=== PATIENT | female | born 1940 | race Caucasian/White ===

== ENCOUNTER → 2017-10-23 | Outpatient (CLI) | payer MEDICARE ==
[2017-10-23 13:10] LABS: Anion Gap 9 mmol/L; Blood Urea Nitrogen 19 mg/dL (7-17); Carbon Dioxide 29 mmol/L (22-30); Chloride 98 mmol/L (98-107); HCT 48.6 % (34.0-46.0); HGB 15.7 gm/dL (11.4-16.0); MCH 29.2 pg (25.0-35.0); MCHC 32.4 g/dL (31.0-37.0); MCV 90.1 fL (80.0-100.0); Mean Platelet Volume 7.2; Platelet Count 282 k/uL (150-450); RBC 5.39 m/uL (3.80-5.40); RDW 14.3 % (11.5-15.5); Sodium 136 mmol/L (137-145); WBC 12.1 k/uL (3.8-10.6)
== END | disposition home or self-care (01) ==
LOC: LABPAT 12:11
PROVIDERS: ATTEND Internal Medicine Interventional Cardiology
DX: Z01.812 Encounter for preprocedural laboratory examination (principal); I65.22 Occlusion and stenosis of left carotid artery; I42.1 Obstructive hypertrophic cardiomyopathy
CPT/HCPCS: 36415; 80051; 82565; 84520; 85027

== ENCOUNTER 2017-11-01 10:30 | Day surgery (SDC) | payer MEDICARE ==
[2017-10-25 15:38] VITALS: BMI 21.2
[2017-11-01 09:48] VITALS: RESP 18
[~2017-11-01 10:30] MED LIST: ALPRAZolam 0.25 MG TAB PO PRN; ALPRAZolam 0.5 MG TAB PO PRN; ASPIRIN 325 MG TAB PO ONE; ATORVASTATIN 80 MG TAB PO ONE; LIDOCAINE 1% INJ 10MG/ML (20 ML MDV) ONE; MIDAZOLAM 2 MG/2 ML VIAL ONE; NITROGLYCERIN SL TABS 0.4 MG TAB SUBLINGUAL PRN; SODIUM CHLORIDE 0.9% 1,000 ML in EMPTY BAG 1 BAG IV ONE; VERAPAMIL 2.5 MG/ML 2 ML AMP ONE; diphenhydrAMINE 50 MG/ML 1 ML VIAL ONE; fentaNYL (PF) 50 MCG/ML 2 ML AMP ONE
[2017-11-01] MEDS ORDERED: fentaNYL (PF) 50 MCG/ML 2 ML AMP IV ONE (10:50)
[2017-11-01] MEDS ORDERED: diphenhydrAMINE 50 MG/ML 1 ML VIAL IVP ONE (10:51)
[2017-11-01] MEDS ORDERED: HEPARIN SODIUM 1,000 UN/ML (10ML VL) ONE (10:52)
[2017-11-01] MEDS ORDERED: LIDOCAINE 1% INJ 10MG/ML (20 ML MDV) SQ ONE (10:54)
[2017-11-01] MEDS ORDERED: MIDAZOLAM 2 MG/2 ML VIAL IV ONE (10:56)
[2017-11-01] MEDS: VERAPAMIL SYRINGE (5 MG/10 ML) INTRAARTER ONE ×2 (11:00→11:05)
[2017-11-01] MEDS ORDERED: HEPARIN SODIUM 1,000 UN/ML (10ML VL) IV ONE (11:07)
[2017-11-01] MEDS ORDERED: IOPAMIDOL-370 125ML BTL INJ ONE (11:12)
[2017-11-01] MEDS ORDERED: RX INFO: IV CONTRAST WAS GIVEN 1 EACH MISC MISCELLANE PRN (11:29)
[2017-11-01] MEDS ORDERED: SODIUM CHLORIDE 0.9% 1,000 ML IV SCH (11:30)
[2017-11-01] MEDS ORDERED: GABAPENTIN 300 MG CAP PO PRN (11:30)
--- NOTE | 2017-11-01 11:55 | CC ---
CARDIAC CATHETERIZATION REPORT Mrs. Rivera a 77-year-old female with known history of hypertension, hyperlipidemia, diabetes mellitus, who has been complaining of dyspnea on exertion. Underwent a myocardial perfusion imaging that showed a partial reversible anteroapical wall defect. In view of that, recommendation was made regarding cardiac catheterization. The procedures, risks and complication were discussed with the patient who is in full understanding and agreement. PROCEDURE: Patient was brought to laborer laboratory in a fasting semi-sedated state after receiving fentanyl and Benadryl and achieving moderate conscious sedated state. Using Xylocaine anesthesia in the Seldinger technique, a 6-Maldivian sheath was introduced in the right radial artery. Selective right and left coronary angiography was performed using 5- Maldivian 3.5 bend right and left Murali catheter. Multiple views of the coronary artery including hemiaxial views were obtained. Following that 5-Maldivian tight pigtail catheter was introduced in the left ventricle and a 30-degree JOE view of the left ventricle was obtained. Following that, catheter and sheaths were removed. Hemostasis was obtained with deployment of a TR band. There was no immediate complication. Patient was returned to her room in stable condition. Of note, the patient received 4000 units of intravenous heparin as well as intra-arterial verapamil. FINDINGS: FLUOROSCOPY: There was calcification involving the ascending aorta. LEFT MAIN: This is a large-sized vessel bifurcating left circumflex, left anterior descending artery. Left main coronary artery is without any significant obstructive coronary artery disease. LEFT ANTERIOR DESCENDING ARTERY: This is a large-sized vessel reaching toward the apex, tapers down in the distal third, gives rise to a very proximal large diagonal branch. The left anterior descending artery and diagonal branch are tortuous but they have no evidence of high-grade stenosis. LEFT CIRCUMFLEX: This is a nondominant vessel giving rise to 2 obtuse marginal branch; the first one is large in caliber. The left circumflex in the mid segment has a 20% plaque. The rest of the vessel has no high-grade stenosis. RIGHT CORONARY ARTERY: This is a dominant vessel large in caliber bifurcating distally PDA and posterolateral segment and branches. The right coronary artery as well as branches have no evidence of obstructive coronary artery disease. LEFT VENTRICULOGRAM: Left ventriculogram was performed in 30-degree JOE view and revealed normal left ventricular size and systolic function. There was arrhythmia induced mitral regurgitation. HEMODYNAMICS: There was no gradient across the aortic valve. The left ventricular end- diastolic pressure was 10 to 14 mmHg. CONCLUSION: 1. Mild intimal disease involving the left circumflex. 2. Normal left ventricular size and systolic function. 3. Calcification of the ascending aorta. RECOMMENDATION: In view of finding anatomy, I recommend to continue medical therapy with aggressive coronary risk modifications that have been initiated. Those findings and recommendation were discussed with the patient and her family who are in full understanding and agreement. DURATION OF PROCEDURE: 25 minutes. MMLYRICL / CLN: [id number] /
[2017-11-01 13:02] VITALS: TEMP 98
[2017-11-01 13:21] LABS: Glucose,Whole Blood 121 mg/dL (75-99)
[2017-11-01] MEDS ORDERED: SODIUM CHLORIDE 0.9% 250 ML IV ONE (14:30)
[2017-11-01 16:20] VITALS: BP 120/64; PULSE 64
[2017-11-01] MEDS ORDERED: NON-FORMULARY DRUG (Simvastatin 10 MG) PO SCH (21:00)
[2017-11-02] MEDS ORDERED: METOPROLOL SUCCINATE (ER) 25 MG TAB.ER.24H PO SCH (09:00)
[2017-11-02] MEDS ORDERED: amLODIPine 5 MG TAB PO SCH (09:00)
[2017-11-02] MEDS ORDERED: NON-FORMULARY DRUG (Celecoxib 200 MG) PO SCH (09:00)
[2017-11-02] MEDS ORDERED: HYDROCHLOROTHIAZIDE 25 MG TAB PO SCH (09:00)
[2017-11-02] MEDS ORDERED: LOSARTAN 50 MG TAB PO SCH (09:00)
[2017-11-02] MEDS ORDERED: ASPIRIN 81 MG PO SCH (09:00)
[2017-11-02] MEDS ORDERED: NON-FORMULARY DRUG (Cetirizine Hcl [Zyrtec] 10 MG) PO SCH (09:00)
[2017-11-02] MEDS ORDERED: [UNRECOGNIZED DRUG - OTHER] PO SCH (09:00)
== END 2017-11-01 13:15 | disposition home or self-care (01) ==
LOC: CATHCVL 10:30
PROVIDERS: ATTEND Internal Medicine Interventional Cardiology
DX: I34.0 Nonrheumatic mitral (valve) insufficiency (principal); I25.10 Atherosclerotic heart disease of native coronary artery without angina pectoris; I10 Essential (primary) hypertension; Z72.0 Tobacco use; E78.2 Mixed hyperlipidemia; I65.22 Occlusion and stenosis of left carotid artery; I42.1 Obstructive hypertrophic cardiomyopathy; E13.51 Other specified diabetes mellitus with diabetic peripheral angiopathy without gangrene; Z79.84 Long term (current) use of oral hypoglycemic drugs; Z79.82 Long term (current) use of aspirin; Z79.899 Other long term (current) drug therapy
CPT/HCPCS: 93458; C1894; C1769; J2250; J1200; J2001; J3010; J1644; Q9967

== ENCOUNTER 2020-05-07 13:14 | Inpatient (IN) | payer MEDICARE ==
[2020-05-07] MEDS ORDERED: methylPREDNISolone SOD SUCCI 125 MG/2 ML VIAL IV STA (13:18)
--- NOTE | 2020-05-07 13:23 | ED ---
General Adult HPI - General Stated complaint: SOB Time Seen by Provider: 05/07/20 13:14 Source: patient, RN notes reviewed, old records reviewed - History of Present Illness Initial comments: This is a 80-year-old female who presents emergency Department past medical history significant for COPD and hypertension. Patient states she smoked heavily until 21 years ago at which point time she quit. Patient comes in today because of difficulty breathing. Patient states it started yesterday and has gotten progressively worse. Patient states exertion is made considerably worse per patient denies any chest pain patient denies any palpitations. Patient denies any fever chills. Patient denies any significant cough. Patient denies abdominal pain patient denies nausea vomiting diarrhea. Patient denies headache patient denies numbness weakness. Patient states she's noted over the last day some swelling to her feet which she normally does not have. Patient denies any calf tenderness. - Related Data Home Medications Medication Instructions Recorded Confirmed Aspirin 81 mg PO DAILY 10/25/17 11/01/17 Celecoxib [CeleBREX] 200 mg PO DAILY 10/25/17 11/01/17 Cetirizine HCl [Zyrtec] 10 mg PO DAILY 10/25/17 11/01/17 Gabapentin [Neurontin] 600 mg PO TID PRN 10/25/17 11/01/17 Losartan [Cozaar] 50 mg PO DAILY 10/25/17 11/01/17 Metoprolol Succinate (ER) [Toprol 25 mg PO DAILY 10/25/17 11/01/17 Xl] Simvastatin [Zocor] 10 mg PO HS 10/25/17 11/01/17 amLODIPine [Norvasc] 5 mg PO DAILY 10/25/17 11/01/17 hydroCHLOROthiazide [Hydrodiuril] 25 mg PO DAILY 10/25/17 11/01/17 metFORMIN HCL [Glucophage] 500 mg PO DAILY 10/25/17 11/01/17 Fluticasone/Vilanterol [Breo 1 inhalation PO Q24HR 10/26/17 10/26/17 Ellipta 100-25 Mcg Inhaler] Allergies Allergy/AdvReac Type Severity Reaction Status Date / Time No Known Allergies Allergy Verified 11/01/17 09:40 Review of Systems ROS Statement: Those systems with pertinent positive or pertinent negative responses have been documented in the HPI. ROS Other: All systems not noted in ROS Statement are negative. General Exam - General Exam Comments Initial Comments: GENERAL: Patient is well-developed and well-nourished. Patient is nontoxic and well-h ydrated and is in mild distress. ENT: Neck is soft and supple. No significant lymphadenopathy is noted. Oropharynx is clear. Moist mucous membranes. Neck has full range of motion without eliciting any pain. EYES: The sclera were anicteric and conjunctiva were pink and moist. Extraocular move ments were intact and pupils were equal round and reactive to light. Eyelids were unremarkable. PULMONARY: Diminished breath sounds throughout CARDIOVASCULAR: There is a regular rate and rhythm without any murmurs gallops or rubs. ABDOMEN: Soft and nontender with normal bowel sounds. SKIN: Skin is clear with no lesions or rashes and otherwise unremarkable. NEUROLOGIC: Patient is alert and oriented x3. Cranial nerves II through XII are grossly intact. Motor and sensory are also intact. Normal speech, volume and content. Symmetrical smile. MUSCULOSKELETAL: Normal extremities with adequate strength and full range of motion. 1+ edema bilateral feet LYMPHATICS: No significant lymphadenopathy is noted PSYCHIATRIC: Normal psychiatric evaluation. Course Vital Signs 05/07/20 05/07/20 05/07/20 13:20 14:05 15:20 Temperature 97.1 F L Pulse Rate 86 74 Respiratory 22 26 H 18 Rate Blood Pressure 101/52 93/64 O2 Sat by Pulse 85 L 98 97 Oximetry Medical Decision Making - Medical Decision Making EKG shows sinus rhythm with occasional PAC at a rate of 88 bpm GA interval 120 QRS 76 QT interval 352 QTC is 425. Patient's EKG shows no ST segment elevation or depression. CT of the chest shows no pulmonary was no overt failure. Patient's troponin was elevated over the patient's having no chest pain. I will consult cardiology repeat troponin. I spoke with Dr. rodriguez he agreed to admit the patient admitted the patient wrote admitting orders - Lab Data Result diagrams: 05/07/20 14:00 05/07/20 13:55 Lab Results 05/07/20 05/07/20 05/07/20 Range/Units 13:49 13:55 14:00 WBC 8.9 (3.8-10.6) k/uL RBC 5.78 H (3.80-5.40) m/uL Hgb 15.4 (11.4-16.0) gm/dL Hct 51.0 H (34.0-46.0) % MCV 88.2 (80.0-100.0) fL MCH 26.7 (25.0-35.0) pg MCHC 30.2 L (31.0-37.0) g/dL RDW 16.1 H (11.5-15.5) % Plt Count 203 (150-450) k/uL MPV 9.3 Neutrophils % (Manual) 86 % Lymphocytes % (Manual) 6 % Monocytes % (Manual) 8 % Neutrophils # (Manual) 7.65 (1.3-7.7) k/uL Lymphocytes # (Manual) 0.53 L (1.0-4.8) k/uL Monocytes # (Manual) 0.71 (0-1.0) k/uL Nucleated RBCs 0 (0-0) /100 WBC Hypochromasia Marked Poikilocytosis Moderate Anisocytosis Slight Target Cells Present PT (9.0-12.0) sec INR (<1.2) APTT (22.0-30.0) sec D-Dimer (<0.60) mg/L FEU Sodium 138 (137-145) mmol/L Potassium 4.8 (3.5-5.1) mmol/L Chloride 101 (98-107) mmol/L Carbon Dioxide 30 (22-30) mmol/L Anion Gap 7 mmol/L BUN 67 H (7-17) mg/dL Creatinine 1.58 H (0.52-1.04) mg/dL Est GFR (CKD-EPI)AfAm 36 (>60 ml/min/1.73 sqM) Est GFR (CKD-EPI)NonAf 31 (>60 ml/min/1.73 sqM) Glucose 127 H (74-99) mg/dL Plasma Lactic Acid Frankie (0.7-2.0) mmol/L Calcium 8.9 (8.4-10.2) mg/dL Total Bilirubin 0.9 (0.2-1.3) mg/dL AST 32 (14-36) U/L ALT 29 (4-34) U/L Alkaline Phosphatase 96 (38-126) U/L Troponin I (0.000-0.034) ng/mL Total Protein 6.3 (6.3-8.2) g/dL Albumin 3.6 (3.5-5.0) g/dL Coronavirus (PCR) Not Detected (Not Detectd) 05/07/20 05/07/20 05/07/20 Range/Units 14:00 14:00 14:00 WBC (3.8-10.6) k/uL RBC (3.80-5.40) m/uL Hgb (11.4-16.0) gm/dL Hct (34.0-46.0) % MCV (80.0-100.0) fL MCH (25.0-35.0) pg MCHC (31.0-37.0) g/dL RDW (11.5-15.5) % Plt Count (150-450) k/uL MPV Neutrophils % (Manual) % Lymphocytes % (Manual) % Monocytes % (Manual) % Neutrophils # (Manual) (1.3-7.7) k/uL Lymphocytes # (Manual) (1.0-4.8) k/uL Monocytes # (Manual) (0-1.0) k/uL Nucleated RBCs (0-0) /100 WBC Hypochromasia Poikilocytosis Anisocytosis Target Cells PT 12.3 H (9.0-12.0) sec INR 1.2 H (<1.2) APTT 23.7 (22.0-30.0) sec D-Dimer 6.15 H (<0.60) mg/L FEU Sodium (137-145) mmol/L Potassium (3.5-5.1) mmol/L Chloride (98-107) mmol/L Carbon Dioxide (22-30) mmol/L Anion Gap mmol/L BUN (7-17) mg/dL Creatinine (0.52-1.04) mg/dL Est GFR (CKD-EPI)AfAm (>60 ml/min/1.73 sqM) Est GFR (CKD-EPI)NonAf (>60 ml/min/1.73 sqM) Glucose (74-99) mg/dL Plasma Lactic Acid Frankie 2.7 H* (0.7-2.0) mmol/L Calcium (8.4-10.2) mg/dL Total Bilirubin (0.2-1.3) mg/dL AST (14-36) U/L ALT (4-34) U/L Alkaline Phosphatase (38-126) U/L Troponin I 0.159 H* (0.000-0.034) ng/mL Total Protein (6.3-8.2) g/dL Albumin (3.5-5.0) g/dL Coronavirus (PCR) (Not Detectd) Disposition Clinical Impression: COPD exacerbation, Non-STEMI (non-ST elevated myocardial infarction) Disposition: ADMITTED IP TO THIS HOSP Referrals: Michael Carrillo MD [Primary Care Provider] - 1-2 days Time of Disposition: 16:19
--- NOTE | 2020-05-07 14:07 | XR ---
EXAMINATION TYPE: XR chest 2V DATE OF EXAM: 05/07/2020 COMPARISON: None INDICATION: Difficulty breathing, short of breath, COPD TECHNIQUE: Frontal and lateral views of the chest are obtained. FINDINGS: The heart size is minimally prominent.. The pulmonary vasculature is normal. Small bilateral pleural effusions are present. There is hyperinflation flattening the diaphragms com patible COPD. IMPRESSION: 1. COPD. 2. Small bilateral pleural effusions
[2020-05-07 14:37] LABS: Anisocytosis Slight; HGB 15.4 gm/dL (11.4-16.0); Hypochromasia Marked; MCH 26.7 pg (25.0-35.0); MCHC 30.2 g/dL (31.0-37.0); MCV 88.2 fL (80.0-100.0); Mean Platelet Volume 9.3; Platelet Count 203 k/uL (150-450); Poikilocytosis Moderate; RBC 5.78 m/uL (3.80-5.40); RDW 16.1 % (11.5-15.5); WBC 8.9 k/uL (3.8-10.6)
[2020-05-07 14:44] LABS: Albumin 3.6 g/dL (3.5-5.0); Calcium 8.9 mg/dL (8.4-10.2); Potassium 4.8 mmol/L (3.5-5.1); Total Bilirubin 0.9 mg/dL (0.2-1.3); Total Protein 6.3 g/dL (6.3-8.2)
[2020-05-07 14:53] LABS: INR 1.2 (<1.2); Partial Thromboplastin Time 23.7 sec (22.0-30.0); Prothrombin Time 12.3 sec (9.0-12.0)
[2020-05-07 14:56] LABS: Lymphocytes # (M) 0.53 k/uL (1.0-4.8); Monocytes # (M) 0.71 k/uL (0-1.0); Neutrophils # (M) 7.65 k/uL (1.3-7.7); Neutrophils % (M) 86 %; Nucleated Red Blood Cells 0 /100 WBC (0-0); Target Cells Present; Total Cells Counted 100
--- NOTE | 2020-05-07 16:03 | CT ---
EXAMINATION TYPE: CT chest angio for PE DATE OF EXAM: 05/07/2020 COMPARISON: None HISTORY: difficulty breathing, elevated dimer CT DLP: 160 mGycm CONTRAST: CT chest with contrast and 3D reconstruction with MIP imaging is performed with IV Contrast, patient injected with 100 mL of Isovue 370. Contrast-enhanced CT of the chest was performed through the course of the pulmonary arteries with blas g and mediastinal window settings submitted. 3D reconstruction with MIP imaging was also performed. PULMONARY ARTERIES: The pulmonary arteries and their major tributaries are patent. I do not see yasir dence for sizable filling defect to suggest pulmonary embolic process. LUNGS: Small bilateral pleural effusions are present. There is hyperinflation compatible with COPD. S cattered areas of linear atelectasis identified. No focal consolidation or mass. MEDIASTINUM: Thoracic aorta is of normal caliber,however, evaluation is limited given timing of the contrast bolus. If there is concern for thoracic aortic pathology consider JENNIFER. Correlate clinicall y . The heart is mildly enlarged. No evidence for mediastinal mass. No mediastinal lymph nodes grea ter than 1cm. HILAR STRUCTURES: No evidence for mass. No hilar lymph nodes greater than 1 cm. UPPER ABDOMEN: No significant abnormality is seen. IMPRESSION: 1. No evidence for Pulmonary embolism at this time. 2. Bilateral pleural effusions with areas of scattered atelectasis. No evidence for overt failure at this time.
[2020-05-07] MEDS ORDERED: ASPIRIN 81 MG PO STA (16:24)
[2020-05-07] MEDS ORDERED: HEPARIN SODIUM,PORCINE 5,000 UNIT/ML 1 ML VIAL IV ONE (16:24)
[2020-05-07] MEDS: HEPARIN SOD,PORK IN 0.45% NACL 25,000 UNIT in 0.45% NACL 1 250ML.BAG IV SCH (17:14)
[2020-05-07] MEDS: methylPREDNISolone SOD SUCCI 125 MG/2 ML VIAL IV SCH ×2 (18:36→23:46)
[2020-05-07] MEDS: IPRATROPIUM-ALBUTEROL 3 ML NEB INHALATION SCH (19:15)
--- NOTE | 2020-05-07 19:27 | P.HPIM ---
History of Present Illness This is a pleasant 80 years old female with past medical history of diabetes mellitus, hypertension, hyperlipidemia, COPD, ex-smoker. Presents with shortness of breath has been going on for about 6 months with recent worsening over the last few days associated with cough and green phlegm but no chest pain. Yesterday she felt more weak and lost her coordination and recently noticed that her feet starts getting swollen over the last 10 days especially around the ankles. Patient also noticed to have hoarseness of voice, patient states it improving over the last few days She does not use oxygen at home, she does not follow up with hand molder She quit smoking about 21 years with no alcohol or illicit drug Her PCP is Dr. Carrillo Also she is weak and emaciated. No abdominal pain or nausea vomiting. No diarrhea. No dysuria. She denies fever. On admission she was hypoxic with 85% on room air, oxygen saturation improved to 97-98 on 6 L oxygen via nasal cannula, she is tachypneic around 20-28% per minute, however she can talk without interruption Labs show an unremarkable CBC, INR 1.2, d-dimer is elevated at 6.1. Creatinine is elevated at 1.58 , electrolytes normal, carbon dioxide 30. Elevated d-dimer 2.7 came back to normal at 1.5. Liver enzymes not elevated. Troponin also were elevated at 0.159, proBNP [place] 21001. Coronavirus not detected Chest CTA is negative for PE, emphysema without overt findings of failure Chest x-ray COPD, small bilateral pleural effusions. EKG showing normal sinus rhythm at [address]-T changes and QTC 425. Patient in the emergency room started on aspirin 325 mg compared to home dose of 81 mg and salmeterol 60 mg every 6 hours. Review of Systems CONSTITUTIONAL: No fever, no malaise, no fatigue. HEENT: No recent visual problems or hearing problems. Denied any sore throat. CARDIOVASCULAR: No orthopnea, PND, no palpitations, no syncope. PULMONARY: No chest wall tenderness, no hemoptysis. GASTROINTESTINAL: No diarrhea, no nausea, no vomiting, no abdominal pain. Normoactive bowel sounds. NEUROLOGICAL: No headaches, no weakness, no numbness. HEMATOLOGICAL: Denies any bleeding or petechiae. GENITOURINARY: Denies any burning micturition, frequency, or urgency. MUSCULOSKELETAL/RHEUMATOLOGICAL: Denies any joint pain, swelling, or any muscle pain. ENDOCRINE: Denies any polyuria or polydipsia. Past Medical History Past Medical History: COPD, Diabetes Mellitus, Hyperlipidemia, Hypertension History of Any Multi-Drug Resistant Organisms: None Reported Past Surgical History: Hysterectomy, Orthopedic Surgery Past Anesthesia/Blood Transfusion Reactions: No Reported Reaction Past Psychological History: No Psychological Hx Reported Smoking Status: Former smoker Past Alcohol Use History: None Reported Past Drug Use History: None Reported Medications and Allergies Home Medications Medication Instructions Recorded Confirmed Type Aspirin 81 mg PO DAILY 10/25/17 05/07/20 History Losartan [Cozaar] 50 mg PO DAILY 10/25/17 05/07/20 History Metoprolol Succinate (ER) [Toprol 25 mg PO DAILY 10/25/17 05/07/20 History Xl] amLODIPine [Norvasc] 5 mg PO DAILY 10/25/17 05/07/20 History hydroCHLOROthiazide [Hydrodiuril] 25 mg PO DAILY 10/25/17 05/07/20 History Albuterol Inhaler [Ventolin Hfa 2 puff INHALATION RT-Q6H PRN 05/07/20 05/07/20 History Inhaler] Atorvastatin [Lipitor] 20 mg PO DAILY 05/07/20 05/07/20 History Celecoxib [CeleBREX] 200 mg PO DAILY 05/07/20 05/07/20 History Fluticasone/Umeclidin/Vilanter 1 puff INHALATION RT-DAILY 05/07/20 05/07/20 History [Trelegy Ellipta 100-62.5-25] Gabapentin [Neurontin] 600 mg PO HS 05/07/20 05/07/20 History metFORMIN HCL [Glucophage Xr] 500 mg PO DAILY 05/07/20 05/07/20 History Allergies Allergy/AdvReac Type Severity Reaction Status Date / Time No Known Allergies Allergy Verified 11/01/17 09:40 Physical Exam Vitals: Vital Signs Temp Pulse Pulse Resp BP BP Pulse Ox 05/07/20 17:59 97.6 F 91 28 H 117/69 97 05/07/20 15:20 74 18 93/64 97 05/07/20 14:05 26 H 98 05/07/20 13:20 97.1 F L 86 22 101/52 85 L Intake and Output 05/07/20 05/07/20 05/07/20 06:59 14:59 22:59 Output Total 200 Balance -200 Output: Urine 200 Other: Weight 44.452 kg 44.452 kg GENERAL: The patient is alert and oriented x3, not in any acute distress. Well developed, well nourished. HEENT: Pupils are round and equally reacting to light. EOMI. No scleral icterus. No conjunctival pallor. Normocephalic, atraumatic. No pharyngeal erythema. No thyromegaly. CARDIOVASCULAR: S1 and S2 present. No murmurs, rubs, or gallops. -PULMONARY: Chest is clear to auscultation, there is decreased air entry, with mild inspiratory and expiratory wheezing. Patient also has hoarseness of voice ABDOMEN: Soft, nontender, nondistended, normoactive bowel sounds. No palpable organomegaly. MUSCULOSKELETAL: No joint swelling or deformity. EXTREMITIES: No cyanosis, clubbing, or pedal edema. NEUROLOGICAL: Gross neurological examination did not reveal any focal deficits. SKIN: No rashes. No petechiae Results CBC & Chem 7: 05/07/20 14:00 05/07/20 13:55 Labs: Abnormal Lab Results - Last 24 Hours (Table) 05/07/20 05/07/20 05/07/20 Range/Units 13:55 14:00 14:00 RBC 5.78 H (3.80-5.40) m/uL Hct 51.0 H (34.0-46.0) % MCHC 30.2 L (31.0-37.0) g/dL RDW 16.1 H (11.5-15.5) % Lymphocytes # (Manual) 0.53 L (1.0-4.8) k/uL PT 12.3 H (9.0-12.0) sec INR 1.2 H (<1.2) D-Dimer 6.15 H (<0.60) mg/L FEU BUN 67 H (7-17) mg/dL Creatinine 1.58 H (0.52-1.04) mg/dL Glucose 127 H (74-99) mg/dL Plasma Lactic Acid Frankie (0.7-2.0) mmol/L Troponin I (0.000-0.034) ng/mL 05/07/20 05/07/20 Range/Units 14:00 14:00 RBC (3.80-5.40) m/uL Hct (34.0-46.0) % MCHC (31.0-37.0) g/dL RDW (11.5-15.5) % Lymphocytes # (Manual) (1.0-4.8) k/uL PT (9.0-12.0) sec INR (<1.2) D-Dimer (<0.60) mg/L FEU BUN (7-17) mg/dL Creatinine (0.52-1.04) mg/dL Glucose (74-99) mg/dL Plasma Lactic Acid Frankie 2.7 H* (0.7-2.0) mmol/L Troponin I 0.159 H* (0.000-0.034) ng/mL Thrombosis Risk Factor Assmnt - Choose All That Apply Each Risk Factor Represents 3 Points: Age 75 years or older Thrombosis Risk Factor Assessment Total Risk Factor Score: 3 Thrombosis Risk Factor Assessment Level: Moderate Risk Assessment and Plan Assessment: Acute COPD exacerbation Acute hypoxic respiratory failure secondary to above Hoarseness of voice Acute kidney injury Elevated troponin, rule out STEMI however it could be from kidney disease and demand/supply mismatch Hypertension Hyperlipidemia Diabetes mellitus Plan: This is a pleasant 80 years old female presents with COPD. With elevated troponin and high creatinine. Continue with Solu-Medrol, continue with bronchodilators and oxygen as needed. Add doxycycline and check sputum culture. Trend troponin, continue with heparin and aspirin. Cardiology consult Labs and medication were reviewed.. Continue same treatment. Continue with symptomatic treatment. Resume home medication. Monitor lytes and vitals. DVT and GI prophylaxis. Further recommendations depends on the clinical course of the patient DVT prophylaxis: heparin GI Prophylaxis: Pepcid PT/OT: Pending Prognosis is guarded
[2020-05-07 20:20] LABS: Glucose,Whole Blood 165 mg/dL (75-99)
[2020-05-07] MEDS: INSULIN ASPART (NovoLOG) 100 UNIT/ML VIAL SQ SCH (21:26)
[2020-05-07] MEDS: GABAPENTIN 300 MG CAP PO SCH (21:26)
[2020-05-07] MEDS: DOXYCYCLINE 100 MG in SODIUM CHLORIDE 0.9% 100 ML IVPB SCH (21:51)
[2020-05-08] MEDS: methylPREDNISolone SOD SUCCI 125 MG/2 ML VIAL IV SCH ×4 (06:07→23:43)
[2020-05-08 06:15] LABS: Glucose,Whole Blood 144 mg/dL (75-99)
[2020-05-08] MEDS: INSULIN ASPART (NovoLOG) 100 UNIT/ML VIAL SQ SCH ×4 (06:20→21:27)
[2020-05-08] MEDS: IPRATROPIUM-ALBUTEROL 3 ML NEB INHALATION SCH ×4 (07:37→19:48)
[2020-05-08] MEDS: DOXYCYCLINE 100 MG in SODIUM CHLORIDE 0.9% 100 ML IVPB SCH ×2 (08:15→21:28)
[2020-05-08] MEDS: ATORVASTATIN 20 MG TAB PO SCH (08:15)
[2020-05-08 08:23] LABS: Calcium 8.4 mg/dL (8.4-10.2); Potassium 4.8 mmol/L (3.5-5.1)
[2020-05-08 08:55] LABS: Anisocytosis Slight; Basophils % (A) 0 %; Eosinophils % (A) 0 %; HCT 44.5 % (34.0-46.0); HGB 13.6 gm/dL (11.4-16.0); Hypochromasia Marked; Lymphocytes # (A) 0.3 k/uL (1.0-4.8); Lymphocytes % (A) 4 %; MCHC 30.5 g/dL (31.0-37.0); MCV 88.3 fL (80.0-100.0); Mean Platelet Volume 9.5; Monocytes # (A) 0.2 k/uL (0-1.0); Monocytes % (A) 3 %; Neutrophils # (A) 6.7 k/uL (1.3-7.7); Neutrophils % (A) 92 %; Platelet Count 185 k/uL (150-450); Poikilocytosis Moderate; RBC 5.04 m/uL (3.80-5.40); RDW 16.3 % (11.5-15.5); WBC 7.3 k/uL (3.8-10.6)
[2020-05-08] MEDS ORDERED: ASPIRIN 325 MG TAB PO SCH (09:00)
[2020-05-08 09:32] LABS: Polychromasia Present; Target Cells Present
[2020-05-08] MEDS: ASPIRIN 81 MG PO SCH (10:01)
--- NOTE | 2020-05-08 10:21 | US ---
EXAMINATION TYPE: US venous doppler duplex LE DATE OF EXAM: 05/08/2020 10:04 AM COMPARISON: NONE CLINICAL HISTORY: elev d dimer. SIDE PERFORMED: Bilateral TECHNIQUE: The lower extremity deep venous system is examined utilizing real time linear array sonog dilshad with graded compression, doppler sonography and color-flow sonography. VESSELS IMAGED: Common Femoral Vein Deep Femoral Vein Greater Saphenous Vein * Femoral Vein Popliteal Vein Small Saphenous Vein * Proximal Calf Veins (* superficial vessels) Right Leg: Negative for DVT Left Leg: Negative for DVT Fluid collection left pop fossa measures 4.5 x 1.6 x 1.9 cm. Grayscale, color doppler, spectral doppler imaging performed of the deep veins of the bilateral lower extremities. There is normal flow, compressibility, vascular waveforms. IMPRESSION: No ultrasound evidence for acute DVT in either lower extremity. Moderate-sized popliteal cyst left side noted towards end of study
--- NOTE | 2020-05-08 11:05 | P.PN ---
Subjective This is a pleasant 80 years old female with past medical history of diabetes mellitus, hypertension, hyperlipidemia, COPD, ex-smoker. Presents with shortness of breath has been going on for about 6 months with recent worsening over the last few days associated with cough and green phlegm but no chest pain. Yesterday she felt more weak and lost her coordination and recently noticed that her feet starts getting swollen over the last 10 days especially around the ankles. 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 Carrillo Also she is weak and emaciated. No abdominal pain or nausea vomiting. No diarrhea. No dysuria. She denies fever. On admission she was hypoxic with 85% on room air, oxygen saturation improved to 97-98 on 6 L oxygen via nasal cannula, she is tachypneic around 20-28% per minute, however she can talk without interruption Labs show an unremarkable CBC, INR 1.2, d-dimer is elevated at 6.1. Creatinine is elevated at 1.58 , electrolytes normal, carbon dioxide 30. Elevated d-dimer 2.7 came back to normal at 1.5. Liver enzymes not elevated. Troponin also were elevated at 0.159, [place] [id number]. Coronavirus not detected Chest CTA is negative for PE, emphysema without overt findings of failure Chest x-ray COPD, small bilateral pleural effusions. EKG showing normal sinus rhythm at [address]-T changes and QTC 425. Patient in the emergency room started on aspirin 325 mg compared to home dose of 81 mg and salmeterol 60 mg every 6 hours. 05/08/2020 Patient this morning she become more short of breath and she was saturating 81% on 6 L oxygen via nasal cancer, patient has to be placed on BiPAP with a setting of 10/5 at 50% FiO2. Patient still has decreased air entry on both sides on examination CBC is stable. Electrolytes are normal. Creatinine trending down to 1.5 down to 1.4. Troponin is stable at 0.14, most likely due to troponin leak. D-dimer is elevated but negative CTA. Ultrasound of the lower extremity is negative for DVT Patient is currently also on Medrol 60 mg, doxycycline. Patient was started on heparin drip in the emergency room and aspirin 325 mg daily. Review of Systems CONSTITUTIONAL: No fever, no malaise, no fatigue. HEENT: No recent visual problems or hearing problems. Denied any sore throat. CARDIOVASCULAR: No orthopnea, PND, no palpitations, no syncope. PULMONARY: No chest wall tenderness, no hemoptysis. GASTROINTESTINAL: No diarrhea, no nausea, no vomiting, no abdominal pain. Normoactive bowel sounds. NEUROLOGICAL: No headaches, no weakness, no numbness. Active Medications Generic Name Dose Route Start Last Admin Trade Name Freq PRN Reason Stop Dose Admin Albuterol/Ipratropium 3 ml 05/07/20 20:00 05/08/20 07:37 Ipratropium-Albuterol 3 Ml Neb INHALATION 3 ml RT-QID TONG Administration Aspirin 81 mg 05/08/20 09:00 05/08/20 10:01 Aspirin 81 Mg PO Not Given DAILY TONG Atorvastatin Calcium 20 mg 05/08/20 09:00 05/08/20 08:15 Atorvastatin 20 Mg Tab PO 20 mg DAILY TONG Administration Gabapentin 300 mg 05/07/20 21:00 05/07/20 21:26 Gabapentin 300 Mg Cap PO 300 mg HS TONG Administration Heparin Sodium/Sodium Chloride 250 mls @ 5.334 mls/hr 05/07/20 16:30 05/08/20 00:52 25,000 unit/ Sodium Chloride IV 12 units/kg/hr .Q24H TONG 5.334 mls/hr Titration Protocol 12 UNITS/KG/HR Doxycycline Hyclate 100 mg/ 100 mls @ 100 mls/hr 05/07/20 20:00 05/08/20 08:15 Sodium Chloride IVPB 100 mls/hr Q12HR TONG Administration Insulin Aspart 0 unit 05/07/20 21:00 05/08/20 06:20 Insulin Aspart (Novolog) 100 Unit/Ml Vial SQ 2 unit ACHS TONG Administration Protocol Methylprednisolone Sodium Succinate 60 mg 05/07/20 18:00 05/08/20 06:07 Methylprednisolone Sod Succi 125 Mg/2 Ml Vial IV 60 mg Q6HR TONG Administration Objective - Vital Signs Vital signs: Vital Signs Temp 97.9 F 05/08/20 08:00 Pulse 115 H 05/08/20 08:00 Resp 21 05/08/20 08:22 BP 105/61 05/08/20 08:00 Pulse Ox 91 L 05/08/20 08:22 Intake & Output 05/07/20 05/08/20 05/08/20 18:59 06:59 18:59 Intake Total 160.716 0 Output Total 200 Balance -200 160.716 0 Weight 44.452 kg 42.5 kg Intake: IV 20 Invasive Line 1 10 Invasive Line 2 10 Intake, IV Titration 140.716 Amount Doxycycline 100 mg In 100 Sodium Chloride 0.9% 100 ml @ 100 mls/hr IVPB Q12HR TONG Rx#:[id number] Heparin Sod,Pork in 0.45% 40.716 NaCl 25,000 unit In 0.45 % NaCl 1 250ml.bag @ 12 UNITS/KG/HR 5.334 mls/hr IV .Q24H TONG Rx#: [id number] Oral 0 Output: Urine 200 Other: Voiding Method Bedpan Bedpan # Voids 1 # Bowel Movements 1 - Labs CBC & Chem 7: 05/08/20 07:13 05/08/20 07:13 Labs: Abnormal Lab Results - Last 24 Hours (Table) 05/07/20 05/07/20 05/07/20 Range/Units 13:55 14:00 14:00 RBC 5.78 H (3.80-5.40) m/uL Hct 51.0 H (34.0-46.0) % MCHC 30.2 L (31.0-37.0) g/dL RDW 16.1 H (11.5-15.5) % Lymphocytes # (1.0-4.8) k/uL Lymphocytes # (Manual) 0.53 L (1.0-4.8) k/uL PT 12.3 H (9.0-12.0) sec INR 1.2 H (<1.2) APTT (22.0-30.0) sec D-Dimer 6.15 H (<0.60) mg/L FEU Carbon Dioxide (22-30) mmol/L BUN 67 H (7-17) mg/dL Creatinine 1.58 H (0.52-1.04) mg/dL Glucose 127 H (74-99) mg/dL POC Glucose (mg/dL) (75-99) mg/dL Plasma Lactic Acid Frankie (0.7-2.0) mmol/L Troponin I (0.000-0.034) ng/mL 05/07/20 05/07/20 05/07/20 Range/Units 14:00 14:00 19:34 RBC (3.80-5.40) m/uL Hct (34.0-46.0) % MCHC (31.0-37.0) g/dL RDW (11.5-15.5) % Lymphocytes # (1.0-4.8) k/uL Lymphocytes # (Manual) (1.0-4.8) k/uL PT (9.0-12.0) sec INR (<1.2) APTT (22.0-30.0) sec D-Dimer (<0.60) mg/L FEU Carbon Dioxide (22-30) mmol/L BUN (7-17) mg/dL Creatinine (0.52-1.04) mg/dL Glucose (74-99) mg/dL POC Glucose (mg/dL) (75-99) mg/dL Plasma Lactic Acid Frankie 2.7 H* (0.7-2.0) mmol/L Troponin I 0.159 H* 0.157 H* (0.000-0.034) ng/mL 05/07/20 05/07/20 05/08/20 Range/Units 20:16 22:28 01:13 RBC (3.80-5.40) m/uL Hct (34.0-46.0) % MCHC (31.0-37.0) g/dL RDW (11.5-15.5) % Lymphocytes # (1.0-4.8) k/uL Lymphocytes # (Manual) (1.0-4.8) k/uL PT (9.0-12.0) sec INR (<1.2) APTT 51.2 H (22.0-30.0) sec D-Dimer (<0.60) mg/L FEU Carbon Dioxide (22-30) mmol/L BUN (7-17) mg/dL Creatinine (0.52-1.04) mg/dL Glucose (74-99) mg/dL POC Glucose (mg/dL) 165 H (75-99) mg/dL Plasma Lactic Acid Frankie (0.7-2.0) mmol/L Troponin I 0.146 H* (0.000-0.034) ng/mL 05/08/20 05/08/20 05/08/20 Range/Units 06:07 07:13 07:13 RBC (3.80-5.40) m/uL Hct (34.0-46.0) % MCHC 30.5 L (31.0-37.0) g/dL RDW 16.3 H (11.5-15.5) % Lymphocytes # 0.3 L (1.0-4.8) k/uL Lymphocytes # (Manual) (1.0-4.8) k/uL PT (9.0-12.0) sec INR (<1.2) APTT (22.0-30.0) sec D-Dimer (<0.60) mg/L FEU Carbon Dioxide 34 H (22-30) mmol/L BUN 84 H (7-17) mg/dL Creatinine 1.40 H (0.52-1.04) mg/dL Glucose 131 H (74-99) mg/dL POC Glucose (mg/dL) 144 H (75-99) mg/dL Plasma Lactic Acid Frankie (0.7-2.0) mmol/L Troponin I (0.000-0.034) ng/mL 05/08/20 Range/Units 07:13 RBC (3.80-5.40) m/uL Hct (34.0-46.0) % MCHC (31.0-37.0) g/dL RDW (11.5-15.5) % Lymphocytes # (1.0-4.8) k/uL Lymphocytes # (Manual) (1.0-4.8) k/uL PT (9.0-12.0) sec INR (<1.2) APTT 48.2 H (22.0-30.0) sec D-Dimer (<0.60) mg/L FEU Carbon Dioxide (22-30) mmol/L BUN (7-17) mg/dL Creatinine (0.52-1.04) mg/dL Glucose (74-99) mg/dL POC Glucose (mg/dL) (75-99) mg/dL Plasma Lactic Acid Frankie (0.7-2.0) mmol/L Troponin I (0.000-0.034) ng/mL Assessment and Plan Assessment: Acute COPD exacerbation Acute hypoxic respiratory failure secondary to above Hoarseness of voice Acute kidney injury Elevated troponin, rule out STEMI however it could be from kidney disease and demand/supply mismatch Hypertension Hyperlipidemia Diabetes mellitus Plan: This is a pleasant 80 years old female presents with COPD. With elevated troponin and high creatinine. Continue with Solu-Medrol, continue with bronchodilators and oxygen as needed. Add doxycycline and check sputum culture. Trend troponin, continue with heparin and aspirin. Cardiology consult Labs and medication were reviewed.. Continue same treatment. Continue with symptomatic treatment. Resume home medication. Monitor lytes and vitals. DVT and GI prophylaxis. Further recommendations depends on the clinical course of the patient DVT prophylaxis: heparin GI Prophylaxis: Pepcid PT/OT: Pending Prognosis is guarded
[2020-05-08 11:28] LABS: Glucose,Whole Blood 140 mg/dL (75-99)
[2020-05-08] MEDS ORDERED: METOPROLOL TARTRATE 50 MG TAB PO SCH (11:30)
[2020-05-08] MEDS: SODIUM CHLORIDE 0.9% 500 ML 500 ML IV ONE ×2 (12:00→17:44)
[2020-05-08] MEDS ORDERED: IPRATROPIUM-ALBUTEROL 3 ML NEB INHALATION PRN (12:19)
--- NOTE | 2020-05-08 12:19 | P.CNPUL ---
History of Present Illness Consult date: 05/08/20 Requesting physician: Clarence E Sheet Reason for consult: dyspnea, cough, COPD, hypoxemia, abnormal CXR/CT Chief complaint: Shortness of breath. History of present illness: This is a 80-year-old female, looks older than her stated age, who presents to the emergency department, with increasing shortness of breath. The patient was a heavy smoker up until 21 years ago. At that time she quit. She apparently does have an established history of COPD, although we've never seen her in the office. The patient has a history of hypertension, hyperlipidemia, and diabetes among other things. The patient presents to the emergency department on 05/07/2020, at 1:00 in the afternoon, with worsening shortness of breath. It apparently started a day or 2 prior to admission and had become progressively worse. In addition, she has tightness, wheezing, and cough. She denies any chest pain or pressure. She denies any fever or chills. She is really not coughing up any phlegm. Currently, she is on BiPAP with settings of IPAP 10, EPAP 5, and 60%. We checked her saturations, they were in the mid to high 90s, and we asked respiratory to turn her FiO2 down to 50%. When they did that, her saturations dropped to the mid 80s, which is probably her baseline in reality. She denies ever seeing a lung doctor. In addition, the patient was on heparin via weightbase protocol, for elevated troponins. She was admitted to the hospital with a diagnosis of COPD exacerbation, and non-ST segment elevation myocardial infarction. Her primary care provider is Dr. Michael Carrillo. Review of Systems REVIEW OF SYSTEMS: CONSTITUTIONAL: [Negative.] NEUROLOGIC: [ Negative.] HEENT: [ Negative.] CARDIAC: She denies any chest pain or pressure. PULMONARY: 2-3 days of progressive shortness of breath, chest tightness, wheezing, chest congestion, and cough, which is mostly nonproductive. GI: [Negative.] : [Negative.] RHEUMATOLOGIC: [ Negative.] IMMUNOLOGIC: [ Negative.] ENDOCRINE: [Negative. ] DERMATOLOGIC: [Negative.] Past Medical History Past Medical History: COPD, Diabetes Mellitus, Hyperlipidemia, Hypertension History of Any Multi-Drug Resistant Organisms: None Reported Past Surgical History: Hysterectomy, Orthopedic Surgery Past Anesthesia/Blood Transfusion Reactions: No Reported Reaction Past Psychological History: No Psychological Hx Reported Smoking Status: Former smoker Past Alcohol Use History: None Reported Past Drug Use History: None Reported Medications and Allergies Home Medications Medication Instructions Recorded Confirmed Type Aspirin 81 mg PO DAILY 10/25/17 05/07/20 History Losartan [Cozaar] 50 mg PO DAILY 10/25/17 05/07/20 History Metoprolol Succinate (ER) [Toprol 25 mg PO DAILY 10/25/17 05/07/20 History Xl] amLODIPine [Norvasc] 5 mg PO DAILY 10/25/17 05/07/20 History hydroCHLOROthiazide [Hydrodiuril] 25 mg PO DAILY 10/25/17 05/07/20 History Albuterol Inhaler [Ventolin Hfa 2 puff INHALATION RT-Q6H PRN 05/07/20 05/07/20 History Inhaler] Atorvastatin [Lipitor] 20 mg PO DAILY 05/07/20 05/07/20 History Celecoxib [CeleBREX] 200 mg PO DAILY 05/07/20 05/07/20 History Fluticasone/Umeclidin/Vilanter 1 puff INHALATION RT-DAILY 05/07/20 05/07/20 History [Trelegy Ellipta 100-62.5-25] Gabapentin [Neurontin] 600 mg PO HS 05/07/20 05/07/20 History metFORMIN HCL [Glucophage Xr] 500 mg PO DAILY 05/07/20 05/07/20 History Allergies Allergy/AdvReac Type Severity Reaction Status Date / Time No Known Allergies Allergy Verified 11/01/17 09:40 Physical Exam Osteopathic Statement: *. No significant issues noted on an osteopathic structural exam other than those noted in the History and Physical/Consult. Vitals: Vital Signs Temp Pulse Pulse Resp BP BP Pulse Ox 05/08/20 11:56 86/46 05/08/20 11:35 157 H 26 H 77/50 92 L 05/08/20 11:19 92 05/08/20 11:06 88 05/08/20 08:22 21 91 L 05/08/20 08:00 97.9 F 115 H 21 105/61 84 L 05/08/20 07:45 88 05/08/20 07:38 84 05/08/20 04:00 98.2 F 83 18 103/53 91 L 05/08/20 02:00 20 05/08/20 00:00 97.6 F 77 20 97/55 94 L 05/07/20 20:00 22 05/07/20 19:44 97.6 F 70 22 95/54 93 L 05/07/20 19:24 88 18 05/07/20 19:16 80 18 90 L 05/07/20 17:59 97.6 F 91 28 H 117/69 97 05/07/20 15:20 74 18 93/64 97 05/07/20 14:05 26 H 98 05/07/20 13:20 97.1 F L 86 22 101/52 85 L Intake and Output 05/07/20 05/08/20 05/08/20 22:59 06:59 14:59 Intake Total 10 150.716 0 Output Total 200 Balance -190 150.716 0 Intake: IV 10 10 Invasive Line 1 10 Invasive Line 2 10 Intake, IV Titration 140.716 Amount Doxycycline 100 mg In 100 Sodium Chloride 0.9% 100 ml @ 100 mls/hr IVPB Q12HR TONG Rx#:[id number] Heparin Sod,Pork in 0.45% 40.716 NaCl 25,000 unit In 0.45 % NaCl 1 250ml.bag @ 12 UNITS/KG/HR 5.334 mls/hr IV .Q24H TONG Rx#: [id number] Oral 0 Output: Urine 200 Other: Voiding Method Bedpan Bedpan Bedpan # Voids 1 # Bowel Movements 1 Weight 44.452 kg 42.5 kg 42.5 kg Oriented 3, very short of breath, obvious conversational dyspnea, and some use of accessory muscles. No audible wheezing. Currently, the patient's on BiPAP. HEENT examination is grossly unremarkable. Mucous membranes are moist. No oral lesions. BiPAP mask in place. Neck supple. Full range of motion. No adenopathy thyromegaly or neck vein distention. Cardiovascular examination reveals regular rhythm and rate. Heart rate 150 bpm. S1-S2 normal. No S3 or S4. No discernible murmur noted. Heart sounds are distant. Lungs reveal severely diminished breath sounds. A few scattered rhonchi and wheezes are noted. No crackles. Abdomen soft bowel sounds are heard. No masses or tenderness. Extremities are intact. No cyanosis clubbing or edema. Skin is without rash or lesion. Neurologic examination is brief but nonfocal. Results - Laboratory Findings CBC and BMP: 05/08/20 07:13 05/08/20 07:13 PT/INR, D-dimer PT 12.3 sec (9.0-12.0) H 05/07/20 14:00 INR 1.2 (<1.2) H 05/07/20 14:00 D-Dimer 6.15 mg/L FEU (<0.60) H 05/07/20 14:00 Abnormal lab findings: Abnormal Labs 05/07/20 05/07/20 05/07/20 13:55 14:00 14:00 RBC 5.78 H Hct 51.0 H MCHC 30.2 L RDW 16.1 H Lymphocytes # Lymphocytes # (Manual) 0.53 L PT 12.3 H INR 1.2 H APTT D-Dimer 6.15 H Carbon Dioxide BUN 67 H Creatinine 1.58 H Glucose 127 H POC Glucose (mg/dL) Plasma Lactic Acid Frankie Troponin I Procalcitonin 05/07/20 05/07/20 05/07/20 14:00 14:00 19:34 RBC Hct MCHC RDW Lymphocytes # Lymphocytes # (Manual) PT INR APTT D-Dimer Carbon Dioxide BUN Creatinine Glucose POC Glucose (mg/dL) Plasma Lactic Acid Frankie 2.7 H* Troponin I 0.159 H* 0.157 H* Procalcitonin 05/07/20 05/07/20 05/08/20 20:16 22:28 01:13 RBC Hct MCHC RDW Lymphocytes # Lymphocytes # (Manual) PT INR APTT 51.2 H D-Dimer Carbon Dioxide BUN Creatinine Glucose POC Glucose (mg/dL) 165 H Plasma Lactic Acid Frankie Troponin I 0.146 H* Procalcitonin 05/08/20 05/08/20 05/08/20 06:07 07:13 07:13 RBC Hct MCHC 30.5 L RDW 16.3 H Lymphocytes # 0.3 L Lymphocytes # (Manual) PT INR APTT D-Dimer Carbon Dioxide BUN Creatinine Glucose POC Glucose (mg/dL) 144 H Plasma Lactic Acid Frankie Troponin I Procalcitonin 0.13 H 05/08/20 05/08/20 05/08/20 07:13 07:13 11:27 RBC Hct MCHC RDW Lymphocytes # Lymphocytes # (Manual) PT INR APTT 48.2 H D-Dimer Carbon Dioxide 34 H BUN 84 H Creatinine 1.40 H Glucose 131 H POC Glucose (mg/dL) 140 H Plasma Lactic Acid Frankie Troponin I Procalcitonin - Diagnostic Findings Chest x-ray: image reviewed CT scan - chest: image reviewed U/S of Legs: image reviewed Assessment and Plan Assessment: Acute hypoxemic respiratory failure, secondary to COPD exacerbation. Rule out non-ST segment elevation myocardial infarction. History of previous heavy tobacco use. History of hypertension. History of hyperlipidemia. History of diabetes mellitus. No evidence of pulmonary embolism on CT angiogram or DVT, on lower extremity Dopplers. Plan: Plan dated 05/08/2020. The patient is currently being seen by cardiology as well. From the pulmonary standpoint, the patient should be on albuterol sulfate, ipratropium bromide, formoterol, and Pulmicort. In addition, the patient should also be on systemic corticosteroids. Because of her severe tachycardia, I will not give her formoterol. In addition, we'll give her a short course of oral antibiotics. Prognosis is guarded given the fact that she has what appears to be a non-ST segment elevation myocardial infarction, and severe tachycardia. She likely has severe COPD, but we've never seen in the office, and as far as I know, she has never had pulmonary function testing. Additional recommendations and suggestion s forthcoming. Prognosis is very poor. We will continue to follow along and make recommendations were appropriate. Time with Patient: Greater than 30
--- NOTE | 2020-05-08 13:00 | ECHOF ---
Referral Reason:Rule out heart disease MEASUREMENTS -------- HEIGHT: 149.9 cm WEIGHT: 42.2 kg BP: 103/53 RVIDd: 5.0 cm (< 3.3) IVSd: 0.8 cm (0.6 - 1.1) LVIDd: 2.5 cm (3.9 - 5.3) LVPWd: 1.0 cm (0.6 - 1.1) IVSs: 1.1 cm LVIDs: 1.2 cm LVPWs: 1.2 cm LAESV Index (A-L): 17.14 ml/m Ao Diam: 2.6 cm (2.0 - 3.7) AV Cusp: 1.5 cm (1.5 - 2.6) MV EXCURSION: 15.792 mm (> 18.000) MV EF SLOPE: 37 mm/s (70 - 150) EPSS: 0.2 cm MV E Daljit: 0.70 m/s MV DecT: 191 ms MV A Daljit: 0.79 m/s MV E/A Ratio: 0.88 RAP: 5.00 mmHg RVSP: 60.17 mmHg FINDINGS -------- Sinus rhythm. This was a technically adequate study. Pt has severe COPD. Sitting up. The left ventricular size is normal. Left ventricular wall thickness is normal. Overall left vent ricular systolic function is normal with, an EF between 55 - 60 %. The right ventricle is severely enlarged. Normal LA size by volume 22+/-6 ml/m2. The right atrium is moderately enlarged. Interatrial and interventricular septum intact. There is mild aortic valve sclerosis. There is no evidence of aortic regurgitation. There is no e vidence of aortic stenosis. The mitral valve leaflets are mildly thickened. Mild mitral regurgitation is present. Moderate to severe tricuspid regurgitation present. There is severe pulmonary hypertension. The r ight ventricular systolic pressure, as measured by Doppler, is 60.17mmHg. There is no pulmonic regurgitation present. The aortic root size is normal. IVC Not well visulized. There is no pericardial effusion. CONCLUSIONS -------- 1. Left ventricular wall thickness is normal. 2. Overall left ventricular systolic function is normal with, an EF between 55 - 60 %. 3. The right ventricle is severely enlarged. 4. Normal LA size by volume 22+/-6 ml/m2. 5. The right atrium is moderately enlarged. 6. There is mild aortic valve sclerosis. 7. Mild mitral regurgitation is present. 8. Moderate to severe tricuspid regurgitation present. 9. There is severe pulmonary hypertension. 10. There is no pericardial effusion. TOOL RENTAL TECHNICIAN: Susie Morris RDCS
--- NOTE | 2020-05-08 13:02 | P.CRDCN ---
History of Present Illness History of present illness: HISTORY OF PRESENTING ILLNESS This is a pleasant 80-year-old female past medical history significant for nonobstructive coronary artery disease, COPD, hypertension, diabetes mellit us and dyslipidemia. She is to follow in the office with Dr. López however has not been to the office since 2018. We have been asked to see in consultation for elevated troponin. She presented to the hospital with symptoms of shortness of breath. She denies having symptoms of chest pain, dizziness or palpitations. Initial workup included an elevated d-dimer of 6.15. CT of the chest is negati ve for pulmonary embolism with bilateral pleural effusions noted and no overt heart failure. Chest x-ray reveals COPD. She is currently on BiPAP. She feels as though her breathing has improved since being on BiPAP. Laboratory data reviewed, WBC 7.3, hemoglobin 13.6, platelets 185, d-dimer 6.15, sodium 140, potassium 4.8, creatinine 1.4, lactic acid on admission 2. 7 repeat 1.5, troponin 0.159, 0.157, 0.146, and T proBNP 12,900. EKG reveals sinus mechanism with frequent APCs that also appears could be multi-focal atrial tachycardia. Telemetry tracings indicate her heart rate jumped up to 147. EKG obtained reviewed. Current daily cardiac medications include aspirin 81 mg daily, amlodipine 5 mg daily, losartan 50 mg daily, Toprol 25 mg daily, hydrochlorothiazide 25 mg daily and atorvastatin 20 mg daily. Most recent echocardiogram obtained in 2018 revealed preserved LV systolic function with ejection fraction 50-55%, LVOT gradient with vasalva maneuver 36 mmHg. she underwent cardiac catheterization in 2018 revealed mild intimal disease of the circumflex artery. REVIEW OF SYSTEMS At the time of my exam: CONSTITUTIONAL: Denies fever or chills. CARDIOVASCULAR: Complains of shortness of breath. Denies chest pain, orthopnea, PND or palpitations. RESPIRATORY: Denies cough. GASTROINTESTINAL: Denies abdominal pain, diarrhea, constipation, nausea or vomiting. MUSCULOSKELETAL: Denies myalgias. NEUROLOGIC: Denies numbness, tingling, headacbe or weakness. ENDOCRINE: Denies fatigue, weight change, polydipsia or polyurina. GENITOURINARY: Denies burning, hematuria or urgency with micturation. HEMATOLOGIC: Denies history of anemia or bleeding. PHYSICAL EXAMINATION Blood pressure 105/61 heart rate 115 afebrile and maintaining oxygen saturation on BiPAP. CONSTITUTIONAL: Tachyneic with conversation on bipap. HEENT: Head is normocephalic. Pupils are equal, round. Sclerae anicteric. Mucous membranes of the mouth are moist. No JVD. No carotid bruit. CHEST EXAMINATION: Significantly diminished. Expiratory wheezes. No chest wall tenderness is noted on palpation or with deep breathing. HEART EXAMINATION: Irregular rate and rhythm. S1, S2 heard. Systolic ejection murmur at the base, no gallops or rub. ABDOMEN: Soft, nontender. Positive bowel sounds. EXTREMITIES: 2+ peripheral pulses, no lower extremity edema and no calf tenderness. NEUROLOGIC EXAMINATION: Patient is awake, alert and oriented x3. ASSESSMENT Hypoxia Lactic acidosis Troponin elevation secondary to type II myocardial infarction with oxygen supply and demand mismatch Multi-focal atrial tachycardia vs possible paroxysmal atrial fibrillation Acute exacerbation of COPD Hypertension Dyslipidemia Diabetes mellitus PLAN Decrease aspirin to 81 mg daily. Obtain 2-D echocardiogram and Doppler study to assess cardiac structure and function. Give small amount of IV fluid bolus secondary to hypotension. If she can tolerate would recommend beta blockers for rate control or possible cardizem infusion. Continue heparin infusion currently for thromboembolic protection until we can slow her down and discern if PAT or MAT. Thank you kindly for this consultation. Nurse Practitioner note has been reviewed, I agree with a documented findings and plan of care. Patient was seen and examined. Past Medical History Past Medical History: COPD, Diabetes Mellitus, Hyperlipidemia, Hypertension History of Any Multi-Drug Resistant Organisms: None Reported Past Surgical History: Hysterectomy, Orthopedic Surgery Past Anesthesia/Blood Transfusion Reactions: No Reported Reaction Past Psychological History: No Psychological Hx Reported Smoking Status: Former smoker Past Alcohol Use History: None Reported Past Drug Use History: None Reported Medications and Allergies Home Medications Medication Instructions Recorded Confirmed Type Aspirin 81 mg PO DAILY 10/25/17 05/07/20 History Losartan [Cozaar] 50 mg PO DAILY 10/25/17 05/07/20 History Metoprolol Succinate (ER) [Toprol 25 mg PO DAILY 10/25/17 05/07/20 History Xl] amLODIPine [Norvasc] 5 mg PO DAILY 10/25/17 05/07/20 History hydroCHLOROthiazide [Hydrodiuril] 25 mg PO DAILY 10/25/17 05/07/20 History Albuterol Inhaler [Ventolin Hfa 2 puff INHALATION RT-Q6H PRN 05/07/20 05/07/20 History Inhaler] Atorvastatin [Lipitor] 20 mg PO DAILY 05/07/20 05/07/20 History Celecoxib [CeleBREX] 200 mg PO DAILY 05/07/20 05/07/20 History Fluticasone/Umeclidin/Vilanter 1 puff INHALATION RT-DAILY 05/07/20 05/07/20 History [Trelegy Ellipta 100-62.5-25] Gabapentin [Neurontin] 600 mg PO HS 05/07/20 05/07/20 History metFORMIN HCL [Glucophage Xr] 500 mg PO DAILY 05/07/20 05/07/20 History Allergies Allergy/AdvReac Type Severity Reaction Status Date / Time No Known Allergies Allergy Verified 11/01/17 09:40 Physical Exam Vitals: Vital Signs Temp Pulse Pulse Resp BP BP Pulse Ox 05/08/20 08:22 21 91 L 05/08/20 08:00 97.9 F 115 H 21 105/61 84 L 05/08/20 07:45 88 05/08/20 07:38 84 05/08/20 04:00 98.2 F 83 18 103/53 91 L 05/08/20 02:00 20 05/08/20 00:00 97.6 F 77 20 97/55 94 L 05/07/20 20:00 22 05/07/20 19:44 97.6 F 70 22 95/54 93 L 05/07/20 19:24 88 18 05/07/20 19:16 80 18 90 L 05/07/20 17:59 97.6 F 91 28 H 117/69 97 05/07/20 15:20 74 18 93/64 97 05/07/20 14:05 26 H 98 05/07/20 13:20 97.1 F L 86 22 101/52 85 L Intake and Output 05/07/20 05/08/20 05/08/20 22:59 06:59 14:59 Intake Total 10 150.716 0 Output Total 200 Balance -190 150.716 0 Intake: IV 10 10 Invasive Line 1 10 Invasive Line 2 10 Intake, IV Titration 140.716 Amount Doxycycline 100 mg In 100 Sodium Chloride 0.9% 100 ml @ 100 mls/hr IVPB Q12HR [facility] Rx#:[id number] Heparin Sod,Pork in 0.45% 40.716 NaCl 25,000 unit In 0.45 % NaCl 1 250ml.bag @ 12 UNITS/KG/HR 5.334 mls/hr IV .Q24H [facility] Rx#: [id number] Oral 0 Output: Urine 200 Other: Voiding Method Bedpan Bedpan Weight 44.452 kg 42.5 kg Results 05/08/20 07:13 05/08/20 07:13 Cardiac Enzymes 05/07/20 05/07/20 05/07/20 Range/Units 13:55 14:00 19:34 AST 32 (14-36) U/L Troponin I 0.159 H* 0.157 H* (0.000-0.034) ng/mL 05/08/20 Range/Units 01:13 AST (14-36) U/L Troponin I 0.146 H* (0.000-0.034) ng/mL Coagulation 05/07/20 05/07/20 05/08/20 Range/Units 14:00 22:28 07:13 PT 12.3 H (9.0-12.0) sec APTT 23.7 51.2 H 48.2 H (22.0-30.0) sec CBC 05/07/20 05/08/20 Range/Units 14:00 07:13 WBC 8.9 7.3 (3.8-10.6) k/uL RBC 5.78 H 5.04 (3.80-5.40) m/uL Hgb 15.4 13.6 (11.4-16.0) gm/dL Hct 51.0 H 44.5 (34.0-46.0) % Plt Count 203 185 (150-450) k/uL Comprehensive Metabolic Panel 05/07/20 05/08/20 Range/Units 13:55 07:13 Sodium 138 140 (137-145) mmol/L Potassium 4.8 4.8 (3.5-5.1) mmol/L Chloride 101 99 (98-107) mmol/L Carbon Dioxide 30 34 H (22-30) mmol/L BUN 67 H 84 H (7-17) mg/dL Creatinine 1.58 H 1.40 H (0.52-1.04) mg/dL Glucose 127 H 131 H (74-99) mg/dL Calcium 8.9 8.4 (8.4-10.2) mg/dL AST 32 (14-36) U/L ALT 29 (4-34) U/L Alkaline Phosphatase 96 (38-126) U/L Total Protein 6.3 (6.3-8.2) g/dL Albumin 3.6 (3.5-5.0) g/dL Current Medications Generic Name Dose Route Start Last Admin Trade Name Freq PRN Reason Stop Dose Admin Albuterol/Ipratropium 3 ml 05/07/20 20:00 05/08/20 07:37 Ipratropium-Albuterol 3 Ml Neb INHALATION 3 ml RT-QID [facility] Administration Aspirin 81 mg 05/08/20 09:00 Aspirin 81 Mg PO DAILY [facility] Atorvastatin Calcium 20 mg 05/08/20 09:00 05/08/20 08:15 Atorvastatin 20 Mg Tab PO 20 mg DAILY [facility] Administration Gabapentin 300 mg 05/07/20 21:00 05/07/20 21:26 Gabapentin 300 Mg Cap PO 300 mg HS TONG Administration Heparin Sodium/Sodium Chloride 250 mls @ 5.334 mls/hr 05/07/20 16:30 05/08/20 00:52 25,000 unit/ Sodium Chloride IV 12 units/kg/hr .Q24H [facility] 5.334 mls/hr Titration Protocol 12 UNITS/KG/HR Doxycycline Hyclate 100 mg/ 100 mls @ 100 mls/hr 05/07/20 20:00 05/08/20 08:15 Sodium Chloride IVPB 100 mls/hr Q12HR [facility] Administration Insulin Aspart 0 unit 05/07/20 21:00 05/08/20 06:20 Insulin Aspart (Novolog) 100 Unit/Ml Vial SQ 2 unit ACHS [facility] Administration Protocol Methylprednisolone Sodium Succinate 60 mg 05/07/20 18:00 05/08/20 06:07 Methylprednisolone Sod Succi 125 Mg/2 Ml Vial IV 60 mg Q6HR [facility] Administration Intake and Output 05/07/20 05/08/20 05/08/20 22:59 06:59 14:59 Intake Total 10 150.716 0 Output Total 200 Balance -190 150.716 0 Intake: IV 10 10 Invasive Line 1 10 Invasive Line 2 10 Intake, IV Titration 140.716 Amount Doxycycline 100 mg In 100 Sodium Chloride 0.9% 100 ml @ 100 mls/hr IVPB Q12HR [facility] Rx#:[id number] Heparin Sod,Pork in 0.45% 40.716 NaCl 25,000 unit In 0.45 % NaCl 1 250ml.bag @ 12 UNITS/KG/HR 5.334 mls/hr IV .Q24H [facility] Rx#: [id number] Oral 0 Output: Urine 200 Other: Voiding Method Bedpan Bedpan Weight 44.452 kg 42.5 kg 05/08/20 07:13 05/08/20 07:13
[2020-05-08] MEDS: METOPROLOL TARTRATE 50 MG TAB PO SCH (14:42)
[2020-05-08 16:50] LABS: Glucose,Whole Blood 151 mg/dL (75-99)
[2020-05-08] MEDS ORDERED: SODIUM CHLORIDE 0.9% 500 ML 500 ML IV ONE (17:28)
[2020-05-08] MEDS ORDERED: METOPROLOL TARTRATE 50 MG TAB PO STA (17:29)
[2020-05-08] MEDS: SODIUM CHLORIDE 0.9% 1,000 ML IV SCH (17:40)
[2020-05-08] MEDS: BUDESONIDE 1 MG/2 ML NEBU INHALATION SCH (19:48)
[2020-05-08 20:37] LABS: Glucose,Whole Blood 138 mg/dL (75-99)
[2020-05-08] MEDS: GABAPENTIN 300 MG CAP PO SCH (21:29)
[2020-05-09] MEDS: METOPROLOL TARTRATE 50 MG TAB PO SCH ×3 (00:33→20:42)
[2020-05-09 06:22] LABS: Glucose,Whole Blood 138 mg/dL (75-99)
[2020-05-09] MEDS: INSULIN ASPART (NovoLOG) 100 UNIT/ML VIAL SQ SCH ×4 (06:23→20:42)
[2020-05-09] MEDS: methylPREDNISolone SOD SUCCI 125 MG/2 ML VIAL IV SCH ×3 (06:24→17:04)
[2020-05-09] MEDS: SODIUM CHLORIDE 0.9% 1,000 ML IV SCH (06:24)
[2020-05-09] MEDS: BUDESONIDE 1 MG/2 ML NEBU INHALATION SCH ×2 (07:38→19:39)
[2020-05-09] MEDS: IPRATROPIUM-ALBUTEROL 3 ML NEB INHALATION SCH ×4 (07:38→19:39)
[2020-05-09] MEDS: DOXYCYCLINE 100 MG in SODIUM CHLORIDE 0.9% 100 ML IVPB SCH ×2 (07:57→20:43)
[2020-05-09] MEDS: ASPIRIN 81 MG PO SCH (07:57)
[2020-05-09] MEDS: ATORVASTATIN 20 MG TAB PO SCH (07:57)
[2020-05-09] MEDS: HEPARIN SOD,PORK IN 0.45% NACL 25,000 UNIT in 0.45% NACL 1 250ML.BAG IV SCH (08:45)
[2020-05-09 08:49] LABS: Anisocytosis Slight; Basophils % (A) 0 %; Eosinophils % (A) 0 %; HCT 39.3 % (34.0-46.0); HGB 11.5 gm/dL (11.4-16.0); Hypochromasia Marked; Lymphocytes # (A) 0.4 k/uL (1.0-4.8); Lymphocytes % (A) 3 %; MCH 26.5 pg (25.0-35.0); MCHC 29.2 g/dL (31.0-37.0); Mean Platelet Volume 9.6; Monocytes # (A) 0.3 k/uL (0-1.0); Monocytes % (A) 3 %; Neutrophils # (A) 11.8 k/uL (1.3-7.7); Neutrophils % (A) 94 %; Platelet Count 181 k/uL (150-450); Poikilocytosis Slight; RBC 4.31 m/uL (3.80-5.40); RDW 16.4 % (11.5-15.5); WBC 12.6 k/uL (3.8-10.6)
[2020-05-09 09:12] LABS: Calcium 8.4 mg/dL (8.4-10.2); Potassium 4.8 mmol/L (3.5-5.1)
[2020-05-09] MEDS ORDERED: SODIUM CHLORIDE 0.9% 500 ML 500 ML IV ONE (10:58)
--- NOTE | 2020-05-09 11:02 | P.PN ---
Subjective HISTORY OF PRESENTING ILLNESS This is a pleasant 80-year-old female past medical history significant for nonobstructive coronary artery disease, COPD, hypertension, diabetes mellitus and dyslipidemia. She is to follow in the office with Dr. López however has not been to the office since 2018. We have been asked to see in consultation for elevated troponin. She presented to the hospital with symptoms of shortness of breath. She denies having symptoms of chest pain, dizziness or palpitations. Initial workup included an elevated d-dimer of 6.15. CT of the chest is negative for pulmonary embolism with bilateral pleural effusions noted and no overt heart failure. Chest x-ray reveals COPD. She is currently on BiPAP. She feels as though her breathing has improved since being on BiPAP. Laboratory data reviewed, WBC 7.3, hemoglobin 13.6, platelets 185, d-dimer 6.15, sodium 140, potassium 4.8, creatinine 1.4, lactic acid on admission 2. 7 repeat 1.5, troponin 0.159, 0.157, 0.146, and T proBNP 12,900. EKG reveals sinus mec hanism with frequent APCs that also appears could be multi-focal atrial tachycardia. Telemetry tracings indicate her heart rate jumped up to 147. EKG obtained reviewed. Current daily cardiac medications include aspirin 81 mg daily, amlodipine 5 mg daily, losartan 50 mg daily, Toprol 25 mg daily, hy drochlorothiazide 25 mg daily and atorvastatin 20 mg daily. Most recent echocardiogram obtained in 2018 revealed preserved LV systolic function with ejection fraction 50-55%, LVOT gradient with vasalva maneuver 36 mmHg. she underwent cardiac catheterization in 2018 revealed mild intimal disease of the circumflex artery. 05/09/2020 Patient seen and examined sitting up in bed with BiPAP support. Overall she feels as though her breathing has not changed since admission. She continues to feel short of breath. She denies chest pain. Blood pressure 99/54 heart rate 99 afebrile maintaining oxygen saturation on BiPAP. Laboratory data reviewed, WBC 12.6, hemoglobin 11.5, platelets 181, sodium 137, potassium 4.8, BUN 127, creatinine 1.17. Continued to be maintained on aspirin 81 mg daily atorvastatin 20 mg daily, metoprolol 50 mg twice a day and IV antibiotics. Echocardiogram obtained reveals preserved LV systolic function with ejection fraction 55-60%, moderate to severe tricuspid regurgitation, severe pulmonary hypertension with an RVSP of 60 mmHg and severely enlarged right ventricle. PHYSICAL EXAMINATION CONSTITUTIONAL: Tachyneic with conversation on bipap. HEENT: Head is normocephalic. Pupils are equal, round. Sclerae anicteric. Mucous membranes of the mouth are moist. No JVD. No carotid bruit. CHEST EXAMINATION: Significantly diminished. Expiratory wheezes. No chest wall tenderness is noted on palpation or with deep breathing. HEART EXAMINATION: Irregular rate and rhythm. S1, S2 heard. Systolic ejection murmur at the base, no gallops or rub. EXTREMITIES: 2+ peripheral pulses, no lower extremity edema and no calf tenderness. ASSESSMENT Hypoxia Lactic acidosis Troponin elevation secondary to type II myocardial infarction with oxygen supply and demand mismatch Multi-focal atrial tachycardia vs possible paroxysmal atrial fibrillation Acute exacerbation of COPD Hypertension Dyslipidemia Diabetes mellitus PLAN Give 500 mL bolus secondary to worsening renal function. Asked nephrology to evaluate the patient. Continue metoprolol 50 mg twice a day as the patient can tolerate. Hold for systolic blood pressure less than 90 or heart rate less than 55. Follow renal function and electrolytes in the morning. Further recommendations to follow based upon clinical course. Nurse Practitioner note has been reviewed, I agree with a documented findings and plan of care. Patient was seen and examined. Objective - Vital Signs Vital signs: Vital Signs Temp 97.8 F 05/09/20 08:43 Pulse 99 05/09/20 07:58 Resp 20 05/09/20 08:43 BP 99/54 05/09/20 07:56 Pulse Ox 94 L 05/09/20 08:43 Intake & Output 05/08/20 05/09/20 05/09/20 18:59 06:59 18:59 Intake Total 0 457.066 Output Total 200 200 Balance 0 -200 257.066 Weight 42.5 kg 61 kg Intake: Intake, IV Titration 170.066 Amount Heparin Sod,Pork in 0.45% 170.066 NaCl 25,000 unit In 0.45 % NaCl 1 250ml.bag @ 12 UNITS/KG/HR 5.334 mls/hr IV .Q24H [facility] Rx#: [id number] Oral 0 287 Output: Urine 200 200 Other: Voiding Method Bedpan Bedside Commode Bedside Commode # Voids 2 1 # Bowel Movements 1 - Labs CBC & Chem 7: 05/09/20 07:49 05/09/20 07:49 Labs: Abnormal Lab Results - Last 24 Hours (Table) 05/08/20 05/08/20 05/08/20 Range/Units 07:13 11:27 16:49 WBC (3.8-10.6) k/uL MCHC (31.0-37.0) g/dL RDW (11.5-15.5) % Neutrophils # (1.3-7.7) k/uL Lymphocytes # (1.0-4.8) k/uL BUN (7-17) mg/dL Creatinine (0.52-1.04) mg/dL Glucose (74-99) mg/dL POC Glucose (mg/dL) 140 H 151 H (75-99) mg/dL Procalcitonin 0.13 H (0.02-0.09) ng/mL 05/08/20 05/09/20 05/09/20 Range/Units 20:34 06:20 07:49 WBC 12.6 H (3.8-10.6) k/uL MCHC 29.2 L (31.0-37.0) g/dL RDW 16.4 H (11.5-15.5) % Neutrophils # 11.8 H (1.3-7.7) k/uL Lymphocytes # 0.4 L (1.0-4.8) k/uL BUN (7-17) mg/dL Creatinine (0.52-1.04) mg/dL Glucose (74-99) mg/dL POC Glucose (mg/dL) 138 H 138 H (75-99) mg/dL Procalcitonin (0.02-0.09) ng/mL 05/09/20 Range/Units 07:49 WBC (3.8-10.6) k/uL MCHC (31.0-37.0) g/dL RDW (11.5-15.5) % Neutrophils # (1.3-7.7) k/uL Lymphocytes # (1.0-4.8) k/uL BUN 127 H* (7-17) mg/dL Creatinine 1.17 H (0.52-1.04) mg/dL Glucose 118 H (74-99) mg/dL POC Glucose (mg/dL) (75-99) mg/dL Procalcitonin (0.02-0.09) ng/mL Microbiology - Last 24 Hours (Table) 05/07/20 13:53 Blood Culture - Preliminary Blood No Growth after 24 hours 05/07/20 14:00 Blood Culture - Preliminary Blood No Growth after 24 hours
[2020-05-09] MEDS ORDERED: FUROSEMIDE 10 MG/ML 2 ML VIAL IV ONE (11:28)
--- NOTE | 2020-05-09 11:30 | P.NPCON ---
History of Present Illness - Reason for Consult acute renal failure - History of Present Illness Reason for consultation: Acute kidney injury History of present illness: Patient is a 80-year-old female seen in consultation for acute kidney injury. Creatinine on admission was 1.58 and is down to 1.17 today. Patient presented to the hospital on 05/07/2020 due to shortness of breath. She underwent a CTA on admission which revealed small bilateral pleural effusions but no pulmonary embolism. She is currently being treated for COPD exacerbation and is on IV steroids. Patient has history of heavy tobacco abuse. She also received 1 L normal saline fluid bolus yesterday and is maintained on normal saline at 75 mL an hour. No evidence of GI bleed. No melena or hematochezia. No hematuria or dysuria. BUN is 127. She was on losartan, hydrochlorothiazide outpatient which are currently held. She was also on metformin which is currently held. I also see Celebrex and her home medications but unsure, which she was taking. She is currently on a BiPAP and not a reliable historian. Oral intake has been quite poor. Vital signs are stable. Blood pressure on the lower side. General: The patient appeared well nourished and normally developed. HEENT: Head exam is unremarkable. Neck is without jugular venous distension. LUNGS: Breath sounds decreased. HEART: Rate and Rhythm are regular. ABDOMEN: Soft, nontender. EXTREMITITES: 2+ edema. Past Medical History Past Medical History: COPD, Diabetes Mellitus, Hyperlipidemia, Hypertension History of Any Multi-Drug Resistant Organisms: None Reported Past Surgical History: Hysterectomy, Orthopedic Surgery Past Anesthesia/Blood Transfusion Reactions: No Reported Reaction Past Psychological History: No Psychological Hx Reported Smoking Status: Former smoker Past Alcohol Use History: None Reported Past Drug Use History: None Reported Medications and Allergies Home Medications Medication Instructions Recorded Confirmed Type Aspirin 81 mg PO DAILY 10/25/17 05/07/20 History Losartan [Cozaar] 50 mg PO DAILY 10/25/17 05/07/20 History Metoprolol Succinate (ER) [Toprol 25 mg PO DAILY 10/25/17 05/07/20 History Xl] amLODIPine [Norvasc] 5 mg PO DAILY 10/25/17 05/07/20 History hydroCHLOROthiazide [Hydrodiuril] 25 mg PO DAILY 10/25/17 05/07/20 History Albuterol Inhaler [Ventolin Hfa 2 puff INHALATION RT-Q6H PRN 05/07/20 05/07/20 History Inhaler] Atorvastatin [Lipitor] 20 mg PO DAILY 05/07/20 05/07/20 History Celecoxib [CeleBREX] 200 mg PO DAILY 05/07/20 05/07/20 History Fluticasone/Umeclidin/Vilanter 1 puff INHALATION RT-DAILY 05/07/20 05/07/20 Hist ory [Trelegy Ellipta 100-62.5-25] Gabapentin [Neurontin] 600 mg PO HS 05/07/20 05/07/20 History metFORMIN HCL [Glucophage Xr] 500 mg PO DAILY 05/07/20 05/07/20 History Allergies Allergy/AdvReac Type Severity Reaction Status Date / Time No Known Allergies Allergy Verified 11/01/17 09:40 Physical Exam Vitals: Vital Signs Temp Pulse Pulse Resp BP Pulse Ox 05/09/20 08:43 97.8 F 20 94 L 05/09/20 07:58 99 05/09/20 07:56 88 22 99/54 05/09/20 07:42 95 05/09/20 04:00 97.8 F 74 19 87/52 96 05/08/20 23:49 97.0 F L 68 19 76/51 96 05/08/20 22:05 132 H 84/50 05/08/20 21:40 130 H 84/51 05/08/20 21:15 75/50 05/08/20 21:05 76 68/44 05/08/20 21:00 72 80/36 05/08/20 20:01 108 H 05/08/20 19:48 104 H 05/08/20 19:33 98.2 F 132 H 22 80/55 97 05/08/20 18:27 78 95/50 05/08/20 16:53 98.6 F 120 H 21 76/46 93 L 05/08/20 15:45 92 05/08/20 15:35 93 05/08/20 14:56 86/49 05/08/20 14:00 120 H 21 05/08/20 12:00 83/47 05/08/20 11:56 86/46 05/08/20 11:35 157 H 26 H 77/50 92 L Intake and Output 05/08/20 05/09/2005/09/21 22:59 06:59 14:59 Intake Total 457.066 Output Total 200 200 Balance -200 257.066 Intake: Intake, IV Titration 170.066 Amount Heparin Sod,Pork in 0.45% 170.066 NaCl 25,000 unit In 0.45 % NaCl 1 250ml.bag @ 12 UNITS/KG/HR 5.334 mls/hr IV .Q24H [facility] Rx#: [id number] Oral 287 Output: Urine 200 200 Other: Voiding Method Bedside Commode Bedside Commode Bedside Commode Bedpan # Voids 2 1 Weight 61 kg Results - Lab Results Most recent lab results Calcium 8.4 mg/dL (8.4-10.2) 05/09/20 07:49 05/09/20 07:49 05/09/20 07:49 Assessment and Plan Plan: Assessment: 1. Acute kidney injury mostly prerenal secondary to hypotension. Component of cardiorenal syndrome. Creatinine 1.58 on admission and is 1.17 today. She also received IV contrast dye on May 07. 2. Acute on chronic diastolic CHF with moderate to severe tricuspid regurgitat ion and severe pulmonary hypertension. 3. Fluid overload. 4. COPD exacerbation. 5. Diabetes mellitus. 6. Disproportionally elevated BUN due to steroids. No evidence of GI bleed. Plan: Hep-Lock IV fluids. Add midodrine 10 mg 3 times daily. To be held for systolic blood pressure greater than 110. Lasix 20 mg IV once this afternoon. Check a.m. cortisol level. Check urinalysis. Check renal ultrasound. Continue to monitor renal function and urine output. Check chest x-ray in the morning. Thank you for the consultation. I will continue to follow patient with you during her hospital stay.
[2020-05-09 11:41] LABS: Glucose,Whole Blood 169 mg/dL (75-99)
[2020-05-09] MEDS: MIDODRINE 5 MG TAB PO SCH ×2 (11:45→17:04)
--- NOTE | 2020-05-09 12:09 | P.PN ---
Subjective This is a pleasant 80 years old female with past medical history of diabetes mellitus, hypertension, hyperlipidemia, COPD, ex-smoker. Presents with shortness of breath has been going on for about 6 months with recent worsening over the last few days associated with cough and green phlegm but no chest pain. Yesterday she felt more weak and lost her coordination and recently noticed that her feet starts getting swollen over the last 10 days especially around the ankles. Patient also noticed to have hoarseness of voice, patient states it improving over the last few days She does not use oxygen at home, she does not follow up with shutdown coordinator She quit smoking about 21 years with no alcohol or illicit drug Her PCP is Dr. Carrillo Also she is weak and emaciated. No abdominal pain or nausea vomiting. No diarrhea. No dysuria. She denies fever. On admission she was hypoxic with 85% on room air, oxygen saturation improved to 97-98 on 6 L oxygen via nasal cannula, she is tachypneic around 20-28% per minute, however she can talk without interruption Labs show an unremarkable CBC, INR 1.2, d-dimer is elevated at 6.1. Creatinine is elevated at 1.58 , electrolytes normal, carbon dioxide 30. Elevated d-dimer 2.7 came back to normal at 1.5. Liver enzymes not elevated. Troponin also were elevated [place] 0.159[place] [address]. Coronavirus not detected Chest CTA is negative for PE, emphysema without overt findings of failure Chest x-ray COPD, small bilateral pleural effusions. EKG showing normal sinus rhythm at [address]-T changes and QTC 425. Patient in the emergency room started on aspirin 325 mg compared to home dose of 81 mg and salmeterol 60 mg every 6 hours. 05/08/2020 Patient this morning she become more short of breath and she was saturating 81% on 6 L oxygen via nasal cancer, patient has to be placed on BiPAP with a setting of 10/5 at 50% FiO2. Patient still has decreased air entry on both sides on examination CBC is stable. Electrolytes are normal. Creatinine trending down to 1.5 down to 1.4. Troponin is stable at 0.14, most likely due to troponin leak. D-dimer is elevated but negative CTA. Ultrasound of the lower extremity is negative for DVT Patient is currently also on Medrol 60 mg, doxycycline. Patient was started on heparin drip in the emergency room and aspirin 325 mg daily. 05/09/2020 Patient remains BiPAP dependent most of the time with FiO2 of 60%, she is still short of breath. Little coughing. Her oxygen saturating on BiPAP with FiO2 50% was improved to 99% O during the day. Patient is afebrile. Last blood pressure was 90/46 and heart rate 81, she's getting normal saline at 75 mL/h and cartilage team are helping with managing her heart rate and blood pressure. As per their recommendation patient may have MAT versus A. fib and metoprolol was added, we will closely monitor her blood pressure and heart rate. CBC with mild leukocytosis while she is on steroids. Hemoglobin is trending down gradually but remains within the reference range, 15.4, 13.6, 11.5. He'll keep monitoring hemoglobin. BMP is unremarkable, creatinine improved down to 1.1 while BUN increased to 127. Nephrology input is recommended by electrical technician instructor and a they recommend medodrain, Lasix x1 and check renal ultrasound and urine analysis heparin drip was stopped by electrical technician instructor echocardiogram showing ejection fraction of 55-60 moderate to severe tricuspid regurgitation. Venous Doppler is negative for leg DVT. she is on Solu-Medrol 60 mg, doxycycline, normal saline at 75 mL/h Review of Systems CONSTITUTIONAL: No fever, no malaise, no fatigue. HEENT: No recent visual problems or hearing problems. Denied any sore throat. CARDIOVASCULAR: No orthopnea, PND, no palpitations, no syncope. PULMONARY: No chest wall tenderness, no hemoptysis. GASTROINTESTINAL: No diarrhea, no nausea, no vomiting, no abdominal pain. Normoactive bowel sounds. NEUROLOGICAL: No headaches, no weakness, no numbness. Active Medications Generic Name Dose Route Start Last Admin Trade Name Freq PRN Reason Stop Dose Admin Albuterol/Ipratropium 3 ml 05/07/20 20:00 05/08/20 07:37 Ipratropium-Albuterol 3 Ml Neb INHALATION 3 ml RT-QID TONG Administration Aspirin 81 mg 05/08/20 09:00 05/08/20 10:01 Aspirin 81 Mg PO Not Given DAILY TONG Atorvastatin Calcium 20 mg 05/08/20 09:00 05/08/20 08:15 Atorvastatin 20 Mg Tab PO 20 mg DAILY TONG Administration Gabapentin 300 mg 05/07/20 21:00 05/07/20 21:26 Gabapentin 300 Mg Cap PO 300 mg HS TONG Administration Heparin Sodium/Sodium Chloride 250 mls @ 5.334 mls/hr 05/07/20 16:30 05/08/20 00:52 25,000 unit/ Sodium Chloride IV 12 units/kg/hr .Q24H TONG 5.334 mls/hr Titration Protocol 12 UNITS/KG/HR Doxycycline Hyclate 100 mg/ 100 mls @ 100 mls/hr 05/07/20 20:00 05/08/20 08:15 Sodium Chloride IVPB 100 mls/hr Q12HR TONG Administration Insulin Aspart 0 unit 05/07/20 21:00 05/08/20 06:20 Insulin Aspart (Novolog) 100 Unit/Ml Vial SQ 2 unit ACHS TONG Administration Protocol Methylprednisolone Sodium Succinate 60 mg 05/07/20 18:00 05/08/20 06:07 Methylprednisolone Sod Succi 125 Mg/2 Ml Vial IV 60 mg Q6HR TONG Administration Objective - Vital Signs Vital signs: Vital Signs Temp 97.6 F 05/09/20 11:27 Pulse 72 05/09/20 11:34 Resp 24 05/09/20 11:27 BP 90/46 05/09/20 11:27 Pulse Ox 94 L 05/09/20 08:43 Intake & Output 05/08/20 05/09/20 05/09/20 18:59 06:59 18:59 Intake Total 0 457.066 Output Total 200 200 Balance 0 -200 257.066 Weight 42.5 kg 61 kg Intake: Intake, IV Titration 170.066 Amount Heparin Sod,Pork in 0.45% 170.066 NaCl 25,000 unit In 0.45 % NaCl 1 250ml.bag @ 12 UNITS/KG/HR 5.334 mls/hr IV .Q24H TONG Rx#: [id number] Oral 0 287 Output: Urine 200 200 Other: Voiding Method Bedpan Bedside Commode Bedside Commode # Voids 2 1 # Bowel Movements 1 - Exam GENERAL: The patient is alert and oriented x3, not in any acute distress. HEENT: Pupils are round and equally reacting to light. EOMI. No scleral icterus. No conjunctival pallor. Normocephalic, atraumatic. No pharyngeal erythema. No thyromegaly. CARDIOVASCULAR: S1 and S2 present. No murmurs, rubs, or gallops. -PULMONARY: Chest is clear to auscultation, there is decreased air entry, with mild inspiratory and expiratory wheezing. ABDOMEN: Soft, nontender, nondistended, normoactive bowel sounds. No palpable organomegaly. MUSCULOSKELETAL: No joint swelling or deformity. EXTREMITIES: No cyanosis, clubbing, or pedal edema. NEUROLOGICAL: Gross neurological examination did not reveal any focal deficits. SKIN: No rashes. No petechiae - Labs CBC & Chem 7: 05/09/20 07:49 05/09/20 07:49 Labs: Abnormal Lab Results - Last 24 Hours (Table) 05/08/20 05/08/20 05/09/20 Range/Units 16:49 20:34 06:20 WBC (3.8-10.6) k/uL MCHC (31.0-37.0) g/dL RDW (11.5-15.5) % Neutrophils # (1.3-7.7) k/uL Lymphocytes # (1.0-4.8) k/uL BUN (7-17) mg/dL Creatinine (0.52-1.04) mg/dL Glucose (74-99) mg/dL POC Glucose (mg/dL) 151 H 138 H 138 H (75-99) mg/dL 05/09/20 05/09/20 05/09/20 Range/Units 07:49 07:49 11:39 WBC 12.6 H (3.8-10.6) k/uL MCHC 29.2 L (31.0-37.0) g/dL RDW 16.4 H (11.5-15.5) % Neutrophils # 11.8 H (1.3-7.7) k/uL Lymphocytes # 0.4 L (1.0-4.8) k/uL BUN 127 H* (7-17) mg/dL Creatinine 1.17 H (0.52-1.04) mg/dL Glucose 118 H (74-99) mg/dL POC Glucose (mg/dL) 169 H (75-99) mg/dL Microbiology - Last 24 Hours (Table) 05/07/20 13:53 Blood Culture - Preliminary Blood No Growth after 24 hours 05/07/20 14:00 Blood Culture - Preliminary Blood No Growth after 24 hours Assessment and Plan Assessment: Acute COPD exacerbation Acute hypoxic respiratory failure secondary to above Hoarseness of voice Acute kidney injury Elevated troponin, rule out STEMI however it could be from kidney disease and demand/supply mismatch Multifocal atrial tachycardia versus atrial fibrillation per electrical technician instructor Hypertension Hyperlipidemia Diabetes mellitus Plan: This is a pleasant 80 years old female presents with COPD. With elevated troponin and high creatinine. Continue with Solu-Medrol, continue with bronchodilators and oxygen as needed. Add doxycycline and check sputum culture.. aspirin. Cardiology consult, pulmonary consult and insurance and benefits clerk also Was called Labs and medication were reviewed.. Continue same treatment. Continue with symptomatic treatment. Resume home medication. Monitor lytes and vitals. DVT and GI prophylaxis. Further recommendations depends on the clinical course of the patient DVT prophylaxis: heparin GI Prophylaxis: Pepcid PT/OT: Pending Prognosis is guarded
--- NOTE | 2020-05-09 12:43 | US ---
EXAMINATION TYPE: US kidneys/renal and bladder DATE OF EXAM: 05/09/2020 COMPARISON: NONE CLINICAL HISTORY: michael. EXAM MEASUREMENTS: Right Kidney: 10.1 x 4.8 x 5.8 cm Left Kidney: 9.2 x 4.2 x 4.6 cm Right Kidney: small cystic area in sinus is felt to reflect mild hydronephrosis Left Kidney: No hydronephrosis or masses seen Bladder: wnl Bilateral Jets seen: Yes Incidental note is made of small right pleural effusion when scanning the right kidney. There is no evidence for hydronephrosis at this point in time. No nephrolithiasis is seen. No margaret s are identified. The urinary bladder is well distended. Bilateral ureteral jets are seen. IMPRESSION: Mild right-sided hydronephrosis felt present. Consider follow-up study.
[2020-05-09] MEDS: HEPARIN SODIUM,PORCINE 5,000 UNIT/ML 1 ML VIAL SQ SCH ×2 (13:39→20:43)
--- NOTE | 2020-05-09 14:17 | P.PN ---
Subjective Progress Note Date: 05/09/20 Principal diagnosis: Shortness of breath. This is a 80-year-old female, looks older than her stated age, who presents to the emergency department, with increasing shortness of breath. The patient was a heavy smoker up until 21 years ago. At that time she quit. She apparently does have an established history of COPD, although we've never seen her in the office. The patient has a history of hypertension, hyperlipidemia, and diabetes among other things. The patient presents to the emergency department on 05/07/2020, at 1:00 in the afternoon, with worsening shortness of breath. It apparently started a day or 2 prior to admission and had become progressively worse. In addition, she has tightness, wheezing, and cough. She denies any chest pain or pressure. She denies any fever or chills. She is really not coughing up any phlegm. Currently, she is on BiPAP with settings of IPAP 10, EPAP 5, and 60%. We checked her saturations, they were in the mid to high 90s, and we asked respiratory to turn her FiO2 down to 50%. When they did that, her saturations dropped to the mid 80s, which is probably her baseline in reality. She denies ever seeing a lung doctor. In addition, the patient was on heparin via weightbase protocol, for elevated troponins. She was admitted to the hospital with a diagnosis of COPD exacerbation, and non-ST segment elevation myocardial infarction. Her primary care provider is Dr. Michael Carrillo. Progress note dated 05/09/2020. 80-year-old female that we saw in consultation for acute hypoxemic respiratory failure, secondary to COPD exacerbation. She may have also sustained a non-ST segment elevation myocardial infarction. She currently remains on BiPAP. She has a history of heavy tobacco use, hypertension, hyperlipidemia, diabetes, without evidence of pulmonary embolism on CT angiogram, or DVT, on lower extremity Dopplers. The patient nods her head when I ask her how she's doing. She feels like she is doing better. Her BiPAP settings were 10/5 and 50%. We are going to ask her nurse about switching her over to high flow nasal cannula. The patient's on appropriate medications including albuterol sulfate, ipratr opium bromide, formoterol, Pulmicort, and systemic corticosteroids. Her chest x-ray had the classic findings of someone with emphysema. Objective - Vital Signs Vital signs: Vital Signs Temp 97.6 F 05/09/20 11:27 Pulse 72 05/09/20 11:34 Resp 24 05/09/20 11:27 BP 90/46 05/09/20 11:27 Pulse Ox 99 05/09/20 11:27 Intake & Output 05/08/20 05/09/20 05/09/20 18:59 06:59 18:59 Intake Total 0 707.066 Output Total 200 200 Balance 0 -200 507.066 Weight 42.5 kg 61 kg Intake: Intake, IV Titration 170.066 Amount Heparin Sod,Pork in 0.45% 170.066 NaCl 25,000 unit In 0.45 % NaCl 1 250ml.bag @ 12 UNITS/KG/HR 5.334 mls/hr IV .Q24H TONG Rx#: [id number] Oral 0 537 Output: Urine 200 200 Other: Voiding Method Bedpan Bedside Commode Bedside Commode # Voids 2 1 # Bowel Movements 1 - Exam Oriented 3, very short of breath, obvious conversational dyspnea, and some use of accessory muscles. No audible wheezing. Currently, the patient's on BiPAP. HEENT examination is grossly unremarkable. Mucous membranes are moist. No oral lesions. BiPAP mask in place. Neck supple. Full range of motion. No adenopathy thyromegaly or neck vein distention. Cardiovascular examination reveals regular rhythm and rate. Heart rate 72 bpm. S1-S2 normal. No S3 or S4. No discernible murmur noted. Heart sounds are distant. Lungs reveal severely diminished breath sounds. Diffuse coarse rhonchi and wheezes are noted. Breath sounds are equal bilaterally but severely diminished. No crackles. There is prolongation on forced maneuver. Abdomen soft bowel sounds are heard. No masses or tenderness. Extremities are intact. No cyanosis clubbing or edema. Skin is without rash or lesion. Neurologic examination is brief but nonfocal. - Labs CBC & Chem 7: 05/09/20 07:49 05/09/20 07:49 Labs: Abnormal Lab Results - Last 24 Hours (Table) 05/08/20 05/08/20 05/09/20 Range/Units 16:49 20:34 06:20 WBC (3.8-10.6) k/uL MCHC (31.0-37.0) g/dL RDW (11.5-15.5) % Neutrophils # (1.3-7.7) k/uL Lymphocytes # (1.0-4.8) k/uL BUN (7-17) mg/dL Creatinine (0.52-1.04) mg/dL Glucose (74-99) mg/dL POC Glucose (mg/dL) 151 H 138 H 138 H (75-99) mg/dL 05/09/20 05/09/20 05/09/20 Range/Units 07:49 07:49 11:39 WBC 12.6 H (3.8-10.6) k/uL MCHC 29.2 L (31.0-37.0) g/dL RDW 16.4 H (11.5-15.5) % Neutrophils # 11.8 H (1.3-7.7) k/uL Lymphocytes # 0.4 L (1.0-4.8) k/uL BUN 127 H* (7-17) mg/dL Creatinine 1.17 H (0.52-1.04) mg/dL Glucose 118 H (74-99) mg/dL POC Glucose (mg/dL) 169 H (75-99) mg/dL Microbiology - Last 24 Hours (Table) 05/07/20 13:53 Blood Culture - Preliminary Blood No Growth after 24 hours 05/07/20 14:00 Blood Culture - Preliminary Blood No Growth after 24 hours Assessment and Plan Assessment: Acute hypoxemic respiratory failure, secondary to COPD exacerbation. Rule out non-ST segment elevation myocardial infarction. History of previous heavy tobacco use. History of hypertension. History of hyperlipidemia. History of diabetes mellitus. No evidence of pulmonary embolism on CT angiogram or DVT, on lower extremity Dopplers. Mild right-sided hydronephrosis. Plan: Plan dated 05/09/2020. The patient appears to be doing a bit better. The patient can come off the BiPAP and go on high flow nasal O2. She'll continue on her current medications. Additional recommendations and suggestions are forthcoming. Labs, x-rays, and medications are all reviewed. She remains on doxycycline, Pulmicort, and Solu- Medrol, as well as albuterol sulfate and ipratropium bromide. We did DC her fo rmoterol yesterday because of her tachycardia. Her heart rate today is 72 bpm. Additional recommendations and suggestions are forthcoming. Prognosis is guarded. Time with Patient: Less than 30
[2020-05-09 16:57] LABS: Glucose,Whole Blood 149 mg/dL (75-99)
[2020-05-09 20:30] LABS: Glucose,Whole Blood 172 mg/dL (75-99)
[2020-05-09] MEDS: GABAPENTIN 300 MG CAP PO SCH (20:42)
[2020-05-10] MEDS: SODIUM CHLORIDE 0.9% 250 ML IV SCH ×8 (00:34→08:40)
[2020-05-10] MEDS: methylPREDNISolone SOD SUCCI 125 MG/2 ML VIAL IV SCH ×2 (00:35→06:52)
--- NOTE | 2020-05-10 00:51 | XR ---
EXAM: XR Chest, 1 View CLINICAL HISTORY: ITS.REASON XR Reason: SOB TECHNIQUE: Frontal view of the chest. COMPARISON: 01/04/2021. FINDINGS: Lungs: Mild COPD. Presumed subsegmental atelectasis at the lung bases appeared Pleural space: Small to moderate bilateral pleural effusions, similar to the previous study. No pneumothorax. Heart: Cardiomediastinal silhouette is unremarkable and unchanged. Mediastinum: See above. Bones/joints: Osteopenia. Vasculature: Atherosclerotic disease of the aortic knob. IMPRESSION: 1. COPD, unchanged. 2. Bilateral pleural effusions and subsegmental atelectasis at the lung bases, stable.
[2020-05-10 06:08] LABS: Glucose,Whole Blood 121 mg/dL (75-99)
[2020-05-10] MEDS: INSULIN ASPART (NovoLOG) 100 UNIT/ML VIAL SQ SCH ×4 (06:32→21:21)
[2020-05-10] MEDS: MIDODRINE 5 MG TAB PO SCH ×3 (06:53→17:26)
[2020-05-10 07:50] LABS: Anisocytosis Slight; Basophils % (A) 0 %; Eosinophils % (A) 0 %; HCT 34.3 % (34.0-46.0); Hypochromasia Marked; Lymphocytes # (A) 0.3 k/uL (1.0-4.8); Lymphocytes % (A) 2 %; MCH 26.1 pg (25.0-35.0); MCHC 29.1 g/dL (31.0-37.0); MCV 89.5 fL (80.0-100.0); Mean Platelet Volume 9.9; Monocytes # (A) 0.4 k/uL (0-1.0); Monocytes % (A) 2 %; Neutrophils # (A) 14.7 k/uL (1.3-7.7); Neutrophils % (A) 95 %; Platelet Count 169 k/uL (150-450); Poikilocytosis Moderate; RBC 3.83 m/uL (3.80-5.40); RDW 16.3 % (11.5-15.5); WBC 15.4 k/uL (3.8-10.6)
[2020-05-10] MEDS: IPRATROPIUM-ALBUTEROL 3 ML NEB INHALATION SCH ×4 (08:03→20:28)
[2020-05-10] MEDS: BUDESONIDE 1 MG/2 ML NEBU INHALATION SCH ×2 (08:03→20:27)
[2020-05-10 08:38] LABS: Calcium 9.1 mg/dL (8.4-10.2); Magnesium 2.2 mg/dL (1.6-2.3); Potassium 5.6 mmol/L (3.5-5.1)
[2020-05-10] MEDS: ASPIRIN 81 MG PO SCH (09:15)
[2020-05-10] MEDS: ATORVASTATIN 20 MG TAB PO SCH (09:15)
[2020-05-10] MEDS: HEPARIN SODIUM,PORCINE 5,000 UNIT/ML 1 ML VIAL SQ SCH ×2 (09:15→21:21)
[2020-05-10] MEDS: DOXYCYCLINE 100 MG in SODIUM CHLORIDE 0.9% 100 ML IVPB SCH ×2 (09:15→21:21)
[2020-05-10] MEDS ORDERED: guaiFENesin-DM 100-10MG/5ML 10 ML CUP PO PRN (09:24)
--- NOTE | 2020-05-10 09:37 | P.PN ---
Subjective This is a pleasant 80 years old female with past medical history of diabetes mellitus, hypertension, hyperlipidemia, COPD, ex-smoker. Presents with shortness of breath has been going on for about 6 months with recent worsening over the last few days associated with cough and green phlegm but no chest pain. Yesterday she felt more weak and lost her coordination and recently noticed that her feet starts getting swollen over the last 10 days especially around the ankles. 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 Carrillo Also she is weak and emaciated. No abdominal pain or nausea vomiting. No diarrhea. No dysuria. She denies fever. On admission she was hypoxic with 85% on room air, oxygen saturation improved to 97-98 on 6 L oxygen via nasal cannula, she is tachypneic around 20-28% per minute, however she can talk without interruption Labs show an unremarkable CBC, INR 1.2, d-dimer is elevated at 6.1. Creatinine is elevated at 1.58 , electrolytes normal, carbon dioxide 30. Elevated d-dimer 2.7 came back to normal at 1.5. Liver enzymes not elevated. Troponin also were elevated at 0.159, [place] [id number]. Coronavirus not detected Chest CTA is negative for PE, emphysema without overt findings of failure Chest x-ray COPD, small bilateral pleural effusions. EKG showing normal sinus rhythm at [address]-T changes and QTC 425. Patient in the emergency room started on aspirin 325 mg compared to home dose of 81 mg and salmeterol 60 mg every 6 hours. 05/08/2020 Patient this morning she become more short of breath and she was saturating 81% on 6 L oxygen via nasal cancer, patient has to be placed on BiPAP with a setting of 10/5 at 50% FiO2. Patient still has decreased air entry on both sides on examination CBC is stable. Electrolytes are normal. Creatinine trending down to 1.5 down to 1.4. Troponin is stable at 0.14, most likely due to troponin leak. D-dimer is elevated but negative CTA. Ultrasound of the lower extremity is negative for DVT Patient is currently also on Medrol 60 mg, doxycycline. Patient was started on heparin drip in the emergency room and aspirin 325 mg daily. 05/09/2020 Patient remains BiPAP dependent most of the time with FiO2 of 60%, she is still short of breath. Little coughing. Her oxygen saturating on BiPAP with FiO2 50% was improved to 99% O during the day. Patient is afebrile. Last blood pressure was 90/46 and heart rate 81, she's getting normal saline at 75 mL/h and cartilage team are helping with managing her heart rate and blood pressure. As per their recommendation patient may have MAT versus A. fib and metoprolol was added, we will closely monitor her blood pressure and heart rate. CBC with mild leukocytosis while she is on steroids. Hemoglobin is trending down gradually but remains within the reference range, 15.4, 13.6, 11.5. He'll keep monitoring hemoglobin. BMP is unremarkable, creatinine improved down to 1.1 while BUN increased to 127. Nephrology input is recommended by lead systems analyst and a they recommend medodrain, Lasix x1 and check renal ultrasound and urine analysis heparin drip was stopped by lead systems analyst echocardiogram showing ejection fraction of 55-60 moderate to severe tricuspid regurgitation. Venous Doppler is negative for leg DVT. she is on Solu-Medrol 60 mg, doxycycline, normal saline at 75 mL/h 05/10/2020 Patient still dyspneic and she is BiPAP dependent portion is less FiO2 at 45% currently. She still coughing frequently and we will order cough syrup. Heart rate is 57-58 blood pressure 85/51 this morning. She is afebrile. Last night took a bolus of 250 mL of normal saline. Medical Coding Manager on the case and help with blood pressure on her trip management. She has mild leukocytosis from steroid effect. BUN is elevated at 127 similar as yesterday. Creatinine back to reference range. The glucose control. Potassium was slightly elevated at 5.6 Repeat chest x-ray this morning: COPD and bilateral pleural effusion Patient on Solu-Medrol and DOXYCYCLINE. Patient was started on metoprolol 50 mg twice daily by lead systems analyst and because of low blood pressure shower doors and panels fabricator is been consulted to added midodrine 10 mg 3 times a day Serum Cardizem because of this morning is still pending Review of Systems CONSTITUTIONAL: No fever, no malaise, no fatigue. HEENT: No recent visual problems or hearing problems. Denied any sore throat. CARDIOVASCULAR: No orthopnea, PND, no palpitations, no syncope. PULMONARY: No chest wall tenderness, no hemoptysis. GASTROINTESTINAL: No diarrhea, no nausea, no vomiting, no abdominal pain. Normoactive bowel sounds. NEUROLOGICAL: No headaches, no weakness, no numbness. Active Medications Generic Name Dose Route Start Last Admin Trade Name Freq PRN Reason Stop Dose Admin Albuterol/Ipratropium 3 ml 05/07/20 20:00 05/10/20 08:03 Ipratropium-Albuterol 3 Ml Neb INHALATION 3 ml RT-QID TONG Administration Albuterol/Ipratropium 3 ml 05/08/20 12:19 05/10/20 00:34 Ipratropium-Albuterol 3 Ml Neb INHALATION 3 ml RT-Q2H PRN Administration Shortness Of Breath Or Wheezing Aspirin 81 mg 05/08/20 09:00 05/10/20 09:15 Aspirin 81 Mg PO 81 mg DAILY TONG Administration Atorvastatin Calcium 20 mg 05/08/20 09:00 05/10/20 09:15 Atorvastatin 20 Mg Tab PO 20 mg DAILY TONG Administration Budesonide 1 mg 05/08/20 20:00 05/10/20 08:03 Budesonide 1 Mg/2 Ml Nebu INHALATION 1 mg RT-BID TONG Administration Gabapentin 300 mg 05/07/20 21:00 05/09/20 20:42 Gabapentin 300 Mg Cap PO 300 mg HS TONG Administration Heparin Sodium (Porcine) 5,000 unit 05/09/20 12:15 05/10/20 09:15 Heparin Sodium,Porcine 5,000 Unit/Ml 1 Ml Vial SQ 5,000 unit Q12HR TONG Administration Doxycycline Hyclate 100 mg/ 100 mls @ 100 mls/hr 05/07/20 20:00 05/10/20 09:15 Sodium Chloride IVPB 100 mls/hr Q12HR TONG Administration Insulin Aspart 0 unit 05/07/20 21:00 05/10/20 06:32 Insulin Aspart (Novolog) 100 Unit/Ml Vial SQ Not Given ACHS TONG Protocol Methylprednisolone Sodium Succinate 60 mg 05/07/20 18:00 05/10/20 06:52 Methylprednisolone Sod Succi 125 Mg/2 Ml Vial IV 60 mg Q6HR TONG Administration Metoprolol Tartrate 50 mg 05/08/20 13:00 05/09/20 20:42 Metoprolol Tartrate 50 Mg Tab PO 50 mg BID TONG Administration Midodrine 10 mg 05/09/20 12:30 05/10/20 06:53 Midodrine 5 Mg Tab PO 10 mg AC-TID TONG Administration Objective - Vital Signs Vital signs: Vital Signs Temp 97.8 F 05/10/20 03:28 Pulse 57 L 05/10/20 08:23 Resp 21 05/10/20 03:28 BP 85/51 05/10/20 03:28 Pulse Ox 93 L 05/09/20 20:00 Intake & Output 05/09/20 05/10/20 05/10/20 18:59 06:59 18:59 Intake Total 1157.066 Output Total 650 300 Balance 507.066 -300 Weight 49.5 kg Intake: Intake, IV Titration 270.066 Amount Doxycycline 100 mg In 100 Sodium Chloride 0.9% 100 ml @ 100 mls/hr IVPB Q12HR TONG Rx#:[id number] Heparin Sod,Pork in 0.45% 170.066 NaCl 25,000 unit In 0.45 % NaCl 1 250ml.bag @ 12 UNITS/KG/HR 5.334 mls/hr IV .Q24H TONG Rx#: [id number] Oral 887 Output: Urine 650 300 Other: Voiding Method Bedside Commode Bedside Commode # Voids 2 # Bowel Movements 1 - Exam GENERAL: The patient is alert and oriented x3, not in any acute distress. HEENT: Pupils are round and equally reacting to light. EOMI. No scleral icterus. No conjunctival pallor. Normocephalic, atraumatic. No pharyngeal erythema. No thyromegaly. CARDIOVASCULAR: S1 and S2 present. No murmurs, rubs, or gallops. -PULMONARY: Chest is clear to auscultation, there is decreased air entry, with mild inspiratory and expiratory wheezing. ABDOMEN: Soft, nontender, nondistended, normoactive bowel sounds. No palpable organomegaly. MUSCULOSKELETAL: No joint swelling or deformity. EXTREMITIES: No cyanosis, clubbing, or pedal edema. NEUROLOGICAL: Gross neurological examination did not reveal any focal deficits. SKIN: No rashes. No petechiae - Labs CBC & Chem 7: 05/10/20 07:18 05/10/20 07:18 Labs: Abnormal Lab Results - Last 24 Hours (Table) 05/09/20 05/09/20 05/09/20 Range/Units 07:49 11:39 16:56 WBC (3.8-10.6) k/uL Hgb (11.4-16.0) gm/dL MCHC (31.0-37.0) g/dL RDW (11.5-15.5) % Neutrophils # (1.3-7.7) k/uL Lymphocytes # (1.0-4.8) k/uL Potassium (3.5-5.1) mmol/L BUN 127 H* (7-17) mg/dL Creatinine 1.17 H (0.52-1.04) mg/dL Glucose 118 H (74-99) mg/dL POC Glucose (mg/dL) 169 H 149 H (75-99) mg/dL 05/09/20 05/10/20 05/10/20 Range/Units 20:26 05:58 07:18 WBC 15.4 H (3.8-10.6) k/uL Hgb 10.0 L D (11.4-16.0) gm/dL MCHC 29.1 L (31.0-37.0) g/dL RDW 16.3 H (11.5-15.5) % Neutrophils # 14.7 H (1.3-7.7) k/uL Lymphocytes # 0.3 L (1.0-4.8) k/uL Potassium (3.5-5.1) mmol/L BUN (7-17) mg/dL Creatinine (0.52-1.04) mg/dL Glucose (74-99) mg/dL POC Glucose (mg/dL) 172 H 121 H (75-99) mg/dL 05/10/20 Range/Units 07:18 WBC (3.8-10.6) k/uL Hgb (11.4-16.0) gm/dL MCHC (31.0-37.0) g/dL RDW (11.5-15.5) % Neutrophils # (1.3-7.7) k/uL Lymphocytes # (1.0-4.8) k/uL Potassium 5.6 H (3.5-5.1) mmol/L BUN 127 H* (7-17) mg/dL Creatinine (0.52-1.04) mg/dL Glucose 123 H (74-99) mg/dL POC Glucose (mg/dL) (75-99) mg/dL Microbiology - Last 24 Hours (Table) 05/07/20 13:53 Blood Culture - Preliminary Blood No Growth after 48 hours 05/07/20 14:00 Blood Culture - Preliminary Blood No Growth after 48 hours Assessment and Plan Assessment: Acute COPD exacerbation Acute hypoxic respiratory failure secondary to above Hoarseness of voice Acute kidney injury, creatinine is back to normal Elevated troponin, rule out STEMI however it could be from kidney disease and de jerome/supply mismatch Multifocal atrial tachycardia versus atrial fibrillation per lead systems analyst Hypertension Hyperlipidemia Diabetes mellitus Plan: This is a pleasant 80 years old female presents with COPD. With elevated troponin and high creatinine. Continue with Solu-Medrol, continue with bronchodilators and oxygen as needed. Add doxycycline and check sputum cult ure.. aspirin. Cardiology consult, pulmonary consult and shower doors and panels fabricator also Was called. Discontinue IV fluids. Labs and medication were reviewed.. Continue same treatment. Continue with symptomatic treatment. Resume home medication. Monitor lytes and vitals. DVT and GI prophylaxis. Further recommendations depends on the clinical course of the patient DVT prophylaxis: heparin GI Prophylaxis: Pepcid PT/OT: Pending Prognosis is guarded
[2020-05-10] MEDS: METOPROLOL TARTRATE 50 MG TAB PO SCH (11:02)
[2020-05-10] MEDS ORDERED: FUROSEMIDE 10 MG/ML 2 ML VIAL IV ONE (11:11)
--- NOTE | 2020-05-10 11:12 | P.PN ---
Subjective Patient is seen in follow-up for acute kidney injury. Renal function improving. Nonoliguric. Chest x-ray showing pleural effusions. Fluids were stopped and I did give her a dose of Lasix yesterday. Currently on 6 L nasal cannula. No vomiting or diarrhea. Oral intake fair. Vital signs are stable. Blood pressure in the lower side. General: The patient appeared well nourished and normally developed. HEENT: Head exam is unremarkable. Neck is without jugular venous distension. LUNGS: Breath sounds decreased. HEART: Rate and Rhythm are regular. ABDOMEN: Soft, nontender. EXTREMITITES: 1+ edema. Objective - Vital Signs Vital signs: Vital Signs Temp 97.8 F 05/10/20 03:28 Pulse 57 L 05/10/20 08:23 Resp 21 05/10/20 03:28 BP 85/51 05/10/20 03:28 Pulse Ox 93 L 05/09/20 20:00 Intake & Output 05/09/20 05/10/20 05/10/20 18:59 06:59 18:59 Intake Total 1157.066 Output Total 650 300 Balance 507.066 -300 Weight 49.5 kg Intake: Intake, IV Titration 270.066 Amount Doxycycline 100 mg In 100 Sodium Chloride 0.9% 100 ml @ 100 mls/hr IVPB Q12HR OTNG Rx#:[id number] Heparin Sod,Pork in 0.45% 170.066 NaCl 25,000 unit In 0.45 % NaCl 1 250ml.bag @ 12 UNITS/KG/HR 5.334 mls/hr IV .Q24H TONG Rx#: [id number] Oral 887 Output: Urine 650 300 Other: Voiding Method Bedside Commode Bedside Commode # Voids 2 1 # Bowel Movements 1 1 - Labs CBC & Chem 7: 05/10/20 07:18 05/10/20 07:18 Labs: Abnormal Lab Results - Last 24 Hours (Table) 05/09/20 05/09/20 05/09/20 Range/Units 11:39 16:56 20:26 WBC (3.8-10.6) k/uL Hgb (11.4-16.0) gm/dL MCHC (31.0-37.0) g/dL RDW (11.5-15.5) % Neutrophils # (1.3-7.7) k/uL Lymphocytes # (1.0-4.8) k/uL Potassium (3.5-5.1) mmol/L BUN (7-17) mg/dL Glucose (74-99) mg/dL POC Glucose (mg/dL) 169 H 149 H 172 H (75-99) mg/dL 05/10/20 05/10/20 05/10/20 Range/Units 05:58 07:18 07:18 WBC 15.4 H (3.8-10.6) k/uL Hgb 10.0 L D (11.4-16.0) gm/dL MCHC 29.1 L (31.0-37.0) g/dL RDW 16.3 H (11.5-15.5) % Neutrophils # 14.7 H (1.3-7.7) k/uL Lymphocytes # 0.3 L (1.0-4.8) k/uL Potassium 5.6 H (3.5-5.1) mmol/L BUN 127 H* (7-17) mg/dL Glucose 123 H (74-99) mg/dL POC Glucose (mg/dL) 121 H (75-99) mg/dL Microbiology - Last 24 Hours (Table) 05/07/20 13:53 Blood Culture - Preliminary Blood No Growth after 48 hours 05/07/20 14:00 Blood Culture - Preliminary Blood No Growth after 48 hours Assessment and Plan Plan: Assessment: 1. Acute kidney injury mostly prerenal secondary to hypotension. Component of cardiorenal syndrome. Creatinine 1.58 on admission and is 1.17 today. She also received IV contrast dye on May 07. No hydronephrosis noted on kidney ultrasound. 2. Acute on chronic diastolic CHF with moderate to severe tricuspid regurgitation and severe pulmonary hypertension. 3. Fluid overload. 4. COPD exacerbation. 5. Diabetes mellitus. 6. Disproportionally elevated BUN due to steroids. No evidence of GI bleed. Plan: Maintain midodrine. Repeat Lasix 20 mg IV once today. Cortisol level not low. Follow-up urinalysis. Continue to monitor renal function and urine output. Check stool for occult blood.
--- NOTE | 2020-05-10 11:45 | P.PN ---
Subjective Progress Note Date: 05/10/20 This is a 80-year-old female, looks older than her stated age, who presents to the emergency department, with increasing shortness of breath. The patient was a heavy smoker up until 21 years ago. At that time she quit. She apparently does have an established history of COPD, although we've never seen her in the office. The patient has a history of hypertension, hyperlipidemia, and diabetes among other things. The patient presents to the emergency department on 05/07/2020, at 1:00 in the afternoon, with worsening shortness of breath. It apparently started a day or 2 prior to admission and had become progressively worse. In addition, she has tightness, wheezing, and cough. She denies any c hest pain or pressure. She denies any fever or chills. She is really not coughing up any phlegm. Currently, she is on BiPAP with settings of IPAP 10, EPAP 5, and 60%. We checked her saturations, they were in the mid to high 90s, and we asked respiratory to turn her FiO2 down to 50%. When they did that, her saturations dropped to the mid 80s, which is probably her baseline in reality. She denies ever seeing a lung doctor. In addition, the patient was on heparin via weightbase protocol, for elevated troponins. She was admitted to the hospital with a diagnosis of COPD exacerbation, and non-ST segment elevation myocardial infarction. Her primary care provider is Dr. Michael Carrillo. Progress note dated 05/09/2020. 80-year-old female that we saw in consultation for acute hypoxemic respiratory failure, secondary to COPD exacerbation. She may have also sustained a non-ST segment elevation myocardial infarction. She currently remains on BiPAP. She has a history of heavy tobacco use, hypertension, hyperlipidemia, diabetes, without evidence of pulmonary embolism on CT angiogram, or DVT, on lower extremity Dopplers. The patient nods her head when I ask her how she's doing. She feels like she is doing better. Her BiPAP settings were 10/5 and 50%. We are going to ask her nurse about switching her over to high flow nasal cannula. The patient's on appropriate medications including albuterol sulfate, ipratropium bromide, formoterol, Pulmicort, and systemic corticosteroids. Her chest x-ray had the classic findings of someone with emphysema. On today's evaluation of 05/10/2020, the patient is feeling better. She is less short of breath. She was on a BiPAP or throughout the night and the patient is currently off the BiPAP on oxygen at 4 L per minute nasal cannula. She is resting comfortably she is not using excessive muscle breathing. She did have some minor troponin leak which was a demand mismatch in the patient's chest x- ray showed small bilateral pleural effusions. White cell count of 15.4. Pro Calcitonin level was 0.13.. The patient is covered with doxycycline with empiric antibiotic coverage. She received a dose of Lasix 20 mg IV on 05/10/2000 which is today based on the x-ray findings. She remains on IV Solu Medrol 60 mg every 6 hours pH is also on DuoNeb nebulized treatments around the clock. Objective - Vital Signs Vital signs: Vital Signs Temp 96.3 F L 05/10/20 07:40 Pulse 57 L 05/10/20 08:23 Resp 17 05/10/20 07:40 BP 79/51 05/10/20 07:40 Pulse Ox 100 05/10/20 07:40 Intake & Output 05/09/20 05/10/20 05/10/20 18:59 06:59 18:59 Intake Total 1157.066 Output Total 650 300 Balance 507.066 -300 Weight 49.5 kg Intake: Intake, IV Titration 270.066 Amount Doxycycline 100 mg In 100 Sodium Chloride 0.9% 100 ml @ 100 mls/hr IVPB Q12HR TONG Rx#:[id number] Heparin Sod,Pork in 0.45% 170.066 NaCl 25,000 unit In 0.45 % NaCl 1 250ml.bag @ 12 UNITS/KG/HR 5.334 mls/hr IV .Q24H TONG Rx#: [id number] Oral 887 Output: Urine 650 300 Other: Voiding Method Bedside Commode Bedside Commode Bedside Commode # Voids 2 1 # Bowel Movements 1 1 - Exam Oriented 3, very short of breath, obvious conversational dyspnea, and some use of accessory muscles. No audible wheezing. Currently, the patient's on 4 l HEENT examination is grossly unremarkable. Mucous membranes are moist. No oral lesions. BiPAP mask in place. Neck supple. Full range of motion. No adenopathy thyromegaly or neck vein distention. Cardiovascular examination reveals regular rhythm and rate. Heart rate 72 bpm. S1-S2 normal. No S3 or S4. No discernible murmur noted. Heart sounds are distant. Lungs reveal severely diminished breath sounds. Diffuse coarse rhonchi and wheezes are noted. Breath sounds are equal bilaterally but severely diminished. No crackles. There is prolongation on forced maneuver. Abdomen soft bowel sounds are heard. No masses or tenderness. Extremities are intact. No cyanosis clubbing or edema. Skin is without rash or lesion. Neurologic examination is brief but nonfocal. - Labs CBC & Chem 7: 05/10/20 07:18 05/10/20 07:18 Labs: Abnormal Lab Results - Last 24 Hours (Table) 05/09/20 05/09/20 05/09/20 Range/Units 11:39 16:56 20:26 WBC (3.8-10.6) k/uL Hgb (11.4-16.0) gm/dL MCHC (31.0-37.0) g/dL RDW (11.5-15.5) % Neutrophils # (1.3-7.7) k/uL Lymphocytes # (1.0-4.8) k/uL Potassium (3.5-5.1) mmol/L BUN (7-17) mg/dL Glucose (74-99) mg/dL POC Glucose (mg/dL) 169 H 149 H 172 H (75-99) mg/dL 05/10/20 05/10/20 05/10/20 Range/Units 05:58 07:18 07:18 WBC 15.4 H (3.8-10.6) k/uL Hgb 10.0 L D (11.4-16.0) gm/dL MCHC 29.1 L (31.0-37.0) g/dL RDW 16.3 H (11.5-15.5) % Neutrophils # 14.7 H (1.3-7.7) k/uL Lymphocytes # 0.3 L (1.0-4.8) k/uL Potassium 5.6 H (3.5-5.1) mmol/L BUN 127 H* (7-17) mg/dL Glucose 123 H (74-99) mg/dL POC Glucose (mg/dL) 121 H (75-99) mg/dL Microbiology - Last 24 Hours (Table) 05/07/20 13:53 Blood Culture - Preliminary Blood No Growth after 48 hours 05/07/20 14:00 Blood Culture - Preliminary Blood No Growth after 48 hours Assessment and Plan Plan: 1 Acute hypoxemic respiratory failure, secondary to COPD exacerbation. The pa tient is improving and the patient is currently on 4 L about 2 by nasal cannula and she was taken off the BiPAP machine. She has advanced COPD. She is quite cachectic and her body mass index is 22.1. She has been maintained on [facility] outpatient basis. She'll 2 Rule out non-ST segment elevation myocardial infarction. 3 History of previous heavy tobacco use. 4 History of hypertension. 5 History of hyperlipidemia. 6 History of diabetes mellitus. 7 No evidence of pulmonary embolism on CT angiogram or DVT, on lower extremity Dopplers. 8 Mild right-sided hydronephrosis. 9 secondary pulmonary hypertension related to chronic hypoxic respiratory failure/COPD, PA pressures around 60 and the patient has dilatation of the right ventricle 10 lower extremity edema Plan: DuoNeb nebulized treatments around the clock IV Solumedrol 60 mg every 6 hours IV fluids to KVO The patient has some increased edema in lower extremity and small bilateral pleural effusions. The patient has significant pulmonary hypertension related to chronic lung disease and hypoxemia. Her pulmonary artery pressures around 60 and the patient was given a dose of Lasix today. It is related to her chronic hypoxic respiratory failure, chronic COPD. She is currently off the BiPAP She will need home oxygen and a nebulizer for sure The patient appears to be doing a bit better. Will follow
[2020-05-10 11:50] LABS: Glucose,Whole Blood 182 mg/dL (75-99)
[2020-05-10] MEDS: ACETAMINOPHEN TAB 325 MG TAB PO PRN (12:38)
[2020-05-10 14:00] LABS: Appearance,Urine Clear (Clear); Bilirubin,Urine Negative (Negative); Blood,Urine Negative (Negative); Color,Urine Yellow; Glucose,Urine (UA) Negative (Negative); Ketones,Urine Negative (Negative); Leukocyte Esterase,Urine Negative (Negative); Nitrite,Urine Negative (Negative); Protein,Urine Negative (Negative); Specific Gravity,Urine 1.016 (1.001-1.035); Urobilinogen,Urine <2.0 mg/dL (<2.0)
[2020-05-10 14:30] LABS: Glucose,Whole Blood 132 mg/dL (75-99)
--- NOTE | 2020-05-10 15:24 | P.PN ---
<Susan Spears Jack - Last Filed: 05/10/20 15:22> Subjective HISTORY OF PRESENTING ILLNESS This is a pleasant 80-year-old female past medical history significant for nonobstructive coronary artery disease, COPD, hypertension, diabetes mellitus and dyslipidemia. She is to follow in the office with Dr. López however has not been to the office since 2018. She is seen and examined sitting up in bed in no acute distress. Her breathing is stable on nasal cannula. She is not requiring bipap support currently. Blood pressure has been running low overnight. Lopressor is currently on hold. Heart rates in the 60's. Laboratory d laurel reviewed, WBC 15.4, hgb 10, plt 169, sodium 138, potassium 5.6, BUN 127 and creatinine 1.01 and magnesium 2.2. PHYSICAL EXAMINATION HEENT: Head is normocephalic. Pupils are equal, round. Sclerae anicteric. Mucous membranes of the mouth are moist. Mild JVD. No carotid bruit. CHEST EXAMINATION: Significantly diminished. Expiratory wheezes. No chest wall tenderness is noted on palpation or with deep breathing. HEART EXAMINATION: Irregular rate and rhythm. S1, S2 heard. Systolic ejection murmur at the base, no gallops or rub. EXTREMITIES: 2+ peripheral pulses, no lower extremity edema and no calf tenderness. ASSESSMENT Hypoxia Lactic acidosis Troponin elevation secondary to type II myocardial infarction with oxygen supply and demand mismatch Right sided heart failure Multi-focal atrial tachycardia vs possible paroxysmal atrial fibrillation Acute exacerbation of COPD Hypertension Dyslipidemia Diabetes mellitus PLAN Nephrology has seen the patient and he thinks the elevated BUN is do to the steroids. They are recommending hep-lock IV fluids and initiation of midodrine. He also believes she is in fluid overload and gave one dose of IV lasix yesterday and another one today. Her blood pressure did not tolerate this well. Pt would benefit from a right heart cath and possible transfer to tertiary care center for pulmonary hypertension/right sided heart failure treatment. NPO after midnight tonight, will discuss with Dr. López. Nurse Practitioner note has been reviewed, I agree with a documented findings and plan of care. Patient was seen and examined. Objective - Vital Signs Vital signs: Vital Signs Temp 97.4 F L 05/10/20 11:25 Pulse 60 05/10/20 12:04 Resp 18 05/10/20 11:25 BP 97/57 05/10/20 11:25 Pulse Ox 92 L 05/10/20 11:25 Intake & Output 05/09/20 05/10/20 05/10/20 18:59 06:59 18:59 Intake Total 1157.066 Output Total 650 300 Balance 507.066 -300 Weight 49.5 kg Intake: Intake, IV Titration 270.066 Amount Doxycycline 100 mg In 100 Sodium Chloride 0.9% 100 ml @ 100 mls/hr IVPB Q12HR [facility] Rx#:[id number] Heparin Sod,Pork in 0.45% 170.066 NaCl 25,000 unit In 0.45 % NaCl 1 250ml.bag @ 12 UNITS/KG/HR 5.334 mls/hr IV .Q24H [facility] Rx#: [id number] Oral 887 Output: Urine 650 300 Other: Voiding Method Bedside Commode Bedside Commode Bedside Commode # Voids 2 1 # Bowel Movements 1 1 - Labs CBC & Chem 7: 05/10/20 07:18 05/10/20 07:18 Labs: Abnormal Lab Results - Last 24 Hours (Table) 05/09/20 05/09/20 05/10/20 Range/Units 16:56 20:26 05:58 WBC (3.8-10.6) k/uL Hgb (11.4-16.0) gm/dL MCHC (31.0-37.0) g/dL RDW (11.5-15.5) % Neutrophils # (1.3-7.7) k/uL Lymphocytes # (1.0-4.8) k/uL Potassium (3.5-5.1) mmol/L BUN (7-17) mg/dL Glucose (74-99) mg/dL POC Glucose (mg/dL) 149 H 172 H 121 H (75-99) mg/dL 05/10/20 05/10/20 05/10/20 Range/Units 07:18 07:18 11:49 WBC 15.4 H (3.8-10.6) k/uL Hgb 10.0 L D (11.4-16.0) gm/dL MCHC 29.1 L (31.0-37.0) g/dL RDW 16.3 H (11.5-15.5) % Neutrophils # 14.7 H (1.3-7.7) k/uL Lymphocytes # 0.3 L (1.0-4.8) k/uL Potassium 5.6 H (3.5-5.1) mmol/L BUN 127 H* (7-17) mg/dL Glucose 123 H (74-99) mg/dL POC Glucose (mg/dL) 182 H (75-99) mg/dL Microbiology - Last 24 Hours (Table) 05/07/20 13:53 Blood Culture - Preliminary Blood No Growth after 48 hours 05/07/20 14:00 Blood Culture - Preliminary Blood No Growth after 48 hours <Sam Lopez - Last Filed: 05/10/20 16:35> Subjective Discussed with patient and patient's daughter regarding pulmonary hypertension with what appears to be right ventricular failure. 2-D echo reviewed with massively dilated right ventricle which appears hypokinetic area RVSP elevated and suspect possible group 1 pulmonary hypertension. She believes she has some diagnosis of arthritis, possible rheumatoid arthritis which may be associated with group 1. Daughter admits that patient usually does not like following with Drs. Discussed that if her main presentation is related to right ventricular failure and pulmonary hypertension, prognosis normally poor with possible life expectancy 3-6 months pending clinical parameters. Patient appears to understand the gravity of the situation. Would hold further diuresis and likely perform right heart catheterization tomorrow where we can see left-sided filling pressures, cardiac output and PA pressures. Pending right heart catheterization, patient may require transfer to tertiary center for pulmonary hypertension specialist. Sam Lopez DO Objective - Vital Signs Vital signs: Vital Signs Temp 97.4 F L 05/10/20 11:25 Pulse 56 L 05/10/20 16:30 Resp 18 05/10/20 11:25 BP 97/57 05/10/20 11:25 Pulse Ox 92 L 05/10/20 11:25 Intake & Output 05/09/20 05/10/20 05/10/20 18:59 06:59 18:59 Intake Total 1157.066 Output Total 650 300 Balance 507.066 -300 Weight 49.5 kg Intake: Intake, IV Titration 270.066 Amount Doxycycline 100 mg In 100 Sodium Chloride 0.9% 100 ml @ 100 mls/hr IVPB Q12HR [facility] Rx#:[id number] Heparin Sod,Pork in 0.45% 170.066 NaCl 25,000 unit In 0.45 % NaCl 1 250ml.bag @ 12 UNITS/KG/HR 5.334 mls/hr IV .Q24H [facility] Rx#: [id number] Oral 887 Output: Urine 650 300 Other: Voiding Method Bedside Commode Bedside Commode Bedside Commode # Voids 2 1 # Bowel Movements 1 1 - Labs CBC & Chem 7: 05/10/20 07:18 05/10/20 07:18 Labs: Abnormal Lab Results - Last 24 Hours (Table) 05/09/20 05/09/20 05/10/20 Range/Units 16:56 20:26 05:58 WBC (3.8-10.6) k/uL Hgb (11.4-16.0) gm/dL MCHC (31.0-37.0) g/dL RDW (11.5-15.5) % Neutrophils # (1.3-7.7) k/uL Lymphocytes # (1.0-4.8) k/uL Potassium (3.5-5.1) mmol/L BUN (7-17) mg/dL Glucose (74-99) mg/dL POC Glucose (mg/dL) 149 H 172 H 121 H (75-99) mg/dL 05/10/20 05/10/20 05/10/20 Range/Units 07:18 07:18 11:49 WBC 15.4 H (3.8-10.6) k/uL Hgb 10.0 L D (11.4-16.0) gm/dL MCHC 29.1 L (31.0-37.0) g/dL RDW 16.3 H (11.5-15.5) % Neutrophils # 14.7 H (1.3-7.7) k/uL Lymphocytes # 0.3 L (1.0-4.8) k/uL Potassium 5.6 H (3.5-5.1) mmol/L BUN 127 H* (7-17) mg/dL Glucose 123 H (74-99) mg/dL POC Glucose (mg/dL) 182 H (75-99) mg/dL 05/10/20 05/10/20 Range/Units 14:29 16:22 WBC (3.8-10.6) k/uL Hgb (11.4-16.0) gm/dL MCHC (31.0-37.0) g/dL RDW (11.5-15.5) % Neutrophils # (1.3-7.7) k/uL Lymphocytes # (1.0-4.8) k/uL Potassium (3.5-5.1) mmol/L BUN (7-17) mg/dL Glucose (74-99) mg/dL POC Glucose (mg/dL) 132 H 125 H (75-99) mg/dL Microbiology - Last 24 Hours (Table) 05/07/20 13:53 Blood Culture - Preliminary Blood No Growth after 72 hours 05/07/20 14:00 Blood Culture - Preliminary Blood No Growth after 72 hours
[2020-05-10 16:23] LABS: Glucose,Whole Blood 125 mg/dL (75-99)
[2020-05-10 20:18] LABS: Glucose,Whole Blood 210 mg/dL (75-99)
[2020-05-10] MEDS ORDERED: FUROSEMIDE 10 MG/ML 2 ML VIAL IV SCH (21:00)
[2020-05-10] MEDS: GABAPENTIN 300 MG CAP PO SCH (21:21)
[2020-05-11 06:07] LABS: Glucose,Whole Blood 114 mg/dL (75-99)
[2020-05-11] MEDS: MIDODRINE 5 MG TAB PO SCH ×3 (07:12→17:11)
[2020-05-11 07:43] LABS: Anisocytosis Slight; Basophils % (A) 0 %; Eosinophils % (A) 0 %; HCT 36.2 % (34.0-46.0); HGB 10.9 gm/dL (11.4-16.0); Hypochromasia Marked; Lymphocytes # (A) 0.4 k/uL (1.0-4.8); Lymphocytes % (A) 3 %; MCH 26.9 pg (25.0-35.0); MCHC 30.1 g/dL (31.0-37.0); MCV 89.2 fL (80.0-100.0); Mean Platelet Volume 9.8; Monocytes # (A) 0.8 k/uL (0-1.0); Monocytes % (A) 5 %; Neutrophils # (A) 15.5 k/uL (1.3-7.7); Neutrophils % (A) 92 %; Platelet Count 152 k/uL (150-450); Poikilocytosis Moderate; RBC 4.06 m/uL (3.80-5.40); RDW 16.6 % (11.5-15.5); WBC 16.9 k/uL (3.8-10.6)
[2020-05-11 07:55] LABS: African American GFR (CKD) >90 (>60 ml/min/1.73 sqM); Anion Gap 7 mmol/L; Blood Urea Nitrogen 92 mg/dL (7-17); Calcium 9.8 mg/dL (8.4-10.2); Carbon Dioxide 32 mmol/L (22-30); Chloride 104 mmol/L (98-107); Glucose 101 mg/dL (74-99); Magnesium 2.1 mg/dL (1.6-2.3); Non-African American GFR(CKD) 79 (>60 ml/min/1.73 sqM); Potassium 4.9 mmol/L (3.5-5.1); Sodium 143 mmol/L (137-145)
[2020-05-11] MEDS: INSULIN ASPART (NovoLOG) 100 UNIT/ML VIAL SQ SCH ×4 (08:08→21:15)
[2020-05-11] MEDS: IPRATROPIUM-ALBUTEROL 3 ML NEB INHALATION SCH ×5 (08:28→20:35)
[2020-05-11] MEDS: BUDESONIDE 1 MG/2 ML NEBU INHALATION SCH ×3 (08:30→20:35)
[2020-05-11] MEDS ORDERED: predniSONE 20 MG TAB PO SCH (09:00)
[2020-05-11] MEDS: HEPARIN SODIUM,PORCINE 5,000 UNIT/ML 1 ML VIAL SQ SCH ×2 (10:22→20:54)
[2020-05-11] MEDS: ATORVASTATIN 20 MG TAB PO SCH (10:22)
[2020-05-11] MEDS: DOXYCYCLINE 100 MG in SODIUM CHLORIDE 0.9% 100 ML IVPB SCH ×2 (10:22→20:54)
[2020-05-11] MEDS: ASPIRIN 81 MG PO SCH (10:22)
--- NOTE | 2020-05-11 11:15 | P.PN ---
Subjective Patient is seen in follow-up for acute kidney injury. Renal function improving. Nonoliguric. No vomiting or diarrhea. Oral intake fair. Currently on BiPAP. Vital signs are stable. General: The patient appeared well nourished and normally developed. HEENT: Head exam is unremarkable. On BiPAP. LUNGS: Breath sounds decreased. HEART: Rate and Rhythm are regular. ABDOMEN: Soft, nontender. EXTREMITITES: 1+ edema. Objective - Vital Signs Vital signs: Vital Signs Temp 97.5 F L 05/11/20 08:00 Pulse 76 05/11/20 08:49 Resp 16 05/11/20 08:00 BP 117/57 05/11/20 08:00 Pulse Ox 93 L 05/11/20 08:00 Intake & Output 05/10/20 05/11/20 05/11/20 18:59 06:59 18:59 Intake Total 125 240 Output Total 600 850 Balance -600 -725 240 Weight 44.5 kg Intake: Oral 125 240 Output: Urine 600 850 Other: Voiding Method Bedside Commode Bedside Commode # Voids 1 2 # Bowel Movements 1 2 - Labs CBC & Chem 7: 05/11/20 07:04 05/11/20 07:04 Labs: Abnormal Lab Results - Last 24 Hours (Table) 05/10/20 05/10/20 05/10/20 Range/Units 11:49 14:29 16:22 WBC (3.8-10.6) k/uL Hgb (11.4-16.0) gm/dL MCHC (31.0-37.0) g/dL RDW (11.5-15.5) % Neutrophils # (1.3-7.7) k/uL Lymphocytes # (1.0-4.8) k/uL Carbon Dioxide (22-30) mmol/L BUN (7-17) mg/dL Glucose (74-99) mg/dL POC Glucose (mg/dL) 182 H 132 H 125 H (75-99) mg/dL 05/10/20 05/11/20 05/11/20 Range/Units 20:17 06:06 07:04 WBC (3.8-10.6) k/uL Hgb (11.4-16.0) gm/dL MCHC (31.0-37.0) g/dL RDW (11.5-15.5) % Neutrophils # (1.3-7.7) k/uL Lymphocytes # (1.0-4.8) k/uL Carbon Dioxide 32 H (22-30) mmol/L BUN 92 H (7-17) mg/dL Glucose 101 H (74-99) mg/dL POC Glucose (mg/dL) 210 H 114 H (75-99) mg/dL 05/11/20 Range/Units 07:04 WBC 16.9 H (3.8-10.6) k/uL Hgb 10.9 L (11.4-16.0) gm/dL MCHC 30.1 L (31.0-37.0) g/dL RDW 16.6 H (11.5-15.5) % Neutrophils # 15.5 H (1.3-7.7) k/uL Lymphocytes # 0.4 L (1.0-4.8) k/uL Carbon Dioxide (22-30) mmol/L BUN (7-17) mg/dL Glucose (74-99) mg/dL POC Glucose (mg/dL) (75-99) mg/dL Microbiology - Last 24 Hours (Table) 05/07/20 13:53 Blood Culture - Preliminary Blood No Growth after 72 hours 05/07/20 14:00 Blood Culture - Preliminary Blood No Growth after 72 hours Assessment and Plan Plan: Assessment: 1. Acute kidney injury mostly prerenal secondary to hypotension. Component of cardiorenal syndrome. Creatinine 1.58 on admission and is 0.73 today. She also received IV contrast dye on May 07. No hydronephrosis noted on kidney ultrasound. UA benign. 2. Acute on chronic diastolic CHF with moderate to severe tricuspid regurgitation and severe pulmonary hypertension. 3. Fluid overload. Improving with diuresis. 4. COPD exacerbation. 5. Diabetes mellitus. 6. Disproportionally elevated BUN due to steroids. No evidence of GI bleed. BUN trending down. Plan: Maintain midodrine. Add Lasix 20 mg IV daily. Cortisol level not low. Continue to monitor renal function and urine output.
--- NOTE | 2020-05-11 11:17 | P.PN ---
Subjective Progress Note Date: 05/11/20 This is a 80-year-old female, looks older than her stated age, who presents to the emergency department, with increasing shortness of breath. The patient was a heavy smoker up until 21 years ago. At that time she quit. She apparently does have an established history of COPD, although we've never seen her in the office. The patient has a history of hypertension, hyperlipidemia, and diabetes among other things. The patient presents to the emergency department on 05/07/2020, at 1:00 in the afternoon, with worsening shortness of breath. It apparently started a day or 2 prior to admission and had become progressively worse. In addition, she has tightness, wheezing, and cough. She denies any ch est pain or pressure. She denies any fever or chills. She is really not coughing up any phlegm. Currently, she is on BiPAP with settings of IPAP 10, EPAP 5, and 60%. We checked her saturations, they were in the mid to high 90s, and we asked respiratory to turn her FiO2 down to 50%. When they did that, her saturations dropped to the mid 80s, which is probably her baseline in reality. She denies ever seeing a lung doctor. In addition, the patient was on heparin via weightbase protocol, for elevated troponins. She was admitted to the hospital with a diagnosis of COPD exacerbation, and non-ST segment elevation myocardial infarction. Her primary care provider is Dr. Michael Carrillo. Progress note dated 05/09/2020. 80-year-old female that we saw in consultation for acute hypoxemic respiratory failure, secondary to COPD exacerbation. She may have also sustained a non-ST segment elevation myocardial infarction. She currently remains on BiPAP. She has a history of heavy tobacco use, hypertension, hyperlipidemia, diabetes, without evidence of pulmonary embolism on CT angiogram, or DVT, on lower extremity Dopplers. The patient nods her head when I ask her how she's doing. She feels like she is doing better. Her BiPAP settings were 10/5 and 50%. We are going to ask her nurse about switching her over to high flow nasal cannula. The patient's on appropriate medications including albuterol sulfate, ipratropium bromide, formoterol, Pulmicort, and systemic corticosteroids. Her chest x-ray had the classic findings of someone with emphysema. On today's evaluation of 05/10/2020, the patient is feeling better. She is less short of breath. She was on a BiPAP or throughout the night and the patient is currently off the BiPAP on oxygen at 4 L per minute nasal cannula. She is resting comfortably she is not using excessive muscle breathing. She did have some minor troponin leak which was a demand mismatch in the patient's chest x- ray showed small bilateral pleural effusions. White cell count of 15.4. Pro Calcitonin level was 0.13.. The patient is covered with doxycycline with empiric antibiotic coverage. She received a dose of Lasix 20 mg IV on 05/10/2000 which is today based on the x-ray findings. She remains on IV Solu Medrol 60 mg every 6 hours pH is also on DuoNeb nebulized treatments around the clock. On 05/11/2020 the patient is on BiPAP. Yesterday evening, the patient became hypoxemic and she became progressively more short of breath. She was taken off the oxygen which was running at 4 L and she was started on BiPAP which is currently running at 10/5 cm of water with an FiO2 of 40%. She seems to be tolerating it well and she is on a full face mask and synchronous with the BiPAP mask for now. She was given a dose of Lasix is producing adequate amount of urine output. No chest pain. She is quite cachectic and she has advanced lung disease. She is also on DuoNeb nebulized treatments [id number], she is on a combination of Perforomist and Pulmicort neb last 2 minutes twice a day and she is on IV Solu Medrol 60 mg every 6 hours and she is also on doxycycline as an empiric antibiotic coverage. She received a dose of Lasix 20 mg IV push on 05/10/2020. Her blood work today shows a white cell count of 16 with a hemoglobin of 10.9. This is compatible compared to yesterday's labs. She also has a serum bicarb of 32, sodium of 143 and potassium level of 4.9, BUN is at 92 with a creatinine of 0.7. IV fluids are running at KVO. Objective - Vital Signs Vital signs: Vital Signs Temp 97.5 F L 05/11/20 08:00 Pulse 76 05/11/20 08:49 Resp 16 05/11/20 08:00 BP 117/57 05/11/20 08:00 Pulse Ox 93 L 05/11/20 08:00 Intake & Output 05/10/20 05/11/20 05/11/20 18:59 06:59 18:59 Intake Total 125 240 Output Total 600 850 Balance -600 723 240 Weight 44.5 kg Intake: Oral 125 240 Output: Urine 600 850 Other: Voiding Method Bedside Commode Bedside Commode # Voids 1 2 # Bowel Movements 1 2 - Exam Oriented 3, very short of breath, obvious conversational dyspnea, and the patient is looking much more comfortable on a BiPAP. Her current pressure sett ings are 10/5 with an FiO2 of 40%. Her current minute ventilation is around 5 L per minute and respiratory rate is around 22 with a tidal volume of around 250cc HEENT examination is grossly unremarkable. Mucous membranes are moist. No oral lesions. BiPAP mask in place. Neck supple. Full range of motion. No adenopathy thyromegaly or neck vein distention. Cardiovascular examination reveals regular rhythm and rate. Heart rate 72 bpm. S1-S2 normal. No S3 or S4. No discernible murmur noted. Heart sounds are distant. Lungs reveal severely diminished breath sounds. Diffuse coarse rhonchi and wheezes are noted. Breath sounds are equal bilaterally but severely diminished. No crackles. There is prolongation on forced maneuver. Abdomen soft bowel sounds are heard. No masses or tenderness. Extremities are intact. No cyanosis clubbing or edema. Skin is without rash or lesion. Neurologic examination is brief but nonfocal. - Labs CBC & Chem 7: 05/11/20 07:04 05/11/20 07:04 Labs: Abnormal Lab Results - Last 24 Hours (Table) 05/10/20 05/10/20 05/10/20 Range/Units 11:49 14:29 16:22 WBC (3.8-10.6) k/uL Hgb (11.4-16.0) gm/dL MCHC (31.0-37.0) g/dL RDW (11.5-15.5) % Neutrophils # (1.3-7.7) k/uL Lymphocytes # (1.0-4.8) k/uL Carbon Dioxide (22-30) mmol/L BUN (7-17) mg/dL Glucose (74-99) mg/dL POC Glucose (mg/dL) 182 H 132 H 125 H (75-99) mg/dL 05/10/20 05/11/20 05/11/20 Range/Units 20:17 06:06 07:04 WBC (3.8-10.6) k/uL Hgb (11.4-16.0) gm/dL MCHC (31.0-37.0) g/dL RDW (11.5-15.5) % Neutrophils # (1.3-7.7) k/uL Lymphocytes # (1.0-4.8) k/uL Carbon Dioxide 32 H (22-30) mmol/L BUN 92 H (7-17) mg/dL Glucose 101 H (74-99) mg/dL POC Glucose (mg/dL) 210 H 114 H (75-99) mg/dL 05/11/20 Range/Units 07:04 WBC 16.9 H (3.8-10.6) k/uL Hgb 10.9 L (11.4-16.0) gm/dL MCHC 30.1 L (31.0-37.0) g/dL RDW 16.6 H (11.5-15.5) % Neutrophils # 15.5 H (1.3-7.7) k/uL Lymphocytes # 0.4 L (1.0-4.8) k/uL Carbon Dioxide (22-30) mmol/L BUN (7-17) mg/dL Glucose (74-99) mg/dL POC Glucose (mg/dL) (75-99) mg/dL Microbiology - Last 24 Hours (Table) 05/07/20 13:53 Blood Culture - Preliminary Blood No Growth after 72 hours 05/07/20 14:00 Blood Culture - Preliminary Blood No Growth after 72 hours Assessment and Plan Plan: 1 Acute hypoxemic respiratory failure, secondary to COPD exacerbation. The patient is still having difficulties in breathing and she is quite short of breath placed on BiPAP at a pressure of 10/5 with an FiO2 of 40%. She has advanced lung disease and she is quite cachectic and emaciated with a body mass index of 19.8. 2 Rule out non-ST segment elevation myocardial infarction. 3 History of previous heavy tobacco use. 4 History of hypertension. 5 History of hyperlipidemia. 6 History of diabetes mellitus. 7 No evidence of pulmonary embolism on CT angiogram or DVT, on lower extremity Dopplers. 8 Mild right-sided hydronephrosis. 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 Continue DuoNeb nebulized 2 minutes 4 times a day and a combination of Perforomist and Pulmicort nebulized treatments IV Solumedrol 60 mg every 6 hours IV fluids to KVO Repeat the chest x-ray Given additional dose of Lasix 20 mg IV push Continue BiPAP for the same setting and obtain a blood gas. Keep the FiO2 at 40% Transfer the patient to the intensive care unit Will follow
--- NOTE | 2020-05-11 11:56 | XR ---
EXAMINATION TYPE: XR chest 1V portable DATE OF EXAM: 05/11/2020 COMPARISON: 05/10/2020 INDICATION: Short of breath TECHNIQUE: Single frontal view of the chest is obtained. FINDINGS: The heart size is normal. The pulmonary vasculature is normal. Small bilateral pleural effusions are present. IMPRESSION: 1. Small bilateral pleural effusions. 2. Exam is stable from comparison
--- NOTE | 2020-05-11 12:01 | P.PN ---
Subjective This is a pleasant 80 years old female with past medical history of diabetes mellitus, hypertension, hyperlipidemia, COPD, ex-smoker. Presents with shortness of breath has been going on for about 6 months with recent worsening over the last few days associated with cough and green phlegm but no chest pain. Yesterday she felt more weak and lost her coordination and recently noticed that her feet starts getting swollen over the last 10 days especially around the ankles. Patient also noticed to have hoarseness of voice, patient states it improving over the last few days She does not use oxygen at home, she does not follow up with statistics tutor She quit smoking about 21 years with no alcohol or illicit drug Her PCP is Dr. Carrillo Also she is weak and emaciated. No abdominal pain or nausea vomiting. No diarrhea. No dysuria. She denies fever. On admission she was hypoxic with 85% on room air, oxygen saturation improved to 97-98 on 6 L oxygen via nasal cannula, she is tachypneic around 20-28% per minute, however she can talk without interruption Labs show an unremarkable CBC, INR 1.2, d-dimer is elevated at 6.1. Creatinine is elevated at 1.58 , electrolytes normal, carbon dioxide 30. Elevated d-dimer 2.7 came back to normal at 1.5. Liver enzymes not elevated. Troponin also were elevated at 0.159[place] [address]. Coronavirus not detected Chest CTA is negative for PE, emphysema without overt findings of failure Chest x-ray COPD, small bilateral pleural effusions. EKG showing normal sinus rhythm at [address]-T changes and QTC 425. Patient in the emergency room started on aspirin 325 mg compared to home dose of 81 mg and salmeterol 60 mg every 6 hours. 05/08/2020 Patient this morning she become more short of breath and she was saturating 81% on 6 L oxygen via nasal cancer, patient has to be placed on BiPAP with a setting of 10/5 at 50% FiO2. Patient still has decreased air entry on both sides on examination CBC is stable. Electrolytes are normal. Creatinine trending down to 1.5 down to 1.4. Troponin is stable at 0.14, most likely due to troponin leak. D-dimer is elevated but negative CTA. Ultrasound of the lower extremity is negative for DVT Patient is currently also on Medrol 60 mg, doxycycline. Patient was started on heparin drip in the emergency room and aspirin 325 mg daily. 05/09/2020 Patient remains BiPAP dependent most of the time with FiO2 of 60%, she is still short of breath. Little coughing. Her oxygen saturating on BiPAP with FiO2 50% was improved to 99% O during the day. Patient is afebrile. Last blood pressure was 90/46 and heart rate 81, she's getting normal saline at 75 mL/h and cartilage team are helping with managing her heart rate and blood pressure. As per their recommendation patient may have MAT versus A. fib and metoprolol was added, we will closely monitor her blood pressure and heart rate. CBC with mild leukocytosis while she is on steroids. Hemoglobin is trending down gradually but remains within the reference range, 15.4, 13.6, 11.5. He'll keep monitoring hemoglobin. BMP is unremarkable, creatinine improved down to 1.1 while BUN increased to 127. Nephrology input is recommended by table games shift manager and a they recommend medodrain, Lasix x1 and check renal ultrasound and urine analysis heparin drip was stopped by table games shift manager echocardiogram showing ejection fraction of 55-60 moderate to severe tricuspid regurgitation. Venous Doppler is negative for leg DVT. she is on Solu-Medrol 60 mg, doxycycline, normal saline at 75 mL/h 05/10/2020 Patient still dyspneic and she is BiPAP dependent portion is less FiO2 at 45% currently. She still coughing frequently and we will order cough syrup. Heart rate is 57-58 blood pressure 85/51 this morning. She is afebrile. Last night took a bolus of 250 mL of normal saline. Bi Tester on the case and help with blood pressure on her trip management. She has mild leukocytosis from steroid effect. BUN is elevated at 127 similar as yesterday. Creatinine back to reference range. The glucose control. Potassium was slightly elevated at 5.6 Repeat chest x-ray this morning: COPD and bilateral pleural effusion Patient on Solu-Medrol and DOXYCYCLINE. Patient was started on metoprolol 50 mg twice daily by table games shift manager and because of low blood pressure forwarder operator is been consulted to added midodrine 10 mg 3 times a day Serum Cardizem because of this morning is still pending 05/11/2020 Yesterday patient oxygen requirement dropped to 4 L/m however overnight she become more hypoxic and she has to be placed on BiPAP, this morning she was still on BiPAP with a setting of 10/5 with FiO2 of 45% Heart she has less wheezing or crepitation in her lung but she has significant bilateral leg swelling. Yesterday she received 1 dose of Lasix but she could not tolerate it for drop in blood pressure, despite she's been placed on midodrain by nephrology team Rest of Vitas are stable. Her leukocytosis is expected since she is on steroids. Hemoglobin has been troubling but there is been stable at 10.9, it was 15.4 on admission although there were some elements of hemodilution repeat chest x-ray today showing small bilateral pleural effusions and exam is stable from yesterday. Pulmonary team are transferring the patient to the ICU. He recommends to continue with a breathing treatment and steroids besides one small dose of Lasix. Cartilage team recommended tried heart catheterization and possible for hypertension and dyspnea Review of Systems CONSTITUTIONAL: No fever, no malaise, no fatigue. HEENT: No recent visual problems or hearing problems. Denied any sore throat. CARDIOVASCULAR: No orthopnea, PND, no palpitations, no syncope. PULMONARY: No chest wall tenderness, no hemoptysis. GASTROINTESTINAL: No diarrhea, no nausea, no vomiting, no abdominal pain. N ormoactive bowel sounds. NEUROLOGICAL: No headaches, no weakness, no numbness. Active Medications Generic Name Dose Route Start Last Admin Trade Name Freq PRN Reason Stop Dose Admin Acetaminophen 650 mg 05/10/20 11:36 05/10/20 12:38 Acetaminophen Tab 325 Mg Tab PO 650 mg Q6HR PRN Administration Fever and/ or Pain Albuterol/Ipratropium 3 ml 05/07/20 20:00 05/11/20 08:28 Ipratropium-Albuterol 3 Ml Neb INHALATION 3 ml RT-QID TONG Administration Albuterol/Ipratropium 3 ml 05/08/20 12:19 05/10/20 00:34 Ipratropium-Albuterol 3 Ml Neb INHALATION 3 ml RT-Q2H PRN Administration Shortness Of Breath Or Wheezing Aspirin 81 mg 05/08/20 09:00 05/11/20 10:22 Aspirin 81 Mg PO 81 mg DAILY TONG Administration Atorvastatin Calcium 20 mg 05/08/20 09:00 05/11/20 10:22 Atorvastatin 20 Mg Tab PO 20 mg DAILY TONG Administration Budesonide 1 mg 05/08/20 20:00 05/11/20 08:30 Budesonide 1 Mg/2 Ml Nebu INHALATION 1 mg RT-BID TONG Administration Formoterol Fumarate 20 mcg 05/11/20 20:00 Formoterol Fumarate 20 Mcg/2 Ml Nebu INHALATION RT-BID TONG Furosemide 20 mg 05/11/20 11:15 Furosemide 10 Mg/Ml 2 Ml Vial IV DAILY TONG Gabapentin 300 mg 05/07/20 21:00 05/10/20 21:21 Gabapentin 300 Mg Cap PO 300 mg HS TONG Administration Guaifenesin/Dextromethorphan 10 ml 05/10/20 09:24 Guaifenesin-Dm 100-10mg/5ml 10 Ml Cup PO Q6H PRN Cough Heparin Sodium (Porcine) 5,000 unit 05/09/20 12:15 05/11/20 10:22 Heparin Sodium,Porcine 5,000 Unit/Ml 1 Ml Vial SQ 5,000 unit Q12HR TONG Administration Doxycycline Hyclate 100 mg/ 100 mls @ 100 mls/hr 05/07/20 20:00 05/11/20 10:22 Sodium Chloride IVPB 100 mls/hr Q12HR TONG Administration Insulin Aspart 0 unit 05/07/20 21:00 05/11/20 08:08 Insulin Aspart (Novolog) 100 Unit/Ml Vial SQ Not Given ACHS [facility] Protocol Methylprednisolone Sodium Succinate 40 mg 05/11/20 11:30 Methylprednisolone Sod Succi 40 Mg/Ml 1 Ml Vial IV Q8HR [facility] Midodrine 10 mg 05/09/20 12:30 05/11/20 07:12 Midodrine 5 Mg Tab PO 10 mg AC-TID TONG Administration Objective - Vital Signs Vital signs: Vital Signs Temp 97.5 F L 05/11/20 08:00 Pulse 76 05/11/20 08:49 Resp 16 05/11/20 08:00 BP 117/57 05/11/20 08:00 Pulse Ox 93 L 05/11/20 08:00 Intake & Output 05/10/20 05/11/20 05/11/20 18:59 06:59 18:59 Intake Total 125 240 Output Total 600 850 Balance -600 -725 240 Weight 44.5 kg Intake: Oral 125 240 Output: Urine 600 850 Other: Voiding Method Bedside Commode Bedside Commode Bedside Commode # Voids 1 2 # Bowel Movements 1 2 - Exam GENERAL: The patient is alert and oriented x3, not in any acute distress. HEENT: Pupils are round and equally reacting to light. EOMI. No scleral icterus. No conjunctival pallor. Normocephalic, atraumatic. No pharyngeal erythema. No thyromegaly. CARDIOVASCULAR: S1 and S2 present. No murmurs, rubs, or gallops. -PULMONARY: Chest is clear to auscultation, there is decreased air entry, with mild inspiratory and expiratory wheezing. ABDOMEN: Soft, nontender, nondistended, normoactive bowel sounds. No palpable organomegaly. MUSCULOSKELETAL: No joint swelling or deformity. EXTREMITIES: No cyanosis, clubbing, or pedal edema. NEUROLOGICAL: Gross neurological examination did not reveal any focal deficits. SKIN: No rashes. No petechiae - Labs CBC & Chem 7: 05/11/20 07:04 05/11/20 07:04 Labs: Abnormal Lab Results - Last 24 Hours (Table) 05/10/20 05/10/20 05/10/20 Range/Units 14:29 16:22 20:17 WBC (3.8-10.6) k/uL Hgb (11.4-16.0) gm/dL MCHC (31.0-37.0) g/dL RDW (11.5-15.5) % Neutrophils # (1.3-7.7) k/uL Lymphocytes # (1.0-4.8) k/uL Carbon Dioxide (22-30) mmol/L BUN (7-17) mg/dL Glucose (74-99) mg/dL POC Glucose (mg/dL) 132 H 125 H 210 H (75-99) mg/dL 05/11/20 05/11/20 05/11/20 Range/Units 06:06 07:04 07:04 WBC 16.9 H (3.8-10.6) k/uL Hgb 10.9 L (11.4-16.0) gm/dL MCHC 30.1 L (31.0-37.0) g/dL RDW 16.6 H (11.5-15.5) % Neutrophils # 15.5 H (1.3-7.7) k/uL Lymphocytes # 0.4 L (1.0-4.8) k/uL Carbon Dioxide 32 H (22-30) mmol/L BUN 92 H (7-17) mg/dL Glucose 101 H (74-99) mg/dL POC Glucose (mg/dL) 114 H (75-99) mg/dL Microbiology - Last 24 Hours (Table) 05/07/20 13:53 Blood Culture - Preliminary Blood No Growth after 72 hours 05/07/20 14:00 Blood Culture - Preliminary Blood No Growth after 72 hours Assessment and Plan Assessment: Acute COPD exacerbation Acute hypoxic respiratory failure secondary to above Severe pulmonary hypertension Hypotension on admission Anemia, anemia workup is ordered. Acute kidney injury, creatinine is back to normal Elevated troponin, rule out STEMI however it could be from kidney disease and demand/supply mismatch Multifocal atrial tachycardia versus atrial fibrillation per table games shift manager Hyperlipidemia Diabetes mellitus Plan: This is a pleasant 80 years old female presents with COPD. severe hypoxia. Continue with Solu-Medrol, continue with bronchodilators and oxygen as needed. c/w doxycycline and check sputum culture.c/w aspirin. Cardiology consult, pulmonary consult and forwarder operator also are following pt; Discontinue IV fluids. Labs and medication were reviewed.. Continue same treatment. Continue with symptomatic treatment. Resume home medication. Monitor lytes and vitals. DVT and GI prophylaxis. Further recommendations depends on the clinical course of the patient DVT prophylaxis: heparin GI Prophylaxis: Pepcid PT/OT: Pending Prognosis is guarded
[2020-05-11 12:04] LABS: Glucose,Whole Blood 119 mg/dL (75-99)
[2020-05-11 13:05] LABS: ABG Base Excess 9.6 mmol/L; ABG HCO3 35 mmol/L (21-25); ABG Oxygen Saturation 97.7 % (94-97); ABG PCO2 62 mmHg (35-45); ABG PH 7.36 (7.35-7.45); ABG PO2 85 mmHg (83-108); ABG TCO2 37 mmol/L (19-24); Allen Test Performed? Yes
[2020-05-11 13:35] LABS: Ferritin 28.5 ng/mL (10.0-291.0)
[2020-05-11 13:47] LABS: % Iron Saturation 3.04 (12.00-45.00); Folate, Serum 19.8 ng/mL; Iron 12 ug/dL (50-170); Total Iron Binding Capacity 395 ug/dL (228-460)
[2020-05-11] MEDS: methylPREDNISolone SOD SUCCI 40 MG/ML 1 ML VIAL IV SCH ×2 (15:06→15:08)
[2020-05-11] MEDS: FUROSEMIDE 10 MG/ML 2 ML VIAL IV SCH (15:06)
--- NOTE | 2020-05-11 16:02 | CDI ---
Documentation Clarification Form Date: 05/11/2020 03:17:58 PM From: Kay Hendricks RN CCDS Admit Date: 05/07/2020 04:21:00 PM Patient Name: Amanda Rivera Visit Number: [id number] Discharge Date: ATTENTION: The Clinical Documentation Specialists (CDI) and [facility] Coding Staff appreciate your assistance in clarifying documentation. Please respond to the clarification below the line at the bottom and electronically sign. The CDI & [facility] Coding staff will review the response and follow-up if needed. Please note: Queries are made part of the Legal Health Record. If you have any questions, please contact the author of this message via ITS. Dr. Fisher, She has advanced lung disease and she is quite cachectic and emaciated with a body mass index of 19.8 Documented in Pulmonology progress note 3. History/Risk Factors: 80-year old female presents to the ED with worsening shortness of breath, cough, green phlegm and feeling week with loss of coordination. Patient has swelling in feet and ankles. Medical History: COPD, DM, HLD & HTN, Per H&P 05/07. Clinical Indicators: Labs: Glucose 05/08 144. 2/28 118. 3/1 123. 3/2 101. BMI: 19.8kg/m per your progress note 3. Nutritional assessment 05/08. Nutrition Intake: Poor. Percent consumed: 0% NPO due to BiPAP. Physical Appearance: Emaciated. Anthropometrics: LA Classification: Underweight. Current Weight 42.5 kg: Calculated [place] Body Weight 44.3 kg: Pt reports 14-23# weight loss in five months. Nutritional Diagnosis: Energy Balance Inadequate energy intake. Nutrient: Malnutrition, Severe, chronic. Related to Decreased oral intake, increased metabolic demands of chronic lung disease. Visible muscle wasting-temporal, clavicle and shoulders. Treatment: Dietary Consult: See above Nutritional assessment. Estimated Energy needs 1107 1329 and Estimated fluid needs 1500ml. Supplements: 05/08 Enlive TID Other: 05/08 Monitor PO, Monitory oral supplement intake. Sliding scale Insulin coverage. Lab monitoring: Glucose monitoring In your professional opinion, can you please clarify if these findings signify one of the following conditions? Moderate Protein-Calorie Malnutrition Severe Protein-Calorie Malnutrition Other condition, please specify Unable to determine (Last Revision: September 2018) Severe Protein-Calorie Malnutrition MTDD
[2020-05-11 17:10] LABS: Glucose,Whole Blood 146 mg/dL (75-99)
[2020-05-11 20:29] LABS: Glucose,Whole Blood 150 mg/dL (75-99)
[2020-05-11] MEDS: FORMOTEROL FUMARATE 20 MCG/2 ML NEBU INHALATION SCH ×2 (20:32→20:35)
[2020-05-11] MEDS ORDERED: DILTIAZEM DRIP BOLUS FROM BAG 1 MG SOLN IV ONE (20:37)
[2020-05-11] MEDS: GABAPENTIN 300 MG CAP PO SCH (20:54)
[2020-05-11] MEDS: DILTIAZEM 125 MG in SODIUM CHLORIDE 0.9% 100 ML IV SCH (20:54)
--- NOTE | 2020-05-11 21:07 | P.PN ---
Subjective HISTORY OF PRESENTING ILLNESS This is a pleasant 80-year-old female past medical history significant for nonobstructive coronary artery disease, COPD, hypertension, diabetes mellitus and dyslipidemia. She is to follow in the office with Dr. López however has not been to the office since 2018. She is seen and examined sitting up in bed in no acute distress. Her breathing is stable on nasal cannula. She is not requiring bipap support currently. Blood pressure has been running low overnight. Lopressor is currently on hold. Heart rates in the 60's. Laboratory data reviewed, WBC 15.4, hgb 10, plt 169, sodium 138, potassium 5.6, BUN 127 and creatinine 1.01 and magnesium 2.2. 05/11/2020 Patient seen and examined. Patient still admits to SOB, on BIPAP. Patient had an episode of hypoxia yesterday with shortness breath and therefore was switched from her nasal cannula back to BiPAP. She received IV Lasix 20 mg yesterday and creatinine in view on have been improving, BUN 92, creatinine 0.73. She denies any chest pain or pressure. There was consideration of right heart catheterization today however transferred to ICU for closer monitoring. PHYSICAL EXAMINATION HEENT: Head is normocephalic. Pupils are equal, round. Sclerae anicteric. Mucous membranes of the mouth are moist. Mild JVD. No carotid bruit. CHEST EXAMINATION: Significantly diminished. Expiratory wheezes. No chest wall tenderness is noted on palpation or with deep breathing. HEART EXAMINATION: Regular rate and rhythm. S1, S2 heard. Systolic ejection murmur at the base, no gallops or rub. EXTREMITIES: 2+ peripheral pulses, no lower extremity edema and no calf tenderness. ASSESSMENT Acute on chronic respiratory failure, component of AECOPD and pulmonary hypertension with RV failure Lactic acidosis Troponin elevation secondary to type II myocardial infarction with oxygen supply and demand mismatch as well as likely from right sided heart failure Right sided heart failure Irregular SVT on presentation, questionable multi-focal atrial tachycardia vs possible paroxysmal atrial fibrillation Acute exacerbation of COPD Hypertension Dyslipidemia Diabetes mellitus RV dilation and dysfunction related to pulmonary hypertension Moderate to severe tricuspid regurgitation Severe pulmonary hypertension, likely group 1 vs 3. RVSP of 60 however degree of RVSP may be underestimated due to RV dysfunction. MAURI, severely increased BUN:Cr ratio PLAN Discussed case with daughter and patient yesterday with patient progressively becoming more short of breath over the past one to 2 years. Echocardiogram reviewed with severely dilated and hypokinetic right ventricle and elevated RVSP of 60. Degree of pulmonary hypertension may be underestimated secondary to RV dysfunction and inability to generate increased RV pressures. Concern of advanced right heart failure given pulmonary hypertension, severely dilated and hypokinetic right ventricle and right atrium along with increased troponins, increased BNP. Prerenal azotemia may be related to decreased left ventricular filling and decrease left ventricular output secondary to RV failure. Recommend right heart catheterization to evaluate pulmonary hypertension as well as to evaluate for cardiac output, cardiac index. Severe pulmonary hypertension usually not group 3 from COPD and may be group 1 however regardless patient may qualify for pulmonary hypertension medications for pulmonary arterial afterload reduction which would improve RV function. If decreased cardiac output, patient would likely benefit from IV epoprostenol or dual therapy as well as pulmonary hypertension specialist evaluation. Discussed yesterday with patient and daughter that end stage pulmonary hypertension in addition to COPD carries a poor prognosis however medications may help. Will continue with supportive care and montitor response. Objective - Vital Signs Vital signs: Vital Signs Temp 98.3 F 05/11/20 16:00 Pulse 88 05/11/20 19:00 Resp 12 05/11/20 19:00 BP 96/73 05/11/20 19:00 Pulse Ox 90 L 05/11/20 19:00 Intake & Output 05/11/20 05/11/20 05/12/20 06:59 18:59 06:59 Intake Total 125 240 Output Total 850 1600 45 Balance -725 -1360 -45 Weight 44.5 kg Intake: Oral 125 240 Output: Urine 850 1600 45 Other: Voiding Method Bedside Commode Indwelling Catheter # Voids 2 # Bowel Movements 2 - Labs CBC & Chem 7: 05/11/20 07:04 05/11/20 07:04 Labs: Abnormal Lab Results - Last 24 Hours (Table) 05/10/20 05/11/20 05/11/20 Range/Units 20:17 06:06 07:04 WBC (3.8-10.6) k/uL Hgb (11.4-16.0) gm/dL MCHC (31.0-37.0) g/dL RDW (11.5-15.5) % Neutrophils # (1.3-7.7) k/uL Lymphocytes # (1.0-4.8) k/uL ABG pCO2 (35-45) mmHg ABG HCO3 (21-25) mmol/L ABG Total CO2 (19-24) mmol/L ABG O2 Saturation (94-97) % Carbon Dioxide 32 H (22-30) mmol/L BUN 92 H (7-17) mg/dL Glucose 101 H (74-99) mg/dL POC Glucose (mg/dL) 210 H 114 H (75-99) mg/dL Iron 12 L (50-170) ug/dL % Saturation 3.04 L (12.00-45.00) 05/11/20 05/11/20 05/11/20 Range/Units 07:04 12:03 13:03 WBC 16.9 H (3.8-10.6) k/uL Hgb 10.9 L (11.4-16.0) gm/dL MCHC 30.1 L (31.0-37.0) g/dL RDW 16.6 H (11.5-15.5) % Neutrophils # 15.5 H (1.3-7.7) k/uL Lymphocytes # 0.4 L (1.0-4.8) k/uL ABG pCO2 62 H (35-45) mmHg ABG HCO3 35 H (21-25) mmol/L ABG Total CO2 37 H (19-24) mmol/L ABG O2 Saturation 97.7 H (94-97) % Carbon Dioxide (22-30) mmol/L BUN (7-17) mg/dL Glucose (74-99) mg/dL POC Glucose (mg/dL) 119 H (75-99) mg/dL Iron (50-170) ug/dL % Saturation (12.00-45.00) 05/11/20 Range/Units 17:08 WBC (3.8-10.6) k/uL Hgb (11.4-16.0) gm/dL MCHC (31.0-37.0) g/dL RDW (11.5-15.5) % Neutrophils # (1.3-7.7) k/uL Lymphocytes # (1.0-4.8) k/uL ABG pCO2 (35-45) mmHg ABG HCO3 (21-25) mmol/L ABG Total CO2 (19-24) mmol/L ABG O2 Saturation (94-97) % Carbon Dioxide (22-30) mmol/L BUN (7-17) mg/dL Glucose (74-99) mg/dL POC Glucose (mg/dL) 146 H (75-99) mg/dL Iron (50-170) ug/dL % Saturation (12.00-45.00) Microbiology - Last 24 Hours (Table) 05/07/20 13:53 Blood Culture - Preliminary Blood No Growth after 96 hours 05/07/20 14:00 Blood Culture - Preliminary Blood No Growth after 96 hours
[2020-05-11] MEDS ORDERED: DIGOXIN 250 MCG/ML 2 ML AMP IVP ONE (23:56)
[2020-05-12] MEDS: methylPREDNISolone SOD SUCCI 40 MG/ML 1 ML VIAL IV SCH ×3 (00:15→17:26)
[2020-05-12 04:24] LABS: Anisocytosis Slight; Basophils % (A) 0 %; Eosinophils % (A) 0 %; HCT 32.2 % (34.0-46.0); HGB 9.7 gm/dL (11.4-16.0); Hypochromasia Marked; Lymphocytes # (A) 0.2 k/uL (1.0-4.8); Lymphocytes % (A) 2 %; MCH 26.3 pg (25.0-35.0); MCHC 30.3 g/dL (31.0-37.0); Mean Platelet Volume 9.7; Monocytes # (A) 0.2 k/uL (0-1.0); Monocytes % (A) 3 %; Neutrophils # (A) 8.6 k/uL (1.3-7.7); Neutrophils % (A) 95 %; Platelet Count 140 k/uL (150-450); Poikilocytosis Moderate; RBC 3.69 m/uL (3.80-5.40); RDW 16.7 % (11.5-15.5)
[2020-05-12 04:39] LABS: African American GFR (CKD) >90 (>60 ml/min/1.73 sqM); Anion Gap 3 mmol/L; Blood Urea Nitrogen 59 mg/dL (7-17); Calcium 8.8 mg/dL (8.4-10.2); Carbon Dioxide 33 mmol/L (22-30); Chloride 104 mmol/L (98-107); Glucose 118 mg/dL (74-99); Magnesium 1.9 mg/dL (1.6-2.3); Non-African American GFR(CKD) 87 (>60 ml/min/1.73 sqM); Potassium 4.5 mmol/L (3.5-5.1); Sodium 140 mmol/L (137-145)
--- NOTE | 2020-05-12 07:13 | P.PN ---
Subjective Progress Note Date: 05/12/20 This is a 80-year-old female, looks older than her stated age, who presents to the emergency department, with increasing shortness of breath. The patient was a heavy smoker up until 21 years ago. At that time she quit. She apparently does have an established history of COPD, although we've never seen her in the office. The patient has a history of hypertension, hyperlipidemia, and diabetes among other things. The patient presents to the emergency department on 05/07/2020, at 1:00 in the afternoon, with worsening shortness of breath. It apparently started a day or 2 prior to admission and had become progressively worse. In addition, she has tightness, wheezing, and cough. She denies any ch est pain or pressure. She denies any fever or chills. She is really not coughing up any phlegm. Currently, she is on BiPAP with settings of IPAP 10, EPAP 5, and 60%. We checked her saturations, they were in the mid to high 90s, and we asked respiratory to turn her FiO2 down to 50%. When they did that, her saturations dropped to the mid 80s, which is probably her baseline in reality. She denies ever seeing a lung doctor. In addition, the patient was on heparin via weightbase protocol, for elevated troponins. She was admitted to the hospital with a diagnosis of COPD exacerbation, and non-ST segment elevation myocardial infarction. Her primary care provider is Dr. Michael Carrillo. Progress note dated 05/09/2020. 80-year-old female that we saw in consultation for acute hypoxemic respiratory failure, secondary to COPD exacerbation. She may have also sustained a non-ST segment elevation myocardial infarction. She currently remains on BiPAP. She has a history of heavy tobacco use, hypertension, hyperlipidemia, diabetes, without evidence of pulmonary embolism on CT angiogram, or DVT, on lower extremity Dopplers. The patient nods her head when I ask her how she's doing. She feels like she is doing better. Her BiPAP settings were 10/5 and 50%. We are going to ask her nurse about switching her over to high flow nasal cannula. The patient's on appropriate medications including albuterol sulfate, ipratropium bromide, formoterol, Pulmicort, and systemic corticosteroids. Her chest x-ray had the classic findings of someone with emphysema. On today's evaluation of 05/10/2020, the patient is feeling better. She is less short of breath. She was on a BiPAP or throughout the night and the patient is currently off the BiPAP on oxygen at 4 L per minute nasal cannula. She is resting comfortably she is not using excessive muscle breathing. She did have some minor troponin leak which was a demand mismatch in the patient's chest x- ray showed small bilateral pleural effusions. White cell count of 15.4. Pro Calcitonin level was 0.13.. The patient is covered with doxycycline with empiric antibiotic coverage. She received a dose of Lasix 20 mg IV on 05/10/2000 which is today based on the x-ray findings. She remains on IV Solu Medrol 60 mg every 6 hours pH is also on DuoNeb nebulized treatments around the clock. On 05/11/2020 the patient is on BiPAP. Yesterday evening, the patient became hypoxemic and she became progressively more short of breath. She was taken off the oxygen which was running at 4 L and she was started on BiPAP which is currently running at 10/5 cm of water with an FiO2 of 40%. She seems to be tolerating it well and she is on a full face mask and synchronous with the BiPAP mask for now. She was given a dose of Lasix is producing adequate amount of urine output. No chest pain. She is quite cachectic and she has advanced lung disease. She is also on DuoNeb nebulized treatments [id number], she is on a combination of Perforomist and Pulmicort neb last 2 minutes twice a day and she is on IV Solu Medrol 60 mg every 6 hours and she is also on doxycycline as an empiric antibiotic coverage. She received a dose of Lasix 20 mg IV push on 05/10/2020. Her blood work today shows a white cell count of 16 with a hemoglobin of 10.9. This is compatible compared to yesterday's labs. She also has a serum bicarb of 32, sodium of 143 and potassium level of 4.9, BUN is at 92 with a creatinine of 0.7. IV fluids are running at KVO. 83 2020 of seeing the patient in follow-up. The patient is awake and alert this morning. Overnight she utilizes BiPAP at a pressure of 10/5 cm of water and FiO2 of 45%. This morning, we switched her to oxygen at 4 L per minute nasal cannula and gave her a break off the BiPAP. She seems to be more comfortable this morning. Overnight, the patient went into atrial fibrillation with rapid v entricular response and subsequently she converted back into normal sinus rhythm and currently she is in normal sinus rhythm with a BP of 99/53. Her pulse ox is above 90% 40s about 2 by nasal cannula. The patient was given a Cardizem bolus of 10 mg IV and 5 she is currently on a 5 mg an hour. She is 5 which was bumped up to 10 mg an hour . During the course of her treatment she also took 0.25 mg of digoxin and she converted spontaneously to normal sinus rhythm at around 1 AM this morning. Since then she has been normal sinus rhythm. The patient is currently at 20 mg every 20 mg of IV Lasix on a daily basis. The fluid balance over the past 24 hours has been -1.3 L and she put out another 1.5 L negative fluid balance for today. Her BUN is down to 59 with a creatinine being down to 0.6. Rest of the electrolytes are all within normal limits. White cell count is at 9 with a hemoglobin of 9.7. Chest x-ray from yesterday showed COPD with a barrel chest and small bilateral pleural effusions. No chest x-ray from today has been done. The white cell count is down to 9. Overall, she looks to be much more comfortable on today's evaluation. Objective - Vital Signs Vital signs: Vital Signs Temp 97.2 F L 05/12/20 04:00 Pulse 63 05/12/20 06:00 Resp 17 05/12/20 06:00 BP 97/51 05/12/20 06:00 Pulse Ox 91 L 05/12/20 06:00 Intake & Output 05/11/20 05/12/20 05/12/20 18:59 06:59 18:59 Intake Total 240 500 Output Total 1600 735 Balance -1360 -235 Weight 45.2 kg Intake: IV 400 0.9% Na Cl KVO 300 Doxycycline 100 mg In 100 Sodium Chloride 0.9% 100 ml @ 100 mls/hr IVPB Q12HR TONG Rx#:[id number] Oral 240 100 Output: Urine 1600 735 Other: Voiding Method Indwelling Catheter Indwelling Catheter - Exam Oriented 3, the patient is comfortable and she is not using this is a muscle breathing and she is able to speak in full sentences and 40s about 2 by nasal cannula and she is off the BiPAP this morning. HEENT examination is grossly unremarkable. Mucous membranes are moist. No oral lesions. Neck supple. Full range of motion. No adenopathy thyromegaly or neck vein distention. Cardiovascular examination reveals regular rhythm and rate. S1-S2 normal. No S3 or S4. No discernible murmur noted. Heart sounds are distant. Lungs reveal severely diminished breath sounds. Diffuse coarse rhonchi and wheezes are noted. Breath sounds are equal bilaterally but severely diminished. No crackles. There is prolongation on forced maneuver. Abdomen soft bowel sounds are heard. No masses or tenderness. Extremities are intact. No cyanosis clubbing or edema. Skin is without rash or lesion. Neurologic examination is brief but nonfocal. - Labs CBC & Chem 7: 05/12/20 04:01 05/12/20 04:01 Labs: Abnormal Lab Results - Last 24 Hours (Table) 05/11/20 05/11/20 05/11/20 Range/Units 07:04 07:04 12:03 WBC 16.9 H (3.8-10.6) k/uL RBC (3.80-5.40) m/uL Hgb 10.9 L (11.4-16.0) gm/dL Hct (34.0-46.0) % MCHC 30.1 L (31.0-37.0) g/dL RDW 16.6 H (11.5-15.5) % Plt Count (150-450) k/uL Neutrophils # 15.5 H (1.3-7.7) k/uL Lymphocytes # 0.4 L (1.0-4.8) k/uL ABG pCO2 (35-45) mmHg ABG HCO3 (21-25) mmol/L ABG Total CO2 (19-24) mmol/L ABG O2 Saturation (94-97) % Carbon Dioxide 32 H (22-30) mmol/L BUN 92 H (7-17) mg/dL Glucose 101 H (74-99) mg/dL POC Glucose (mg/dL) 119 H (75-99) mg/dL Iron 12 L (50-170) ug/dL % Saturation 3.04 L (12.00-45.00) 05/11/20 05/11/20 05/11/20 Range/Units 13:03 17:08 20:17 WBC (3.8-10.6) k/uL RBC (3.80-5.40) m/uL Hgb (11.4-16.0) gm/dL Hct (34.0-46.0) % MCHC (31.0-37.0) g/dL RDW (11.5-15.5) % Plt Count (150-450) k/uL Neutrophils # (1.3-7.7) k/uL Lymphocytes # (1.0-4.8) k/uL ABG pCO2 62 H (35-45) mmHg ABG HCO3 35 H (21-25) mmol/L ABG Total CO2 37 H (19-24) mmol/L ABG O2 Saturation 97.7 H (94-97) % Carbon Dioxide (22-30) mmol/L BUN (7-17) mg/dL Glucose (74-99) mg/dL POC Glucose (mg/dL) 146 H 150 H (75-99) mg/dL Iron (50-170) ug/dL % Saturation (12.00-45.00) 05/12/20 05/12/20 Range/Units 04:01 04:01 WBC (3.8-10.6) k/uL RBC 3.69 L (3.80-5.40) m/uL Hgb 9.7 L (11.4-16.0) gm/dL Hct 32.2 L (34.0-46.0) % MCHC 30.3 L (31.0-37.0) g/dL RDW 16.7 H (11.5-15.5) % Plt Count 140 L (150-450) k/uL Neutrophils # 8.6 H (1.3-7.7) k/uL Lymphocytes # 0.2 L (1.0-4.8) k/uL ABG pCO2 (35-45) mmHg ABG HCO3 (21-25) mmol/L ABG Total CO2 (19-24) mmol/L ABG O2 Saturation (94-97) % Carbon Dioxide 33 H (22-30) mmol/L BUN 59 H (7-17) mg/dL Glucose 118 H (74-99) mg/dL POC Glucose (mg/dL) (75-99) mg/dL Iron (50-170) ug/dL % Saturation (12.00-45.00) Microbiology - Last 24 Hours (Table) 05/07/20 13:53 Blood Culture - Preliminary Blood No Growth after 96 hours 05/07/20 14:00 Blood Culture - Preliminary Blood No Growth after 96 hours Assessment and Plan Plan: 1 Acute hypoxemic respiratory failure, secondary to COPD exacerbation. The patient is still having difficulties in breathing and she is quite short of breath placed on BiPAP at a pressure of 10/5 with an FiO2 of 40%. She has advanced lung disease and she is quite cachectic and emaciated with a body mass index of 19.8. 2 Rule out non-ST segment elevation myocardial infarction. 3 History of previous heavy tobacco use. 4 History of hypertension. 5 History of hyperlipidemia. 6 History of diabetes mellitus. 7 No evidence of pulmonary embolism on CT angiogram or DVT, on lower extremity Dopplers. 8 Mild right-sided hydronephrosis. 9 secondary pulmonary hypertension related to chronic hypoxic respiratory failu re/COPD, PA pressures around 60 and the patient has dilatation of the right ventricle 10 lower extremity edema Plan: DuoNeb nebulized treatments around the clock. Continue DuoNeb nebulized 2 min utes 4 times a day and a combination of Perforomist and Pulmicort nebulized treatments IV Solumedrol 40 mg every 8 hours IV fluids to KVO Continue gentle diuresis with 20 mg of Lasix on a daily basis. The BUN is declining in the creatinine is stable for now. Continue BiPAP during the day as needed Switch this patient to oral Cardizem 30 mg by mouth 3 times a day and gradually wean off the IV Cardizem The patient went to coagulation will be kept up to cardiology. Possible cardiac catheterization, and right-sided cardiac cath tomorrow Overall condition is stable and keep the patient ICU Will follow
[2020-05-12] MEDS: INSULIN ASPART (NovoLOG) 100 UNIT/ML VIAL SQ SCH ×4 (07:15→21:34)
[2020-05-12] MEDS: MIDODRINE 5 MG TAB PO SCH ×3 (07:50→17:26)
[2020-05-12] MEDS: CALCIUM CARB-VIT D 500 MG-5 MCG TAB PO SCH ×3 (07:51→17:24)
[2020-05-12] MEDS: DILTIAZEM 125 MG in SODIUM CHLORIDE 0.9% 100 ML IV SCH (07:51)
[2020-05-12] MEDS: FERROUS SULFATE 325 MG TAB PO SCH ×2 (07:51→17:24)
[2020-05-12] MEDS ORDERED: ATROPINE SULFATE 0.1 MG/ML 10ML SYRINGE IV PRN (07:52)
[2020-05-12] MEDS ORDERED: MAG HYDROX/AL HYDROX/SIMETH 30 ML CUP PO PRN (07:52)
[2020-05-12] MEDS ORDERED: RX INFO: IV CONTRAST WAS GIVEN 1 EACH MISC MISCELLANE PRN (07:52)
[2020-05-12] MEDS ORDERED: ZOLPIDEM 5 MG TAB PO PRN (07:52)
[2020-05-12] MEDS ORDERED: NITROGLYCERIN SL TABS 0.4 MG TAB SUBLINGUAL PRN ×2 (07:52→07:58)
[2020-05-12] MEDS: FORMOTEROL FUMARATE 20 MCG/2 ML NEBU INHALATION SCH ×2 (07:53→21:08)
[2020-05-12] MEDS: IPRATROPIUM-ALBUTEROL 3 ML NEB INHALATION SCH ×4 (07:53→21:08)
[2020-05-12] MEDS: BUDESONIDE 1 MG/2 ML NEBU INHALATION SCH ×2 (07:53→21:07)
[2020-05-12] MEDS ORDERED: ALPRAZolam 0.25 MG TAB PO PRN (07:58)
[2020-05-12] MEDS ORDERED: ALPRAZolam 0.5 MG TAB PO PRN (07:58)
[2020-05-12] MEDS ORDERED: SODIUM CHLORIDE 0.9% 1,000 ML in EMPTY BAG 1 BAG IV ONE (07:58)
[2020-05-12] MEDS ORDERED: SODIUM CHLORIDE 0.9% 1,000 ML IV SCH (08:00)
[2020-05-12] MEDS: ATORVASTATIN 20 MG TAB PO SCH ×2 (08:07→08:53)
[2020-05-12] MEDS: ASPIRIN 81 MG PO SCH (08:07)
[2020-05-12] MEDS ORDERED: HEPARIN SODIUM,PORCINE 5,000 UNIT/ML 1 ML VIAL IV PRN (08:14)
[2020-05-12] MEDS ORDERED: HEPARIN SODIUM,PORCINE 5,000 UNIT/ML 1 ML VIAL IV ONE (08:14)
--- NOTE | 2020-05-12 08:14 | P.PN ---
Subjective HISTORY OF PRESENTING ILLNESS This is a pleasant 80-year-old female past medical history significant for nonobstructive coronary artery disease, COPD, hypertension, diabetes mellitus and dyslipidemia. She is to follow in the office with Dr. López however has not been to the office since 2018. She is seen and examined sitting up in bed in no acute distress. Her breathing is stable on nasal cannula. She is not requiring bipap support currently. Blood pressure has been running low overnight. Lopressor is currently on hold. Heart rates in the 60's. Laboratory data reviewed, WBC 15.4, hgb 10, plt 169, sodium 138, potassium 5.6, BUN 127 and creatinine 1.01 and magnesium 2.2. 05/11/2020 Patient seen and examined. Patient still admits to SOB, on BIPAP. Patient had an episode of hypoxia yesterday with shortness breath and therefore was switched from her nasal cannula back to BiPAP. She received IV Lasix 20 mg yesterday and creatinine in view on have been improving, BUN 92, creatinine 0.73. She denies any chest pain or pressure. There was consideration of right heart catheterization today however transferred to ICU for closer monitoring. 05/12/2020 Patient seen and examined in ICU. She admits she feels better than yesterday with improvement in her respiratory status. She denies any chest pain or pressure. She is off of BiPAP today and on 5 L nasal cannula. She did have a episode of A. flutter with RVR HRs in the 150's for approximately 4 hrs yesterday however appeared to be fairly asymptomatic during episode and denies any palpitations, lightheadedness. She converted after a few hours. Blood pressures been borderline. She was given digoxin 150 mg IV once as well as started on a Cardizem drip which she has been tolerating. Cardizem drip was discontinued this morning and change to oral Cardizem 30 mg 3 times a day and additionally her beta jackelyn was discontinued for improvement and respiratory standpoint. PHYSICAL EXAMINATION HEENT: Head is normocephalic. Pupils are equal, round. Sclerae anicteric. Mucous membranes of the mouth are moist. Mild JVD. No carotid bruit. CHEST EXAMINATION: Significantly diminished. Expiratory wheezes. No chest wall tenderness is noted on palpation or with deep breathing. HEART EXAMINATION: Regular rate and rhythm. S1, S2 heard. Systolic ejection murmur at the base, no gallops or rub. EXTREMITIES: 2+ peripheral pulses, no lower extremity edema and no calf tende rness. SKIN: no rash, dry NEURO: alert and oriented, no gross neurologic defects ASSESSMENT Acute on chronic respiratory failure, component of AECOPD and pulmonary hypertension with RV failure Lactic acidosis Troponin elevation secondary to type II myocardial infarction with oxygen supply and demand mismatch as well as likely from right sided heart failure Right sided heart failure Atrial flutter with RVR Acute exacerbation of COPD Hypertension Dyslipidemia Diabetes mellitus RV dilation and dysfunction related to pulmonary hypertension Moderate to severe tricuspid regurgitation Severe pulmonary hypertension, likely group 1 vs 3. RVSP of 60 however degree of RVSP may be underestimated due to RV dysfunction. MAURI, severely increased BUN:Cr ratio, improving with diuresis PLAN Patient with episode of a flutter with RVR heart rates in the 150s and states she was fairly asymptomatic. Changed metoprolol to Cardizem 30 mg 3 times a day and monitor response. Patient may additionally need digoxin or other rate control. We will defer rhythm control at this time unless patient has more ep isodes. We will start anticoagulation with heparin drip and monitor for any bleeding, monitor hemoglobin with mild anemia. Stop aspirin. Unclear if patient will be a good long-term anticoagulation candidate however continue heparin for now. Continue supportive care for COPD, appears improving with diuresis with improved BUN and creatinine. Possible right heart catheterization tomorrow to further evaluate pulmonary hypertension as well as cardiac output and possible treatment modalities. If decreased cardiac output, patient would likely benefit from IV epoprostenol or dual therapy as well as pulmonary hypertension specialist evaluation, however if improves this can be done as an outpt. Will continue with supportive care and montitor response. Objective - Vital Signs Vital signs: Vital Signs Temp 97.2 F L 05/12/20 04:00 Pulse 78 05/12/20 07:53 Resp 17 05/12/20 07:00 BP 91/48 05/12/20 07:00 Pulse Ox 93 L 05/12/20 07:00 Intake & Output 05/11/20 05/12/20 05/12/20 18:59 06:59 18:59 Intake Total 240 500 64.75 Output Total 1600 735 60 Balance -1360 -235 4.75 Weight 45.2 kg Intake: IV 400 10 0.9% Na Cl KVO 300 10 Doxycycline 100 mg In 100 Sodium Chloride 0.9% 100 ml @ 100 mls/hr IVPB Q12HR TONG Rx#:[id number] Intake, IV Titration 54.75 Amount Diltiazem 125 mg In 54.75 Sodium Chloride 0.9% 100 ml @ 5 MG/HR 5 mls/hr IV .Q24H TONG Rx#:[id number] Oral 240 100 Output: Urine 1600 735 60 Other: Voiding Method Indwelling Catheter Indwelling Catheter - Labs CBC & Chem 7: 05/12/20 04:01 05/12/20 04:01 Labs: Abnormal Lab Results - Last 24 Hours (Table) 05/11/20 05/11/20 05/11/20 Range/Units 07:04 12:03 13:03 RBC (3.80-5.40) m/uL Hgb (11.4-16.0) gm/dL Hct (34.0-46.0) % MCHC (31.0-37.0) g/dL RDW (11.5-15.5) % Plt Count (150-450) k/uL Neutrophils # (1.3-7.7) k/uL Lymphocytes # (1.0-4.8) k/uL ABG pCO2 62 H (35-45) mmHg ABG HCO3 35 H (21-25) mmol/L ABG Total CO2 37 H (19-24) mmol/L ABG O2 Saturation 97.7 H (94-97) % Carbon Dioxide (22-30) mmol/L BUN (7-17) mg/dL Glucose (74-99) mg/dL POC Glucose (mg/dL) 119 H (75-99) mg/dL Iron 12 L (50-170) ug/dL % Saturation 3.04 L (12.00-45.00) 05/11/20 05/11/20 05/12/20 Range/Units 17:08 20:17 04:01 RBC 3.69 L (3.80-5.40) m/uL Hgb 9.7 L (11.4-16.0) gm/dL Hct 32.2 L (34.0-46.0) % MCHC 30.3 L (31.0-37.0) g/dL RDW 16.7 H (11.5-15.5) % Plt Count 140 L (150-450) k/uL Neutrophils # 8.6 H (1.3-7.7) k/uL Lymphocytes # 0.2 L (1.0-4.8) k/uL ABG pCO2 (35-45) mmHg ABG HCO3 (21-25) mmol/L ABG Total CO2 (19-24) mmol/L ABG O2 Saturation (94-97) % Carbon Dioxide (22-30) mmol/L BUN (7-17) mg/dL Glucose (74-99) mg/dL POC Glucose (mg/dL) 146 H 150 H (75-99) mg/dL Iron (50-170) ug/dL % Saturation (12.00-45.00) 05/12/20 Range/Units 04:01 RBC (3.80-5.40) m/uL Hgb (11.4-16.0) gm/dL Hct (34.0-46.0) % MCHC (31.0-37.0) g/dL RDW (11.5-15.5) % Plt Count (150-450) k/uL Neutrophils # (1.3-7.7) k/uL Lymphocytes # (1.0-4.8) k/uL ABG pCO2 (35-45) mmHg ABG HCO3 (21-25) mmol/L ABG Total CO2 (19-24) mmol/L ABG O2 Saturation (94-97) % Carbon Dioxide 33 H (22-30) mmol/L BUN 59 H (7-17) mg/dL Glucose 118 H (74-99) mg/dL POC Glucose (mg/dL) (75-99) mg/dL Iron (50-170) ug/dL % Saturation (12.00-45.00) Microbiology - Last 24 Hours (Table) 05/07/20 13:53 Blood Culture - Preliminary Blood No Growth after 96 hours 05/07/20 14:00 Blood Culture - Preliminary Blood No Growth after 96 hours
[2020-05-12] MEDS: FUROSEMIDE 10 MG/ML 2 ML VIAL IV SCH (08:53)
[2020-05-12] MEDS: PANTOPRAZOLE 40 MG/10 ML VIAL IVP SCH (08:53)
[2020-05-12] MEDS: DILTIAZEM ORAL 30 MG TAB PO SCH ×3 (08:53→21:14)
[2020-05-12] MEDS ORDERED: METOPROLOL TARTRATE 25 MG TAB PO SCH (09:00)
[2020-05-12] MEDS: HEPARIN SOD,PORK IN 0.45% NACL 25,000 UNIT in 0.45% NACL 1 250ML.BAG IV SCH (09:06)
[2020-05-12] MEDS: DOXYCYCLINE 100 MG in SODIUM CHLORIDE 0.9% 100 ML IVPB SCH ×2 (09:13→21:15)
[2020-05-12 09:26] LABS: Anisocytosis Slight; Basophils % (A) 0 %; Eosinophils % (A) 0 %; HCT 35.5 % (34.0-46.0); HGB 10.6 gm/dL (11.4-16.0); Hypochromasia Marked; Lymphocytes # (A) 0.2 k/uL (1.0-4.8); Lymphocytes % (A) 3 %; MCH 26.6 pg (25.0-35.0); MCHC 29.9 g/dL (31.0-37.0); MCV 88.8 fL (80.0-100.0); Mean Platelet Volume 9.6; Monocytes # (A) 0.2 k/uL (0-1.0); Monocytes % (A) 3 %; Neutrophils # (A) 8.2 k/uL (1.3-7.7); Neutrophils % (A) 94 %; Platelet Count 155 k/uL (150-450); Poikilocytosis Moderate; RBC 3.99 m/uL (3.80-5.40); RDW 16.7 % (11.5-15.5); WBC 8.7 k/uL (3.8-10.6)
[2020-05-12 09:49] LABS: INR 1.1 (<1.2); Partial Thromboplastin Time 25.4 sec (22.0-30.0); Prothrombin Time 11.9 sec (9.0-12.0)
--- NOTE | 2020-05-12 10:42 | P.PN ---
Subjective Patient is seen in follow-up for acute kidney injury. Renal function at baseline. Nonoliguric. No vomiting or diarrhea. Oral intake fair. Transferred to the ICU yesterday for respiratory distress. Currently on BiPAP. Vital signs are stable. General: The patient appeared well nourished and normally developed. HEENT: Head exam is unremarkable. On BiPAP. LUNGS: Breath sounds decreased. HEART: Rate and Rhythm are regular. ABDOMEN: Soft, nontender. EXTREMITITES: 1+ edema. Objective - Vital Signs Vital signs: Vital Signs Temp 97.2 F L 05/12/20 04:00 Pulse 82 05/12/20 08:16 Resp 14 05/12/20 08:00 BP 96/48 05/12/20 08:00 Pulse Ox 93 L 05/12/20 07:00 Intake & Output 05/11/20 05/12/20 05/12/20 18:59 06:59 18:59 Intake Total 240 500 65.50 Output Total 1600 735 60 Balance -1360 -235 5.50 Weight 45.2 kg Intake: IV 400 10 0.9% Na Cl KVO 300 10 Doxycycline 100 mg In 100 Sodium Chloride 0.9% 100 ml @ 100 mls/hr IVPB Q12HR TONG Rx#:[id number] Intake, IV Titration 55.50 Amount Diltiazem 125 mg In 55.50 Sodium Chloride 0.9% 100 ml @ 5 MG/HR 5 mls/hr IV .Q24H TONG Rx#:[id number] Oral 240 100 Output: Urine 1600 735 60 Other: Voiding Method Indwelling Catheter Indwelling Catheter - Labs CBC & Chem 7: 05/12/20 08:37 05/12/20 04:01 Labs: Abnormal Lab Results - Last 24 Hours (Table) 05/11/20 05/11/20 05/11/20 Range/Units 07:04 12:03 13:03 RBC (3.80-5.40) m/uL Hgb (11.4-16.0) gm/dL Hct (34.0-46.0) % MCHC (31.0-37.0) g/dL RDW (11.5-15.5) % Plt Count (150-450) k/uL Neutrophils # (1.3-7.7) k/uL Lymphocytes # (1.0-4.8) k/uL ABG pCO2 62 H (35-45) mmHg ABG HCO3 35 H (21-25) mmol/L ABG Total CO2 37 H (19-24) mmol/L ABG O2 Saturation 97.7 H (94-97) % Carbon Dioxide (22-30) mmol/L BUN (7-17) mg/dL Glucose (74-99) mg/dL POC Glucose (mg/dL) 119 H (75-99) mg/dL Iron 12 L (50-170) ug/dL % Saturation 3.04 L (12.00-45.00) 05/11/20 05/11/20 05/12/20 Range/Units 17:08 20:17 04:01 RBC 3.69 L (3.80-5.40) m/uL Hgb 9.7 L (11.4-16.0) gm/dL Hct 32.2 L (34.0-46.0) % MCHC 30.3 L (31.0-37.0) g/dL RDW 16.7 H (11.5-15.5) % Plt Count 140 L (150-450) k/uL Neutrophils # 8.6 H (1.3-7.7) k/uL Lymphocytes # 0.2 L (1.0-4.8) k/uL ABG pCO2 (35-45) mmHg ABG HCO3 (21-25) mmol/L ABG Total CO2 (19-24) mmol/L ABG O2 Saturation (94-97) % Carbon Dioxide (22-30) mmol/L BUN (7-17) mg/dL Glucose (74-99) mg/dL POC Glucose (mg/dL) 146 H 150 H (75-99) mg/dL Iron (50-170) ug/dL % Saturation (12.00-45.00) 05/12/20 05/12/20 Range/Units 04:01 08:37 RBC (3.80-5.40) m/uL Hgb 10.6 L (11.4-16.0) gm/dL Hct (34.0-46.0) % MCHC 29.9 L (31.0-37.0) g/dL RDW 16.7 H (11.5-15.5) % Plt Count (150-450) k/uL Neutrophils # 8.2 H (1.3-7.7) k/uL Lymphocytes # 0.2 L (1.0-4.8) k/uL ABG pCO2 (35-45) mmHg ABG HCO3 (21-25) mmol/L ABG Total CO2 (19-24) mmol/L ABG O2 Saturation (94-97) % Carbon Dioxide 33 H (22-30) mmol/L BUN 59 H (7-17) mg/dL Glucose 118 H (74-99) mg/dL POC Glucose (mg/dL) (75-99) mg/dL Iron (50-170) ug/dL % Saturation (12.00-45.00) Microbiology - Last 24 Hours (Table) 05/07/20 13:53 Blood Culture - Preliminary Blood No Growth after 96 hours 05/07/20 14:00 Blood Culture - Preliminary Blood No Growth after 96 hours Assessment and Plan Plan: Assessment: 1. Acute kidney injury mostly prerenal secondary to hypotension. Component of cardiorenal syndrome. Creatinine 1.58 on admission and is 0.6 today. She also received IV contrast dye on May 07. No hydronephrosis noted on kidney ultrasound. UA benign. 2. Acute on chronic diastolic CHF with moderate to severe tricuspid regur gitation and severe pulmonary hypertension. 3. Fluid overload. Improving with diuresis. 4. COPD exacerbation. 5. Diabetes mellitus. 6. Disproportionally elevated BUN due to steroids. No evidence of GI bleed. BUN trending down. 7. A. fib with RVR now on oral Cardizem. Also on heparin drip. Plan: Maintain midodrine. Increase Lasix to 20 mg IV twice daily. Cortisol level not low. Continue to monitor renal function and urine output. Wean FiO2.
[2020-05-12 11:30] LABS: Glucose,Whole Blood 325 mg/dL (75-99)
[2020-05-12 14:14] LABS: Glucose,Whole Blood 232 mg/dL (75-99)
[2020-05-12 17:38] LABS: Glucose,Whole Blood 142 mg/dL (75-99)
[2020-05-12] MEDS ORDERED: FUROSEMIDE 10 MG/ML 2 ML VIAL IV SCH (21:00)
[2020-05-12] MEDS: GABAPENTIN 300 MG CAP PO SCH (21:14)
[2020-05-12 21:30] LABS: Glucose,Whole Blood 112 mg/dL (75-99)
--- NOTE | 2020-05-13 00:07 | P.PN ---
Subjective This is a pleasant 80 years old female with past medical history of diabetes mellitus, hypertension, hyperlipidemia, COPD, ex-smoker. Presents with shortness of breath has been going on for about 6 months with recent worsening over the last few days associated with cough and green phlegm but no chest pain. Yesterday she felt more weak and lost her coordination and recently noticed that her feet starts getting swollen over the last 10 days especially around the ankles. Patient also noticed to have hoarseness of voice, patient states it improving over the last few days She does not use oxygen at home, she does not follow up with quantitative associate She quit smoking about 21 years with no alcohol or illicit drug Her PCP is Dr. Carrillo Also she is weak and emaciated. No abdominal pain or nausea vomiting. No diarrhea. No dysuria. She denies fever. On admission she was hypoxic with 85% on room air, oxygen saturation improved to 97-98 on 6 L oxygen via nasal cannula, she is tachypneic around 20-28% per minute, however she can talk without interruption Labs show an unremarkable CBC, INR 1.2, d-dimer is elevated at 6.1. Creatinine is elevated at 1.58 , electrolytes normal, carbon dioxide 30. Elevated d-dimer 2.7 came back to normal at 1.5. Liver enzymes not elevated. Troponin also were elevated at 0.159, [place] [address]. Coronavirus not detected Chest CTA is negative for PE, emphysema without overt findings of failure Chest x-ray COPD, small bilateral pleural effusions. EKG showing normal sinus rhythm at [address]-T changes and QTC 425. Patient in the emergency room started on aspirin 325 mg compared to home dose of 81 mg and salmeterol 60 mg every 6 hours. 05/08/2020 Patient this morning she become more short of breath and she was saturating 81% on 6 L oxygen via nasal cancer, patient has to be placed on BiPAP with a setting of 10/5 at 50% FiO2. Patient still has decreased air entry on both sides on examination CBC is stable. Electrolytes are normal. Creatinine trending down to 1.5 down to 1.4. Troponin is stable at 0.14, most likely due to troponin leak. D-dimer is elevated but negative CTA. Ultrasound of the lower extremity is negative for DVT Patient is currently also on Medrol 60 mg, doxycycline. Patient was started on heparin drip in the emergency room and aspirin 325 mg daily. 05/09/2020 Patient remains BiPAP dependent most of the time with FiO2 of 60%, she is still short of breath. Little coughing. Her oxygen saturating on BiPAP with FiO2 50% was improved to 99% O during the day. Patient is afebrile. Last blood pressure was 90/46 and heart rate 81, she's getting normal saline at 75 mL/h and cartilage team are helping with managing her heart rate and blood pressure. As per their recommendation patient may have MAT versus A. fib and metoprolol was added, we will closely monitor her blood pressure and heart rate. CBC with mild leukocytosis while she is on steroids. Hemoglobin is trending down gradually but remains within the reference range, 15.4, 13.6, 11.5. He'll keep monitoring hemoglobin. BMP is unremarkable, creatinine improved down to 1.1 while BUN increased to 127. Nephrology input is recommended by sticker hand and a they recommend medodrain, Lasix x1 and check renal ultrasound and urine analysis heparin drip was stopped by sticker hand echocardiogram showing ejection fraction of 55-60 moderate to severe tricuspid regurgitation. Venous Doppler is negative for leg DVT. she is on Solu-Medrol 60 mg, doxycycline, normal saline at 75 mL/h 05/10/2020 Patient still dyspneic and she is BiPAP dependent portion is less FiO2 at 45% currently. She still coughing frequently and we will order cough syrup. Heart rate is 57-58 blood pressure 85/51 this morning. She is afebrile. Last night took a bolus of 250 mL of normal saline. Explosive Specialist on the case and help with blood pressure on her trip management. She has mild leukocytosis from steroid effect. BUN is elevated at 127 similar as yesterday. Creatinine back to reference range. The glucose control. Potassium was slightly elevated at 5.6 Repeat chest x-ray this morning: COPD and bilateral pleural effusion Patient on Solu-Medrol and DOXYCYCLINE. Patient was started on metoprolol 50 mg twice daily by sticker hand and because of low blood pressure liquid chlorine operator is been consulted to added midodrine 10 mg 3 times a day Serum Cardizem because of this morning is still pending 05/11/2020 Yesterday patient oxygen requirement dropped to 4 L/m however overnight she become more hypoxic and she has to be placed on BiPAP, this morning she was still on BiPAP with a setting of 10/5 with FiO2 of 45% Heart she has less wheezing or crepitation in her lung but she has significant bilateral leg swelling. Yesterday she received 1 dose of Lasix but she could not tolerate it for drop in blood pressure, despite she's been placed on midodrain by nephrology team Rest of Vitas are stable. Her leukocytosis is expected since she is on steroids. Hemoglobin has been troubling but there is been stable at 10.9, it was 15.4 on admission although there were some elements of hemodilution repeat chest x-ray today showing small bilateral pleural effusions and exam is stable from yesterday. Pulmonary team are transferring the patient to the ICU. He recommends to continue with a breathing treatment and steroids besides one small dose of Lasix. Cartilage team recommended tried heart catheterization and possible for hypertension and dyspnea 05/12/2020 She is a still in the ICU. Mostly BiPAP dependent with a FiO2 40-45%. Patient is going for right heart cath tomorrow Patient Lasix was increased to 20 mg IV twice a day from right heart failure fluid overload after correction of low blood pressure with the help of medodrine 10 mg 3 times a day. Patient is very cachectic and she has an episode of A. fib flutter this morning up to 150. Cardizem drip was started and later on oral Cardizem replaced metoprolol. Also aspirin was discontinued by cardiology while heparin drip cont inued for higher risk anticoagulation. We will await final sticker hand recommendation regarding this Review of Systems CONSTITUTIONAL: No fever, no malaise, no fatigue. HEENT: No recent visual problems or hearing problems. Denied any sore throat. CARDIOVASCULAR: No orthopnea, PND, no palpitations, no syncope. PULMONARY: No chest wall tenderness, no hemoptysis. GASTROINTESTINAL: No diarrhea, no nausea, no vomiting, no abdominal pain. Normoactive bowel sounds. NEUROLOGICAL: No headaches, no weakness, no numbness. Active Medications Generic Name Dose Route Start Last Admin Trade Name Freq PRN Reason Stop Dose Admin Acetaminophen 650 mg 05/10/20 11:36 05/10/20 12:38 Acetaminophen Tab 325 Mg Tab PO 650 mg Q6HR PRN Administration Fever and/ or Pain Albuterol/Ipratropium 3 ml 05/07/20 20:00 05/11/20 08:28 Ipratropium-Albuterol 3 Ml Neb INHALATION 3 ml RT-QID TONG Administration Albuterol/Ipratropium 3 ml 05/08/20 12:19 05/10/20 00:34 Ipratropium-Albuterol 3 Ml Neb INHALATION 3 ml RT-Q2H PRN Administration Shortness Of Breath Or Wheezing Aspirin 81 mg 05/08/20 09:00 05/11/20 10:22 Aspirin 81 Mg PO 81 mg DAILY TONG Administration Atorvastatin Calcium 20 mg 05/08/20 09:00 05/11/20 10:22 Atorvastatin 20 Mg Tab PO 20 mg DAILY TONG Administration Budesonide 1 mg 05/08/20 20:00 05/11/20 08:30 Budesonide 1 Mg/2 Ml Nebu INHALATION 1 mg RT-BID TONG Administration Formoterol Fumarate 20 mcg 05/11/20 20:00 Formoterol Fumarate 20 Mcg/2 Ml Nebu INHALATION RT-BID TONG Furosemide 20 mg 05/11/20 11:15 Furosemide 10 Mg/Ml 2 Ml Vial IV DAILY TONG Gabapentin 300 mg 05/07/20 21:00 05/10/20 21:21 Gabapentin 300 Mg Cap PO 300 mg HS TONG Administration Guaifenesin/Dextromethorphan 10 ml 05/10/20 09:24 Guaifenesin-Dm 100-10mg/5ml 10 Ml Cup PO Q6H PRN Cough Heparin Sodium (Porcine) 5,000 unit 05/09/20 12:15 05/11/20 10:22 Heparin Sodium,Porcine 5,000 Unit/Ml 1 Ml Vial SQ 5,000 unit Q12HR TONG Administration Doxycycline Hyclate 100 mg/ 100 mls @ 100 mls/hr 05/07/20 20:00 05/11/20 10:22 Sodium Chloride IVPB 100 mls/hr Q12HR TONG Administration Insulin Aspart 0 unit 05/07/20 21:00 05/11/20 08:08 Insulin Aspart (Novolog) 100 Unit/Ml Vial SQ Not Given ACHS [facility] Protocol Methylprednisolone Sodium Succinate 40 mg 05/11/20 11:30 Methylprednisolone Sod Succi 40 Mg/Ml 1 Ml Vial IV Q8HR [facility]ONG Midodrine 10 mg 05/09/20 12:30 05/11/20 07:12 Midodrine 5 Mg Tab PO 10 mg AC-TID TONG Administration Objective - Vital Signs Vital signs: Vital Signs Temp 97.8 F 05/12/20 20:00 Pulse 73 05/12/20 22:00 Resp 20 05/12/20 22:00 BP 104/58 05/12/20 22:00 Pulse Ox 99 05/12/20 22:00 Intake & Output 05/12/20 05/12/20 05/13/20 06:59 18:59 06:59 Intake Total 500 221.479 30 Output Total 735 500 105 Balance -235 -278.521 -75 Weight 45.2 kg 45.2 kg Intake: IV 400 130 30 0.9% Na Cl KVO 300 130 30 Doxycycline 100 mg In 100 Sodium Chloride 0.9% 100 ml @ 100 mls/hr IVPB Q12HR [facility] Rx#:[id number] Intake, IV Titration 91.479 Amount Diltiazem 125 mg In 55.50 Sodium Chloride 0.9% 100 ml @ 5 MG/HR 5 mls/hr IV .Q24H [facility] Rx#:[id number] Heparin Sod,Pork in 0.45% 35.979 NaCl 25,000 unit In 0.45 % NaCl 1 250ml.bag @ 12 UNITS/KG/HR 5.424 mls/hr IV .Q24H [facility] Rx#: [id number] Oral 100 Output: Urine 735 500 105 Other: Voiding Method Indwelling Catheter Indwelling Catheter Indwelling Catheter - Exam GENERAL: The patient is alert and oriented x3, not in any acute distress. HEENT: Pupils are round and equally reacting to light. EOMI. No scleral icterus. No conjunctival pallor. Normocephalic, atraumatic. No pharyngeal erythema. No th yromegaly. CARDIOVASCULAR: S1 and S2 present. No murmurs, rubs, or gallops. -PULMONARY: Chest is clear to auscultation, there is decreased air entry, with mild inspiratory and expiratory wheezing. ABDOMEN: Soft, nontender, nondistended, normoactive bowel sounds. No palpable organomegaly. MUSCULOSKELETAL: No joint swelling or deformity. EXTREMITIES: No cyanosis, clubbing, or pedal edema. NEUROLOGICAL: Gross neurological examination did not reveal any focal deficits. SKIN: No rashes. No petechiae - Labs CBC & Chem 7: 05/12/20 08:37 05/12/20 04:01 Labs: Abnormal Lab Results - Last 24 Hours (Table) 05/12/20 05/12/20 05/12/20 Range/Units 04:01 04:01 08:37 RBC 3.69 L (3.80-5.40) m/uL Hgb 9.7 L 10.6 L (11.4-16.0) gm/dL Hct 32.2 L (34.0-46.0) % MCHC 30.3 L 29.9 L (31.0-37.0) g/dL RDW 16.7 H 16.7 H (11.5-15.5) % Plt Count 140 L (150-450) k/uL Neutrophils # 8.6 H 8.2 H (1.3-7.7) k/uL Lymphocytes # 0.2 L 0.2 L (1.0-4.8) k/uL APTT (22.0-30.0) sec Carbon Dioxide 33 H (22-30) mmol/L BUN 59 H (7-17) mg/dL Glucose 118 H (74-99) mg/dL POC Glucose (mg/dL) (75-99) mg/dL 05/12/20 05/12/20 05/12/20 Range/Units 11:28 14:11 14:28 RBC (3.80-5.40) m/uL Hgb (11.4-16.0) gm/dL Hct (34.0-46.0) % MCHC (31.0-37.0) g/dL RDW (11.5-15.5) % Plt Count (150-450) k/uL Neutrophils # (1.3-7.7) k/uL Lymphocytes # (1.0-4.8) k/uL APTT 85.7 H (22.0-30.0) sec Carbon Dioxide (22-30) mmol/L BUN (7-17) mg/dL Glucose (74-99) mg/dL POC Glucose (mg/dL) 325 H 232 H (75-99) mg/dL 05/12/20 05/12/20 05/12/20 Range/Units 17:36 21:26 21:49 RBC (3.80-5.40) m/uL Hgb (11.4-16.0) gm/dL Hct (34.0-46.0) % MCHC (31.0-37.0) g/dL RDW (11.5-15.5) % Plt Count (150-450) k/uL Neutrophils # (1.3-7.7) k/uL Lymphocytes # (1.0-4.8) k/uL APTT 80.4 H (22.0-30.0) sec Carbon Dioxide (22-30) mmol/L BUN (7-17) mg/dL Glucose (74-99) mg/dL POC Glucose (mg/dL) 142 H 112 H (75-99) mg/dL Microbiology - Last 24 Hours (Table) 05/07/20 13:53 Blood Culture - Preliminary Blood No Growth after 120 hours 05/07/20 14:00 Blood Culture - Preliminary Blood No Growth after 120 hours Assessment and Plan Assessment: Acute COPD exacerbation Acute hypoxic respiratory failure secondary to above Severe pulmonary hypertension Hypotension on admission Anemia, anemia workup is ordered. Acute kidney injury, creatinine is back to normal Elevated troponin, rule out STEMI however it could be from kidney disease and demand/supply mismatch Multifocal atrial tachycardia versus atrial fibrillation per sticker hand Hyperlipidemia Diabetes mellitus Plan: This is a pleasant 80 years old female presents with COPD. severe hypoxia. Continue with Solu-Medrol, continue with bronchodilators and oxygen as needed. c/w doxycycline and check sputum culture.c/w aspirin. Cardiology consult, pulmonary consult and liquid chlorine operator also are following pt; Discontinue IV fluids. Labs and medication were reviewed.. Continue same treatment. Continue with symptomatic treatment. Resume home medication. Monitor lytes and vitals. DVT and GI prophylaxis. Further recommendations depends on the clinical course of the patient DVT prophylaxis: heparin GI Prophylaxis: Pepcid PT/OT: Pending Prognosis is guarded
[2020-05-13] MEDS: methylPREDNISolone SOD SUCCI 40 MG/ML 1 ML VIAL IV SCH ×2 (00:16→05:48)
[2020-05-13] MEDS ORDERED: DEXTROSE 5% IN WATER 100 ML with AMIODARONE 150 MG IV ONE (01:30)
[2020-05-13] MEDS ORDERED: AMIODARONE 360 MG in DEXTROSE 5% IN WATER 200 ML IV ONE ×2 (01:45)
[2020-05-13] MEDS ORDERED: ATORVASTATIN 80 MG TAB PO ONE (05:00)
[2020-05-13] MEDS ORDERED: ASPIRIN 325 MG TAB PO ONE (05:00)
[2020-05-13] MEDS: MIDODRINE 5 MG TAB PO SCH ×3 (05:47→17:10)
[2020-05-13] MEDS: DILTIAZEM ORAL 30 MG TAB PO SCH ×3 (05:48→20:21)
[2020-05-13] MEDS: CALCIUM CARB-VIT D 500 MG-5 MCG TAB PO SCH ×3 (05:48→17:05)
[2020-05-13] MEDS: PANTOPRAZOLE 40 MG/10 ML VIAL IVP SCH (05:48)
[2020-05-13] MEDS: ATORVASTATIN 20 MG TAB PO SCH (05:48)
[2020-05-13] MEDS: FERROUS SULFATE 325 MG TAB PO SCH ×2 (05:48→17:11)
[2020-05-13] MEDS ORDERED: SODIUM CHLORIDE 0.9% 1,000 ML in EMPTY BAG 1 BAG IV ONE (06:00)
[2020-05-13 06:30] LABS: Anisocytosis Slight; Basophils % (A) 0 %; Eosinophils % (A) 0 %; HCT 30.5 % (34.0-46.0); HGB 9.3 gm/dL (11.4-16.0); Hypochromasia Marked; Lymphocytes # (A) 0.2 k/uL (1.0-4.8); Lymphocytes % (A) 2 %; MCH 26.5 pg (25.0-35.0); MCHC 30.6 g/dL (31.0-37.0); MCV 86.8 fL (80.0-100.0); Mean Platelet Volume 10.6; Monocytes # (A) 0.3 k/uL (0-1.0); Monocytes % (A) 3 %; Neutrophils # (A) 11.3 k/uL (1.3-7.7); Neutrophils % (A) 95 %; Platelet Count 154 k/uL (150-450); Poikilocytosis Marked; RBC 3.51 m/uL (3.80-5.40); RDW 16.5 % (11.5-15.5); WBC 11.8 k/uL (3.8-10.6)
[2020-05-13] MEDS ORDERED: HEPARIN SODIUM,PORCINE 2,500 UNIT in SODIUM CHLORIDE 0.9% 250 ML IRRIGATION PRN (07:00)
[2020-05-13] MEDS ORDERED: HEPARIN SODIUM,PORCINE 10,000 UNIT in SODIUM CHLORIDE 0.9% 1,000 ML IRRIGATION PRN (07:00)
[2020-05-13] MEDS ORDERED: LIDOCAINE 1% INJ 10MG/ML (20 ML MDV) ONE (07:22)
[2020-05-13] MEDS ORDERED: fentaNYL (PF) 50 MCG/ML 2 ML AMP ONE (07:23)
[2020-05-13] MEDS ORDERED: LIDOCAINE 1% INJ 10MG/ML (20 ML MDV) SQ ONE (07:26)
[2020-05-13] MEDS ORDERED: fentaNYL (PF) 50 MCG/ML 2 ML AMP IV ONE (07:31)
[2020-05-13 07:37] LABS: African American GFR (CKD) >90 (>60 ml/min/1.73 sqM); Anion Gap 3 mmol/L; Blood Urea Nitrogen 46 mg/dL (7-17); Calcium 8.6 mg/dL (8.4-10.2); Carbon Dioxide 38 mmol/L (22-30); Chloride 98 mmol/L (98-107); Glucose 162 mg/dL (74-99); Non-African American GFR(CKD) 83 (>60 ml/min/1.73 sqM); Potassium 4.3 mmol/L (3.5-5.1); Sodium 139 mmol/L (137-145)
[2020-05-13] MEDS ORDERED: RX INFO: IV CONTRAST WAS GIVEN 1 EACH MISC MISCELLANE PRN (07:50)
[2020-05-13 07:52] LABS: O2 Sat Blood Gas 68.3 %
[2020-05-13] MEDS: BUDESONIDE 1 MG/2 ML NEBU INHALATION SCH ×2 (07:53→20:48)
[2020-05-13] MEDS: FORMOTEROL FUMARATE 20 MCG/2 ML NEBU INHALATION SCH ×2 (07:53→20:46)
[2020-05-13] MEDS: IPRATROPIUM-ALBUTEROL 3 ML NEB INHALATION SCH ×4 (07:54→20:46)
[2020-05-13] MEDS ORDERED: SODIUM CHLORIDE 0.9% 1,000 ML IV SCH (08:00)
[2020-05-13] MEDS: INSULIN ASPART (NovoLOG) 100 UNIT/ML VIAL SQ SCH ×4 (08:20→20:21)
--- NOTE | 2020-05-13 08:35 | CC ---
CARDIAC CATHETERIZATION REPORT RIGHT HEART CATHETERIZATION INDICATION: Evaluation of the right-sided pressure and cardiac output. PROCEDURE: After explaining the procedure to the patient as well as risks and the complications, she was brought to the agricultural labor camp manager in a fasting semi-sedated state. She was prepped and draped in conventional fashion. Using Xylocaine anesthesia, using guidewire exchange technique, the intravenous catheter in the right basilic vein was exchanged to a 6- Sinhala sheath. Subsequently right heart catheterization was performed using [place] catheter. Multiple pressures and samples were obtained. Cardiac output by thermodilution was calculated. Following that, catheter and sheath were removed. Hemostasis was obtained with compression of the right brachial area. There was no immediate complication. Patient was returned to her room in stable condition. FINDINGS: Pulmonary artery systolic pressure 52, diastolic 15 with a mean of 26 mmHg. Pulmonary capillary wedge pressure A-wave of 11, V-wave of 10 with a mean of 8 mmHg. Right ventricle systolic pressure 52 with a diastolic of 12 mmHg. Right atrial A-wave of 8, V-wave 4 with a mean of 3 mmHg. Cardiac output by thermodilution 4.3 L/minute. Right atrial saturation 67%. Pulmonary artery saturation 68%. CONCLUSION: 1. Moderate pulmonary hypertension. 2. No evidence of left-sided failure. 3. Normal cardiac output. RECOMMENDATION: At this time, we will continue present medical therapy with optimizing her pulmonary status. Depending on her progress, further recommendation will be made. Those findings and recommendation were discussed with the patient who is in full understanding and agreement. Duration of sedation is 18 minutes. MMODL / IJN: [id number] /
--- NOTE | 2020-05-13 08:51 | P.PN ---
Subjective HISTORY OF PRESENTING ILLNESS This is a pleasant 80-year-old female past medical history significant for nonobstructive coronary artery disease, COPD, hypertension, diabetes mellitus and dyslipidemia. She is to follow in the office with Dr. López however has not been to the office since 2018. She is seen and examined sitting up in bed in no acute distress. Her breathing is stable on nasal cannula. She is not requiring bipap support currently. Blood pressure has been running low overnight. Lopressor is currently on hold. Heart rates in the 60's. Laboratory data reviewed, WBC 15.4, hgb 10, plt 169, sodium 138, potassium 5.6, BUN 127 and creatinine 1.01 and magnesium 2.2. 05/11/2020 Patient seen and examined. Patient still admits to SOB, on BIPAP. Patient had an episode of hypoxia yesterday with shortness breath and therefore was switched from her nasal cannula back to BiPAP. She received IV Lasix 20 mg yesterday and creatinine in view on have been improving, BUN 92, creatinine 0.73. She denies any chest pain or pressure. There was consideration of right heart catheterization today however transferred to ICU for closer monitoring. 05/12/2020 Patient seen and examined in ICU. She admits she feels better than yesterday with improvement in her respiratory status. She denies any chest pain or pressure. She is off of BiPAP today and on 5 L nasal cannula. She did have a episode of A. flutter with RVR HRs in the 150's for approximately 4 hrs yesterday however appeared to be fairly asymptomatic during episode and denies any palpitations, lightheadedness. She converted after a few hours. Blood pressures been borderline. She was given digoxin 150 mg IV once as well as started on a Cardizem drip which she has been tolerating. Cardizem drip was discontinued this morning and change to oral Cardizem 30 mg 3 times a day and additionally her beta jackelyn was discontinued for improvement and respiratory standpoint. 05/13/2020 Patient underwent right heart catheterization this morning by the right brachial approach. PA pressure of 52/15 with a mean of 26, PCWP of 11, RV pressure 52/12, right atrial pressure 8, cardiac output of 4.3 by thermodilution. Patient did have episode of atrial flutter with RVR yesterday and was placed on amiodarone drip and converted back to normal sinus rhythm after approximately 4 hours. Patient has predominantly asymptomatic. PHYSICAL EXAMINATION HEENT: Head is normocephalic. Pupils are equal, round. Sclerae anicteric. Mucous membranes of the mouth are moist. Mild JVD. No carotid bruit. CHEST EXAMINATION: Significantly diminished. Expiratory wheezes. No chest wall tenderness is noted on palpation or with deep breathing. HEART EXAMINATION: Regular rate and rhythm. S1, S2 heard. Systolic ejection murmur at the base, no gallops or rub. EXTREMITIES: 2+ peripheral pulses, no lower extremity edema and no calf tenderness. SKIN: no rash, dry NEURO: alert and oriented, no gross neurologic defects ASSESSMENT Acute on chronic respiratory failure, component of AECOPD and pulmonary hypertension with RV failure Lactic acidosis Troponin elevation secondary to type II myocardial infarction with oxygen supply and demand mismatch as well as likely from right sided heart failure Right sided heart failure Atrial flutter with RVR, fairly sinus rhythm. Acute exacerbation of COPD Hypertension Dyslipidemia Diabetes mellitus RV dilation and dysfunction related to pulmonary hypertension Moderate to severe tricuspid regurgitation Pulmonary hypertension, likely group 1 vs 3. Right heart catheterization with a mean pressure of 26, cardiac output low-normal by thermodilution of 4.3 L/min. MAURI, severely increased BUN:Cr ratio, improving with diuresis PLAN Patient again had episodes of atrial flutter with RVR with heart rates in the 150s however was fairly asymptomatic. Patient was placed on amiodarone as the Cardizem 30 mg 3 times a day do not appear to be helping much. We will transition to amiodarone 200 mg twice a day given her COPD and lung disease. Transition to Eliquis 5 mg twice a day for thromboembolic protection. Right heart catheterization reviewed. PA pressures not overly elevated however the pressures may be falsely "normal" or lower with failing right ventricle. Cardiac output however appears predominantly preserved at 4.3 L/min by thermo dilution. Wedge pressure and right atrial pressure however low normal and would avoid further diuresis. Appears likely main issue currently is her COPD and continue medical therapy for her COPD exacerbation. We will start Revatio for her pulmonary hypertension and patient would benefit from outpt followup with pulmonary hypertension specialist. Objective - Vital Signs Vital signs: Vital Signs Temp 97.9 F 05/13/20 08:00 Pulse 60 05/13/20 08:00 Resp 14 05/13/20 08:00 BP 94/46 05/13/20 08:00 Pulse Ox 100 05/13/20 08:12 Intake & Output 05/12/20 05/13/20 05/13/20 18:59 06:59 18:59 Intake Total 221.479 190.454 27.662 Output Total 500 845 Balance -278.521 -654.546 27.662 Weight 45.2 kg 45.8 kg Intake: IV 130 150 0.9% Na Cl KVO 130 150 Intake, IV Titration 91.479 40.454 27.662 Amount Diltiazem 125 mg In 55.50 Sodium Chloride 0.9% 100 ml @ 5 MG/HR 5 mls/hr IV .Q24H [facility] Rx#:[id number] Heparin Sod,Pork in 0.45% 35.979 40.454 27.662 NaCl 25,000 unit In 0.45 % NaCl 1 250ml.bag @ 12 UNITS/KG/HR 5.424 mls/hr IV .Q24H [facility] Rx#: [id number] Output: Urine 500 845 Other: Voiding Method Indwelling Catheter Indwelling Catheter - Labs CBC & Chem 7: 05/13/20 06:10 05/13/20 06:10 Labs: Abnormal Lab Results - Last 24 Hours (Table) 05/12/20 05/12/20 05/12/20 Range/Units 08:37 11:28 14:11 WBC (3.8-10.6) k/uL RBC (3.80-5.40) m/uL Hgb 10.6 L (11.4-16.0) gm/dL Hct (34.0-46.0) % MCHC 29.9 L (31.0-37.0) g/dL RDW 16.7 H (11.5-15.5) % Neutrophils # 8.2 H (1.3-7.7) k/uL Lymphocytes # 0.2 L (1.0-4.8) k/uL APTT (22.0-30.0) sec Carbon Dioxide (22-30) mmol/L BUN (7-17) mg/dL Glucose (74-99) mg/dL POC Glucose (mg/dL) 325 H 232 H (75-99) mg/dL 05/12/20 05/12/20 05/12/20 Range/Units 14:28 17:36 21:26 WBC (3.8-10.6) k/uL RBC (3.80-5.40) m/uL Hgb (11.4-16.0) gm/dL Hct (34.0-46.0) % MCHC (31.0-37.0) g/dL RDW (11.5-15.5) % Neutrophils # (1.3-7.7) k/uL Lymphocytes # (1.0-4.8) k/uL APTT 85.7 H (22.0-30.0) sec Carbon Dioxide (22-30) mmol/L BUN (7-17) mg/dL Glucose (74-99) mg/dL POC Glucose (mg/dL) 142 H 112 H (75-99) mg/dL 05/12/20 05/13/20 05/13/20 Range/Units 21:49 06:10 06:10 WBC 11.8 H (3.8-10.6) k/uL RBC 3.51 L (3.80-5.40) m/uL Hgb 9.3 L (11.4-16.0) gm/dL Hct 30.5 L (34.0-46.0) % MCHC 30.6 L (31.0-37.0) g/dL RDW 16.5 H (11.5-15.5) % Neutrophils # 11.3 H (1.3-7.7) k/uL Lymphocytes # 0.2 L (1.0-4.8) k/uL APTT 80.4 H (22.0-30.0) sec Carbon Dioxide 38 H (22-30) mmol/L BUN 46 H (7-17) mg/dL Glucose 162 H (74-99) mg/dL POC Glucose (mg/dL) (75-99) mg/dL 05/13/20 Range/Units 06:10 WBC (3.8-10.6) k/uL RBC (3.80-5.40) m/uL Hgb (11.4-16.0) gm/dL Hct (34.0-46.0) % MCHC (31.0-37.0) g/dL RDW (11.5-15.5) % Neutrophils # (1.3-7.7) k/uL Lymphocytes # (1.0-4.8) k/uL APTT 40.3 H (22.0-30.0) sec Carbon Dioxide (22-30) mmol/L BUN (7-17) mg/dL Glucose (74-99) mg/dL POC Glucose (mg/dL) (75-99) mg/dL Microbiology - Last 24 Hours (Table) 05/07/20 13:53 Blood Culture - Preliminary Blood No Growth after 120 hours 05/07/20 14:00 Blood Culture - Preliminary Blood No Growth after 120 hours
--- NOTE | 2020-05-13 09:07 | XR ---
EXAMINATION TYPE: XR chest 1V portable DATE OF EXAM: 05/13/2020 CLINICAL HISTORY: Difficulty breathing progress study. Recent heart catheterization. CHF. TECHNIQUE: Single AP portable upright view of the chest is obtained. COMPARISON: Chest x-ray from 2 days earlier FINDINGS: Heart size more prominent, currently measuring upper limits of normal. Atherosclerotic tho racic aorta redemonstrated. Chronic parenchymal changes with persistent small tiny right greater than left pleural effusions and associated bibasilar compressive atelectasis. Upper lungs remain clear. IMPRESSION: Chronic parenchymal changes with small tiny right greater left pleural effusions and asso ciated bibasilar atelectasis. No significant change from most recent x-ray.
--- NOTE | 2020-05-13 09:23 | P.PN ---
Subjective Progress Note Date: 05/13/20 This is a 80-year-old female, looks older than her stated age, who presents to the emergency department, with increasing shortness of breath. The patient was a heavy smoker up until 21 years ago. At that time she quit. She apparently does have an established history of COPD, although we've never seen her in the office. The patient has a history of hypertension, hyperlipidemia, and diabetes among other things. The patient presents to the emergency department on 05/07/2020, at 1:00 in the afternoon, with worsening shortness of breath. It apparently started a day or 2 prior to admission and had become progressively worse. In addition, she has tightness, wheezing, and cough. She denies any moshe st pain or pressure. She denies any fever or chills. She is really not coughing up any phlegm. Currently, she is on BiPAP with settings of IPAP 10, EPAP 5, and 60%. We checked her saturations, they were in the mid to high 90s, and we asked respiratory to turn her FiO2 down to 50%. When they did that, her saturations dropped to the mid 80s, which is probably her baseline in reality. She denies ever seeing a lung doctor. In addition, the patient was on heparin via weightbase protocol, for elevated troponins. She was admitted to the hospital with a diagnosis of COPD exacerbation, and non-ST segment elevation myocardial infarction. Her primary care provider is Dr. Michael Carrillo. Progress note dated 05/09/2020. 80-year-old female that we saw in consultation for acute hypoxemic respiratory failure, secondary to COPD exacerbation. She may have also sustained a non-ST segment elevation myocardial infarction. She currently remains on BiPAP. She has a history of heavy tobacco use, hypertension, hyperlipidemia, diabetes, without evidence of pulmonary embolism on CT angiogram, or DVT, on lower extremity Dopplers. The patient nods her head when I ask her how she's doing. She feels like she is doing better. Her BiPAP settings were 10/5 and 50%. We are going to ask her nurse about switching her over to high flow nasal cannula. The patient's on appropriate medications including albuterol sulfate, ipratropium bromide, formoterol, Pulmicort, and systemic corticosteroids. Her chest x-ray had the classic findings of someone with emphysema. On today's evaluation of 05/10/2020, the patient is feeling better. She is less short of breath. She was on a BiPAP or throughout the night and the patient is currently off the BiPAP on oxygen at 4 L per minute nasal cannula. She is resting comfortably she is not using excessive muscle breathing. She did have some minor troponin leak which was a demand mismatch in the patient's chest x- ray showed small bilateral pleural effusions. White cell count of 15.4. Pro Calcitonin level was 0.13.. The patient is covered with doxycycline with empiric antibiotic coverage. She received a dose of Lasix 20 mg IV on 05/10/2000 which is today based on the x-ray findings. She remains on IV Solu Medrol 60 mg every 6 hours pH is also on DuoNeb nebulized treatments around the clock. On 05/11/2020 the patient is on BiPAP. Yesterday evening, the patient became hypoxemic and she became progressively more short of breath. She was taken off the oxygen which was running at 4 L and she was started on BiPAP which is currently running at 10/5 cm of water with an FiO2 of 40%. She seems to be tolerating it well and she is on a full face mask and synchronous with the BiPAP mask for now. She was given a dose of Lasix is producing adequate amount of urine output. No chest pain. She is quite cachectic and she has advanced lung disease. She is also on DuoNeb nebulized treatments [id number], she is on a combination of Perforomist and Pulmicort neb last 2 minutes twice a day and she is on IV Solu Medrol 60 mg every 6 hours and she is also on doxycycline as an empiric antibiotic coverage. She received a dose of Lasix 20 mg IV push on 05/10/2020. Her blood work today shows a white cell count of 16 with a hemoglobin of 10.9. This is compatible compared to yesterday's labs. She also has a serum bicarb of 32, sodium of 143 and potassium level of 4.9, BUN is at 92 with a creatinine of 0.7. IV fluids are running at KVO. 05/11/2020 of seeing the patient in follow-up. The patient is awake and alert this morning. Overnight she utilizes BiPAP at a pressure of 10/5 cm of water and FiO2 of 45%. This morning, we switched her to oxygen at 4 L per minute nasal cannula and gave her a break off the BiPAP. She seems to be more comfortable this morning. Overnight, the patient went into atrial fibrillation with rapid ventricular response and subsequently she converted back into normal sinus rhythm and currently she is in normal sinus rhythm with a BP of 99/53. Her pulse ox is above 90% 40s about 2 by nasal cannula. The patient was given a Cardizem bolus of 10 mg IV and 5 she is currently on a 5 mg an hour. She is 5 which was bumped up to 10 mg an hour . During the course of her treatment she also took 0.25 mg of digoxin and she converted spontaneously to normal sinus rhythm at around 1 AM this morning. Since then she has been normal sinus rhythm. The patient is currently at 20 mg every 20 mg of IV Lasix on a daily basis. The fluid balance over the past 24 hours has been -1.3 L and she put out another 1.5 L negative fluid balance for today. Her BUN is down to 59 with a creatinine being down to 0.6. Rest of the electrolytes are all within normal limits. White cell count is at 9 with a hemoglobin of 9.7. Chest x-ray from yesterday showed COPD with a barrel chest and small bilateral pleural effusions. No chest x-ray from today has been done. The white cell count is down to 9. Overall, she looks to be much more comfortable on today's evaluation. On 05/13/2020 patient seen in follow-up in the intensive care unit, she is a slightly drowsy, but easily arousable to voice, she is currently on 3 L of oxygen, and her pulse ox is 98%. No worsening dyspnea, lung sounds reveal no wheezing, some scattered rhonchi in the right lower base and some scattered rales. Patient remains on diuretics, she is in negative 900 mL Fluid balance over the last 24 hours, still has plus pretibial lower extremity edema. He is in sinus mechanism, she remains on amiodarone drip at 0.5 mg per hour, and heparin infusion per weight-based protocol. She will be transitioned to oral amiodarone and oral anticoagulation, cardiology is following, patient is status post right-sided heart catheterization yesterday on 05/13/2020, and right-sided systolic pressure was 52, diastolic was 15 with a mean of 26 mmHg. Heart attack output by thermodilution was 4.3 L/m which was within normal limits. There was no evidence of a left sided heart failure. Pressure was 11. Patient remains on IV steroids and breathing treatments for acute COPD exacerbation, no wheezing, no significant phlegm production. No complaints of chest pain, hemoptysis no fever or chills. She has been acquiring BiPAP intermittently, currently off the BiPAP, breathing comfortably. Labs have been reviewed showing white blood cell count of 11.8, hemoglobin of 9.3, sodium is 139, potassium is 4.3, CO2 is 38, BUN is 46 creatinine 0.7 Objective - Vital Signs Vital signs: Vital Signs Temp 97.9 F 05/13/20 08:00 Pulse 60 05/13/20 08:00 Resp 14 05/13/20 08:00 BP 94/46 05/13/20 08:00 Pulse Ox 100 05/13/20 08:12 Intake & Output 05/12/20 05/13/20 05/13/20 18:59 06:59 18:59 Intake Total 221.479 190.454 27.662 Output Total 500 845 Balance -278.521 -654.546 27.662 Weight 45.2 kg 45.8 kg Intake: IV 130 150 0.9% Na Cl KVO 130 150 Intake, IV Titration 91.479 40.454 27.662 Amount Diltiazem 125 mg In 55.50 Sodium Chloride 0.9% 100 ml @ 5 MG/HR 5 mls/hr IV .Q24H [facility] Rx#:[id number] Heparin Sod,Pork in 0.45% 35.979 40.454 27.662 NaCl 25,000 unit In 0.45 % NaCl 1 250ml.bag @ 12 UNITS/KG/HR 5.424 mls/hr IV .Q24H [facility] Rx#: [id number] Output: Urine 500 845 Other: Voiding Method Indwelling Catheter Indwelling Catheter - Exam GENERAL EXAM: Cachectic looking drowsy, but arousable to voice, 80-year-old white female on 3 L of oxygen, with pulse ox of 98% comfortable in no apparent distress. HEAD: Normocephalic/atraumatic. EYES: Normal reaction of pupils, equal size. Conjunctiva pink, sclera white. NOSE: Clear with pink turbinates. THROAT: No erythema or exudates. NECK: No masses, no JVD, no thyroid enlargement, no adenopathy. CHEST: No chest wall deformity. Symmetrical expansion. LUNGS: Equal air entry with crackles and scattered rhonchi CVS: Regular rate and rhythm, normal S1 and S2, no gallops, no murmurs, no rubs ABDOMEN: Soft, nontender. No hepatosplenomegaly, normal bowel sounds, no guarding or rigidity. EXTREMITIES: No clubbing, 1+ edema, no cyanosis, 2+ pulses and upper and lower extremities. MUSCULOSKELETAL: Muscle strength and tone normal. SPINE: No scoliosis or deformity SKIN: No rashes CENTRAL NERVOUS SYSTEM: Arousable No focal deficits, tone is normal in all 4 extremities. - Labs CBC & Chem 7: 05/13/20 06:10 05/13/20 06:10 Labs: Abnormal Lab Results - Last 24 Hours (Table) 05/12/20 05/12/20 05/12/20 Range/Units 08:37 11:28 14:11 WBC (3.8-10.6) k/uL RBC (3.80-5.40) m/uL Hgb 10.6 L (11.4-16.0) gm/dL Hct (34.0-46.0) % MCHC 29.9 L (31.0-37.0) g/dL RDW 16.7 H (11.5-15.5) % Neutrophils # 8.2 H (1.3-7.7) k/uL Lymphocytes # 0.2 L (1.0-4.8) k/uL APTT (22.0-30.0) sec Carbon Dioxide (22-30) mmol/L BUN (7-17) mg/dL Glucose (74-99) mg/dL POC Glucose (mg/dL) 325 H 232 H (75-99) mg/dL 05/12/20 05/12/20 05/12/20 Range/Units 14:28 17:36 21:26 WBC (3.8-10.6) k/uL RBC (3.80-5.40) m/uL Hgb (11.4-16.0) gm/dL Hct (34.0-46.0) % MCHC (31.0-37.0) g/dL RDW (11.5-15.5) % Neutrophils # (1.3-7.7) k/uL Lymphocytes # (1.0-4.8) k/uL APTT 85.7 H (22.0-30.0) sec Carbon Dioxide (22-30) mmol/L BUN (7-17) mg/dL Glucose (74-99) mg/dL POC Glucose (mg/dL) 142 H 112 H (75-99) mg/dL 05/12/20 05/13/20 05/13/20 Range/Units 21:49 06:10 06:10 WBC 11.8 H (3.8-10.6) k/uL RBC 3.51 L (3.80-5.40) m/uL Hgb 9.3 L (11.4-16.0) gm/dL Hct 30.5 L (34.0-46.0) % MCHC 30.6 L (31.0-37.0) g/dL RDW 16.5 H (11.5-15.5) % Neutrophils # 11.3 H (1.3-7.7) k/uL Lymphocytes # 0.2 L (1.0-4.8) k/uL APTT 80.4 H (22.0-30.0) sec Carbon Dioxide 38 H (22-30) mmol/L BUN 46 H (7-17) mg/dL Glucose 162 H (74-99) mg/dL POC Glucose (mg/dL) (75-99) mg/dL 05/13/20 Range/Units 06:10 WBC (3.8-10.6) k/uL RBC (3.80-5.40) m/uL Hgb (11.4-16.0) gm/dL Hct (34.0-46.0) % MCHC (31.0-37.0) g/dL RDW (11.5-15.5) % Neutrophils # (1.3-7.7) k/uL Lymphocytes # (1.0-4.8) k/uL APTT 40.3 H (22.0-30.0) sec Carbon Dioxide (22-30) mmol/L BUN (7-17) mg/dL Glucose (74-99) mg/dL POC Glucose (mg/dL) (75-99) mg/dL Microbiology - Last 24 Hours (Table) 05/07/20 13:53 Blood Culture - Preliminary Blood No Growth after 120 hours 05/07/20 14:00 Blood Culture - Preliminary Blood No Growth after 120 hours Assessment and Plan Plan: Assessment: 1 Acute hypoxemic respiratory failure, secondary to COPD exacerbation. The patient is still having difficulties in breathing and she is quite short of breath placed on BiPAP at a pressure of 10/5 with an FiO2 of 40%. She has advanced lung disease and she is quite cachectic and emaciated with a body mass index of 19.8. 2 Rule out non-ST segment elevation myocardial infarction. 3 History of previous heavy tobacco use. 4 History of hypertension. 5 History of hyperlipidemia. 6 History of diabetes mellitus. 7 No evidence of pulmonary embolism on CT angiogram or DVT, on lower extremity Dopplers. 8 Mild right-sided hydronephrosis. 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 Right heart catheterization revealed moderately severe pulmonary hypertension with PA systolic of 52, PA diastolic 15, with a mean of 26, wedge pressure was 11, no evidence of left ventricular failure 10 lower extremity edema 11 A. fib with RVR, converted to sinus rhythm, on oral Cardizem, IV amiodarone. Patient will be transitioned to oral amiodarone and oral anticoagulation today Plan: We will obtain a chest x-ray today, continue breathing treatments, we'll contact IV Solu-Medrol to 40 every 12 hours, continue with the diuretics, patient remains in sinus mechanism, she will be transitioned to oral amiodarone and oral anticoagulation today, no evidence of left ventricular heart failure on the right heart catheterization. Case was discussed with cardiology. Continue antibiotics, continue monitoring in the intensive care unit, patient is quite frail. Registered dietitian to make recommendations on nutritional suppl ementation. I performed a history & physical examination of the patient and discussed their management with my nurse practitioner, Molly Muhammad. I reviewed the nurse practitioner's note and agree with the documented findings and plan of care. Lung sounds are positive for scattered crackles at the bases The findings and the impression was discussed with the patient. I attest to the documentation by the nurse practitioner. Time with Patient: Less than 30
[2020-05-13] MEDS: APIXABAN 5 MG TAB PO SCH ×2 (09:25→20:21)
[2020-05-13] MEDS: SILDENAFIL 20 MG TAB PO SCH ×3 (09:25→20:21)
[2020-05-13] MEDS: DOXYCYCLINE 100 MG in SODIUM CHLORIDE 0.9% 100 ML IVPB SCH ×2 (09:27→20:21)
[2020-05-13] MEDS: AMIODARONE 450 MG in DEXTROSE 5% IN WATER 250 ML IV SCH ×4 (09:27→23:20)
--- NOTE | 2020-05-13 10:55 | P.PN ---
Subjective Patient is seen in follow-up for acute kidney injury. Renal function at baseline. Nonoliguric. No vomiting or diarrhea. Oral intake fair. Currently on 3 L is cannula. Underwent right heart catheterization this morning. Vital signs are stable. General: The patient appeared well nourished and normally developed. HEENT: Head exam is unremarkable. On BiPAP. LUNGS: Breath sounds decreased. HEART: Rate and Rhythm are regular. ABDOMEN: Soft, nontender. EXTREMITITES: 1+ edema. Objective - Vital Signs Vital signs: Vital Signs Temp 97.9 F 05/13/20 08:00 Pulse 76 05/13/20 10:00 Resp 23 05/13/20 10:00 BP 92/48 05/13/20 10:00 Pulse Ox 96 05/13/20 10:00 Intake & Output 05/12/20 05/13/20 05/13/20 18:59 06:59 18:59 Intake Total 221.479 190.454 187.662 Output Total 500 845 315 Balance -278.521 -654.546 -127.338 Weight 45.2 kg 45.8 kg Intake: IV 130 150 160 0.9% Na Cl KVO 130 150 60 Doxycycline 100 mg In 100 Sodium Chloride 0.9% 100 ml @ 100 mls/hr IVPB Q12HR [facility] Rx#:[id number] Intake, IV Titration 91.479 40.454 27.662 Amount Diltiazem 125 mg In 55.50 Sodium Chloride 0.9% 100 ml @ 5 MG/HR 5 mls/hr IV .Q24H [facility] Rx#:[id number] Heparin Sod,Pork in 0.45% 35.979 40.454 27.662 NaCl 25,000 unit In 0.45 % NaCl 1 250ml.bag @ 12 UNITS/KG/HR 5.424 mls/hr IV .Q24H [facility] Rx#: [id number] Output: Urine 500 845 315 Other: Voiding Method Indwelling Catheter Indwelling Catheter Indwelling Catheter - Labs CBC & Chem 7: 05/13/20 06:10 05/13/20 06:10 Labs: Abnormal Lab Results - Last 24 Hours (Table) 05/12/20 05/12/20 05/12/20 Range/Units 11:28 14:11 14:28 WBC (3.8-10.6) k/uL RBC (3.80-5.40) m/uL Hgb (11.4-16.0) gm/dL Hct (34.0-46.0) % MCHC (31.0-37.0) g/dL RDW (11.5-15.5) % Neutrophils # (1.3-7.7) k/uL Lymphocytes # (1.0-4.8) k/uL APTT 85.7 H (22.0-30.0) sec Carbon Dioxide (22-30) mmol/L BUN (7-17) mg/dL Glucose (74-99) mg/dL POC Glucose (mg/dL) 325 H 232 H (75-99) mg/dL 05/12/20 05/12/20 05/12/20 Range/Units 17:36 21:26 21:49 WBC (3.8-10.6) k/uL RBC (3.80-5.40) m/uL Hgb (11.4-16.0) gm/dL Hct (34.0-46.0) % MCHC (31.0-37.0) g/dL RDW (11.5-15.5) % Neutrophils # (1.3-7.7) k/uL Lymphocytes # (1.0-4.8) k/uL APTT 80.4 H (22.0-30.0) sec Carbon Dioxide (22-30) mmol/L BUN (7-17) mg/dL Glucose (74-99) mg/dL POC Glucose (mg/dL) 142 H 112 H (75-99) mg/dL 05/13/20 05/13/20 05/13/20 Range/Units 06:10 06:10 06:10 WBC 11.8 H (3.8-10.6) k/uL RBC 3.51 L (3.80-5.40) m/uL Hgb 9.3 L (11.4-16.0) gm/dL Hct 30.5 L (34.0-46.0) % MCHC 30.6 L (31.0-37.0) g/dL RDW 16.5 H (11.5-15.5) % Neutrophils # 11.3 H (1.3-7.7) k/uL Lymphocytes # 0.2 L (1.0-4.8) k/uL APTT 40.3 H (22.0-30.0) sec Carbon Dioxide 38 H (22-30) mmol/L BUN 46 H (7-17) mg/dL Glucose 162 H (74-99) mg/dL POC Glucose (mg/dL) (75-99) mg/dL Microbiology - Last 24 Hours (Table) 05/07/20 13:53 Blood Culture - Preliminary Blood No Growth after 120 hours 05/07/20 14:00 Blood Culture - Preliminary Blood No Growth after 120 hours Assessment and Plan Plan: Assessment: 1. Acute kidney injury mostly prerenal secondary to hypotension. Component of cardiorenal syndrome. Creatinine 1.58 on admission and is 0.7 today. She also received IV contrast dye on May 07. No hydronephrosis noted on kidney ultrasound. UA benign. 2. Acute on chronic diastolic CHF with moderate to severe tricuspid regurgitation and pulmonary hypertension. Status post right heart cath this morning. 3. Fluid overload. Improving with diuresis. 4. COPD exacerbation. 5. Diabetes mellitus. 6. Disproportionally elevated BUN due to steroids. No evidence of GI bleed. BUN trending down. 7. A. fib with RVR currently on IV amiodarone. Plan: Maintain midodrine. Maintain IV Lasix. Cortisol level not low. Continue to monitor renal function and urine output. Wean FiO2.
[2020-05-13 11:45] LABS: Glucose,Whole Blood 193 mg/dL (75-99)
[2020-05-13 13:56] LABS: Glucose,Whole Blood 191 mg/dL (75-99)
--- NOTE | 2020-05-13 15:20 | FL ---
EXAMINATION TYPE: FL barium swallow w video DATE OF EXAM: 05/13/2020 MODIFIED SWALLOW / DEGLUTITION STUDY CLINICAL HISTORY: Dysphagia. Concern for aspiration. Heart catheterization earlier today. TECHNIQUE: Deglutition study is performed utilizing thin liquid barium, honey and nectar thick liqui d barium, barium thick applesauce, and barium coated cracker. A total of 2.10 minutes fluoroscopic ti me. 0 spot images saved to PACS. COMPARISON: None. FINDINGS: The oral and pharyngeal phases show satisfactory initiation and propagation with all modali ties tested. Satisfactory mastication is seen with solid modalities tested. There is no evidence of penetration or aspiration with any modality tested. No significant pharyngeal residue was appreciate d. IMPRESSION: No penetration or aspiration observed. Please refer to speech therapist notes for further details if necessary.
[2020-05-13 16:55] LABS: Glucose,Whole Blood 217 mg/dL (75-99)
[2020-05-13] MEDS: AMIODARONE 200 MG TAB PO SCH (17:05)
[2020-05-13 20:19] LABS: Glucose,Whole Blood 161 mg/dL (75-99)
[2020-05-13] MEDS: GABAPENTIN 300 MG CAP PO SCH (20:21)
[2020-05-13] MEDS ORDERED: methylPREDNISolone SOD SUCCI 40 MG/ML 1 ML VIAL IV SCH (21:00)
[2020-05-14] MEDS: AMIODARONE 200 MG TAB PO SCH ×2 (05:10→17:25)
[2020-05-14 05:34] LABS: ALT 24 U/L (4-34); AST 38 U/L (14-36); African American GFR (CKD) >90 (>60 ml/min/1.73 sqM); Alkaline Phosphatase 61 U/L (38-126); Anion Gap 1 mmol/L; Blood Urea Nitrogen 46 mg/dL (7-17); Calcium 8.9 mg/dL (8.4-10.2); Carbon Dioxide 36 mmol/L (22-30); Chloride 99 mmol/L (98-107); Glucose 124 mg/dL (74-99); Non-African American GFR(CKD) 89 (>60 ml/min/1.73 sqM); Potassium 4.3 mmol/L (3.5-5.1); Sodium 136 mmol/L (137-145); Total Bilirubin 0.8 mg/dL (0.2-1.3); Total Protein 5.1 g/dL (6.3-8.2)
[2020-05-14 05:38] LABS: Anisocytosis Slight; Basophils % (A) 0 %; Eosinophils % (A) 0 %; HCT 30.4 % (34.0-46.0); HGB 9.3 gm/dL (11.4-16.0); Hypochromasia Marked; Lymphocytes # (A) 0.2 k/uL (1.0-4.8); Lymphocytes % (A) 1 %; MCH 26.7 pg (25.0-35.0); MCHC 30.7 g/dL (31.0-37.0); MCV 86.8 fL (80.0-100.0); Mean Platelet Volume 10.1; Monocytes # (A) 0.5 k/uL (0-1.0); Monocytes % (A) 4 %; Neutrophils # (A) 11.9 k/uL (1.3-7.7); Neutrophils % (A) 95 %; Platelet Count 127 k/uL (150-450); Poikilocytosis Moderate; RBC 3.51 m/uL (3.80-5.40); RDW 16.9 % (11.5-15.5); WBC 12.6 k/uL (3.8-10.6)
[2020-05-14] MEDS: INSULIN ASPART (NovoLOG) 100 UNIT/ML VIAL SQ SCH ×4 (05:42→20:55)
[2020-05-14] MEDS: CALCIUM CARB-VIT D 500 MG-5 MCG TAB PO SCH ×3 (06:45→17:31)
[2020-05-14] MEDS: MIDODRINE 5 MG TAB PO SCH ×3 (06:45→17:33)
[2020-05-14] MEDS: FERROUS SULFATE 325 MG TAB PO SCH ×2 (06:45→17:30)
--- NOTE | 2020-05-14 07:49 | P.PN ---
Subjective Progress Note Date: 05/14/20 05/14/2020, the patient is awake and alert and she is sitting up on a chair. She has advanced COPD with chronic hypoxic and hypercapnic respiratory failure and furthermore the right-sided cardiac catheterization was done yesterday and the patient was found to have pulmonary hypertension which was moderately elevated with a peak pressure of 52 and a average pressure of 29. The patient also has significantly enlarged right ventricle. The output from the right ventricular in terms of cardiac output was around 4.3. We kept on the diuretics yesterday due to concerns of volume dependence and the patient is currently taking no diuretics. She is on Midrin for blood pressure control. She was started on a 2 to improve her pulmonary artery pressure and RV dilatation and failure. Her cardiac rhythm is sinus. She is on amiodarone at a dose o 200 mg every 12 hours and she is also on Cardizem 30 mg by mouth 3 times a day. She is well controlled for now. She remains on bronchodilators. She remains on IV Solu Medrol 40 mg every 12 hours. She is on statins with Lipitor 20 mg by mouth daily. Anticoagulation with Eliquis. She is quite cachectic. She is taken dietary supplements with a sharp. She is unable to have her meal completed is eating approximately 20%. White cell count 12.6 with a hemoglobin 0.3, platelets 127, she has chronic metabolic alkalosis compensatory for her chronic hypercapnic respiratory failure and his serum bicarbonate was around 36, LFTs are normal. She is weak. She is edentulous. She is awake and alert. Objective - Vital Signs Vital signs: Vital Signs Temp 97.9 F 05/14/20 04:00 Pulse 77 05/14/20 04:00 Resp 18 05/14/20 06:50 BP 108/55 05/14/20 04:00 Pulse Ox 93 L 05/14/20 06:55 Intake & Output 05/13/20 05/14/20 05/14/20 18:59 06:59 18:59 Intake Total 607.662 280 Output Total 540 400 Balance 67.662 -120 Intake: IV 280 280 0.9% Na Cl KVO 180 280 Doxycycline 100 mg In 100 Sodium Chloride 0.9% 100 ml @ 100 mls/hr IVPB Q12HR [facility] Rx#:[id number] Intake, IV Titration 27.662 Amount Heparin Sod,Pork in 0.45% 27.662 NaCl 25,000 unit In 0.45 % NaCl 1 250ml.bag @ 12 UNITS/KG/HR 5.424 mls/hr IV .Q24H [facility] [place] Rx#: [id number] Oral 300 Output: Urine 540 400 Other: Voiding Method Indwelling Catheter Indwelling Catheter - Exam Oriented 3, the patient is comfortable and she is not using this is a muscle breathing and she is able to speak in full sentences and she is currently on 2 L of oxygen by nasal cannula. HEENT examination is grossly unremarkable. Mucous membranes are moist. No oral lesions. Neck supple. Full range of motion. No adenopathy thyromegaly or neck vein d istention. Cardiovascular examination reveals regular rhythm and rate. S1-S2 normal. No S3 or S4. No discernible murmur noted. Heart sounds are distant. Lungs reveal severely diminished breath sounds. Diffuse coarse rhonchi and wheezes are noted. Breath sounds are equal bilaterally but severely diminished. No crackles. There is prolongation on forced maneuver. Abdomen soft bowel sounds are heard. No masses or tenderness. Extremities are intact. No cyanosis clubbing or edema. Skin is without rash or lesion. Neurologic examination is brief but nonfocal. - Labs CBC & Chem 7: 05/14/20 03:56 05/14/20 03:56 Labs: Abnormal Lab Results - Last 24 Hours (Table) 05/13/20 05/13/20 05/13/20 Range/Units 11:44 13:54 16:54 WBC (3.8-10.6) k/uL RBC (3.80-5.40) m/uL Hgb (11.4-16.0) gm/dL Hct (34.0-46.0) % MCHC (31.0-37.0) g/dL RDW (11.5-15.5) % Plt Count (150-450) k/uL Neutrophils # (1.3-7.7) k/uL Lymphocytes # (1.0-4.8) k/uL Sodium (137-145) mmol/L Carbon Dioxide (22-30) mmol/L BUN (7-17) mg/dL Glucose (74-99) mg/dL POC Glucose (mg/dL) 193 H 191 H 217 H (75-99) mg/dL AST (14-36) U/L Total Protein (6.3-8.2) g/dL Albumin (3.5-5.0) g/dL 05/13/20 05/14/20 05/14/20 Range/Units 20:17 03:56 03:56 WBC 12.6 H (3.8-10.6) k/uL RBC 3.51 L (3.80-5.40) m/uL Hgb 9.3 L (11.4-16.0) gm/dL Hct 30.4 L (34.0-46.0) % MCHC 30.7 L (31.0-37.0) g/dL RDW 16.9 H (11.5-15.5) % Plt Count 127 L (150-450) k/uL Neutrophils # 11.9 H (1.3-7.7) k/uL Lymphocytes # 0.2 L (1.0-4.8) k/uL Sodium 136 L (137-145) mmol/L Carbon Dioxide 36 H (22-30) mmol/L BUN 46 H (7-17) mg/dL Glucose 124 H (74-99) mg/dL POC Glucose (mg/dL) 161 H (75-99) mg/dL AST 38 H (14-36) U/L Total Protein 5.1 L (6.3-8.2) g/dL Albumin 3.0 L (3.5-5.0) g/dL Microbiology - Last 24 Hours (Table) 05/07/20 13:53 Blood Culture - Final Blood No Growth after 144 hours 05/07/20 14:00 Blood Culture - Final Blood No Growth after 144 hours Assessment and Plan Plan: 1 Acute hypoxemic respiratory failure, secondary to COPD exacerbation. The patient is still having difficulties in breathing and she is quite short of breath placed on BiPAP at a pressure of 10/5 with an FiO2 of 40%. She has advanced lung disease and she is quite cachectic and emaciated with a body mass index of 19.8. 2 Rule out non-ST segment elevation myocardial infarction. 3 History of previous heavy tobacco use. 4 History of hypertension. 5 History of hyperlipidemia. 6 History of diabetes mellitus. 7 No evidence of pulmonary embolism on CT angiogram or DVT, on lower extremity Dopplers. 8 Mild right-sided hydronephrosis. 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 Continue DuoNeb nebulized 4 times a day IV Solu-Medrol and put the patient on prednisone burst taper IV fluids to KVO Diuretics will be discontinued Continue BiPAP during the day as needed Switch this patient to oral Cardizem 30 mg by mouth 3 times a day and combination with amiodarone Anticoagulation with Eliquis 5 mg by mouth twice a day Results of the right-sided cardiac cath was noted and the patient has a moderate degree of pulmonary hypertension Advance diet Physical therapy Transfer this patient out of the intensive care unit today. Will follow
[2020-05-14] MEDS: IPRATROPIUM-ALBUTEROL 3 ML NEB INHALATION SCH ×4 (07:56→19:35)
[2020-05-14] MEDS: predniSONE 10 MG TAB PO SCH (09:07)
[2020-05-14] MEDS: APIXABAN 5 MG TAB PO SCH ×2 (09:08→20:55)
[2020-05-14] MEDS: SILDENAFIL 20 MG TAB PO SCH ×3 (09:08→20:55)
[2020-05-14] MEDS: DILTIAZEM ORAL 30 MG TAB PO SCH ×3 (09:08→20:55)
[2020-05-14] MEDS: PANTOPRAZOLE 40 MG/10 ML VIAL IVP SCH (09:23)
--- NOTE | 2020-05-14 09:26 | P.PN ---
Subjective HISTORY OF PRESENTING ILLNESS This is a pleasant 80-year-old female past medical history significant for nonobstructive coronary artery disease, COPD, hypertension, diabetes mellitus and dyslipidemia. She is to follow in the office with Dr. López however has not been to the office since 2018. She is seen and examined sitting up in bed in no acute distress. Her breathing is stable on nasal cannula. She is not requiring bipap support currently. Blood pressure has been running low overnight. Lopressor is currently on hold. Heart rates in the 60's. Laboratory data reviewed, WBC 15.4, hgb 10, plt 169, sodium 138, potassium 5.6, BUN 127 and creatinine 1.01 and magnesium 2.2. 05/11/2020 Patient seen and examined. Patient still admits to SOB, on BIPAP. Patient had an episode of hypoxia yesterday with shortness breath and therefore was switched from her nasal cannula back to BiPAP. She received IV Lasix 20 mg yesterday and creatinine in view on have been improving, BUN 92, creatinine 0.73. She denies any chest pain or pressure. There was consideration of right heart catheterization today however transferred to ICU for closer monitoring. 05/12/2020 Patient seen and examined in ICU. She admits she feels better than yesterday with improvement in her respiratory status. She denies any chest pain or pressure. She is off of BiPAP today and on 5 L nasal cannula. She did have a episode of A. flutter with RVR HRs in the 150's for approximately 4 hrs yesterday however appeared to be fairly asymptomatic during episode and denies any palpitations, lightheadedness. She converted after a few hours. Blood pressures been borderline. She was given digoxin 150 mg IV once as well as started on a Cardizem drip which she has been tolerating. Cardizem drip was discontinued this morning and change to oral Cardizem 30 mg 3 times a day and additionally her beta jackelyn was discontinued for improvement and respiratory standpoint. 05/13/2020 Patient underwent right heart catheterization this morning by the right brachial approach. PA pressure of 52/15 with a mean of 26, PCWP of 11, RV pressure 52/12, right atrial pressure 8, cardiac output of 4.3 by thermodilution. Patient did have episode of atrial flutter with RVR yesterday and was placed on amiodarone drip and converted back to normal sinus rhythm after approximately 4 hours. Patient has predominantly asymptomatic. 05/14/20 Patient seen and examined. Patient admits she is feeling improved day by day. Patient is on 2 L nasal cannula. She was started on Revatio 10 mg 3 times a day as well as transition to Eliquis yesterday. Vital signs appear stable. She r emains in normal sinus rhythm on amiodarone 200 mg twice a day. She does have mild lower extremity edema however right atrial pressure from yesterday was noted to be high normal at 8. PHYSICAL EXAMINATION HEENT: Head is normocephalic. Pupils are equal, round. Sclerae anicteric. Mucous membranes of the mouth are moist. Mild JVD. No carotid bruit. CHEST EXAMINATION: Significantly diminished. Expiratory wheezes. No chest wall tenderness is noted on palpation or with deep breathing. HEART EXAMINATION: Regular rate and rhythm. S1, S2 heard. Systolic ejection murmur at the base, no gallops or rub. EXTREMITIES: 2+ peripheral pulses, no lower extremity edema and no calf tenderness. SKIN: no rash, dry NEURO: alert and oriented, no gross neurologic defects ASSESSMENT Acute on chronic respiratory failure, majority related to AECOPD Lactic acidosis Troponin elevation secondary to type II myocardial infarction with oxygen supply and demand mismatch as well as likely from right sided heart failure Chronic right sided heart failure, compensated by right heart catheterization numbers Atrial flutter with RVR, fairly sinus rhythm. Acute exacerbation of COPD Hypertension Dyslipidemia Diabetes mellitus RV dilation and dysfunction related to pulmonary hypertension Moderate to severe tricuspid regurgitation Pulmonary hypertension, likely group 1 vs 3. Right heart catheterization with a mean pressure of 26, cardiac output low-normal by thermodilution of 4.3 L/min. MAURI, severely increased BUN:Cr ratio, improving with diuresis PLAN Appears to be improving from her COPD day by day. Continue amiodarone 200 mg twice a day for rhythm control given fairly fast atrial flutter with RVR and mild decrease in blood pressure when she went and atrial flutter. Continue Cardizem 30 mg twice a day. Transitioned to Eliquis 5 mg bid. Patient was started on Revatio and is tolerating well. Followup with pulmonary hypertension specialist as an outpt. Objective - Vital Signs Vital signs: Vital Signs Temp 97.8 F 05/14/20 08:00 Pulse 88 05/14/20 08:06 Resp 20 05/14/20 08:00 BP 108/55 05/14/20 04:00 Pulse Ox 93 L 05/14/20 06:55 Intake & Output 05/13/20 05/14/20 05/14/20 18:59 06:59 18:59 Intake Total 607.662 280 20 Output Total 540 400 225 Balance 67.662 -120 -205 Intake: IV 280 280 20 0.9% Na Cl KVO 180 280 20 Doxycycline 100 mg In 100 Sodium Chloride 0.9% 100 ml @ 100 mls/hr IVPB Q12HR TONG Rx#:[id number] Intake, IV Titration 27.662 Amount Heparin Sod,Pork in 0.45% 27.662 NaCl 25,000 unit In 0.45 % NaCl 1 250ml.bag @ 12 UNITS/KG/HR 5.424 mls/hr IV .Q24H TONG Rx#: [id number] Oral 300 Output: Urine 540 400 225 Other: Voiding Method Indwelling Catheter Indwelling Catheter - Labs CBC & Chem 7: 05/14/20 03:56 05/14/20 03:56 Labs: Abnormal Lab Results - Last 24 Hours (Table) 05/13/20 05/13/20 05/13/20 Range/Units 11:44 13:54 16:54 WBC (3.8-10.6) k/uL RBC (3.80-5.40) m/uL Hgb (11.4-16.0) gm/dL Hct (34.0-46.0) % MCHC (31.0-37.0) g/dL RDW (11.5-15.5) % Plt Count (150-450) k/uL Neutrophils # (1.3-7.7) k/uL Lymphocytes # (1.0-4.8) k/uL Sodium (137-145) mmol/L Carbon Dioxide (22-30) mmol/L BUN (7-17) mg/dL Glucose (74-99) mg/dL POC Glucose (mg/dL) 193 H 191 H 217 H (75-99) mg/dL AST (14-36) U/L Total Protein (6.3-8.2) g/dL Albumin (3.5-5.0) g/dL 05/13/20 05/14/20 05/14/20 Range/Units 20:17 03:56 03:56 WBC 12.6 H (3.8-10.6) k/uL RBC 3.51 L (3.80-5.40) m/uL Hgb 9.3 L (11.4-16.0) gm/dL Hct 30.4 L (34.0-46.0) % MCHC 30.7 L (31.0-37.0) g/dL RDW 16.9 H (11.5-15.5) % Plt Count 127 L (150-450) k/uL Neutrophils # 11.9 H (1.3-7.7) k/uL Lymphocytes # 0.2 L (1.0-4.8) k/uL Sodium 136 L (137-145) mmol/L Carbon Dioxide 36 H (22-30) mmol/L BUN 46 H (7-17) mg/dL Glucose 124 H (74-99) mg/dL POC Glucose (mg/dL) 161 H (75-99) mg/dL AST 38 H (14-36) U/L Total Protein 5.1 L (6.3-8.2) g/dL Albumin 3.0 L (3.5-5.0) g/dL Microbiology - Last 24 Hours (Table) 05/07/20 13:53 Blood Culture - Final Blood No Growth after 144 hours 05/07/20 14:00 Blood Culture - Final Blood No Growth after 144 hours
[2020-05-14] MEDS ORDERED: FUROSEMIDE 10 MG/ML 4 ML VIAL IV STA (10:17)
--- NOTE | 2020-05-14 10:18 | P.PN ---
Subjective Patient is seen in follow-up for acute kidney injury. Renal function at baseline. Nonoliguric. No vomiting or diarrhea. Oral intake fair. Currently on 2 L is cannula. Blood pressure stable. Vital signs are stable. General: The patient appeared well nourished and normally developed. HEENT: Head exam is unremarkable. On BiPAP. LUNGS: Breath sounds decreased. HEART: Rate and Rhythm are regular. ABDOMEN: Soft, nontender. EXTREMITITES: 1+ edema. Objective - Vital Signs Vital signs: Vital Signs Temp 97.8 F 05/14/20 08:00 Pulse 88 05/14/20 08:06 Resp 20 05/14/20 08:00 BP 110/47 05/14/20 08:00 Pulse Ox 93 L 05/14/20 06:55 Intake & Output 05/13/20 05/14/20 05/14/20 18:59 06:59 18:59 Intake Total 607.662 280 20 Output Total 540 400 225 Balance 67.662 -120 -205 Intake: IV 280 280 20 0.9% Na Cl KVO 180 280 20 Doxycycline 100 mg In 100 Sodium Chloride 0.9% 100 ml @ 100 mls/hr IVPB Q12HR TONG Rx#:[id number] Intake, IV Titration 27.662 Amount Heparin Sod,Pork in 0.45% 27.662 NaCl 25,000 unit In 0.45 % NaCl 1 250ml.bag @ 12 UNITS/KG/HR 5.424 mls/hr IV .Q24H TONG Rx#: [id number] Oral 300 Output: Urine 540 400 225 Other: Voiding Method Indwelling Catheter Indwelling Catheter - Labs CBC & Chem 7: 05/14/20 03:56 05/14/20 03:56 Labs: Abnormal Lab Results - Last 24 Hours (Table) 05/13/20 05/13/20 05/13/20 Range/Units 11:44 13:54 16:54 WBC (3.8-10.6) k/uL RBC (3.80-5.40) m/uL Hgb (11.4-16.0) gm/dL Hct (34.0-46.0) % MCHC (31.0-37.0) g/dL RDW (11.5-15.5) % Plt Count (150-450) k/uL Neutrophils # (1.3-7.7) k/uL Lymphocytes # (1.0-4.8) k/uL Sodium (137-145) mmol/L Carbon Dioxide (22-30) mmol/L BUN (7-17) mg/dL Glucose (74-99) mg/dL POC Glucose (mg/dL) 193 H 191 H 217 H (75-99) mg/dL AST (14-36) U/L Total Protein (6.3-8.2) g/dL Albumin (3.5-5.0) g/dL 05/13/20 05/14/20 05/14/20 Range/Units 20:17 03:56 03:56 WBC 12.6 H (3.8-10.6) k/uL RBC 3.51 L (3.80-5.40) m/uL Hgb 9.3 L (11.4-16.0) gm/dL Hct 30.4 L (34.0-46.0) % MCHC 30.7 L (31.0-37.0) g/dL RDW 16.9 H (11.5-15.5) % Plt Count 127 L (150-450) k/uL Neutrophils # 11.9 H (1.3-7.7) k/uL Lymphocytes # 0.2 L (1.0-4.8) k/uL Sodium 136 L (137-145) mmol/L Carbon Dioxide 36 H (22-30) mmol/L BUN 46 H (7-17) mg/dL Glucose 124 H (74-99) mg/dL POC Glucose (mg/dL) 161 H (75-99) mg/dL AST 38 H (14-36) U/L Total Protein 5.1 L (6.3-8.2) g/dL Albumin 3.0 L (3.5-5.0) g/dL Microbiology - Last 24 Hours (Table) 05/07/20 13:53 Blood Culture - Final Blood No Growth after 144 hours 05/07/20 14:00 Blood Culture - Final Blood No Growth after 144 hours Assessment and Plan Plan: Assessment: 1. Acute kidney injury mostly prerenal secondary to hypotension. Component of cardiorenal syndrome. Creatinine 1.58 on admission and is 0.56 today. She also received IV contrast dye on May 07. No hydronephrosis noted on kidney ultrasound. UA benign. 2. Acute on chronic diastolic CHF with moderate to severe tricuspid regurgitation and pulmonary hypertension. Status post right heart cath May 13. 3. Fluid overload. Improving with diuresis. 4. COPD exacerbation. 5. Diabetes mellitus. 6. Disproportionally elevated BUN due to steroids. No evidence of GI bleed. BUN trending down. 7. A. fib with RVR currently on oral amiodarone, Cardizem and anticoagulation. Plan: Maintain midodrine. Cortisol level not low. Lasix 40 mg IV once today. Continue to monitor renal function and urine output. Wean FiO2.
[2020-05-14 11:58] LABS: Glucose,Whole Blood 158 mg/dL (75-99)
--- NOTE | 2020-05-14 15:59 | P.PN ---
Subjective Progress Note Date: 05/14/20 Principal diagnosis: Acute on chronic respiratory failure Acute exacerbation COPD Elevated troponin-type to myocardial ischemia Atrial flutter with RVR Acute renal injury 80 years old female with past medical history of diabetes mellitus, hypertension, hyperlipidemia, COPD, ex-smoker. Presents with shortness of breath has been going on for about 6 months with recent worsening over the last few days associated with cough and green phlegm but no chest pain. Yesterday she felt more weak and lost her coordination and recently noticed that her feet starts getting swollen over the last 10 days especially around the ankles. Patient also noticed to have hoarseness of voice, patient states it improving over the last few days She does not use oxygen at home, she does not follow up with manager audio 05/14/2020 Patient is seen and evaluated in ICU sitting up on a chair. Patient had right-sided cardiac catheterization was done yesterday which revea led pulmonary hypertension; significantly enlarged right ventricle; output from the right ventricular in terms of cardiac output was around 4.3; patient is kept on the diuretics yesterday due to concerns of volume dependence which has been now discontinued. She is on Midrin for blood pressure control. She was started on Revatio 10 mg 3 times a day to improve her pulmonary artery pressure and RV dilatation and failure. Her cardiac rhythm is sinus. She is on amiodarone at a dose of 200 mg every 12 hours, Cardizem 30 mg by mouth 3 times a day and transitioned to Eliquis yesterday. She is well controlled for now. She remains on bronchodilators. She remains on IV Solu Medrol 40 mg every 12 hours. She is on statins with Lipitor 20 mg by mouth daily. Anticoagulation with Eliquis. She is quite cachectic. She is taken dietary supplements with a sharp. She is unable to have her meal completed is eating approximately 20%. White cell count 12.6 with a hemoglobin 0.3, platelets 127, she has chronic metabolic alkalosis compensatory for her chronic hypercapnic respiratory failure and his serum bicarbonate was around 36, LFTs are normal. Objective - Vital Signs Vital signs: Vital Signs Temp 97.8 F 05/14/20 08:00 Pulse 85 05/14/20 11:45 Resp 20 05/14/20 08:00 BP 110/47 05/14/20 08:00 Pulse Ox 93 L 05/14/20 06:55 Intake & Output 05/13/20 05/14/20 05/14/20 18:59 06:59 18:59 Intake Total 607.662 280 20 Output Total 540 400 225 Balance 67.662 -120 -205 Intake: IV 280 280 20 0.9% Na Cl KVO 180 280 20 Doxycycline 100 mg In 100 Sodium Chloride 0.9% 100 ml @ 100 mls/hr IVPB Q12HR TONG Rx#:[id number] Intake, IV Titration 27.662 Amount Heparin Sod,Pork in 0.45% 27.662 NaCl 25,000 unit In 0.45 % NaCl 1 250ml.bag @ 12 UNITS/KG/HR 5.424 mls/hr IV .Q24H TONG Rx#: [id number] Oral 300 Output: Urine 540 400 225 Other: Voiding Method Indwelling Catheter Indwelling Catheter Indwelling Catheter - Exam HEENT: Head is normocephalic. Pupils are equal, round. Sclerae anicteric. Mucous membranes of the mouth are moist. Mild JVD. No carotid bruit. CHEST EXAMINATION: Significantly diminished. Expiratory wheezes. No chest wall t enderness is noted on palpation or with deep breathing. HEART EXAMINATION: Regular rate and rhythm. S1, S2 heard. Systolic ejection murmur at the base, no gallops or rub. EXTREMITIES: 2+ peripheral pulses, no lower extremity edema and no calf tenderness. SKIN: no rash, dry NEURO: alert and oriented, no gross neurologic defects - Labs CBC & Chem 7: 05/14/20 03:56 05/14/20 03:56 Labs: Abnormal Lab Results - Last 24 Hours (Table) 05/13/20 05/13/20 05/13/20 Range/Units 13:54 16:54 20:17 WBC (3.8-10.6) k/uL RBC (3.80-5.40) m/uL Hgb (11.4-16.0) gm/dL Hct (34.0-46.0) % MCHC (31.0-37.0) g/dL RDW (11.5-15.5) % Plt Count (150-450) k/uL Neutrophils # (1.3-7.7) k/uL Lymphocytes # (1.0-4.8) k/uL Sodium (137-145) mmol/L Carbon Dioxide (22-30) mmol/L BUN (7-17) mg/dL Glucose (74-99) mg/dL POC Glucose (mg/dL) 191 H 217 H 161 H (75-99) mg/dL AST (14-36) U/L Total Protein (6.3-8.2) g/dL Albumin (3.5-5.0) g/dL 05/14/20 05/14/20 Range/Units 03:56 03:56 WBC 12.6 H (3.8-10.6) k/uL RBC 3.51 L (3.80-5.40) m/uL Hgb 9.3 L (11.4-16.0) gm/dL Hct 30.4 L (34.0-46.0) % MCHC 30.7 L (31.0-37.0) g/dL RDW 16.9 H (11.5-15.5) % Plt Count 127 L (150-450) k/uL Neutrophils # 11.9 H (1.3-7.7) k/uL Lymphocytes # 0.2 L (1.0-4.8) k/uL Sodium 136 L (137-145) mmol/L Carbon Dioxide 36 H (22-30) mmol/L BUN 46 H (7-17) mg/dL Glucose 124 H (74-99) mg/dL POC Glucose (mg/dL) (75-99) mg/dL AST 38 H (14-36) U/L Total Protein 5.1 L (6.3-8.2) g/dL Albumin 3.0 L (3.5-5.0) g/dL Microbiology - Last 24 Hours (Table) 05/07/20 13:53 Blood Culture - Final Blood No Growth after 144 hours 05/07/20 14:00 Blood Culture - Final Blood No Growth after 144 hours Assessment and Plan Assessment: Acute COPD exacerbation Acute hypoxic respiratory failure secondary to above Severe pulmonary hypertension Hypotension on admission Anemia, anemia workup is ordered. Acute kidney injury, creatinine is back to normal Elevated troponin, rule out STEMI however it could be from kidney disease and demand/supply mismatch Multifocal atrial tachycardia versus atrial fibrillation per ironworker apprentice shop Hyperlipidemia Diabetes mellitus Plan: This is a pleasant 80 years old female presents with COPD. severe hypoxia. Continue with Solu-Medrol, continue with bronchodilators and oxygen as needed. c/w doxycycline and check sputum culture.c/w aspirin. Cardiology consult, pulmonary consult and paper making machine operator also are following pt; Discontinue IV fluids. Labs and medication were reviewed.. Continue same treatment. Continue with sy mptomatic treatment. Resume home medication. Monitor lytes and vitals. DVT and GI prophylaxis. Further recommendations depends on the clinical course of the patient DVT prophylaxis: heparin GI Prophylaxis: Pepcid PT/OT: Pending Prognosis is guarded
[2020-05-14 16:39] LABS: Glucose,Whole Blood 202 mg/dL (75-99)
[2020-05-14 20:49] LABS: Glucose,Whole Blood 168 mg/dL (75-99)
[2020-05-14] MEDS: GABAPENTIN 300 MG CAP PO SCH (20:55)
[2020-05-14] MEDS: HEPARIN SOD,PORK IN 0.45% NACL 25,000 UNIT in 0.45% NACL 1 250ML.BAG IV SCH (21:26)
[2020-05-15 06:12] LABS: Glucose,Whole Blood 137 mg/dL (75-99)
[2020-05-15] MEDS: MIDODRINE 5 MG TAB PO SCH ×3 (06:25→17:10)
[2020-05-15] MEDS: CALCIUM CARB-VIT D 500 MG-5 MCG TAB PO SCH ×3 (06:25→17:10)
[2020-05-15] MEDS: INSULIN ASPART (NovoLOG) 100 UNIT/ML VIAL SQ SCH ×4 (06:25→20:23)
[2020-05-15] MEDS: PANTOPRAZOLE 40 MG TABLET PO SCH (06:25)
[2020-05-15] MEDS: FERROUS SULFATE 325 MG TAB PO SCH ×2 (06:25→17:10)
[2020-05-15] MEDS: AMIODARONE 200 MG TAB PO SCH ×2 (06:25→17:10)
[2020-05-15 07:45] LABS: Anisocytosis Slight; Basophils % (A) 0 %; Eosinophils % (A) 0 %; HCT 28.9 % (34.0-46.0); HGB 8.8 gm/dL (11.4-16.0); Hypochromasia Marked; Lymphocytes # (A) 0.3 k/uL (1.0-4.8); Lymphocytes % (A) 2 %; MCH 26.4 pg (25.0-35.0); MCHC 30.5 g/dL (31.0-37.0); MCV 86.4 fL (80.0-100.0); Monocytes # (A) 0.8 k/uL (0-1.0); Monocytes % (A) 6 %; Neutrophils # (A) 13.2 k/uL (1.3-7.7); Neutrophils % (A) 92 %; Platelet Count 119 k/uL (150-450); Poikilocytosis Moderate; RBC 3.34 m/uL (3.80-5.40); RDW 17.1 % (11.5-15.5); WBC 14.4 k/uL (3.8-10.6)
[2020-05-15] MEDS: IPRATROPIUM-ALBUTEROL 3 ML NEB INHALATION SCH ×4 (07:49→19:34)
[2020-05-15] MEDS: DILTIAZEM ORAL 30 MG TAB PO SCH ×3 (09:12→23:15)
[2020-05-15] MEDS: ATORVASTATIN 20 MG TAB PO SCH (09:12)
[2020-05-15] MEDS: APIXABAN 5 MG TAB PO SCH ×2 (09:12→20:23)
[2020-05-15] MEDS: predniSONE 10 MG TAB PO SCH (09:12)
[2020-05-15] MEDS: SILDENAFIL 20 MG TAB PO SCH ×3 (09:16→23:15)
--- NOTE | 2020-05-15 12:15 | P.PN ---
Subjective Progress Note Date: 05/15/202020 I'm seeing the patient for a follow-up. As mentioned earlier, the patient was in the intensive care unit for shortness of breath, COPD exacerbation, A. fib/flutter with some relative hypotension. The patient also underwent a right-sided cardiac catheter revealing a [id number] pulmonary hypertension. Currently she is being seen in follow-up. She got chest is out of the intensive care unit yesterday. She is on oxygen at 5 L per minute nasal cannula. Her most recent blood pressure is 108/55. The patient is on midodrine. She was also started Rovatio by cardiology. In terms of her cardiac rhythm, the patient is having a sinus rhythm today. She is on oral Cardizem and she is also on amiodarone and she was started also on long-term anticoagulation. I took her off the IV Solu-Medrol and start the patient on a prednisone burst taper. I'm encouraging increasing her diet. She is using BiPAP on and off during the day and she used it yesterday. No diuretics for now. Objective - Vital Signs Vital signs: Vital Signs Temp 98.0 F 05/15/20 08:55 Pulse 82 05/15/20 11:42 Resp 18 05/15/20 08:55 BP 108/53 05/15/20 08:55 Pulse Ox 93 L 05/15/20 08:55 Intake & Output 05/14/20 05/15/20 05/15/20 18:59 06:59 18:59 Intake Total 80 100 120 Output Total 925 Balance -845 100 120 Weight 45.8 kg 49 kg Intake: IV 80 0.9% Na Cl KVO 80 Oral 100 120 Output: Urine 925 Other: Voiding Method Indwelling Catheter Diaper Diaper # Voids 1 - Exam Oriented 3, the patient is comfortable and she is not using this is a muscle breathing and she is able to speak in full sentences and she is currently on 5 L of oxygen by nasal cannula. HEENT examination is grossly unremarkable. Mucous membranes are moist. No oral lesions. Neck supple. Full range of motion. No adenopathy thyromegaly or neck vein distention. Cardiovascular examination reveals regular rhythm and rate. S1-S2 normal. No S3 or S4. No discernible murmur noted. Heart sounds are distant. Lungs reveal severely diminished breath sounds. Diffuse coarse rhonchi and wheezes are noted. Breath sounds are equal bilaterally but severely diminished. No crackles. There is prolongation on forced maneuver. Abdomen soft bowel sounds are heard. No masses or tenderness. Extremities are intact. No cyanosis clubbing or edema. Skin is without rash or lesion. Neurologic examination is brief but nonfocal. - Labs CBC & Chem 7: 05/15/20 06:38 05/14/20 03:56 Labs: Abnormal Lab Results - Last 24 Hours (Table) 05/14/20 05/14/20 05/15/20 Range/Units 16:38 20:29 06:10 WBC (3.8-10.6) k/uL RBC (3.80-5.40) m/uL Hgb (11.4-16.0) gm/dL Hct (34.0-46.0) % MCHC (31.0-37.0) g/dL RDW (11.5-15.5) % Plt Count (150-450) k/uL Neutrophils # (1.3-7.7) k/uL Lymphocytes # (1.0-4.8) k/uL POC Glucose (mg/dL) 202 H 168 H 137 H (75-99) mg/dL 05/15/20 Range/Units 06:38 WBC 14.4 H (3.8-10.6) k/uL RBC 3.34 L (3.80-5.40) m/uL Hgb 8.8 L (11.4-16.0) gm/dL Hct 28.9 L (34.0-46.0) % MCHC 30.5 L (31.0-37.0) g/dL RDW 17.1 H (11.5-15.5) % Plt Count 119 L (150-450) k/uL Neutrophils # 13.2 H (1.3-7.7) k/uL Lymphocytes # 0.3 L (1.0-4.8) k/uL POC Glucose (mg/dL) (75-99) mg/dL Assessment and Plan Plan: 1 Acute hypoxemic respiratory failure, secondary to COPD exacerbation. likely improving and the patient is currently on 5 L of oxygen by nasal cannula and she is taking a prednisone burst taper. She has advanced COPD with chronic hypoxic respiratory failure. She is quite debilitated and cachectic. She is utilizing the BiPAP on and off during the day. She has chronic hypoxic and hypercapnic respiratory failure. 2 Rule out non-ST segment elevation myocardial infarction. 3 History of previous heavy tobacco use. 4 History of hypertension. 5 History of hyperlipidemia. 6 History of diabetes mellitus. 7 No evidence of pulmonary embolism on CT angiogram or DVT, on lower extremity Dopplers. 8 Mild right-sided hydronephrosis. 9 secondary pulmonary hypertension related to chronic hypoxic respiratory failure/COPD, PA pressures mean is around 29 and the patient has dilatation of the right ventricle 10 lower extremity edemamy improved and the patient is currently on no diuretics Plan: suggest weaning down the FiO2 to tolerate a saturation above 90% Continue DuoNeb nebulized 4 times a day prednisone burst taper , starting with 40 mg IV fluids to KVO Diuretics will be discontinued Continue BiPAP during the day as needed Switch this patient to oral Cardizem 30 mg by mouth 3 times a day and combination with amiodaroneand the patient is currently in a normal sinus rhythm Anticoagulation with Eliquis 5 mg by mouth twice a day Results of the right-sided cardiac cath was noted and the patient has a moderate degree of pulmonary hypertension Advance diet Physical therapy the patient was transferred out of the intensive care unit and she is currently on a medical floor Will follow
[2020-05-15 12:34] LABS: Glucose,Whole Blood 139 mg/dL (75-99)
--- NOTE | 2020-05-15 16:54 | P.PN ---
Subjective Progress Note Date: 05/15/20 Principal diagnosis: Acute on chronic respiratory failure Acute exacerbation COPD Elevated troponin-type to myocardial ischemia Atrial flutter with RVR Acute renal injury 80 years old female with past medical history of diabetes mellitus, hypertension, hyperlipidemia, COPD, ex-smoker. Presents with shortness of breath has been going on for about 6 months with recent worsening over the last few days associated with cough and green phlegm but no chest pain. Yesterday she felt more weak and lost her coordination and recently noticed that her feet starts getting swollen over the last 10 days especially around the ankles. Patient also noticed to have hoarseness of voice, patient states it improving over the last few days She does not use oxygen at home, she does not follow up with pediatric occupational therapist 05/14/2020 Patient is seen and evaluated in ICU sitting up on a chair. Patient had right-sided cardiac catheterization was done yesterday which revea led pulmonary hypertension; significantly enlarged right ventricle; output from the right ventricular in terms of cardiac output was around 4.3; patient is kept on the diuretics yesterday due to concerns of volume dependence which has been now discontinued. She is on Midrin for blood pressure control. She was started on Revatio 10 mg 3 times a day to improve her pulmonary artery pressure and RV dilatation and failure. Her cardiac rhythm is sinus. She is on amiodarone at a dose of 200 mg every 12 hours, Cardizem 30 mg by mouth 3 times a day and transitioned to Eliquis yesterday. She is well controlled for now. She remains on bronchodilators. She remains on IV Solu Medrol 40 mg every 12 hours. She is on statins with Lipitor 20 mg by mouth daily. Anticoagulation with Eliquis. She is quite cachectic. She is taken dietary supplements with a sharp. She is unable to have her meal completed is eating approximately 20%. White cell count 12.6 with a hemoglobin 0.3, platelets 127, she has chronic metabolic alkalosis compensatory for her chronic hypercapnic respiratory failure and his serum bicarbonate was around 36, LFTs are normal. 05/15/2020 Patient is seen and evaluated at bedside; with COPD exacerbation, A. fib/flutter with some relative hypotension. The patient also underwent a right-sided cardiac catheter revealing a [id number] pulmonary hypertension. Currently she is being seen in follow-up. She is on oxygen at 5 L per minute nasal cannula. Her most recent blood pressure is 108/55. The patient is on midodrine. She was also started Revatio by cardiology. In terms of her cardiac rhythm, the patient is having a sinus rhythm today. She is on oral Cardizem and she is also on amiodarone and she was started also on long-term anticoagulation. Patient has been taken off the IV Solu-Medrol and start the patient on a prednisone burst taper. She is using BiPAP on and off during the day and she used it yesterday. No diuretics for now. Objective - Vital Signs Vital signs: Vital Signs Temp 98.0 F 05/15/20 08:55 Pulse 89 05/15/20 08:55 Resp 18 05/15/20 08:55 BP 108/53 05/15/20 08:55 Pulse Ox 93 L 05/15/20 08:55 Intake & Output 05/14/20 05/15/20 05/15/20 18:59 06:59 18:59 Intake Total 80 100 120 Output Total 925 Balance -845 100 120 Weight 45.8 kg 49 kg Intake: IV 80 0.9% Na Cl KVO 80 Oral 100 120 Output: Urine 925 Other: Voiding Method Indwelling Catheter Diaper Diaper # Voids 1 - Exam HEENT: Head is normocephalic. Pupils are equal, round. Sclerae anicteric. Mucous membranes of the mouth are moist. Mild JVD. No carotid bruit. CHEST EXAMINATION: Significantly diminished. Expiratory wheezes. No chest wall tenderness is noted on palpation or with deep breathing. HEART EXAMINATION: Regular rate and rhythm. S1, S2 heard. Systolic ejection murmur at the base, no gallops or rub. EXTREMITIES: 2+ peripheral pulses, no lower extremity edema and no calf tenderness. SKIN: no rash, dry NEURO: alert and oriented, no gross neurologic defects - Labs CBC & Chem 7: 05/15/20 06:38 05/14/20 03:56 Labs: Abnormal Lab Results - Last 24 Hours (Table) 05/14/20 05/14/20 05/14/20 Range/Units 11:56 16:38 20:29 WBC (3.8-10.6) k/uL RBC (3.80-5.40) m/uL Hgb (11.4-16.0) gm/dL Hct (34.0-46.0) % MCHC (31.0-37.0) g/dL RDW (11.5-15.5) % Plt Count (150-450) k/uL Neutrophils # (1.3-7.7) k/uL Lymphocytes # (1.0-4.8) k/uL POC Glucose (mg/dL) 158 H 202 H 168 H (75-99) mg/dL 05/15/20 05/15/20 Range/Units 06:10 06:38 WBC 14.4 H (3.8-10.6) k/uL RBC 3.34 L (3.80-5.40) m/uL Hgb 8.8 L (11.4-16.0) gm/dL Hct 28.9 L (34.0-46.0) % MCHC 30.5 L (31.0-37.0) g/dL RDW 17.1 H (11.5-15.5) % Plt Count 119 L (150-450) k/uL Neutrophils # 13.2 H (1.3-7.7) k/uL Lymphocytes # 0.3 L (1.0-4.8) k/uL POC Glucose (mg/dL) 137 H (75-99) mg/dL Assessment and Plan Assessment: Acute COPD exacerbation Acute hypoxic respiratory failure secondary to above Severe pulmonary hypertension Hypotension on admission Anemia, anemia workup is ordered. Acute kidney injury, creatinine is back to normal Elevated troponin, rule out STEMI however it could be from kidney disease and demand/supply mismatch Multifocal atrial tachycardia versus atrial fibrillation per weaver hand loom Hyperlipidemia Diabetes mellitus Plan: This is a pleasant 80 years old female presents with COPD. severe hypoxia. Continue with Solu-Medrol, continue with bronchodilators and oxygen as needed. c/w doxycycline and check sputum culture.c/w aspirin. Cardiology consult, pulmonary consult and marshmallow maker also are following pt; Discontinue IV fluids. Labs and medication were reviewed.. Continue same treatment. Continue with symptomatic treatment. Resume home medication. Monitor lytes and vitals. DVT and GI prophylaxis. Further recommendations depends on the clinical course of the patient DVT prophylaxis: heparin GI Prophylaxis: Pepcid PT/OT: Pending Prognosis is guarded
[2020-05-15 17:24] LABS: Glucose,Whole Blood 188 mg/dL (75-99)
--- NOTE | 2020-05-15 19:25 | P.PN ---
Subjective HISTORY OF PRESENTING ILLNESS This is a pleasant 80-year-old female past medical history significant for nonobstructive coronary artery disease, COPD, hypertension, diabetes mellitus and dyslipidemia. She is to follow in the office with Dr. López however has not been to the office since 2018. She is seen and examined sitting up in bed in no acute distress. Her breathing is stable on nasal cannula. She is not requiring bipap support currently. Blood pressure has been running low overnight. Lopressor is currently on hold. Heart rates in the 60's. Laboratory data reviewed, WBC 15.4, hgb 10, plt 169, sodium 138, potassium 5.6, BUN 127 and creatinine 1.01 and magnesium 2.2. 05/11/2020 Patient seen and examined. Patient still admits to SOB, on BIPAP. Patient had an episode of hypoxia yesterday with shortness breath and therefore was switched from her nasal cannula back to BiPAP. She received IV Lasix 20 mg yesterday and creatinine in view on have been improving, BUN 92, creatinine 0.73. She denies any chest pain or pressure. There was consideration of right heart catheterization today however transferred to ICU for closer monitoring. 05/12/2020 Patient seen and examined in ICU. She admits she feels better than yesterday with improvement in her respiratory status. She denies any chest pain or pressure. She is off of BiPAP today and on 5 L nasal cannula. She did have a episode of A. flutter with RVR HRs in the 150's for approximately 4 hrs yesterday however appeared to be fairly asymptomatic during episode and denies any palpitations, lightheadedness. She converted after a few hours. Blood pressures been borderline. She was given digoxin 150 mg IV once as well as started on a Cardizem drip which she has been tolerating. Cardizem drip was discontinued this morning and change to oral Cardizem 30 mg 3 times a day and additionally her beta jackelyn was discontinued for improvement and respiratory standpoint. 05/13/2020 Patient underwent right heart catheterization this morning by the right brachial approach. PA pressure of 52/15 with a mean of 26, PCWP of 11, RV pressure 52/12, right atrial pressure 8, cardiac output of 4.3 by thermodilution. Patient did have episode of atrial flutter with RVR yesterday and was placed on amiodarone drip and converted back to normal sinus rhythm after approximately 4 hours. Patient has predominantly asymptomatic. 05/14/20 Patient seen and examined. Patient admits she is feeling improved day by day. Patient is on 2 L nasal cannula. She was started on Revatio 10 mg 3 times a day as well as transition to Eliquis yesterday. Vital signs appear stable. She r emains in normal sinus rhythm on amiodarone 200 mg twice a day. She does have mild lower extremity edema however right atrial pressure from yesterday was noted to be high normal at 8. 05/15/20 Patient seen and examined. No chest pain or pressure. Believes SOB is still improving. Off and on BIPAP. On amio and Cardizem. PHYSICAL EXAMINATION HEENT: Head is normocephalic. Pupils are equal, round. Sclerae anicteric. Mucous membranes of the mouth are moist. Mild JVD. No carotid bruit. CHEST EXAMINATION: Significantly diminished. Expiratory wheezes. No chest wall tenderness is noted on palpation or with deep breathing. HEART EXAMINATION: Regular rate and rhythm. S1, S2 heard. Systolic ejection murmur at the base, no gallops or rub. EXTREMITIES: 2+ peripheral pulses, no lower extremity edema and no calf tenderness. SKIN: no rash, dry NEURO: alert and oriented, no gross neurologic defects ASSESSMENT Acute on chronic respiratory failure, majority related to AECOPD Lactic acidosis Troponin elevation secondary to type II myocardial infarction with oxygen supply and demand mismatch as well as likely from right sided heart failure Chronic right sided heart failure, compensated by right heart catheterization numbers Atrial flutter with RVR, currently sinus rhythm. Acute exacerbation of COPD Hypertension Dyslipidemia Diabetes mellitus RV dilation and dysfunction related to pulmonary hypertension Moderate to severe tricuspid regurgitation Pulmonary hypertension, likely group 1 vs 3. Right heart catheterization with a mean pressure of 26, cardiac output low-normal by thermodilution of 4.3 L/min. MAURI, severely increased BUN:Cr ratio, improving with diuresis PLAN Appears to be improving from her COPD day by day. Continue amiodarone 200 mg twice a day for rhythm control given fairly fast atrial flutter with RVR and mild decrease in blood pressure when she went and atrial flutter. Continue Cardizem 30 mg twice a day. Transitioned to Eliquis 5 mg bid. Increase Revatio to 20mg TID. Followup with pulmonary hypertension specialist as an outpt. Objective - Vital Signs Vital signs: Vital Signs Temp 98.2 F 05/15/20 15:15 Pulse 83 05/15/20 15:46 Resp 18 05/15/20 15:15 BP 110/70 05/15/20 15:15 Pulse Ox 92 L 05/15/20 15:15 Intake & Output 05/15/20 05/15/20 05/16/20 06:59 18:59 06:59 Intake Total 100 960 Balance 100 960 Weight 49 kg 49 kg Intake: Oral 100 960 Other: Voiding Method Diaper Diaper # Voids 1 2 - Labs CBC & Chem 7: 05/15/20 06:38 05/14/20 03:56 Labs: Abnormal Lab Results - Last 24 Hours (Table) 05/14/20 05/15/20 05/15/20 Range/Units 20:29 06:10 06:38 WBC 14.4 H (3.8-10.6) k/uL RBC 3.34 L (3.80-5.40) m/uL Hgb 8.8 L (11.4-16.0) gm/dL Hct 28.9 L (34.0-46.0) % MCHC 30.5 L (31.0-37.0) g/dL RDW 17.1 H (11.5-15.5) % Plt Count 119 L (150-450) k/uL Neutrophils # 13.2 H (1.3-7.7) k/uL Lymphocytes # 0.3 L (1.0-4.8) k/uL POC Glucose (mg/dL) 168 H 137 H (75-99) mg/dL 05/15/20 05/15/20 Range/Units 11:51 16:55 WBC (3.8-10.6) k/uL RBC (3.80-5.40) m/uL Hgb (11.4-16.0) gm/dL Hct (34.0-46.0) % MCHC (31.0-37.0) g/dL RDW (11.5-15.5) % Plt Count (150-450) k/uL Neutrophils # (1.3-7.7) k/uL Lymphocytes # (1.0-4.8) k/uL POC Glucose (mg/dL) 139 H 188 H (75-99) mg/dL
[2020-05-15 20:12] LABS: Glucose,Whole Blood 249 mg/dL (75-99)
[2020-05-15] MEDS: GABAPENTIN 300 MG CAP PO SCH (20:23)
[2020-05-16] MEDS: AMIODARONE 200 MG TAB PO SCH ×2 (03:37→17:15)
[2020-05-16 06:15] LABS: Glucose,Whole Blood 110 mg/dL (75-99)
[2020-05-16] MEDS: INSULIN ASPART (NovoLOG) 100 UNIT/ML VIAL SQ SCH ×4 (06:16→21:04)
[2020-05-16] MEDS: PANTOPRAZOLE 40 MG TABLET PO SCH (06:18)
[2020-05-16] MEDS: FERROUS SULFATE 325 MG TAB PO SCH ×2 (06:18→17:15)
[2020-05-16] MEDS: CALCIUM CARB-VIT D 500 MG-5 MCG TAB PO SCH ×3 (06:18→17:15)
[2020-05-16] MEDS: MIDODRINE 5 MG TAB PO SCH ×3 (06:18→17:15)
[2020-05-16] MEDS: IPRATROPIUM-ALBUTEROL 3 ML NEB INHALATION SCH ×4 (08:24→19:32)
[2020-05-16] MEDS: predniSONE 10 MG TAB PO SCH (09:54)
[2020-05-16] MEDS: APIXABAN 5 MG TAB PO SCH ×2 (09:54→21:00)
[2020-05-16] MEDS: DILTIAZEM ORAL 30 MG TAB PO SCH ×3 (09:54→21:00)
[2020-05-16] MEDS: ATORVASTATIN 20 MG TAB PO SCH (09:54)
[2020-05-16] MEDS: SILDENAFIL 20 MG TAB PO SCH ×3 (09:54→20:59)
--- NOTE | 2020-05-16 10:02 | P.PN ---
Subjective Progress Note Date: 05/16/20 05/16/2020, patient is being seen for a follow-up. She is doing well and calm and comfortable. She had a bout of atrial fibrillation earlier and she is back into normal sinus rhythm. Noted the patient is currently on oral Cardizem and oral amiodarone and she was also started on long-term anticoagulation with Eliquis. Her BP is stable and there is no hypotension. She is currently on oxygen at 5 L and her pulse ox is around 91%. She is afebrile. Tolerating her diet. No other significant events otherwise for now. In terms of her systemic steroids, the patient is on prednisone burst taper that was started a dose of 30 mg by mouth daily as part of a burst taper. She does have a BiPAP of the bedside and she is using it episodically and she did use the BiPAP yesterday. Objective - Vital Signs Vital signs: Vital Signs Temp 98.0 F 05/16/20 03:27 Pulse 80 05/16/20 03:27 Resp 22 05/16/20 03:27 BP 92/51 05/16/20 03:27 Pulse Ox 91 L 05/16/20 03:27 Intake & Output 05/15/20 05/16/20 05/16/20 18:59 06:59 18:59 Intake Total 960 Output Total 150 Balance 960 -150 Weight 49 kg 48.5 kg Intake: Oral 960 Output: Urine 150 Other: Voiding Method Diaper Diaper # Voids 2 1 - Exam Oriented 3, the patient is comfortable and she is not using this is a muscle breathing and she is able to speak in full sentences and she is currently on 5 L of oxygen by nasal cannula. HEENT examination is grossly unremarkable. Mucous membranes are moist. No oral lesions. Neck supple. Full range of motion. No adenopathy thyromegaly or neck vein distention. Cardiovascular examination reveals regular rhythm and rate. S1-S2 normal. No S3 or S4. No discernible murmur noted. Heart sounds are distant. Lungs reveal severely diminished breath sounds. Diffuse coarse rhonchi and wheezes are noted. Breath sounds are equal bilaterally but severely diminished. No crackles. There is prolongation on forced maneuver. Abdomen soft bowel sounds are heard. No masses or tenderness. Extremities are intact. No cyanosis clubbing or edema. Skin is without rash or lesion. Neurologic examination is brief but nonfocal. - Labs CBC & Chem 7: 05/15/20 06:38 05/14/20 03:56 Labs: Abnormal Lab Results - Last 24 Hours (Table) 05/15/20 05/15/20 05/15/20 Range/Units 11:51 16:55 20:11 POC Glucose (mg/dL) 139 H 188 H 249 H (75-99) mg/dL 05/16/20 Range/Units 06:14 POC Glucose (mg/dL) 110 H (75-99) mg/dL Assessment and Plan Plan: 1 Acute hypoxemic respiratory failure, secondary to COPD exacerbation. likely improving and the patient is currently on 5 L of oxygen by nasal cannula and she is taking a prednisone burst taper. She has advanced COPD with chronic hypoxic respiratory failure. She is quite debilitated and cachectic. She is utilizing the BiPAP on and off during the day. She has chronic hypoxic and hypercapnic respiratory failure. Her condition is stable for now. No worsening in her shortness of breath over the past 24 hours and currently she doesn't medical floor. She is extremely debilitated and cachectic looking. 2 Rule out non-ST segment elevation myocardial infarction. 3 History of previous heavy tobacco use. 4 History of hypertension. 5 History of hyperlipidemia. 6 History of diabetes mellitus. 7 No evidence of pulmonary embolism on CT angiogram or DVT, on lower extremity Dopplers. 8 Mild right-sided hydronephrosis. 9 secondary pulmonary hypertension related to chronic hypoxic respiratory failure/COPD, PA pressures mean is around 29 and the patient has dilatation of the right ventricle 10 lower extremity edema , improved and the patient is currently on no diuretics 11 paroxysmal atrial fibrillation currently in sinus although the patient is having on and off episodes of A. fib and she is on a combination of amiodarone, Cardizem and Eliquis. Plan: suggest weaning down the FiO2 to tolerate a saturation above 90% and provide the patient incentive spirometer. Continue DuoNeb nebulized 4 times a day prednisone burst taper , currently on 30 mg of prednisone IV fluids to KVO Diuretics will be discontinued Continue BiPAP during the day as needed Switch this patient to oral Cardizem 30 mg by mouth 3 times a day and combination with amiodaroneand the patient is currently in a normal sinus rhythm Anticoagulation with Eliquis 5 mg by mouth twice a day Results of the right-sided cardiac cath was noted and the patient has a moderate degree of pulmonary hypertension Advance diet Physical therapy the patient was transferred out of the intensive care unit and she is currently on a medical floor We'll be asking to sit up on a chair. Long-term prognosis poor because of her advanced lung disease. Will follow
[2020-05-16 12:09] LABS: Glucose,Whole Blood 127 mg/dL (75-99)
[2020-05-16 17:01] LABS: Glucose,Whole Blood 180 mg/dL (75-99)
--- NOTE | 2020-05-16 17:51 | P.PN ---
Subjective Progress Note Date: 05/16/20 Principal diagnosis: Acute on chronic respiratory failure Acute exacerbation COPD Elevated troponin-type to myocardial ischemia Atrial flutter with RVR Acute renal injury 80 years old female with past medical history of diabetes mellitus, hypertension, hyperlipidemia, COPD, ex-smoker. Presents with shortness of breath has been going on for about 6 months with recent worsening over the last few days associated with cough and green phlegm but no chest pain. Yesterday she felt more weak and lost her coordination and recently noticed that her feet starts getting swollen over the last 10 days especially around the ankles. Patient also noticed to have hoarseness of voice, patient states it improving over the last few days She does not use oxygen at home, she does not follow up with account financial manager 05/14/2020 Patient is seen and evaluated in ICU sitting up on a chair. Patient had right-sided cardiac catheterization was done yesterday which revea led pulmonary hypertension; significantly enlarged right ventricle; output from the right ventricular in terms of cardiac output was around 4.3; patient is kept on the diuretics yesterday due to concerns of volume dependence which has been now discontinued. She is on Midrin for blood pressure control. She was started on Revatio 10 mg 3 times a day to improve her pulmonary artery pressure and RV dilatation and failure. Her cardiac rhythm is sinus. She is on amiodarone at a dose of 200 mg every 12 hours, Cardizem 30 mg by mouth 3 times a day and transitioned to Eliquis yesterday. She is well controlled for now. She remains on bronchodilators. She remains on IV Solu Medrol 40 mg every 12 hours. She is on statins with Lipitor 20 mg by mouth daily. Anticoagulation with Eliquis. She is quite cachectic. She is taken dietary supplements with a sharp. She is unable to have her meal completed is eating approximately 20%. White cell count 12.6 with a hemoglobin 0.3, platelets 127, she has chronic metabolic alkalosis compensatory for her chronic hypercapnic respiratory failure and his serum bicarbonate was around 36, LFTs are normal. 05/15/2020 Patient is seen and evaluated at bedside; with COPD exacerbation, A. fib/flutter with some relative hypotension. The patient also underwent a right-sided cardiac catheter revealing a [id number] pulmonary hypertension. Currently she is being seen in follow-up. She is on oxygen at 5 L per minute nasal cannula. Her most recent blood pressure is 108/55. The patient is on midodrine. She was also started Revatio by cardiology. In terms of her cardiac rhythm, the patient is having a sinus rhythm today. She is on oral Cardizem and she is also on amiodarone and she was started also on long-term anticoagulation. Patient has been taken off the IV Solu-Medrol and start the patient on a prednisone burst taper. She is using BiPAP on and off during the day and she used it yesterday. No diuretics for now. 05/16/2020 Patient is seen and evaluated sitting comfortably in bed. She is doing well and calm and comfortable. She had a bout of atrial fibrillation earlier and she is back into normal sinus rhythm. Noted the patient is currently on oral Cardizem and oral amiodarone and she was also started on long-term anticoagulation with Eliquis. Her BP is stable and there is no hypotension. She is currently on oxygen at 5 L and her pulse ox is around 91%. She is afebrile. Tolerating her diet. No other significant events otherwise for now. In terms of her systemic steroids, the patient is on prednisone burst taper that was started a dose of 30 mg by mouth daily as part of a burst taper. She does have a BiPAP of the bedside and she is using it episodically and she did use the BiPAP yesterday. Continue to wean down FiO2 as tolerated. Respiratory than 90%; continue with incentive spirometry; DuoNeb nebulizer treatments 4 times a day; pulmonary on board and recommending prednisone burst taper; plan to discontinue diuretic therapy; patient will be switched to Cardizem 30 mg by mouth 3 times a day; continue amiodarone as ordered; anticoagulation therapy with DOAC Objective - Vital Signs Vital signs: Vital Signs Temp 98.0 F 05/16/20 03:27 Pulse 80 05/16/20 03:27 Resp 22 05/16/20 03:27 BP 92/51 05/16/20 03:27 Pulse Ox 91 L 05/16/20 03:27 Intake & Output 05/15/20 05/16/20 05/16/20 18:59 06:59 18:59 Intake Total 960 Output Total 150 Balance 960 -150 Weight 49 kg 48.5 kg Intake: Oral 960 Output: Urine 150 Other: Voiding Method Diaper Diaper # Voids 2 1 - Exam HEENT: Head is normocephalic. Pupils are equal, round. Sclerae anicteric. Mucous membranes of the mouth are moist. Mild JVD. No carotid bruit. CHEST EXAMINATION: Significantly diminished. Expiratory wheezes. No chest wall tenderness is noted on palpation or with deep breathing. HEART EXAMINATION: Regular rate and rhythm. S1, S2 heard. Systolic ejection murmur at the base, no gallops or rub. EXTREMITIES: 2+ peripheral pulses, no lower extremity edema and no calf tenderness. SKIN: no rash, dry NEURO: alert and oriented, no gross neurologic defects - Labs CBC & Chem 7: 05/15/20 06:38 05/14/20 03:56 Labs: Abnormal Lab Results - Last 24 Hours (Table) 05/15/20 05/15/20 05/15/20 Range/Units 11:51 16:55 20:11 POC Glucose (mg/dL) 139 H 188 H 249 H (75-99) mg/dL 05/16/20 Range/Units 06:14 POC Glucose (mg/dL) 110 H (75-99) mg/dL Assessment and Plan Assessment: Acute COPD exacerbation Acute hypoxic respiratory failure secondary to above Severe pulmonary hypertension Hypotension on admission Anemia, anemia workup is ordered. Acute kidney injury, creatinine is back to normal Elevated troponin, rule out STEMI however it could be from kidney disease and demand/supply mismatch Multifocal atrial tachycardia versus atrial fibrillation per transaction manager Hyperlipidemia Diabetes mellitus Plan: This is a pleasant 80 years old female presents with COPD. severe hypoxia. Continue with Solu-Medrol, continue with bronchodilators and oxygen as needed. c/w doxycycline and check sputum culture.c/w aspirin. Cardiology consult, pulmonary consult and mining analyst also are following pt; Discontinue IV fluids. Labs and medication were reviewed.. Continue same treatment. Continue with symptomatic treatment. Resume home medication. Monitor lytes and vitals. DVT and GI prophylaxis. Further recommendations depends on the clinical course of the patient DVT prophylaxis: heparin GI Prophylaxis: Pepcid PT/OT: Pending Prognosis is guarded
[2020-05-16] MEDS: ACETAMINOPHEN TAB 325 MG TAB PO PRN (20:59)
[2020-05-16 21:00] LABS: Glucose,Whole Blood 139 mg/dL (75-99)
[2020-05-16] MEDS: GABAPENTIN 300 MG CAP PO SCH (21:00)
[2020-05-17 06:05] LABS: Glucose,Whole Blood 101 mg/dL (75-99)
[2020-05-17] MEDS: FERROUS SULFATE 325 MG TAB PO SCH ×2 (06:42→16:58)
[2020-05-17] MEDS: INSULIN ASPART (NovoLOG) 100 UNIT/ML VIAL SQ SCH ×4 (06:42→21:57)
[2020-05-17] MEDS: PANTOPRAZOLE 40 MG TABLET PO SCH (06:42)
[2020-05-17] MEDS: AMIODARONE 200 MG TAB PO SCH ×2 (06:42→16:58)
[2020-05-17] MEDS: CALCIUM CARB-VIT D 500 MG-5 MCG TAB PO SCH ×3 (06:42→16:58)
[2020-05-17] MEDS: MIDODRINE 5 MG TAB PO SCH ×3 (06:42→16:54)
--- NOTE | 2020-05-17 07:21 | XR ---
EXAMINATION TYPE: XR chest 1V portable DATE OF EXAM: 05/17/2020 Comparison: 05/13/2020 Clinical History: 80-year-old female COPD Findings: Heart normal size. Increasing [id number] right and small left effusions and bibasilar opacitie s. Hyperinflation. Impression: 1. COPD. 2. Increasing small to moderate right and small left effusions with adjacent atelectasis and/or conso lidation.
[2020-05-17] MEDS: IPRATROPIUM-ALBUTEROL 3 ML NEB INHALATION SCH ×5 (07:58→19:23)
[2020-05-17 08:26] LABS: Anisocytosis Slight; Basophils % (A) 0 %; Eosinophils # (A) 0.1 k/uL (0-0.7); Eosinophils % (A) 0 %; HCT 31.3 % (34.0-46.0); HGB 9.5 gm/dL (11.4-16.0); Hypochromasia Marked; Lymphocytes # (A) 0.4 k/uL (1.0-4.8); Lymphocytes % (A) 3 %; MCH 26.6 pg (25.0-35.0); MCHC 30.3 g/dL (31.0-37.0); MCV 87.6 fL (80.0-100.0); Mean Platelet Volume 10.1; Monocytes # (A) 0.8 k/uL (0-1.0); Monocytes % (A) 5 %; Neutrophils # (A) 15.6 k/uL (1.3-7.7); Neutrophils % (A) 92 %; Platelet Count 155 k/uL (150-450); Poikilocytosis Moderate; RBC 3.57 m/uL (3.80-5.40); RDW 17.7 % (11.5-15.5)
[2020-05-17 09:04] LABS: African American GFR (CKD) >90 (>60 ml/min/1.73 sqM); Blood Urea Nitrogen 31 mg/dL (7-17); Calcium 9.3 mg/dL (8.4-10.2); Chloride 98 mmol/L (98-107); Glucose 106 mg/dL (74-99); Non-African American GFR(CKD) >90 (>60 ml/min/1.73 sqM); Potassium 4.1 mmol/L (3.5-5.1); Sodium 139 mmol/L (137-145)
[2020-05-17 09:13] LABS: Anion Gap 5 mmol/L
[2020-05-17 09:17] LABS: Carbon Dioxide 36 mmol/L (22-30)
[2020-05-17] MEDS: APIXABAN 5 MG TAB PO SCH ×2 (09:37→21:57)
[2020-05-17] MEDS: SILDENAFIL 20 MG TAB PO SCH ×3 (09:37→23:00)
[2020-05-17] MEDS: ATORVASTATIN 20 MG TAB PO SCH (09:37)
[2020-05-17] MEDS: predniSONE 10 MG TAB PO SCH (09:38)
[2020-05-17] MEDS: DILTIAZEM ORAL 30 MG TAB PO SCH ×3 (09:38→19:22)
[2020-05-17] MEDS: ACETAMINOPHEN TAB 325 MG TAB PO PRN ×2 (09:43→18:32)
[2020-05-17] MEDS ORDERED: FUROSEMIDE 10 MG/ML 4 ML VIAL IV STA (10:46)
[2020-05-17 11:44] LABS: Glucose,Whole Blood 155 mg/dL (75-99)
[2020-05-17] MEDS: AMOXIC-POT CLAV 875-125MG 1 EACH TAB PO SCH ×2 (12:11→21:57)
--- NOTE | 2020-05-17 15:05 | P.PN ---
Subjective Progress Note Date: 05/17/20 This is a 80-year-old female, looks older than her stated age, who presents to the emergency department, with increasing shortness of breath. The patient was a heavy smoker up until 21 years ago. At that time she quit. She apparently does have an established history of COPD, although we've never seen her in the office. The patient has a history of hypertension, hyperlipidemia, and diabetes among other things. The patient presents to the emergency department on 05/07/2020, at 1:00 in the afternoon, with worsening shortness of breath. It apparently started a day or 2 prior to admission and had become progressively worse. In addition, she has tightness, wheezing, and cough. She denies any moshe st pain or pressure. She denies any fever or chills. She is really not coughing up any phlegm. Currently, she is on BiPAP with settings of IPAP 10, EPAP 5, and 60%. We checked her saturations, they were in the mid to high 90s, and we asked respiratory to turn her FiO2 down to 50%. When they did that, her saturations dropped to the mid 80s, which is probably her baseline in reality. She denies ever seeing a lung doctor. In addition, the patient was on heparin via weightbase protocol, for elevated troponins. She was admitted to the hospital with a diagnosis of COPD exacerbation, and non-ST segment elevation myocardial infarction. Her primary care provider is Dr. Michael Carrillo. Progress note dated 05/09/2020. 80-year-old female that we saw in consultation for acute hypoxemic respiratory failure, secondary to COPD exacerbation. She may have also sustained a non-ST segment elevation myocardial infarction. She currently remains on BiPAP. She has a history of heavy tobacco use, hypertension, hyperlipidemia, diabetes, without evidence of pulmonary embolism on CT angiogram, or DVT, on lower extremity Dopplers. The patient nods her head when I ask her how she's doing. She feels like she is doing better. Her BiPAP settings were 10/5 and 50%. We are going to ask her nurse about switching her over to high flow nasal cannula. The patient's on appropriate medications including albuterol sulfate, ipratropium bromide, formoterol, Pulmicort, and systemic corticosteroids. Her chest x-ray had the classic findings of someone with emphysema. On today's evaluation of 05/10/2020, the patient is feeling better. She is less short of breath. She was on a BiPAP or throughout the night and the patient is currently off the BiPAP on oxygen at 4 L per minute nasal cannula. She is resting comfortably she is not using excessive muscle breathing. She did have some minor troponin leak which was a demand mismatch in the patient's chest x- ray showed small bilateral pleural effusions. White cell count of 15.4. Pro Calcitonin level was 0.13.. The patient is covered with doxycycline with empiric antibiotic coverage. She received a dose of Lasix 20 mg IV on 05/10/2000 which is today based on the x-ray findings. She remains on IV Solu Medrol 60 mg every 6 hours pH is also on DuoNeb nebulized treatments around the clock. On 05/11/2020 the patient is on BiPAP. Yesterday evening, the patient became hypoxemic and she became progressively more short of breath. She was taken off the oxygen which was running at 4 L and she was started on BiPAP which is currently running at 10/5 cm of water with an FiO2 of 40%. She seems to be tolerating it well and she is on a full face mask and synchronous with the BiPAP mask for now. She was given a dose of Lasix is producing adequate amount of urine output. No chest pain. She is quite cachectic and she has advanced lung disease. She is also on DuoNeb nebulized treatments [id number], she is on a combination of Perforomist and Pulmicort neb last 2 minutes twice a day and she is on IV Solu Medrol 60 mg every 6 hours and she is also on doxycycline as an empiric antibiotic coverage. She received a dose of Lasix 20 mg IV push on 05/10/2020. Her blood work today shows a white cell count of 16 with a hemoglobin of 10.9. This is compatible compared to yesterday's labs. She also has a serum bicarb of 32, sodium of 143 and potassium level of 4.9, BUN is at 92 with a creatinine of 0.7. IV fluids are running at KVO. 05/11/2020 of seeing the patient in follow-up. The patient is awake and alert this morning. Overnight she utilizes BiPAP at a pressure of 10/5 cm of water and FiO2 of 45%. This morning, we switched her to oxygen at 4 L per minute nasal cannula and gave her a break off the BiPAP. She seems to be more comfortable this morning. Overnight, the patient went into atrial fibrillation with rapid ventricular response and subsequently she converted back into normal sinus rhythm and currently she is in normal sinus rhythm with a BP of 99/53. Her pulse ox is above 90% 40s about 2 by nasal cannula. The patient was given a Cardizem bolus of 10 mg IV and 5 she is currently on a 5 mg an hour. She is 5 which was bumped up to 10 mg an hour . During the course of her treatment she also took 0.25 mg of digoxin and she converted spontaneously to normal sinus rhythm at around 1 AM this morning. Since then she has been normal sinus rhythm. The patient is currently at 20 mg every 20 mg of IV Lasix on a daily basis. The fluid balance over the past 24 hours has been -1.3 L and she put out another 1.5 L negative fluid balance for today. Her BUN is down to 59 with a creatinine being down to 0.6. Rest of the electrolytes are all within normal limits. White cell count is at 9 with a hemoglobin of 9.7. Chest x-ray from yesterday showed COPD with a barrel chest and small bilateral pleural effusions. No chest x-ray from today has been done. The white cell count is down to 9. Overall, she looks to be much more comfortable on today's evaluation. On 05/13/2020 patient seen in follow-up in the intensive care unit, she is a slightly drowsy, but easily arousable to voice, she is currently on 3 L of oxygen, and her pulse ox is 98%. No worsening dyspnea, lung sounds reveal no wheezing, some scattered rhonchi in the right lower base and some scattered rales. Patient remains on diuretics, she is in negative 900 mL Fluid balance over the last 24 hours, still has plus pretibial lower extremity edema. He is in sinus mechanism, she remains on amiodarone drip at 0.5 mg per hour, and heparin infusion per weight-based protocol. She will be transitioned to oral amiodarone and oral anticoagulation, cardiology is following, patient is status post right-sided heart catheterization yesterday on 05/13/2020, and right-sided systolic pressure was 52, diastolic was 15 with a mean of 26 mmHg. Heart attack output by thermodilution was 4.3 L/m which was within normal limits. There was no evidence of a left sided heart failure. Pressure was 11. Patient remains on IV steroids and breathing treatments for acute COPD exacerbation, no wheezing, no significant phlegm production. No complaints of chest pain, hemoptysis no fever or chills. She has been acquiring BiPAP intermittently, currently off the BiPAP, breathing comfortably. Labs have been reviewed showing white blood cell count of 11.8, hemoglobin of 9.3, sodium is 139, potassium is 4.3, CO2 is 38, BUN is 46 creatinine 0.7 On 05/17/2000 patient seen in follow-up on selective care unit, she is awake and alert, denies any acute distress, currently on 4 L of oxygen pulse ox of 92%, she states she's been wearing a BiPAP support at night, with pressures of 10 and 5 and FiO2 of 40%, tolerates BiPAP support well. She has occasional nonproductive cough, she states she is not able to bring up the phlegm, but no cognitive chest pain, no fever or chills. Today's chest x-ray shows increasing small to moderate right and small left pleural effusion with adjacent atelectasis and/or consolidation. Today's labs have been reviewed, showing increasing white blood cell count of 17, hemoglobin of 9.5, CO2 36, there is a I throat within normal limits, B1 is 31 creatinine 0.47. Patient continues on breathing treatments, she has been transitioned to oral prednisone, we will give the patient a dose of IV Lasix and add empiric antibiotics. Patient is on oral anticoagulation for recent history of A. fib with RVR during this admission. Heart rate is currently controlled. Objective - Vital Signs Vital signs: Vital Signs Temp 97.9 F 05/17/20 12:00 Pulse 72 05/17/20 14:00 Resp 14 05/17/20 14:00 BP 105/59 05/17/20 12:00 Pulse Ox 93 L 05/17/20 12:00 Intake & Output 05/16/20 05/17/20 05/17/20 18:59 06:59 18:59 Intake Total 099 018 2827 Balance 624 070 2491 Weight 47.5 kg Intake: Oral 621 874 0849 Other: Voiding Method Diaper Bedside Commode Bedside Commode Diaper Diaper # Voids 1 1 - Exam GENERAL EXAM: Cachectic looking drowsy, but arousable to voice, 80-year-old white female on 5 L of oxygen, with pulse ox of 92% comfortable in no apparent distress. HEAD: Normocephalic/atraumatic. EYES: Normal reaction of pupils, equal size. Conjunctiva pink, sclera white. NOSE: Clear with pink turbinates. THROAT: No erythema or exudates. NECK: No masses, no JVD, no thyroid enlargement, no adenopathy. CHEST: No chest wall deformity. Symmetrical expansion. LUNGS: Equal air entry with crackles and scattered rhonchi CVS: Regular rate and rhythm, normal S1 and S2, no gallops, no murmurs, no rubs ABDOMEN: Soft, nontender. No hepatosplenomegaly, normal bowel sounds, no guarding or rigidity. EXTREMITIES: No clubbing, 1+ edema, no cyanosis, 2+ pulses and upper and lower extremities. MUSCULOSKELETAL: Muscle strength and tone normal. SPINE: No scoliosis or deformity SKIN: No rashes CENTRAL NERVOUS SYSTEM: Arousable No focal deficits, tone is normal in all 4 extremities. - Labs CBC & Chem 7: 05/17/20 07:51 05/17/20 07:51 Labs: Abnormal Lab Results - Last 24 Hours (Table) 05/16/20 05/16/20 05/17/20 Range/Units 16:59 20:59 05:54 WBC (3.8-10.6) k/uL RBC (3.80-5.40) m/uL Hgb (11.4-16.0) gm/dL Hct (34.0-46.0) % MCHC (31.0-37.0) g/dL RDW (11.5-15.5) % Neutrophils # (1.3-7.7) k/uL Lymphocytes # (1.0-4.8) k/uL Carbon Dioxide (22-30) mmol/L BUN (7-17) mg/dL Creatinine (0.52-1.04) mg/dL Glucose (74-99) mg/dL POC Glucose (mg/dL) 180 H 139 H 101 H (75-99) mg/dL 05/17/20 05/17/20 05/17/20 Range/Units 07:51 07:51 11:43 WBC 17.0 H (3.8-10.6) k/uL RBC 3.57 L (3.80-5.40) m/uL Hgb 9.5 L (11.4-16.0) gm/dL Hct 31.3 L (34.0-46.0) % MCHC 30.3 L (31.0-37.0) g/dL RDW 17.7 H (11.5-15.5) % Neutrophils # 15.6 H (1.3-7.7) k/uL Lymphocytes # 0.4 L (1.0-4.8) k/uL Carbon Dioxide 36 H (22-30) mmol/L BUN 31 H (7-17) mg/dL Creatinine 0.47 L (0.52-1.04) mg/dL Glucose 106 H (74-99) mg/dL POC Glucose (mg/dL) 155 H (75-99) mg/dL Assessment and Plan Plan: Assessment: 1 Acute hypoxemic respiratory failure, secondary to COPD exacerbation and bilateral pleural effusions, right greater than left. The patient is still having difficulties in breathing and she is quite short of breath placed on BiPAP at a pressure of 10/5 with an FiO2 of 40%. She has advanced lung disease and she is quite cachectic and emaciated with a body mass index of 19.8. 2 Rule out non-ST segment elevation myocardial infarction. 3 History of previous heavy tobacco use. 4 History of hypertension. 5 History of hyperlipidemia. 6 History of diabetes mellitus. 7 No evidence of pulmonary embolism on CT angiogram or DVT, on lower extremity Dopplers. 8 Mild right-sided hydronephrosis. 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 Right heart catheterization revealed moderately severe pulmonary hypertension with PA systolic of 52, PA diastolic 15, with a mean of 26, wedge pressure was 11, no evidence of left ventricular failure 10 lower extremity edema 11 A. fib with RVR, converted to sinus rhythm, on oral Cardizem, IV amiodarone. Patient will be transitioned to oral amiodarone and oral anticoagulation today Plan: We will add empiric antibiotics in the form of Augmentin, we'll give the patient a dose of IV Lasix, follow up chest x-ray tomorrow, today's chest x-ray shows bilateral pleural effusions, right greater than left, accurate intake and output, follow blood work including electrolytes and renal profile, Pro calcitonin level. BiPAP support at bedtime and as needed, continue weaning FiO2 to keep O2 sat level at or above 90% I performed a history & physical examination of the patient and discussed their management with my nurse practitioner, Molly Muhammad. I reviewed the nurse practitioner's note and agree with the documented findings and plan of care. Lung sounds are positive for scattered crackles at the bases The findings and the impression was discussed with the patient. I attest to the documentation by the nurse practitioner. Time with Patient: Less than 30
--- NOTE | 2020-05-17 17:27 | P.PN ---
Subjective 80 years old female with past medical history of diabetes mellitus, hypertension, hyperlipidemia, COPD, ex-smoker. Presents with shortness of breat h has been going on for about 6 months with recent worsening over the last few days associated with cough and green phlegm but no chest pain. Yesterday she felt more weak and lost her coordination and recently noticed that her feet starts getting swollen over the last 10 days especially around the ankles. Patient also noticed to have hoarseness of voice, patient states it improving over the last few days She does not use oxygen at home, she does not follow up with business intelligence developer 05/14/2020 Patient is seen and evaluated in ICU sitting up on a chair. Patient had right-sided cardiac catheterization was done yesterday which revealed pulmonary hypertension; significantly enlarged right ventricle; output from the right ventricular in terms of cardiac output was around 4.3; patient is kept on the diuretics yesterday due to concerns of volume dependence which has been now discontinued. She is on Midrin for blood pressure control. She was started on Revatio 10 mg 3 times a day to improve her pulmonary artery pressure and RV dilatation and failure. Her cardiac rhythm is sinus. She is on amiodarone at a dose of 200 mg every 12 hours, Cardizem 30 mg by mouth 3 times a day and transitioned to Eliquis yesterday. She is well controlled for now. She remains on bronchodilators. She remains on IV Solu Medrol 40 mg every 12 hours. She is on statins with Lipitor 20 mg by mouth daily. Anticoagulation with Eliquis. She is quite cachectic. She is taken dietary supplements with a sharp. She is unable to have her meal completed is eating approximately 20%. White cell count 12.6 with a hemoglobin 0.3, platelets 127, she has chronic metabolic alkalosis compensatory for her chronic hypercapnic respiratory failure and his serum bicarbonate was around 36, LFTs are normal. 05/15/2020 Patient is seen and evaluated at bedside; with COPD exacerbation, A. fib/flutter with some relative hypotension. The patient also underwent a right-sided cardiac catheter revealing a [id number] pulmonary hypertension. Currently she is being seen in follow-up. She is on oxygen at 5 L per minute nasal cannula. Her most recent blood pressure is 108/55. The patient is on midodrine. She was also started Revatio by cardiology. In terms of her cardiac rhythm, the patient is having a sinus rhythm today. She is on oral Cardizem and she is also on amiodarone and she was started also on long-term anticoagulation. Patient has been taken off the IV Solu-Medrol and start the patient on a prednisone burst taper. She is using BiPAP on and off during the day and she used it yesterday. No diuretics for now. 05/16/2020 Patient is seen and evaluated sitting comfortably in bed. She is doing well and calm and comfortable. She had a bout of atrial fibrillation earlier and she is back into normal sinus rhythm. Noted the patient is currently on oral Cardizem and oral amiodarone and she was also started on long-term anticoagulation with Eliquis. Her BP is stable and there is no hypotension. She is currently on oxygen at 5 L and her pulse ox is around 91%. She is afebrile. Tolerating her diet. No other significant events otherwise for now. In terms of her systemic steroids, the patient is on prednisone burst taper that was started a dose of 30 mg by mouth daily as part of a burst taper. She does have a BiPAP of the bedside and she is using it episodically and she did use the BiPAP yesterday. Continue to wean down FiO2 as tolerated. Respiratory than 90%; continue with incentive spirometry; DuoNeb nebulizer treatments 4 times a day; pulmonary on board and recommending prednisone burst taper; plan to discontinue diuretic therapy; patient will be switched to Cardizem 30 mg by mouth 3 times a day; continue amiodarone as ordered; anticoagulation therapy with DOAC. 05/17/2020 Patient remains on for liters of oxygen which will be weaned to 4 or 3 L possibly of discharge tomorrow patient was given a dose of Lasix patient is not wheezing today Constitutional: Denied any fatigue denied any fever. Cardio vascular: denied any chest pain, palpitations Gastrointestinal denied any nausea vomiting Pulmonary: Denied any shortness of breath cough Neurologic denied any new focal deficits All inpatient medications were reviewed and appropriate changes in these medications as dictated in the interval history and assessment and plan. Objective - Vital Signs Vital signs: Vital Signs Temp 97.3 F L 05/17/20 16:00 Pulse 70 05/17/20 16:00 Resp 16 05/17/20 16:00 BP 129/59 05/17/20 16:00 Pulse Ox 91 L 05/17/20 16:00 Intake & Output 05/16/20 05/17/20 05/17/20 18:59 06:59 18:59 Intake Total 869 530 1541 Balance 651 666 2370 Weight 47.5 kg Intake: Oral 606 745 7456 Other: Voiding Method Diaper Bedside Commode Bedside Commode Diaper Diaper # Voids 1 1 3 # Bowel Movements 1 - Exam PHYSICAL EXAMINATION: GENERAL: The patient is alert and oriented x3, not in any acute distress. thin built cachectic female HEENT: Pupils are round and equally reacting to light. EOMI. No scleral icterus. No conjunctival pallor. Normocephalic, atraumatic. No pharyngeal erythema. No thyromegaly. CARDIOVASCULAR: S1 and S2 present. No murmurs, rubs, or gallops. PULMONARY: Chest is clear to auscultation, no wheezing or crackles. ABDOMEN: Soft, nontender, nondistended, normoactive bowel sounds. No palpable organomegaly. MUSCULOSKELETAL: No joint swelling or deformity. EXTREMITIES: No cyanosis, clubbing, or pedal edema. NEUROLOGICAL: Gross neurological examination did not reveal any focal deficits. SKIN: No rashes. - Labs CBC & Chem 7: 05/17/20 07:51 05/17/20 07:51 Labs: Abnormal Lab Results - Last 24 Hours (Table) 05/16/20 05/17/20 05/17/20 Range/Units 20:59 05:54 07:51 WBC 17.0 H (3.8-10.6) k/uL RBC 3.57 L (3.80-5.40) m/uL Hgb 9.5 L (11.4-16.0) gm/dL Hct 31.3 L (34.0-46.0) % MCHC 30.3 L (31.0-37.0) g/dL RDW 17.7 H (11.5-15.5) % Neutrophils # 15.6 H (1.3-7.7) k/uL Lymphocytes # 0.4 L (1.0-4.8) k/uL Carbon Dioxide (22-30) mmol/L BUN (7-17) mg/dL Creatinine (0.52-1.04) mg/dL Glucose (74-99) mg/dL POC Glucose (mg/dL) 139 H 101 H (75-99) mg/dL 05/17/20 05/17/20 Range/Units 07:51 11:43 WBC (3.8-10.6) k/uL RBC (3.80-5.40) m/uL Hgb (11.4-16.0) gm/dL Hct (34.0-46.0) % MCHC (31.0-37.0) g/dL RDW (11.5-15.5) % Neutrophils # (1.3-7.7) k/uL Lymphocytes # (1.0-4.8) k/uL Carbon Dioxide 36 H (22-30) mmol/L BUN 31 H (7-17) mg/dL Creatinine 0.47 L (0.52-1.04) mg/dL Glucose 106 H (74-99) mg/dL POC Glucose (mg/dL) 155 H (75-99) mg/dL Assessment and Plan Plan: Acute COPD exacerbation Acute and chronic hypoxic and hypercapnic respiratory failure secondary to above Severe pulmonary hypertension Hypotension on admission Anemia, anemia of chronic disease Acute kidney injury, renal azotemia resolved at this time Elevated troponin, rule out STEMI however it could be from kidney disease and demand/supply mismatch Multifocal atrial tachycardia versus atrial fibrillation per body coverer Hyperlipidemia Diabetes mellitus Plan: This is a pleasant 80 years old female presents with COPD. severe hypoxia. Systemic steroids inhalational treatments patient received a dose of Lasix today and can you to be naproxen possibility of discharge tomorrow patient does have leukocytosis secondary to systemic steroids DVT prophylaxis: heparin GI Prophylaxis: Pepcid PT/OT: Pending Prognosis is guarded
[2020-05-17 18:13] LABS: Glucose,Whole Blood 342 mg/dL (75-99)
[2020-05-17 20:40] LABS: Glucose,Whole Blood 212 mg/dL (75-99)
[2020-05-17] MEDS: GABAPENTIN 300 MG CAP PO SCH (21:57)
[2020-05-18 06:19] LABS: Glucose,Whole Blood 121 mg/dL (75-99)
[2020-05-18] MEDS: FERROUS SULFATE 325 MG TAB PO SCH ×2 (06:50→17:20)
[2020-05-18] MEDS: AMIODARONE 200 MG TAB PO SCH ×2 (06:50→17:20)
[2020-05-18] MEDS: INSULIN ASPART (NovoLOG) 100 UNIT/ML VIAL SQ SCH ×4 (06:50→21:08)
[2020-05-18] MEDS: MIDODRINE 5 MG TAB PO SCH ×3 (06:50→17:14)
[2020-05-18] MEDS: PANTOPRAZOLE 40 MG TABLET PO SCH (06:50)
[2020-05-18] MEDS: CALCIUM CARB-VIT D 500 MG-5 MCG TAB PO SCH ×3 (06:50→17:20)
--- NOTE | 2020-05-18 07:35 | XR ---
EXAMINATION TYPE: XR chest 1V portable DATE OF EXAM: 05/18/2020 CLINICAL HISTORY: Difficulty breathing and pleural effusion progress study. TECHNIQUE: Single AP portable upright view of the chest is obtained. COMPARISON: Chest x-ray from one day earlier and older studies. CTA chest May 07, 2020. FINDINGS: Cardiac silhouette size stable and within normal limits with atherosclerotic change thorac ic aorta. Background chronic emphysematous and pulmonary fibrotic change with small bilateral pleural effusions and associated bibasilar atelectasis and/or infiltrate. Improvement in right-sided effusio n from one day earlier. Osseous structures remain demineralized. Contrast from modified barium swallo w seen in the visualized upper abdomen transverse colon. IMPRESSION: Small right pleural effusion improved from one day earlier. Stable small left pleural eff usion. Stable associated bibasilar atelectasis and/or infiltrate on background chronic emphysematous and pulmonary fibrotic change.
[2020-05-18] MEDS: IPRATROPIUM-ALBUTEROL 3 ML NEB INHALATION SCH ×4 (07:45→19:38)
[2020-05-18 07:51] LABS: African American GFR (CKD) >90 (>60 ml/min/1.73 sqM); Blood Urea Nitrogen 32 mg/dL (7-17); Calcium 9.2 mg/dL (8.4-10.2); Chloride 97 mmol/L (98-107); Glucose 96 mg/dL (74-99); Non-African American GFR(CKD) >90 (>60 ml/min/1.73 sqM); Potassium 4.3 mmol/L (3.5-5.1); Sodium 139 mmol/L (137-145)
[2020-05-18 08:02] LABS: Anion Gap 1 mmol/L
[2020-05-18 08:07] LABS: Carbon Dioxide 41 mmol/L (22-30)
[2020-05-18] MEDS: APIXABAN 5 MG TAB PO SCH ×2 (09:00→21:08)
[2020-05-18] MEDS: ATORVASTATIN 20 MG TAB PO SCH (09:00)
[2020-05-18] MEDS: AMOXIC-POT CLAV 875-125MG 1 EACH TAB PO SCH ×2 (09:00→21:08)
[2020-05-18] MEDS: SILDENAFIL 20 MG TAB PO SCH ×3 (09:00→22:44)
[2020-05-18] MEDS: DILTIAZEM ORAL 30 MG TAB PO SCH ×3 (09:00→21:08)
[2020-05-18] MEDS: predniSONE 10 MG TAB PO SCH (09:01)
[2020-05-18] MEDS: ACETAMINOPHEN TAB 325 MG TAB PO PRN ×2 (09:07→21:39)
[2020-05-18 09:20] LABS: Anisocytosis Slight; Basophils % (A) 0 %; Eosinophils % (A) 0 %; HCT 28.2 % (34.0-46.0); HGB 8.7 gm/dL (11.4-16.0); Hypochromasia Marked; Lymphocytes # (A) 0.4 k/uL (1.0-4.8); Lymphocytes % (A) 2 %; MCH 26.9 pg (25.0-35.0); MCHC 30.9 g/dL (31.0-37.0); MCV 87.1 fL (80.0-100.0); Mean Platelet Volume 10.5; Monocytes # (A) 0.6 k/uL (0-1.0); Monocytes % (A) 4 %; Neutrophils % (A) 93 %; Platelet Count 138 k/uL (150-450); Poikilocytosis Moderate; RBC 3.23 m/uL (3.80-5.40); RDW 18.2 % (11.5-15.5); WBC 16.1 k/uL (3.8-10.6)
[2020-05-18] MEDS ORDERED: FUROSEMIDE 10 MG/ML 2 ML VIAL IV ONE (11:30)
--- NOTE | 2020-05-18 11:34 | P.PN ---
Subjective 80 years old female with past medical history of diabetes mellitus, hypertension, hyperlipidemia, COPD, ex-smoker. Presents with shortness of breat h has been going on for about 6 months with recent worsening over the last few days associated with cough and green phlegm but no chest pain. Yesterday she felt more weak and lost her coordination and recently noticed that her feet starts getting swollen over the last 10 days especially around the ankles. 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 Patient had right-sided cardiac catheterization was done yesterday which revealed pulmonary hypertension; significantly enlarged right ventricle; output from the right ventricular in terms of cardiac output was around 4.3; patient is kept on the diuretics yesterday due to concerns of volume dependence which has been now discontinued. She is on Midrin for blood pressure control. She was started on Revatio 10 mg 3 times a day to improve her pulmonary artery pressure and RV dilatation and failure. Her cardiac rhythm is sinus. She is on amiodarone at a dose of 200 mg every 12 hours, Cardizem 30 mg by mouth 3 times a day and transitioned to Eliquis yesterday. She is well controlled for now. She remains on bronchodilators. She remains on IV Solu Medrol 40 mg every 12 hours. She is on statins with Lipitor 20 mg by mouth daily. Anticoagulation with Eliquis. She is quite cachectic. She is taken dietary supplements with a sharp. She is unable to have her meal completed is eating approximately 20%. White cell count 12.6 with a hemoglobin 0.3, platelets 127, she has chronic metabolic alkalosis compensatory for her chronic hypercapnic respiratory failure and his serum bicarbonate was around 36, LFTs are normal. 05/15/2020 Patient is seen and evaluated at bedside; with COPD exacerbation, A. fib/flutter with some relative hypotension. The patient also underwent a right-sided cardiac catheter revealing a [id number] pulmonary hypertension. Currently she is being seen in follow-up. She is on oxygen at 5 L per minute nasal cannula. Her most recent blood pressure is 108/55. The patient is on midodrine. She was also started Revatio by cardiology. In terms of her cardiac rhythm, the patient is having a sinus rhythm today. She is on oral Cardizem and she is also on amiodarone and she was started also on long-term anticoagulation. Patient has been taken off the IV Solu-Medrol and start the patient on a prednisone burst taper. She is using BiPAP on and off during the day and she used it yesterday. No diuretics for now. 05/16/2020 Patient is seen and evaluated sitting comfortably in bed. She is doing well and calm and comfortable. She had a bout of atrial fibrillation earlier and she is back into normal sinus rhythm. Noted the patient is currently on oral Cardizem and oral amiodarone and she was also started on long-term anticoagulation with Eliquis. Her BP is stable and there is no hypotension. She is currently on oxygen at 5 L and her pulse ox is around 91%. She is afebrile. Tolerating her diet. No other significant events otherwise for now. In terms of her systemic steroids, the patient is on prednisone burst taper that was started a dose of 30 mg by mouth daily as part of a burst taper. She does have a BiPAP of the bedside and she is using it episodically and she did use the BiPAP yesterday. Continue to wean down FiO2 as tolerated. Respiratory than 90%; continue with incentive spirometry; DuoNeb nebulizer treatments 4 times a day; pulmonary on board and recommending prednisone burst taper; plan to discontinue diuretic therapy; patient will be switched to Cardizem 30 mg by mouth 3 times a day; continue amiodarone as ordered; anticoagulation therapy with DOAC. 05/17/2020 Patient remains on for liters of oxygen which will be weaned to 4 or 3 L possibly of discharge tomorrow patient was given a dose of Lasix patient is not wheezing today 05/18/2020 Patient feels he'll bit better even better yesterday. Patient shortness of breath is better patient remains on 5 L of oxygen we'll try to wean off oxygen to around 3-4 L today possibly of discharge tomorrow will require home oxygen. Physical therapy is following the patient Constitutional: Denied any fatigue denied any fever. Cardio vascular: denied any chest pain, palpitations Gastrointestinal denied any nausea vomiting Pulmonary: Denied any shortness of breath cough Neurologic denied any new focal deficits All inpatient medications were reviewed and appropriate changes in these medications as dictated in the interval history and assessment and plan. Objective - Vital Signs Vital signs: Vital Signs Temp 97.1 F L 05/18/20 08:00 Pulse 84 05/18/20 11:10 Resp 20 05/18/20 08:00 BP 125/57 05/18/20 08:00 Pulse Ox 96 05/18/20 08:00 Intake & Output 05/17/20 05/18/20 05/18/20 18:59 06:59 18:59 Intake Total 1361 120 Balance 1361 120 Weight 45 kg Intake: Oral 1361 120 Other: Voiding Method Bedside Commode Bedside Commode Bedside Commode Diaper Diaper Diaper # Voids 2 1 # Bowel Movements 1 1 - Exam PHYSICAL EXAMINATION: GENERAL: The patient is alert and oriented x3, not in any acute distress. thin built cachectic female HEENT: Pupils are round and equally reacting to light. EOMI. No scleral icterus. No conjunctival pallor. Normocephalic, atraumatic. No pharyngeal erythema. No thyromegaly. CARDIOVASCULAR: S1 and S2 present. No murmurs, rubs, or gallops. PULMONARY: Chest is clear to auscultation, no wheezing or crackles. ABDOMEN: Soft, nontender, nondistended, normoactive bowel sounds. No palpable organomegaly. MUSCULOSKELETAL: No joint swelling or deformity. EXTREMITIES: No cyanosis, clubbing, or pedal edema. NEUROLOGICAL: Gross neurological examination did not reveal any focal deficits. SKIN: No rashes. - Labs CBC & Chem 7: 05/18/20 06:57 05/18/20 06:57 Labs: Abnormal Lab Results - Last 24 Hours (Table) 05/17/20 05/17/20 05/17/20 Range/Units 11:43 18:12 20:39 WBC (3.8-10.6) k/uL RBC (3.80-5.40) m/uL Hgb (11.4-16.0) gm/dL Hct (34.0-46.0) % MCHC (31.0-37.0) g/dL RDW (11.5-15.5) % Plt Count (150-450) k/uL Neutrophils # (1.3-7.7) k/uL Lymphocytes # (1.0-4.8) k/uL Chloride (98-107) mmol/L Carbon Dioxide (22-30) mmol/L BUN (7-17) mg/dL POC Glucose (mg/dL) 155 H 342 H 212 H (75-99) mg/dL 05/18/20 05/18/20 05/18/20 Range/Units 06:18 06:57 06:57 WBC 16.1 H (3.8-10.6) k/uL RBC 3.23 L (3.80-5.40) m/uL Hgb 8.7 L (11.4-16.0) gm/dL Hct 28.2 L (34.0-46.0) % MCHC 30.9 L (31.0-37.0) g/dL RDW 18.2 H (11.5-15.5) % Plt Count 138 L (150-450) k/uL Neutrophils # 15.0 H (1.3-7.7) k/uL Lymphocytes # 0.4 L (1.0-4.8) k/uL Chloride 97 L (98-107) mmol/L Carbon Dioxide 41 H* (22-30) mmol/L BUN 32 H (7-17) mg/dL POC Glucose (mg/dL) 121 H (75-99) mg/dL Assessment and Plan Plan: Acute COPD exacerbation Acute and chronic hypoxic and hypercapnic respiratory failure secondary to above Severe pulmonary hypertension Hypotension on admission Anemia, anemia of chronic disease Acute kidney injury, renal azotemia resolved at this time Elevated troponin, rule out STEMI however it could be from kidney disease and demand/supply mismatch Multifocal atrial tachycardia versus atrial fibrillation per enterprise project manager Hyperlipidemia Diabetes mellitus Plan: This is a pleasant 80 years old female presents with COPD. severe hypoxia. Systemic steroids inhalational treatments patient received a dose of Lasix today and can you to be naproxen possibility of discharge tomorrow patient does have leukocytosis secondary to systemic steroids DVT prophylaxis: heparin GI Prophylaxis: Pepcid PT/OT: Pending Prognosis is guarded
[2020-05-18 11:43] LABS: Glucose,Whole Blood 149 mg/dL (75-99)
--- NOTE | 2020-05-18 16:12 | P.PN ---
Subjective Progress Note Date: 05/18/20 This is a 80-year-old female, looks older than her stated age, who presents to the emergency department, with increasing shortness of breath. The patient was a heavy smoker up until 21 years ago. At that time she quit. She apparently does have an established history of COPD, although we've never seen her in the office. The patient has a history of hypertension, hyperlipidemia, and diabetes among other things. The patient presents to the emergency department on 05/07/2020, at 1:00 in the afternoon, with worsening shortness of breath. It apparently started a day or 2 prior to admission and had become progressively worse. In addition, she has tightness, wheezing, and cough. She denies any moshe st pain or pressure. She denies any fever or chills. She is really not coughing up any phlegm. Currently, she is on BiPAP with settings of IPAP 10, EPAP 5, and 60%. We checked her saturations, they were in the mid to high 90s, and we asked respiratory to turn her FiO2 down to 50%. When they did that, her saturations dropped to the mid 80s, which is probably her baseline in reality. She denies ever seeing a lung doctor. In addition, the patient was on heparin via weightbase protocol, for elevated troponins. She was admitted to the hospital with a diagnosis of COPD exacerbation, and non-ST segment elevation myocardial infarction. Her primary care provider is Dr. Michael Carrillo. Progress note dated 05/09/2020. 80-year-old female that we saw in consultation for acute hypoxemic respiratory failure, secondary to COPD exacerbation. She may have also sustained a non-ST segment elevation myocardial infarction. She currently remains on BiPAP. She has a history of heavy tobacco use, hypertension, hyperlipidemia, diabetes, without evidence of pulmonary embolism on CT angiogram, or DVT, on lower extremity Dopplers. The patient nods her head when I ask her how she's doing. She feels like she is doing better. Her BiPAP settings were 10/5 and 50%. We are going to ask her nurse about switching her over to high flow nasal cannula. The patient's on appropriate medications including albuterol sulfate, ipratropium bromide, formoterol, Pulmicort, and systemic corticosteroids. Her chest x-ray had the classic findings of someone with emphysema. On today's evaluation of 05/10/2020, the patient is feeling better. She is less short of breath. She was on a BiPAP or throughout the night and the patient is currently off the BiPAP on oxygen at 4 L per minute nasal cannula. She is resting comfortably she is not using excessive muscle breathing. She did have some minor troponin leak which was a demand mismatch in the patient's chest x- ray showed small bilateral pleural effusions. White cell count of 15.4. Pro Calcitonin level was 0.13.. The patient is covered with doxycycline with empiric antibiotic coverage. She received a dose of Lasix 20 mg IV on 05/10/2000 which is today based on the x-ray findings. She remains on IV Solu Medrol 60 mg every 6 hours pH is also on DuoNeb nebulized treatments around the clock. On 05/11/2020 the patient is on BiPAP. Yesterday evening, the patient became hypoxemic and she became progressively more short of breath. She was taken off the oxygen which was running at 4 L and she was started on BiPAP which is currently running at 10/5 cm of water with an FiO2 of 40%. She seems to be tolerating it well and she is on a full face mask and synchronous with the BiPAP mask for now. She was given a dose of Lasix is producing adequate amount of urine output. No chest pain. She is quite cachectic and she has advanced lung disease. She is also on DuoNeb nebulized treatments [id number], she is on a combination of Perforomist and Pulmicort neb last 2 minutes twice a day and she is on IV Solu Medrol 60 mg every 6 hours and she is also on doxycycline as an empiric antibiotic coverage. She received a dose of Lasix 20 mg IV push on 05/10/2020. Her blood work today shows a white cell count of 16 with a hemoglobin of 10.9. This is compatible compared to yesterday's labs. She also has a serum bicarb of 32, sodium of 143 and potassium level of 4.9, BUN is at 92 with a creatinine of 0.7. IV fluids are running at KVO. 05/11/2020 of seeing the patient in follow-up. The patient is awake and alert this morning. Overnight she utilizes BiPAP at a pressure of 10/5 cm of water and FiO2 of 45%. This morning, we switched her to oxygen at 4 L per minute nasal cannula and gave her a break off the BiPAP. She seems to be more comfortable this morning. Overnight, the patient went into atrial fibrillation with rapid ventricular response and subsequently she converted back into normal sinus rhythm and currently she is in normal sinus rhythm with a BP of 99/53. Her pulse ox is above 90% 40s about 2 by nasal cannula. The patient was given a Cardizem bolus of 10 mg IV and 5 she is currently on a 5 mg an hour. She is 5 which was bumped up to 10 mg an hour . During the course of her treatment she also took 0.25 mg of digoxin and she converted spontaneously to normal sinus rhythm at around 1 AM this morning. Since then she has been normal sinus rhythm. The patient is currently at 20 mg every 20 mg of IV Lasix on a daily basis. The fluid balance over the past 24 hours has been -1.3 L and she put out another 1.5 L negative fluid balance for today. Her BUN is down to 59 with a creatinine being down to 0.6. Rest of the electrolytes are all within normal limits. White cell count is at 9 with a hemoglobin of 9.7. Chest x-ray from yesterday showed COPD with a barrel chest and small bilateral pleural effusions. No chest x-ray from today has been done. The white cell count is down to 9. Overall, she looks to be much more comfortable on today's evaluation. On 05/13/2020 patient seen in follow-up in the intensive care unit, she is a slightly drowsy, but easily arousable to voice, she is currently on 3 L of oxygen, and her pulse ox is 98%. No worsening dyspnea, lung sounds reveal no wheezing, some scattered rhonchi in the right lower base and some scattered rales. Patient remains on diuretics, she is in negative 900 mL Fluid balance over the last 24 hours, still has plus pretibial lower extremity edema. He is in sinus mechanism, she remains on amiodarone drip at 0.5 mg per hour, and heparin infusion per weight-based protocol. She will be transitioned to oral amiodarone and oral anticoagulation, cardiology is following, patient is status post right-sided heart catheterization yesterday on 05/13/2020, and right-sided systolic pressure was 52, diastolic was 15 with a mean of 26 mmHg. Heart attack output by thermodilution was 4.3 L/m which was within normal limits. There was no evidence of a left sided heart failure. Pressure was 11. Patient remains on IV steroids and breathing treatments for acute COPD exacerbation, no wheezing, no significant phlegm production. No complaints of chest pain, hemoptysis no fever or chills. She has been acquiring BiPAP intermittently, currently off the BiPAP, breathing comfortably. Labs have been reviewed showing white blood cell count of 11.8, hemoglobin of 9.3, sodium is 139, potassium is 4.3, CO2 is 38, BUN is 46 creatinine 0.7 On 05/17/2000 patient seen in follow-up on selective care unit, she is awake and alert, denies any acute distress, currently on 4 L of oxygen pulse ox of 92%, she states she's been wearing a BiPAP support at night, with pressures of 10 and 5 and FiO2 of 40%, tolerates BiPAP support well. She has occasional nonproductive cough, she states she is not able to bring up the phlegm, but no cognitive chest pain, no fever or chills. Today's chest x-ray shows increasing small to moderate right and small left pleural effusion with adjacent atelectasis and/or consolidation. Today's labs have been reviewed, showing increasing white blood cell count of 17, hemoglobin of 9.5, CO2 36, there is a I throat within normal limits, B1 is 31 creatinine 0.47. Patient continues on breathing treatments, she has been transitioned to oral prednisone, we will give the patient a dose of IV Lasix and add empiric antibiotics. Patient is on oral anticoagulation for recent history of A. fib with RVR during this admission. Heart rate is currently controlled. On 05/18/2020 patient seen in follow-up on selective care unit, she is on 6 L of oxygen and her pulse ox is 96%, she did use BiPAP support last night with FiO2 45%, lung sounds are diminished, no rhonchi no wheezing, no worsening dyspnea, she is awake and alert, no altered mentation, no chest pain, no increased cough or congestion or wheezing. She has been afebrile. Today's chest x-ray shows a small right pleural effusion which has improved from earlier, and stable small left plural effusion with associated bibasilar atelectasis. Patient continues on empiric Augmentin, and she has received additional dose of 20 mg of IV Lasix today. IV steroids have been transitioned to oral prednisone. There has been no worsening dyspnea. Objective - Vital Signs Vital signs: Vital Signs Temp 97.1 F L 05/18/20 08:00 Pulse 84 05/18/20 16:00 Resp 20 05/18/20 08:00 BP 125/57 05/18/20 08:00 Pulse Ox 96 05/18/20 08:00 Intake & Output 05/17/20 05/18/20 05/18/20 18:59 06:59 18:59 Intake Total 1361 360 Balance 1361 360 Weight 45 kg Intake: Oral 1361 360 Other: Voiding Method Bedside Commode Bedside Commode Bedside Commode Diaper Diaper Diaper # Voids 2 1 1 # Bowel Movements 1 1 1 - Exam GENERAL EXAM: Cachectic looking drowsy, but arousable to voice, 80-year-old white female on 5 L of oxygen, with pulse ox of 92% comfortable in no apparent distress. HEAD: Normocephalic/atraumatic. EYES: Normal reaction of pupils, equal size. Conjunctiva pink, sclera white. NOSE: Clear with pink turbinates. THROAT: No erythema or exudates. NECK: No masses, no JVD, no thyroid enlargement, no adenopathy. CHEST: No chest wall deformity. Symmetrical expansion. LUNGS: Equal air entry with crackles and scattered rhonchi CVS: Regular rate and rhythm, normal S1 and S2, no gallops, no murmurs, no rubs ABDOMEN: Soft, nontender. No hepatosplenomegaly, normal bowel sounds, no guarding or rigidity. EXTREMITIES: No clubbing, 1+ edema, no cyanosis, 2+ pulses and upper and lower extremities. MUSCULOSKELETAL: Muscle strength and tone normal. SPINE: No scoliosis or deformity SKIN: No rashes CENTRAL NERVOUS SYSTEM: Arousable No focal deficits, tone is normal in all 4 extremities. - Labs CBC & Chem 7: 05/18/20 06:57 05/18/20 06:57 Labs: Abnormal Lab Results - Last 24 Hours (Table) 05/17/20 05/17/20 05/18/20 Range/Units 18:12 20:39 06:18 WBC (3.8-10.6) k/uL RBC (3.80-5.40) m/uL Hgb (11.4-16.0) gm/dL Hct (34.0-46.0) % MCHC (31.0-37.0) g/dL RDW (11.5-15.5) % Plt Count (150-450) k/uL Neutrophils # (1.3-7.7) k/uL Lymphocytes # (1.0-4.8) k/uL Chloride (98-107) mmol/L Carbon Dioxide (22-30) mmol/L BUN (7-17) mg/dL POC Glucose (mg/dL) 342 H 212 H 121 H (75-99) mg/dL 05/18/20 05/18/20 05/18/20 Range/Units 06:57 06:57 11:41 WBC 16.1 H (3.8-10.6) k/uL RBC 3.23 L (3.80-5.40) m/uL Hgb 8.7 L (11.4-16.0) gm/dL Hct 28.2 L (34.0-46.0) % MCHC 30.9 L (31.0-37.0) g/dL RDW 18.2 H (11.5-15.5) % Plt Count 138 L (150-450) k/uL Neutrophils # 15.0 H (1.3-7.7) k/uL Lymphocytes # 0.4 L (1.0-4.8) k/uL Chloride 97 L (98-107) mmol/L Carbon Dioxide 41 H* (22-30) mmol/L BUN 32 H (7-17) mg/dL POC Glucose (mg/dL) 149 H (75-99) mg/dL Assessment and Plan Plan: Assessment: 1 Acute hypoxemic respiratory failure, secondary to COPD exacerbation and bilateral pleural effusions, right greater than left. The patient is still having difficulties in breathing and she is quite short of breath placed on BiPAP at a pressure of 10/5 with an FiO2 of 40%. She has advanced lung disease and she is quite cachectic and emaciated with a body mass index of 19.8. 2 Rule out non-ST segment elevation myocardial infarction. 3 History of previous heavy tobacco use. 4 History of hypertension. 5 History of hyperlipidemia. 6 History of diabetes mellitus. 7 No evidence of pulmonary embolism on CT angiogram or DVT, on lower extremity Dopplers. 8 Mild right-sided hydronephrosis. 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 Right heart catheterization revealed moderately severe pulmonary hypertension with PA systolic of 52, PA diastolic 15, with a mean of 26, wedge pressure was 11, no evidence of left ventricular failure 10 lower extremity edema 11 A. fib with RVR, converted to sinus rhythm, on oral Cardizem, IV amiodarone. Patient will be transitioned to oral amiodarone and oral anticoagulation today Plan: Continue BiPAP support as needed, continue antibiotics, patient will receive an additional dose of 20 mg of Lasix, today's chest x-ray shows improvement in the appearance of right pleural effusion, and stable left pleural effusion with adjacent atelectasis, vital signs have been stable, continue weaning FiO2, keep O2 sat at or above 90%. Continue with breathing treatments, continue oral prednisone. Consult DIGITAL PROJECT COORDINATOR for consideration of subacute rehab placement as the patient is significantly weak and will likely benefit from subacute rehab after discharge. She can be considered for discharge when cleared by cardiology I performed a history & physical examination of the patient and discussed their management with my nurse practitioner, Molly Muhammad. I reviewed the nurse practitioner's note and agree with the documented findings and plan of care. Lung sounds are positive for scattered crackles at the bases The findings and the impression was discussed with the patient. I attest to the documentation by the nurse practitioner. Time with Patient: Less than 30
[2020-05-18 16:59] LABS: Glucose,Whole Blood 185 mg/dL (75-99)
[2020-05-18 20:15] LABS: Glucose,Whole Blood 162 mg/dL (75-99)
[2020-05-18] MEDS: GABAPENTIN 300 MG CAP PO SCH (21:08)
[2020-05-19 06:05] LABS: Glucose,Whole Blood 103 mg/dL (75-99)
[2020-05-19] MEDS: FERROUS SULFATE 325 MG TAB PO SCH (06:45)
[2020-05-19] MEDS: MIDODRINE 5 MG TAB PO SCH ×2 (06:45→12:30)
[2020-05-19] MEDS: CALCIUM CARB-VIT D 500 MG-5 MCG TAB PO SCH ×2 (06:45→12:30)
[2020-05-19] MEDS: INSULIN ASPART (NovoLOG) 100 UNIT/ML VIAL SQ SCH ×2 (06:45→12:33)
[2020-05-19] MEDS: PANTOPRAZOLE 40 MG TABLET PO SCH (06:45)
[2020-05-19] MEDS: AMIODARONE 200 MG TAB PO SCH (06:45)
[2020-05-19] MEDS: IPRATROPIUM-ALBUTEROL 3 ML NEB INHALATION SCH ×2 (07:20→11:37)
[2020-05-19 08:17] VITALS: RESP 20; TEMP 98.1
[2020-05-19] MEDS: AMOXIC-POT CLAV 875-125MG 1 EACH TAB PO SCH (09:21)
[2020-05-19] MEDS: ATORVASTATIN 20 MG TAB PO SCH (09:21)
[2020-05-19] MEDS: SILDENAFIL 20 MG TAB PO SCH (09:21)
[2020-05-19] MEDS: APIXABAN 5 MG TAB PO SCH (09:21)
[2020-05-19] MEDS: predniSONE 10 MG TAB PO SCH (09:21)
[2020-05-19] MEDS: DILTIAZEM ORAL 30 MG TAB PO SCH (09:21)
[2020-05-19 11:42] LABS: Glucose,Whole Blood 169 mg/dL (75-99)
[2020-05-19 11:44] VITALS: BMI 20.7
[2020-05-19 11:48] VITALS: BP 107/44; PULSE 84
--- NOTE | 2020-05-19 12:13 | P.DS ---
Providers Date of admission: 05/07/20 16:21 Attending physician: Clarence Lopez MD Consults: 05/07/20 18:35 Consult Physician Urgent Consulting Provider: Gabo Baron Consult Reason/Comments: hypoxia and hoarseness of voice Do you want consulting provider notified?: Yes 05/09/20 10:58 Consult Physician Routine Consulting Provider: Lida Burns Consult Reason/Comments: michael Do you want consulting provider notified?: Yes Primary care physician: [facility] Course: 80 years old female with past medical history of diabetes mellitus, hypertension, hyperlipidemia, COPD, ex-smoker. Presents with shortness of breath has been going on for about 6 months with recent worsening over the last few days associated with cough and green phlegm but no chest pain. Yesterday she felt more weak and lost her coordination and recently noticed that her feet starts getting swollen over the last 10 days especially around the ankles. Patient also noticed to have hoarseness of voice, patient states it improving over the last few days She does not use oxygen at home, she does not follow up with director of analytics 05/14/2020 Patient is seen and evaluated in ICU sitting up on a chair. Patient had right-sided cardiac catheterization was done yesterday which revealed pulmonary hypertension; significantly enlarged right ventricle; output from the right ventricular in terms of cardiac output was around 4.3; patient is kept on the diuretics yesterday due to concerns of volume dependence which has been now discontinued. She is on Midrin for blood pressure control. She was started on Revatio 10 mg 3 times a day to improve her pulmonary artery pressure and RV dilatation and failure. Her cardiac rhythm is sinus. She is on amiodarone at a dose of 200 mg every 12 hours, Cardizem 30 mg by mouth 3 times a day and transitioned to Eliquis yesterday. She is well controlled for now. She remains on bronchodilators. She remains on IV Solu Medrol 40 mg every 12 hours. She is on statins with Lipitor 20 mg by mouth daily. Anticoagulation with Eliquis. She is quite cachectic. She is taken dietary supplements with a sharp. She is unable to have her meal completed is eating approximately 20%. White cell count 12.6 with a hemoglobin 0.3, platelets 127, she has chronic metabolic alkalosis compensatory for her chronic hypercapnic respiratory failure and his serum bicarbonate was around 36, LFTs are normal. 05/15/2020 Patient is seen and evaluated at bedside; with COPD exacerbation, A. fib/flutter with some relative hypotension. The patient also underwent a right-sided cardiac catheter revealing a [id number] pulmonary hypertension. Currently she is being seen in follow-up. She is on oxygen at 5 L per minute nasal cannula. Her most recent blood pressure is 108/55. The patient is on midodrine. She was also started Revatio by cardiology. In terms of her cardiac rhythm, the patient is having a sinus rhythm today. She is on oral Cardizem and she is also on amiodarone and she was started also on long-term anticoagulation. Patient has been taken off the IV Solu-Medrol and start the patient on a prednisone burst taper. She is using BiPAP on and off during the day and she used it yesterday. No diuretics for now. 05/16/2020 Patient is seen and evaluated sitting comfortably in bed. She is doing well and calm and comfortable. She had a bout of atrial fibrillation earlier and she is back into normal sinus rhythm. Noted the patient is currently on oral Cardizem and oral amiodarone and she was also started on long-term anticoagulation with Eliquis. Her BP is stable and there is no hypotension. She is currently on oxygen at 5 L and her pulse ox is around 91%. She is afebrile. Tolerating her diet. No other significant events otherwise for now. In terms of her systemic steroids, the patient is on prednisone burst taper that was started a dose of 30 mg by mouth daily as part of a burst taper. She does have a BiPAP of the bedside and she is using it episodically and she did use the BiPAP yesterday. Continue to wean down FiO2 as tolerated. Respiratory than 90%; continue with incentive spirometry; DuoNeb nebulizer treatments 4 times a day; pulmonary on board and recommending prednisone burst taper; plan to discontinue diuretic therapy; patient will be switched to Cardizem 30 mg by mouth 3 times a day; continue amiodarone as ordered; anticoagulation therapy with DOAC. 05/17/2020 Patient remains on for liters of oxygen which will be weaned to 4 or 3 L possibly of discharge tomorrow patient was given a dose of Lasix patient is not wheezing today 05/18/2020 Patient feels he'll bit better even better yesterday. Patient shortness of breath is better patient remains on 5 L of oxygen we'll try to wean off oxygen to around 3-4 L today possibly of discharge tomorrow will require home oxygen. Physical therapy is following the patient. 05/19/2020 Patient remains on 5 L of oxygen this appears to be her baseline patient has advanced COPD does have severe secondary pulmonary hypertension due to COPD. with the PA pressures of around 60 and patient does have cor pulmonale as well. Patient was on Lasix during her hospitalization which will be continued. PHYSICAL EXAMINATION: GENERAL: The patient is alert and oriented x3, not in any acute distress. thin built cachectic female HEENT: Pupils are round and equally reacting to light. EOMI. No scleral icterus. No conjunctival pallor. Normocephalic, atraumatic. No pharyngeal erythema. No thyromegaly. CARDIOVASCULAR: S1 and S2 present. No murmurs, rubs, or gallops. PULMONARY: Chest is clear to auscultation, no wheezing or crackles. ABDOMEN: Soft, nontender, nondistended, normoactive bowel sounds. No palpable organomegaly. MUSCULOSKELETAL: No joint swelling or deformity. EXTREMITIES: No cyanosis, clubbing, or pedal edema. NEUROLOGICAL: Gross neurological examination did not reveal any focal deficits. SKIN: No rashes. Assessment and Plan Plan: Acute COPD exacerbation Acute and chronic hypoxic and hypercapnic respiratory failure secondary to above Severe secondary pulmonary hypertension Hypotension on admission Anemia, anemia of chronic disease Acute kidney injury, renal azotemia resolved at this time Elevated troponin, rule out STEMI however it could be from kidney disease and demand/supply mismatch Multifocal atrial tachycardia versus atrial fibrillation per [employer] Hyperlipidemia Diabetes mellitus Patient is being discharged today to subacute rehabitation remains on 5 L of oxygen Plan - Discharge Summary Discharge Rx Participant: No New Discharge Prescriptions: New Diltiazem Oral [Cardizem*] 30 mg PO TID tab Amiodarone [Cordarone] 200 mg PO Q12H tab Apixaban [Eliquis] 5 mg PO BID tab Ferrous Sulfate [Iron (65 MG Elemental)] 325 mg PO BID-W/MEALS tab Sildenafil [Revatio] 20 mg PO TID tab guaiFENesin-DM 100-10MG/5ML [Robitussin DM] 10 ml PO Q6H PRN ml PRN Reason: Cough predniSONE 10 mg PO DAILY #30 tab Continue Fluticasone/Umeclidin/Vilanter [Trelegy Ellipta 100-62.5-25] 1 puff INHALATION RT-DAILY Albuterol Inhaler [Ventolin Hfa Inhaler] 2 puff INHALATION RT-Q6H PRN PRN Reason: Shortness Of Breath metFORMIN HCL [Glucophage Xr] 500 mg PO DAILY Celecoxib [CeleBREX] 200 mg PO DAILY Atorvastatin [Lipitor] 20 mg PO DAILY Changed Gabapentin [Neurontin] 300 mg PO HS #0 Discontinued Losartan [Cozaar] 50 mg PO DAILY amLODIPine [Norvasc] 5 mg PO DAILY hydroCHLOROthiazide [Hydrodiuril] 25 mg PO DAILY Metoprolol Succinate (ER) [Toprol Xl] 25 mg PO DAILY Aspirin 81 mg PO DAILY Discharge Medication List Albuterol Inhaler [Ventolin Hfa Inhaler] 2 puff INHALATION RT-Q6H PRN 05/07/20 [History] Atorvastatin [Lipitor] 20 mg PO DAILY 05/07/20 [History] Celecoxib [CeleBREX] 200 mg PO DAILY 05/07/20 [History] Fluticasone/Umeclidin/Vilanter [Trelegy Ellipta 100-62.5-25] 1 puff INHALATION RT-DAILY 05/07/20 [History] metFORMIN HCL [Glucophage Xr] 500 mg PO DAILY 05/07/20 [History] Amiodarone [Cordarone] 200 mg PO Q12H tab 05/19/20 [Rx] Apixaban [Eliquis] 5 mg PO BID tab 05/19/20 [Rx] Diltiazem Oral [Cardizem*] 30 mg PO TID tab 05/19/20 [Rx] Ferrous Sulfate [Iron (65 MG Elemental)] 325 mg PO BID-W/MEALS tab 05/19/20 [Rx] Gabapentin [Neurontin] 300 mg PO HS #0 05/19/20 [Rx] Sildenafil [Revatio] 20 mg PO TID tab 05/19/20 [Rx] guaiFENesin-DM 100-10MG/5ML [Robitussin DM] 10 ml PO Q6H PRN ml 05/19/20 [Rx] predniSONE 10 mg PO DAILY #30 tab 05/19/20 [Rx] Follow up Appointment(s)/Referral(s): [facility] [Provider Group] - 1 Week Lenny Zamarripa MD [STAFF PHYSICIAN] - 1 Week Michael Carrillo MD [Primary Care Provider] - 1-2 days
--- NOTE | 2020-05-19 15:44 | P.PN ---
Subjective Progress Note Date: 05/19/20 Principal diagnosis: Acute hypoxic respiratory failure secondary to acute COPD exacerbation and pulmonary hypertension This is a 80-year-old female, looks older than her stated age, who presents to the emergency department, with increasing shortness of breath. The patient was a heavy smoker up until 21 years ago. At that time she quit. She apparently does have an established history of COPD, although we've never seen her in the office. The patient has a history of hypertension, hyperlipidemia, and diabetes among other things. The patient presents to the emergency department on 05/07/2020, at 1:00 in the afternoon, with worsening shortness of breath. It apparently started a day or 2 prior to admission and had become progressively worse. In addition, she has tightness, wheezing, and cough. She denies any chest pain or pressure. She denies any fever or chills. She is really not coughing up any phlegm. Currently, she is on BiPAP with settings of IPAP 10, EPAP 5, and 60%. We checked her saturations, they were in the mid to high 90s, and we asked respiratory to turn her FiO2 down to 50%. When they did that, her saturations dropped to the mid 80s, which is probably her baseline in reality. She denies ever seeing a lung doctor. In addition, the patient was on heparin via weightbase protocol, for elevated troponins. She was admitted to the hospital with a diagnosis of COPD exacerbation, and non-ST segment elevation myocardial infarction. Her primary care provider is Dr. Michael Carrillo. On 05/18/2020 patient seen in follow-up on selective care unit, she is on 6 L of oxygen and her pulse ox is 96%, she did use BiPAP support last night with FiO2 45%, lung sounds are diminished, no rhonchi no wheezing, no worsening dyspnea, she is awake and alert, no altered mentation, no chest pain, no increased cough or congestion or wheezing. She has been afebrile. Today's chest x-ray shows a small right pleural effusion which has improved from earlier, and stable small left plural effusion with associated bibasilar atelectasis. Patient continues on empiric Augmentin, and she has received additional dose of 20 mg of IV Lasix today. IV steroids have been transitioned to oral prednisone. There has been no worsening dyspnea. Reevaluated today on 05/19/2020, patient is about the same, she is on 6 L nasal cannula, however I was able to cut down her FiO2 to 5 L nasal cannula, and she was saturating about 94% without any distress. Patient is frail, she is feeling better, not in distress. Chest x-ray from yesterday showed small right pleural effusion improved compared to previous x-ray, patient remains on antibiotics, and she is also on diuretics. Objective - Vital Signs Vital signs: Vital Signs Temp 98.1 F 05/19/20 11:47 Pulse 84 05/19/20 11:47 Resp 20 05/19/20 12:10 BP 107/44 05/19/20 11:47 Pulse Ox 94 L 05/19/20 12:10 Intake & Output 05/18/20 05/19/20 05/19/20 18:59 06:59 18:59 Intake Total 600 240 Balance 600 240 Weight 46.5 kg 46.5 kg Intake: Oral 600 240 Other: Voiding Method Bedside Commode Bedside Commode Diaper Diaper # Voids 1 1 1 # Bowel Movements 1 - Exam GENERAL EXAM: Cachectic on 5 L nasal cannula, in no distress. HEAD: Normocephalic/atraumatic. EENT: PERRLA, EOMI, anicteric, dry mucous membranes. CHEST: No chest wall deformity. Symmetrical expansion. LUNGS: Minimal fine crackles at the bases no rhonchi and no wheezes. CVS: Regular rate and rhythm, normal S1 and S2, no gallops, no murmurs, no rubs ABDOMEN: Soft, nontender. No hepatosplenomegaly, normal bowel sounds, no guarding or rigidity. EXTREMITIES: No clubbing, 1+ edema, no cyanosis, 2+ pulses and upper and lower extremities. MUSCULOSKELETAL: Muscle strength and tone normal. Psychiatric: Normal mood affect and normal mental status examination SKIN: No rashes CENTRAL NERVOUS SYSTEM: Alert and oriented 3 no gross focal deficits. - Labs CBC & Chem 7: 05/18/20 06:57 05/18/20 06:57 Labs: Abnormal Lab Results - Last 24 Hours (Table) 05/18/20 05/18/20 05/19/20 Range/Units 16:41 20:13 06:04 POC Glucose (mg/dL) 185 H 162 H 103 H (75-99) mg/dL 05/19/20 Range/Units 11:40 POC Glucose (mg/dL) 169 H (75-99) mg/dL Assessment and Plan Assessment: Impression: Acute hypoxic respiratory failure secondary to acute exacerbation of COPD, bilateral pleural effusions, most likely secondary to acute diastolic congestive heart failure along with pulmonary hypertension. Secondary pulmonary hypertension secondary to COPD Chronic atrial fibrillation, addressed by cardiology on the case. Right-sided hydronephrosis. Benign essential hypertension. Type 2 diabetes. Ex-smoker. Recommendation Continue present medications including bronchodilators, diuretics, antibiotics, oxygen, Consider discharge home and follow up on outpatient basis. Long-term prognosis is extremely poor and guarded. Time with Patient: Less than 30
== END 2020-05-19 14:09 | DRG 190 ==
LOC: EC 13:14 → 3SCARD 16:21 → 2SICU 05-11 11:55 → 3SCARD 05-14 18:36
PROVIDERS: ADMIT Internal Medicine; ATTEND Internal Medicine
PROC: 5A09457 Assistance with Respiratory Ventilation, 24-96 Consecutive Hours, Continuous Positive Airway Pressure (ICD-10-PCS; principal; 2020-05-07)
PROC: 05H933Z Insertion of Infusion Device into Right Brachial Vein, Percutaneous Approach (ICD-10-PCS; 2020-05-12 07:30)
PROC: B2111ZZ Fluoroscopy of Multiple Coronary Arteries using Low Osmolar Contrast (ICD-10-PCS; 2020-05-13)
PROC: 4A023N6 Measurement of Cardiac Sampling and Pressure, Right Heart, Percutaneous Approach (ICD-10-PCS; 2020-05-13)
DX: J44.1 Chronic obstructive pulmonary disease with (acute) exacerbation (principal); E43 Unspecified severe protein-calorie malnutrition; I50.33 Acute on chronic diastolic (congestive) heart failure; I21.A1 Myocardial infarction type 2; J96.21 Acute and chronic respiratory failure with hypoxia; J96.22 Acute and chronic respiratory failure with hypercapnia; N17.9 Acute kidney failure, unspecified; R64 Cachexia; E87.2 Acidosis; I13.0 Hypertensive heart and chronic kidney disease with heart failure and stage 1 through stage 4 chronic kidney disease, or unspecified chronic kidney disease; N13.30 Unspecified hydronephrosis; I48.92 Unspecified atrial flutter; Z68.1 Body mass index [BMI] 19.9 or less, adult; J98.11 Atelectasis; I27.23 Pulmonary hypertension due to lung diseases and hypoxia; D63.1 Anemia in chronic kidney disease; I95.9 Hypotension, unspecified; E11.22 Type 2 diabetes mellitus with diabetic chronic kidney disease; R54 Age-related physical debility; I48.0 Paroxysmal atrial fibrillation; Z20.822 Contact with and (suspected) exposure to COVID-19; E78.5 Hyperlipidemia, unspecified; R49.0 Dysphonia; I25.10 Atherosclerotic heart disease of native coronary artery without angina pectoris; N18.9 Chronic kidney disease, unspecified; T38.0X5A Adverse effect of glucocorticoids and synthetic analogues, initial encounter; I07.1 Rheumatic tricuspid insufficiency; M95.4 Acquired deformity of chest and rib; Z71.3 Dietary counseling and surveillance; Z79.82 Long term (current) use of aspirin; Z79.84 Long term (current) use of oral hypoglycemic drugs; Z79.1 Long term (current) use of non-steroidal anti-inflammatories (NSAID); Z79.899 Other long term (current) drug therapy; Z87.891 Personal history of nicotine dependence; Z90.710 Acquired absence of both cervix and uterus; Z98.890 Other specified postprocedural states
CPT/HCPCS: 36410; 36415; 36600; 71045; 71046; 71275; 74230; 76770; 76937; 80048; 80053; 81003; 82533; 82728; 82746; 82805; 82810; 83540; 83550; 83605; 83735; 83880; 84132; 84145; 84484; 85018; 85025; 85379; 85610; 85730; 87040; 87635; 93005; 93306; 93451; 93970; 94640; 94660; 94760; 96374; 99285

== ENCOUNTER 2020-05-20 13:33 | Inpatient (IN) | payer MEDICARE ==
--- NOTE | 2020-05-20 14:05 | ED ---
General Adult HPI - General Chief complaint: Shortness of Breath Stated complaint: ZABRINA Time Seen by Provider: 05/20/20 13:35 Source: patient, EMS, RN notes reviewed, old records reviewed Mode of arrival: EMS Limitations: physical limitation - History of Present Illness Initial comments: This is a 80-year-old female who comes to us from a correction. Patient was descending some she started to walk and she was descending down to the 80s. Patient comes in stating she was much more short of breath when she was walking today. Patient denies any chest pain or palpitations. Patient denies any fever chills or cough. Patient states she's been tested for COVID 2 in both been negative. Patient denies any abdominal pain patient denies any nausea vomiting. Patient denies any increased swelling to the legs. Patient states she used to be a smoker but quit 20 years ago. Denies any headache patient denies any numbness weakness patient denies lightheadedness or dizziness. Patient has history of COPD as well as congestive heart failure she thinks. - Related Data Home Medications Medication Instructions Recorded Confirmed Albuterol Inhaler [Ventolin Hfa 2 puff INHALATION RT-Q6H PRN 05/07/20 05/20/20 Inhaler] Atorvastatin [Lipitor] 20 mg PO HS@209905/07/20 05/20/20 Celecoxib [CeleBREX] 200 mg PO DAILY@89905/07/20 05/20/20 Fluticasone/Umeclidin/Vilanter 1 puff INHALATION RT-DAILY@89905/07/20 05/20/20 [Arnaldo Harota 100-62.5-25] metFORMIN HCL [Glucophage Xr] 500 mg PO DAILY@89905/07/20 05/20/20 Amiodarone [Cordarone] 200 mg PO BID@0900,209905/20/20 05/20/20 Apixaban [Eliquis] 5 mg PO BID@0900,209905/20/20 05/20/20 Diltiazem Oral [Cardizem*] 30 mg PO TID@0900,1300,209905/20/20 05/20/20 Ferrous Sulfate [Iron (65 MG 325 mg PO BID@0900,209905/20/20 05/20/20 Elemental)] Furosemide [Lasix] 20 mg PO DAILY@0900 05/20/20 05/20/20 Gabapentin [Neurontin] 300 mg PO HS@2100 05/20/20 05/20/20 Sildenafil [Revatio] 20 mg PO TID@0900,1300,2100 05/20/20 05/20/20 predniSONE See Taper PO DIRECTED 05/20/20 05/20/20 Previous Rx's Medication Instructions Recorded guaiFENesin-DM 100-10MG/5ML 10 ml PO Q6H PRN ml 05/19/20 [Robitussin DM] Allergies Allergy/AdvReac Type Severity Reaction Status Date / Time No Known Allergies Allergy Verified 05/20/20 14:38 Review of Systems ROS Statement: Those systems with pertinent positive or pertinent negative responses have been documented in the HPI. ROS Other: All systems not noted in ROS Statement are negative. Past Medical History Past Medical History: COPD, Diabetes Mellitus, Hyperlipidemia, Hypertension History of Any Multi-Drug Resistant Organisms: None Reported Past Surgical History: Hysterectomy, Orthopedic Surgery Past Anesthesia/Blood Transfusion Reactions: No Reported Reaction Past Psychological History: No Psychological Hx Reported Smoking Status: Former smoker Past Alcohol Use History: None Reported Past Drug Use History: None Reported General Exam - General Exam Comments Initial Comments: GENERAL: Patient is well-developed and well-nourished. Patient is nontoxic and well- hydrated and is in mild distress. ENT: Neck is soft and supple. No significant lymphadenopathy is noted. Oropharynx is clear. Moist mucous membranes. Neck has full range of motion without el iciting any pain. EYES: The sclera were anicteric and conjunctiva were pink and moist. Extraocular movements were intact and pupils were equal round and reactive to light. Eyelids were unremarkable. PULMONARY: Patient has diminished breath sounds posteriorly but anteriorly there is some crackles bilaterally CARDIOVASCULAR: There is a regular rate and rhythm without any murmurs gallops or rubs. ABDOMEN: Soft and nontender with normal bowel sounds. SKIN: Skin is clear with no lesions or rashes and otherwise unremarkable. NEUROLOGIC: Patient is alert and oriented x3. Cranial nerves II through XII are grossly intact. Motor and sensory are also intact. Normal speech, volume and content. Symmetrical smile. MUSCULOSKELETAL: Normal extremities with adequate strength and full range of motion. LYMPHATICS: No significant lymphadenopathy is noted PSYCHIATRIC: Normal psychiatric evaluation. Limitations: physical limitation Course Vital Signs 05/20/20 05/20/20 05/20/20 13:35 13:39 13:40 Temperature 98.0 F Pulse Rate 92 Respiratory 24 Rate Blood Pressure 141/69 O2 Sat by Pulse 82 L 84 L 93 L Oximetry 05/20/20 05/20/20 05/20/20 13:47 14:10 15:19 Temperature Pulse Rate 89 85 Respiratory 16 24 16 Rate Blood Pressure 134/66 116/65 O2 Sat by Pulse 100 96 Oximetry 05/20/20 05/20/20 15:20 17:00 Temperature Pulse Rate 90 Respiratory 16 Rate Blood Pressure 116/57 O2 Sat by Pulse 92 L 96 Oximetry Medical Decision Making - Medical Decision Making EKG shows normal sinus rhythm at 88 bpm AR interval 124 Menendez is 76 QT interval 392 QTC is 474 per patient's EKG shows no ST segment elevation or depression. CT of the chest showed probable pneumonia. Patient was diagnosed with sepsis at 4:00. Patient received 2 g of Rocephin. I spoke with Dr. Garcia he agreed to admit the patient admitted the patient wrote admitting orders - Lab Data Result diagrams: 05/20/20 14:03 05/20/20 14:02 Lab Results 05/20/20 05/20/20 05/20/20 Range/Units 14:02 14:02 14:02 WBC (3.8-10.6) k/uL RBC (3.80-5.40) m/uL Hgb (11.4-16.0) gm/dL Hct (34.0-46.0) % MCV (80.0-100.0) fL MCH (25.0-35.0) pg MCHC (31.0-37.0) g/dL RDW (11.5-15.5) % Plt Count (150-450) k/uL MPV Neutrophils % % Lymphocytes % % Monocytes % % Eosinophils % % Basophils % % Neutrophils # (1.3-7.7) k/uL Lymphocytes # (1.0-4.8) k/uL Monocytes # (0-1.0) k/uL Eosinophils # (0-0.7) k/uL Basophils # (0-0.2) k/uL Hypochromasia Poikilocytosis Anisocytosis PT 12.8 H (9.0-12.0) sec INR 1.2 H (<1.2) APTT 28.5 (22.0-30.0) sec D-Dimer 1.35 H (<0.60) mg/L FEU Sodium 138 (137-145) mmol/L Potassium 3.7 (3.5-5.1) mmol/L Chloride 98 (98-107) mmol/L Carbon Dioxide 36 H (22-30) mmol/L Anion Gap 4 mmol/L BUN 36 H (7-17) mg/dL Creatinine 0.49 L (0.52-1.04) mg/dL Est GFR (CKD-EPI)AfAm >90 (>60 ml/min/1.73 sqM) Est GFR (CKD-EPI)NonAf >90 (>60 ml/min/1.73 sqM) Glucose 142 H (74-99) mg/dL Plasma Lactic Acid Frankie 1.7 (0.7-2.0) mmol/L Calcium 8.4 (8.4-10.2) mg/dL Total Bilirubin 0.9 (0.2-1.3) mg/dL AST 41 H (14-36) U/L ALT 31 (4-34) U/L Alkaline Phosphatase 67 (38-126) U/L Troponin I (0.000-0.034) ng/mL NT-Pro-B Natriuret Pep pg/mL Total Protein 4.7 L (6.3-8.2) g/dL Albumin 2.7 L (3.5-5.0) g/dL 05/20/20 05/20/20 05/20/20 Range/Units 14:02 14:03 14:03 WBC 27.7 H (3.8-10.6) k/uL RBC 3.17 L (3.80-5.40) m/uL Hgb 8.7 L (11.4-16.0) gm/dL Hct 26.7 L (34.0-46.0) % MCV 84.3 (80.0-100.0) fL MCH 27.5 (25.0-35.0) pg MCHC 32.6 (31.0-37.0) g/dL RDW 19.0 H (11.5-15.5) % Plt Count 141 L (150-450) k/uL MPV 9.8 Neutrophils % 97 % Lymphocytes % 1 % Monocytes % 2 % Eosinophils % 1 % Basophils % 0 % Neutrophils # 26.8 H (1.3-7.7) k/uL Lymphocytes # 0.2 L (1.0-4.8) k/uL Monocytes # 0.5 (0-1.0) k/uL Eosinophils # 0.2 (0-0.7) k/uL Basophils # 0.0 (0-0.2) k/uL Hypochromasia Marked Poikilocytosis Moderate Anisocytosis Slight PT (9.0-12.0) sec INR (<1.2) APTT (22.0-30.0) sec D-Dimer (<0.60) mg/L FEU Sodium (137-145) mmol/L Potassium (3.5-5.1) mmol/L Chloride (98-107) mmol/L Carbon Dioxide (22-30) mmol/L Anion Gap mmol/L BUN (7-17) mg/dL Creatinine (0.52-1.04) mg/dL Est GFR (CKD-EPI)AfAm (>60 ml/min/1.73 sqM) Est GFR (CKD-EPI)NonAf (>60 ml/min/1.73 sqM) Glucose (74-99) mg/dL Plasma Lactic Acid Frankie (0.7-2.0) mmol/L Calcium (8.4-10.2) mg/dL Total Bilirubin (0.2-1.3) mg/dL AST (14-36) U/L ALT (4-34) U/L Alkaline Phosphatase (38-126) U/L Troponin I 0.025 (0.000-0.034) ng/mL NT-Pro-B Natriuret Pep 1270 pg/mL Total Protein (6.3-8.2) g/dL Albumin (3.5-5.0) g/dL Critical Care Time Critical Care Time: Yes Total Critical Care Time: 35 Disposition Clinical Impression: Pneumonia, Sepsis Disposition: ADMITTED IP TO THIS HOSP Referrals: Lenny Zamarripa MD [Primary Care Provider] - 1-2 days Time of Disposition: 18:37
[2020-05-20 14:17] LABS: Anisocytosis Slight; Basophils % (A) 0 %; Eosinophils # (A) 0.2 k/uL (0-0.7); Eosinophils % (A) 1 %; HCT 26.7 % (34.0-46.0); HGB 8.7 gm/dL (11.4-16.0); Hypochromasia Marked; Lymphocytes # (A) 0.2 k/uL (1.0-4.8); Lymphocytes % (A) 1 %; MCH 27.5 pg (25.0-35.0); MCHC 32.6 g/dL (31.0-37.0); MCV 84.3 fL (80.0-100.0); Mean Platelet Volume 9.8; Monocytes # (A) 0.5 k/uL (0-1.0); Monocytes % (A) 2 %; Neutrophils # (A) 26.8 k/uL (1.3-7.7); Neutrophils % (A) 97 %; Platelet Count 141 k/uL (150-450); Poikilocytosis Moderate; RBC 3.17 m/uL (3.80-5.40); WBC 27.7 k/uL (3.8-10.6)
[2020-05-20 14:35] LABS: INR 1.2 (<1.2); Partial Thromboplastin Time 28.5 sec (22.0-30.0); Prothrombin Time 12.8 sec (9.0-12.0)
[2020-05-20 14:38] LABS: ALT 31 U/L (4-34); AST 41 U/L (14-36); African American GFR (CKD) >90 (>60 ml/min/1.73 sqM); Albumin 2.7 g/dL (3.5-5.0); Alkaline Phosphatase 67 U/L (38-126); Anion Gap 4 mmol/L; Blood Urea Nitrogen 36 mg/dL (7-17); Calcium 8.4 mg/dL (8.4-10.2); Carbon Dioxide 36 mmol/L (22-30); Chloride 98 mmol/L (98-107); Glucose 142 mg/dL (74-99); Non-African American GFR(CKD) >90 (>60 ml/min/1.73 sqM); Potassium 3.7 mmol/L (3.5-5.1); Sodium 138 mmol/L (137-145); Total Bilirubin 0.9 mg/dL (0.2-1.3); Total Protein 4.7 g/dL (6.3-8.2)
[2020-05-20 14:43] LABS: D-Dimer 1.35 mg/L FEU (<0.60)
--- NOTE | 2020-05-20 14:47 | XR ---
EXAMINATION TYPE: XR chest 2V DATE OF EXAM: 05/20/2020 COMPARISON: NONE TECHNIQUE: PA and lateral views submitted. HISTORY: Difficulty breathing FINDINGS: Bibasilar subsegmental consolidation with small effusion. Hyperinflation suggests COPD. Heart size no rmal. Atherosclerotic change aorta. Arthropathy shoulders with diffuse osteopenia. No pneumothorax. IMPRESSION: 1. COPD with bilateral infiltrate and pleural effusion correlate for pneumonia otherwise consider mil d CHF.
--- NOTE | 2020-05-20 16:33 | CT ---
EXAMINATION TYPE: CT chest angio for PE DATE OF EXAM: 05/20/2020 COMPARISON: Chest x-ray 05/20/2020, chest CT 05/07/2020 HISTORY: Shortness of breath. CT DLP: 216.1 mGycm Automated exposure control for dose reduction was used. CONTRAST: CT Chest for pulmonary embolism performed with with IV Contrast, patient injected with 80 mL of Isovu e 370. Three-dimensional reconstructions performed on an alternate workstation. FINDINGS: LUNGS: There are bilateral pleural effusions. There is associated compressive atelectasis. Emphysemat ous changes are present in the upper lobes. MEDIASTINUM: There is satisfactory enhancement of the pulmonary artery and its branches, there is no CT evidence for pulmonary embolism. There are no greater than 1 cm hilar or mediastinal lymph nodes. No pericardial effusion is seen. AORTA: No additional significant abnormality is seen. OTHER: Question bilateral hydronephrosis. There is motion on the exam. There is a hiatal hernia pres ent. Calcification is present at the root of the aorta.r. IMPRESSION: Bilateral pleural effusions as noted on prior exam, correlate for pneumonia, pulmonary edema, congest caleb heart failure in a patient with pre-existing COPD. Question bilateral hydronephrosis.
[2020-05-20] MEDS ORDERED: cefTRIAXone IN SWFI 1,000 MG/10 ML SYRINGE IVP STA (17:54)
[2020-05-20] MEDS ORDERED: PIPERACILLIN-TAZOBACTAM 3.375 GM in SODIUM CHLORIDE 0.9% 100 ML IVPB STA (18:38)
[2020-05-20] MEDS ORDERED: AZITHROMYCIN 500 MG in SODIUM CHLORIDE 0.9% 250 ML IVPB STA (18:38)
[2020-05-20] MEDS ORDERED: PNEUMONIA PROTOCOL UTILIZED 1 EACH MISC PO PRN (18:38)
[2020-05-20] MEDS ORDERED: ALBUTEROL HFA INHALER INHALATION PRN (21:02)
[2020-05-20] MEDS ORDERED: guaiFENesin-DM 100-10MG/5ML 10 ML CUP PO PRN (21:07)
[2020-05-21] MEDS: PIPERACILLIN-TAZOBACTAM 3.375 GM in SODIUM CHLORIDE 0.9% 100 ML IVPB SCH ×3 (03:01→19:34)
[2020-05-21] MEDS: IPRATROPIUM 0.5 MG/2.5 ML NEBU INHALATION SCH ×4 (07:56→20:36)
--- NOTE | 2020-05-21 07:57 | XR ---
EXAMINATION TYPE: XR chest 1V portable DATE OF EXAM: 05/21/2020 Comparison: 05/20/2020 Clinical History: 80-year-old female pneumonia Findings: Heart normal size. Atherosclerotic calcifications. Hyperinflation. Mild interstitial prominence. Smal l effusions with a patchy basilar opacities, left greater than right, not significantly changed. Impression: COPD and continued small effusions with adjacent patchy infiltrate, left greater than right.
[2020-05-21] MEDS ORDERED: SYMBICORT 80-4.5 MCG INHALER INHALATION SCH (08:00)
[2020-05-21] MEDS: FERROUS SULFATE 325 MG TAB PO SCH ×2 (08:12→20:21)
[2020-05-21] MEDS: SILDENAFIL 20 MG TAB PO SCH ×3 (08:12→20:21)
[2020-05-21] MEDS: DILTIAZEM ORAL 30 MG TAB PO SCH ×3 (08:12→20:21)
[2020-05-21] MEDS: APIXABAN 5 MG TAB PO SCH ×2 (08:12→20:21)
[2020-05-21] MEDS: metFORMIN 500 MG TAB PO SCH ×2 (08:12→20:20)
[2020-05-21] MEDS ORDERED: FUROSEMIDE 20 MG TAB PO SCH (09:00)
[2020-05-21] MEDS ORDERED: AMIODARONE 200 MG TAB PO SCH (09:00)
[2020-05-21] MEDS ORDERED: MELOXICAM 7.5 MG TAB PO SCH (09:00)
[2020-05-21] MEDS ORDERED: BUDESONIDE 1 MG/2 ML NEBU INHALATION SCH (12:46)
[2020-05-21] MEDS ORDERED: FORMOTEROL FUMARATE 20 MCG/2 ML NEBU INHALATION SCH (12:46)
[2020-05-21] MEDS: guaiFENesin 600 MG TABLET.ER PO SCH ×3 (13:04→22:46)
[2020-05-21] MEDS: IPRATROPIUM-ALBUTEROL 3 ML NEB INHALATION SCH ×3 (13:04→20:36)
--- NOTE | 2020-05-21 15:58 | P.CNPUL ---
History of Present Illness Consult date: 05/21/20 Reason for consult: dyspnea, cough Chief complaint: Shortness of breath History of present illness: patient is a 80 year-old extended care facility patient, patient came to the hospital with increasing shortness of breath, oxygen saturation was in 80%, prior medical history significant for heart failure and COPD he quit smoking more than 20 years ago, her cord testing in [facility] has been negative, , computed tomography scan positive for developing pneumonia, patient has WBC count of 27,000 has been started on broad-spectrum antibiotics,labs from today is pending patient remains on 5 L oxygen, her temperature is 97, saturation is 93%, more dynamically stable, FiO2 down to 5 L from 15 L high flow oxygen x-ray performed todayshowing patchy infiltrate left greater than the right, her covid test came back negative, Review of Systems All systems: negative Past Medical History Past Medical History: COPD, Diabetes Mellitus, Hyperlipidemia, Hypertension History of Any Multi-Drug Resistant Organisms: None Reported Past Surgical History: Hysterectomy, Orthopedic Surgery Past Anesthesia/Blood Transfusion Reactions: No Reported Reaction Past Psychological History: No Psychological Hx Reported Smoking Status: Former smoker Past Alcohol Use History: None Reported Past Drug Use History: None Reported Medications and Allergies Home Medications Medication Instructions Recorded Confirmed Type Albuterol Inhaler [Ventolin Hfa 2 puff INHALATION RT-Q6H PRN 05/07/20 05/20/20 History Inhaler] Atorvastatin [Lipitor] 20 mg PO HS@209905/07/20 05/20/20 History Celecoxib [CeleBREX] 200 mg PO DAILY@89905/07/20 05/20/20 History Fluticasone/Umeclidin/Vilanter 1 puff INHALATION RT-DAILY@89905/07/20 05/20/20 History [Trelegy Ellipta 100-62.5-25] metFORMIN HCL [Glucophage Xr] 500 mg PO DAILY@89905/07/20 05/20/20 History guaiFENesin-DM 100-10MG/5ML 10 ml PO Q6H PRN ml 05/19/20 05/20/20 Rx [Robitussin DM] Amiodarone [Cordarone] 200 mg PO BID@0900,209905/20/20 05/20/20 History Apixaban [Eliquis] 5 mg PO BID@0900,209905/20/20 05/20/20 History Diltiazem Oral [Cardizem*] 30 mg PO TID@0900,1300,209905/20/20 05/20/20 History Ferrous Sulfate [Iron (65 MG 325 mg PO BID@0900,209905/20/20 05/20/20 History Elemental)] Furosemide [Lasix] 20 mg PO DAILY@0900 05/20/20 05/20/20 History Gabapentin [Neurontin] 300 mg PO HS@209905/20/20 05/20/20 History Sildenafil [Revatio] 20 mg PO TID@0900,1300,209905/20/20 05/20/20 History predniSONE See Taper PO DIRECTED 05/20/20 05/20/20 History Allergies Allergy/AdvReac Type Severity Reaction Status Date / Time No Known Allergies Allergy Verified 05/20/20 14:38 Physical Exam Vitals: Vital Signs Temp Pulse Pulse Resp BP BP Pulse Ox 05/21/20 13:26 97.7 F 90 24 107/51 93 L 05/21/20 12:38 88 05/21/20 12:28 92 05/21/20 08:50 16 05/21/20 08:10 94 16 05/21/20 07:57 95 16 97 05/21/20 06:50 97.7 F 94 26 H 127/62 97 05/21/20 02:55 97.5 F L 87 97/58 98 05/20/20 21:36 20 05/20/20 21:24 97.8 F 86 116/63 96 05/20/20 19:50 85 20 108/52 96 05/20/20 18:55 85 16 116/57 96 05/20/20 17:00 90 16 116/57 96 Intake and Output 05/21/20 05/21/20 05/21/20 06:59 14:59 22:59 Output Total 3600 Balance -3600 Output: Urine 1800 Uretheral (Banegas) 1800 Post Void Residual 1800 Other: Voiding Method Diaper Indwelling Catheter # Voids 1 # Bowel Movements 1 Weight 45.359 kg - Constitutional General appearance: average body habitus, cooperative, disheveled - EENT Eyes: PERRLA Ears: bilateral: normal - Neck Neck: normal ROM Carotids: bilateral: upstroke normal - Respiratory Respiratory: bilateral: CTA - Cardiovascular Rhythm: regular Heart sounds: normal: S1, S2 - Neurologic Neurologic: CNII-XII intact - Musculoskeletal Musculoskeletal: gait normal, generalized weakness, strength equal bilaterally - Psychiatric Psychiatric: A&O x's 3, appropriate affect, intact judgment & insight Results - Laboratory Findings CBC and BMP: 05/20/20 14:03 05/20/20 14:02 PT/INR, D-dimer PT 12.8 sec (9.0-12.0) H 05/20/20 14:02 INR 1.2 (<1.2) H 05/20/20 14:02 D-Dimer 1.35 mg/L FEU (<0.60) H 05/20/20 14:02 Abnormal lab findings: Abnormal Labs 05/20/20 05/20/20 05/20/20 14:02 14:02 14:03 WBC 27.7 H RBC 3.17 L Hgb 8.7 L Hct 26.7 L RDW 19.0 H Plt Count 141 L Neutrophils # 26.8 H Lymphocytes # 0.2 L PT 12.8 H INR 1.2 H D-Dimer 1.35 H Carbon Dioxide 36 H BUN 36 H Creatinine 0.49 L Glucose 142 H AST 41 H Total Protein 4.7 L Albumin 2.7 L - Diagnostic Findings Chest x-ray: report reviewed, image reviewed CT scan - chest: report reviewed, image reviewed Assessment and Plan Assessment: bilateral pneumonia Acute hypoxic respiratory failure Sepsis due to pneumonia Potential hypertensive cardiovascular disease COPD Plan: Continue broad-spectrum antibiotics Breathing treatments Supplemental oxygen Deep breathing exercise Further recommendations pending plan of care as per clinical response of the patient IV steroids Time with Patient: Greater than 30
[2020-05-21] MEDS: GABAPENTIN 300 MG CAP PO SCH (20:20)
[2020-05-21] MEDS: methylPREDNISolone SOD SUCCI 40 MG/ML 1 ML VIAL IV SCH (20:20)
[2020-05-21] MEDS: ATORVASTATIN 20 MG TAB PO SCH (20:21)
[2020-05-21 20:36] LABS: Glucose,Whole Blood 231 mg/dL (75-99)
[2020-05-21] MEDS: FORMOTEROL FUMARATE 20 MCG/2 ML NEBU INHALATION SCH (20:36)
[2020-05-21] MEDS: BUDESONIDE 1 MG/2 ML NEBU INHALATION SCH (20:36)
[2020-05-21] MEDS ORDERED: AZITHROMYCIN 500 MG in SODIUM CHLORIDE 0.9% 250 ML IVPB SCH (21:00)
--- NOTE | 2020-05-21 22:08 | P.HPIM ---
History of Present Illness H&P Date: 05/21/20 Chief Complaint: Short of breath History of presenting complaint: This is a pleasant 80-year-old patient of Dr. Carrillo. Chronic stable medical conditions include diabetes, hypertension, hyperlipidemia, peripheral neuropathy, osteoarthritis, paroxysmal atrial flutter for which patient anticoagulation currently in sinus rhythm. Patient now presents with progressive weakness. Significant cough congested not able to expectorate. Some wheezing. No fever no chills. Decreased appetite. Patient had abdominal distention earlier was found to have urinary retention and Banegas catheter be placed. Patient also has some edema on presentation that has gone down. Off of the bladder was relieved Review of systems: GEN.: Tired EYES: None HEENT: None NECK: None RESPIRATORY: As above CARDIOVASCULAR: None GASTROINTESTINAL: None GENITOURINARY: Urinary retention MUSCULOSKELETAL: Joint pains LYMPHATICS: None HEMATOLOGICAL: None PSYCHIATRY: None NEUROLOGICAL: None Past medical history to include: COPD, diabetes, hypertension, hyperlipidemia, atrial flutter, paroxysmal Social history: Lives alone. Does use a cane. Smokes about 2 packs a day for 40 years stopped about 20 years ago. No alcohol Physical examination: VITAL SIGNS: 98, 92, 24, 1 41 x 69, 18 2% on room air GENERAL: BMI 16.1, reclining, tired, short of breath. Loss of subcu distention muscle mass EYES: Pupils equal. Conjunctiva normal. HEENT: External appearance of nose and ears normal, oral cavity grossly normal. NECK: JVD not raised; masses not palpable. HEART: First and second heart sounds are normal; minimal edema. LUNGS: Respiratory rate increased, diminished breath sounds prolonged expiration some wheezing, accessory muscles looking, not able to speak in full sentences. ABDOMEN: Soft, nontender, liver spleen not palpable, no masses palpable. PSYCH: Alert and oriented x3; mood and affect anxiousl. MUSCULAR skeletal: Evidence of OA NEUROLOGICAL: Cranial nerves grossly intact; no facial asymmetry, power and sensation grossly intact. LYMPHATICS: No lymph nodes palpable in the axilla and neck INVESTIGATIONS, reviewed in the clinical context: WBC 27.7 hemoglobin 8.7 platelets 141 d-dimer 1.35 potassium 3.7 bun 36 creatinine 0.49 troponin I 0.025 albumin 2.7 Coronavirus [PCR]-not detected EKG tracing personally reviewed by me-normal sinus rhythm P pulmonale some nons pecific T-wave changes Chest x-ray film personally reviewed by me-hyperinflated, bilateral infiltrates, pleural effusion Assessment and plan: -Bilateral pneumonia, suspect gram-negative organism, patient is on IV Zosyn. Mucinex -Acute COPD exacerbation in an previous smoker. Add DuoNeb, IV Solu-Medrol, long-acting beta agonist and inhaled steroids. Consult pulmonary -Severe protein calorie malnutrition with a BMI of 16.1 from decreased oral intake and nutritional supplement consult dietitian -Diabetes mellitus type 2 on oral hypoglycemic. Follow Accu-Cheks. -Hyperlipidemia continue with Lipitor -Paroxysmal atrial flutter currently in sinus rhythm continue with eliquis, amiodarone to cut back on the dose -Primary osteoarthritis continue with Celebrex Care was discussed with the patient. Questions answered. Given the complexity and severity of patient's condition expect the patient to be in the hospital at least for 2 overnights Past Medical History Past Medical History: COPD, Diabetes Mellitus, Hyperlipidemia, Hypertension History of Any Multi-Drug Resistant Organisms: None Reported Past Surgical History: Hysterectomy, Orthopedic Surgery Past Anesthesia/Blood Transfusion Reactions: No Reported Reaction Past Psychological History: No Psychological Hx Reported Smoking Status: Former smoker Past Alcohol Use History: None Reported Past Drug Use History: None Reported Medications and Allergies Home Medications Medication Instructions Recorded Confirmed Type Albuterol Inhaler [Ventolin Hfa 2 puff INHALATION RT-Q6H PRN 05/07/20 05/20/20 History Inhaler] Atorvastatin [Lipitor] 20 mg PO HS@209905/07/20 05/20/20 History Celecoxib [CeleBREX] 200 mg PO DAILY@89905/07/20 05/20/20 History Fluticasone/Umeclidin/Vilanter 1 puff INHALATION RT-DAILY@89905/07/20 05/20/20 History [Trelegy Ellipta 100-62.5-25] metFORMIN HCL [Glucophage Xr] 500 mg PO DAILY@89905/07/20 05/20/20 History guaiFENesin-DM 100-10MG/5ML 10 ml PO Q6H PRN ml 05/19/20 05/20/20 Rx [Robitussin DM] Amiodarone [Cordarone] 200 mg PO BID@0900,209905/20/20 05/20/20 History Apixaban [Eliquis] 5 mg PO BID@0900,2100 05/20/20 05/20/20 History Diltiazem Oral [Cardizem*] 30 mg PO TID@0900,1300,209905/20/20 05/20/20 History Ferrous Sulfate [Iron (65 MG 325 mg PO BID@0900,2100 05/20/20 05/20/20 History Elemental)] Furosemide [Lasix] 20 mg PO DAILY@0900 05/20/20 05/20/20 History Gabapentin [Neurontin] 300 mg PO HS@209905/20/20 05/20/20 History Sildenafil [Revatio] 20 mg PO TID@0900,1300,209905/20/20 05/20/20 History predniSONE See Taper PO DIRECTED 05/20/20 05/20/20 History Allergies Allergy/AdvReac Type Severity Reaction Status Date / Time No Known Allergies Allergy Verified 05/20/20 14:38 Physical Exam Vitals: Vital Signs Temp Pulse Pulse Resp BP BP Pulse Ox 05/21/20 08:50 16 05/21/20 08:10 94 16 05/21/20 07:57 95 16 97 05/21/20 06:50 97.7 F 94 26 H 127/62 97 05/21/20 02:55 97.5 F L 87 97/58 98 05/20/20 21:36 20 05/20/20 21:24 97.8 F 86 116/63 96 05/20/20 19:50 85 20 108/52 96 05/20/20 18:55 85 16 116/57 96 05/20/20 17:00 90 16 116/57 96 05/20/20 15:20 92 L 05/20/20 15:19 85 16 116/65 96 05/20/20 14:10 24 05/20/20 13:47 89 16 134/66 100 05/20/20 13:40 93 L 05/20/20 13:39 84 L 05/20/20 13:35 98.0 F 92 24 141/69 82 L Intake and Output 05/20/20 05/21/20 05/21/20 22:59 06:59 14:59 Output Total 3600 Balance -3600 Output: Urine 1800 Uretheral (Banegas) 1800 Post Void Residual 1800 Other: Voiding Method Bedpan Diaper Diaper Indwelling Catheter # Voids 1 # Bowel Movements 1 Weight 45.359 kg Results CBC & Chem 7: 05/20/20 14:03 05/20/20 14:02 Labs: Abnormal Lab Results - Last 24 Hours (Table) 05/20/20 05/20/20 05/20/20 Range/Units 14:02 14:02 14:03 WBC 27.7 H (3.8-10.6) k/uL RBC 3.17 L (3.80-5.40) m/uL Hgb 8.7 L (11.4-16.0) gm/dL Hct 26.7 L (34.0-46.0) % RDW 19.0 H (11.5-15.5) % Plt Count 141 L (150-450) k/uL Neutrophils # 26.8 H (1.3-7.7) k/uL Lymphocytes # 0.2 L (1.0-4.8) k/uL PT 12.8 H (9.0-12.0) sec INR 1.2 H (<1.2) D-Dimer 1.35 H (<0.60) mg/L FEU Carbon Dioxide 36 H (22-30) mmol/L BUN 36 H (7-17) mg/dL Creatinine 0.49 L (0.52-1.04) mg/dL Glucose 142 H (74-99) mg/dL AST 41 H (14-36) U/L Total Protein 4.7 L (6.3-8.2) g/dL Albumin 2.7 L (3.5-5.0) g/dL Thrombosis Risk Factor Assmnt - Choose All That Apply Any of the Below Risk Factors Present?: Yes Each Factor Represents 1 point: Medical pt on bed rest Other Risk Factors: Yes Each Risk Factor Represents 3 Points: Age 75 years or older Thrombosis Risk Factor Assessment Total Risk Factor Score: 4 Thrombosis Risk Factor Assessment Level: Moderate Risk
[2020-05-22] MEDS: IPRATROPIUM-ALBUTEROL 3 ML NEB INHALATION SCH ×6 (01:40→20:31)
[2020-05-22] MEDS: PIPERACILLIN-TAZOBACTAM 3.375 GM in SODIUM CHLORIDE 0.9% 100 ML IVPB SCH ×3 (02:21→17:43)
[2020-05-22 07:21] LABS: Glucose,Whole Blood 176 mg/dL (75-99)
[2020-05-22] MEDS: DILTIAZEM ORAL 30 MG TAB PO SCH ×3 (09:02→20:23)
[2020-05-22] MEDS: SILDENAFIL 20 MG TAB PO SCH ×3 (09:02→20:23)
[2020-05-22] MEDS: methylPREDNISolone SOD SUCCI 40 MG/ML 1 ML VIAL IV SCH ×2 (09:02→20:22)
[2020-05-22] MEDS: metFORMIN 500 MG TAB PO SCH ×2 (09:02→20:22)
[2020-05-22] MEDS: AMIODARONE 200 MG TAB PO SCH (09:02)
[2020-05-22] MEDS: APIXABAN 5 MG TAB PO SCH ×2 (09:03→20:23)
[2020-05-22] MEDS: guaiFENesin 600 MG TABLET.ER PO SCH ×4 (09:03→20:22)
[2020-05-22] MEDS: FERROUS SULFATE 325 MG TAB PO SCH ×2 (09:03→20:23)
[2020-05-22] MEDS: FORMOTEROL FUMARATE 20 MCG/2 ML NEBU INHALATION SCH ×2 (09:05→20:31)
[2020-05-22] MEDS: BUDESONIDE 1 MG/2 ML NEBU INHALATION SCH ×2 (09:05→20:31)
[2020-05-22 11:55] LABS: Glucose,Whole Blood 186 mg/dL (75-99)
[2020-05-22 17:10] LABS: Glucose,Whole Blood 182 mg/dL (75-99)
[2020-05-22 20:21] LABS: Glucose,Whole Blood 212 mg/dL (75-99)
[2020-05-22] MEDS: AZITHROMYCIN 500 MG TAB PO SCH (20:23)
[2020-05-22] MEDS: GABAPENTIN 300 MG CAP PO SCH (20:23)
[2020-05-22] MEDS: ATORVASTATIN 20 MG TAB PO SCH (20:23)
--- NOTE | 2020-05-23 00:05 | P.PN ---
Progress Note - Text Progress Note Date: 05/22/20 Chief Complaint: Short of breath History of presenting complaint: This is a pleasant 80-year-old patient of Dr. Carrillo. Chronic stable medical conditions include diabetes, hypertension, hyperlipidemia, peripheral neuropathy, osteoarthritis, paroxysmal atrial flutter for which patient anticoagulation currently in sinus rhythm. Patient now presents with progressive weakness. Significant cough congested not able to expectorate. Some wheezing. No fever no chills. Decreased appetite. Patient had abdominal distention earlier was found to have urinary retention and Banegas catheter be placed. Patient also has some edema on presentation that has gone down. Off of the bladder was relieved Admitted with bilateral pneumonia started on IV Zosyn. Acute COPD exacerbation put on nebulizers, steroids Today-still short of breath. Congested cough. Not able to expectorate. Eating some. In bed short of breath Review of systems: Was done for constitutional, cardiovascular, GI, pulmonary. relevant finding as above Active Medications Albuterol Sulfate (Albuterol Hfa Inhaler) 2 puff INHALATION RT-Q6H PRN PRN Reason: Shortness Of Breath Albuterol/Ipratropium (Ipratropium-Albuterol 3 Ml Neb) 3 ml INHALATION RT-Q4H [facility] Last Admin: 05/22/20 20:31 Dose: 3 ml Documented by: Amiodarone HCl (Amiodarone 200 Mg Tab) 200 mg PO DAILY [facility] Last Admin: 05/22/20 09:02 Dose: 200 mg Documented by: Apixaban (Apixaban 5 Mg Tab) 5 mg PO BID@0900,2100 [facility] Last Admin: 05/22/20 20:23 Dose: 5 mg Documented by: Atorvastatin Calcium (Atorvastatin 20 Mg Tab) 20 mg PO HS@2100 [facility] Last Admin: 05/22/20 20:23 Dose: 20 mg Documented by: Azithromycin (Azithromycin 500 Mg Tab) 500 mg PO HS [facility] Last Admin: 05/22/20 20:23 Dose: 500 mg Documented by: Budesonide (Budesonide 1 Mg/2 Ml Nebu) 1 mg INHALATION RT-BID [facility] Last Admin: 05/22/20 20:31 Dose: 1 mg Documented by: Diltiazem HCl (Diltiazem Oral 30 Mg Tab) 30 mg PO TID@0900,1300,2100 [facility] Last Admin: 05/22/20 20:23 Dose: 30 mg Documented by: Ferrous Sulfate (Ferrous Sulfate 325 Mg Tab) 325 mg PO BID@0900,2100 [facility] Last Admin: 05/22/20 20:23 Dose: 325 mg Documented by: Formoterol Fumarate (Formoterol Fumarate 20 Mcg/2 Ml Nebu) 20 mcg INHALATION RT-BID [facility] Last Admin: 05/22/20 20:31 Dose: 20 mcg Documented by: Gabapentin (Gabapentin 300 Mg Cap) 300 mg PO HS@2100 [facility] Last Admin: 05/22/20 20:23 Dose: 300 mg Documented by: Guaifenesin (Guaifenesin 600 Mg Tablet.Er) 600 mg PO QID [facility] Last Admin: 05/22/20 20:22 Dose: 600 mg Documented by: Piperacillin Sod/Tazobactam (Sod 3.375 gm/ Sodium Chloride) 100 mls @ 25 mls/hr IVPB Q8H [facility] Last Admin: 05/22/20 17:43 Dose: 25 mls/hr Documented by: Metformin HCl (Metformin 500 Mg Tab) 250 mg PO BID [facility] Last Admin: 05/22/20 20:22 Dose: 250 mg Documented by: Methylprednisolone Sodium Succinate (Methylprednisolone Sod Succi 40 Mg/Ml 1 Ml Vial) 40 mg IV Q12HR [facility] Last Admin: 05/22/20 20:22 Dose: 40 mg Documented by: Miscellaneous Information (Pneumonia Protocol Utilized 1 Each [facility]) 1 each PO ONCE PRN PRN Reason: Per Protocol Sildenafil Citrate (Sildenafil 20 Mg Tab) 20 mg PO TID@0900,1300,2100 [facility] Last Admin: 05/22/20 20:23 Dose: 20 mg Documented by: Past medical history to include: COPD, diabetes, hypertension, hyperlipidemia, atrial flutter, paroxysmal Social history: Lives alone. Does use a cane. Smokes about 2 packs a day for 40 years stopped about 20 years ago. No alcohol Physical examination: VITAL SIGNS: 97.4, 84, 16, 109/73, 94% on 5 L GENERAL reclining, tired, short of breath. Loss of subcu distention muscle mass EYES: Pupils equal. Conjunctiva normal. HEENT: External appearance of nose and ears normal, oral cavity grossly normal. NECK: JVD not raised; masses not palpable. HEART: First and second heart sounds are normal; minimal edema. LUNGS: Respiratory rate increased, diminished breath sounds prolonged expiration some wheezing, . ABDOMEN: Soft, nontender, liver spleen not palpable, no masses palpable. PSYCH: Alert and oriented x3; mood and affect anxiousl. MUSCULAR skeletal: Evidence of OA INVESTIGATIONS, reviewed in the clinical context: April 24: Pro-calcitonin 0.22 WBC 27.7 hemoglobin 8.7 platelets 141 d-dimer 1.35 potassium 3.7 bun 36 creatinine 0.49 troponin I 0.025 albumin 2.7 Coronavirus [PCR]-not detected EKG tracing personally reviewed by me-normal sinus rhythm P pulmonale some nonspecific T-wave changes Chest x-ray film personally reviewed by me-hyperinflated, bilateral infiltrates, pleural effusion Assessment and plan: -Bilateral pneumonia, suspect gram-negative organism, patient is on IV Zosyn.Mucinex-slow to respond -Acute COPD exacerbation in an previous smoker. DuoNeb, IV Solu-Medrol, long- acting beta agonist and inhaled steroids. Pulmonary consulted. Slow to respond -Severe protein calorie malnutrition with a BMI of 16.1 from decreased oral intake and nutritional supplement. Dietitian consulted -Diabetes mellitus type 2 on oral hypoglycemic. Follow Accu-Cheks. -Hyperlipidemia continue with Lipitor -Paroxysmal atrial flutter currently in sinus rhythm continue with eliquis, amiodarone to cut back on the dose -Primary osteoarthritis continue with Celebrex Care was discussed with the patient. Continue current medication treatment plan. Follow with pulmonary.
[2020-05-23] MEDS: IPRATROPIUM-ALBUTEROL 3 ML NEB INHALATION SCH ×6 (00:32→20:17)
[2020-05-23] MEDS: PIPERACILLIN-TAZOBACTAM 3.375 GM in SODIUM CHLORIDE 0.9% 100 ML IVPB SCH ×3 (04:06→18:38)
[2020-05-23 07:03] LABS: Glucose,Whole Blood 169 mg/dL (75-99)
[2020-05-23 07:08] LABS: African American GFR (CKD) >90 (>60 ml/min/1.73 sqM); Blood Urea Nitrogen 37 mg/dL (7-17); Chloride 102 mmol/L (98-107); Glucose 139 mg/dL (74-99); Non-African American GFR(CKD) >90 (>60 ml/min/1.73 sqM); Potassium 3.4 mmol/L (3.5-5.1); Sodium 144 mmol/L (137-145)
[2020-05-23 07:15] LABS: Anion Gap 6 mmol/L
[2020-05-23 07:16] LABS: Carbon Dioxide 36 mmol/L (22-30)
[2020-05-23 07:18] LABS: Anisocytosis Slight; Basophils % (A) 0 %; Eosinophils % (A) 0 %; HCT 21.1 % (34.0-46.0); Hypochromasia Marked; Lymphocytes # (A) 0.1 k/uL (1.0-4.8); Lymphocytes % (A) 1 %; MCH 26.1 pg (25.0-35.0); MCHC 29.7 g/dL (31.0-37.0); MCV 87.9 fL (80.0-100.0); Mean Platelet Volume 9.9; Monocytes # (A) 0.2 k/uL (0-1.0); Monocytes % (A) 1 %; Neutrophils # (A) 13.5 k/uL (1.3-7.7); Neutrophils % (A) 98 %; Platelet Count 133 k/uL (150-450); Poikilocytosis Moderate; RDW 19.2 % (11.5-15.5); WBC 13.9 k/uL (3.8-10.6)
[2020-05-23 07:36] LABS: HGB 6.3 gm/dL (11.4-16.0)
[2020-05-23] MEDS: guaiFENesin 600 MG TABLET.ER PO SCH ×4 (08:17→21:25)
[2020-05-23] MEDS: FERROUS SULFATE 325 MG TAB PO SCH ×2 (08:17→21:26)
[2020-05-23] MEDS: metFORMIN 500 MG TAB PO SCH ×2 (08:17→21:17)
[2020-05-23] MEDS: AMIODARONE 200 MG TAB PO SCH (08:17)
[2020-05-23] MEDS: SILDENAFIL 20 MG TAB PO SCH ×2 (08:18→14:00)
[2020-05-23] MEDS: DILTIAZEM ORAL 30 MG TAB PO SCH ×3 (08:18→19:01)
[2020-05-23] MEDS: methylPREDNISolone SOD SUCCI 40 MG/ML 1 ML VIAL IV SCH ×2 (08:18→21:16)
[2020-05-23] MEDS: FORMOTEROL FUMARATE 20 MCG/2 ML NEBU INHALATION SCH ×2 (08:38→20:17)
[2020-05-23] MEDS: BUDESONIDE 1 MG/2 ML NEBU INHALATION SCH ×2 (08:38→20:17)
[2020-05-23 11:27] LABS: Glucose,Whole Blood 191 mg/dL (75-99)
[2020-05-23] MEDS: APIXABAN 5 MG TAB PO SCH ×2 (14:00→21:29)
[2020-05-23 16:26] LABS: Glucose,Whole Blood 157 mg/dL (75-99)
[2020-05-23 20:03] LABS: Glucose,Whole Blood 148 mg/dL (75-99)
[2020-05-23] MEDS: GABAPENTIN 300 MG CAP PO SCH (21:17)
[2020-05-23] MEDS: ATORVASTATIN 20 MG TAB PO SCH (21:25)
[2020-05-23] MEDS: AZITHROMYCIN 500 MG TAB PO SCH (21:25)
--- NOTE | 2020-05-23 22:18 | P.PN ---
Progress Note - Text Progress Note Date: 05/23/20 Chief Complaint: Short of breath History of presenting complaint: This is a pleasant 80-year-old patient of Dr. Carrillo. Chronic stable medical conditions include diabetes, hypertension, hyperlipidemia, peripheral neuropathy, osteoarthritis, paroxysmal atrial flutter for which patient anticoagulation currently in sinus rhythm. Patient now presents with progressive weakness. Significant cough congested not able to expectorate. Some wheezing. No fever no chills. Decreased appetite. Patient had abdominal distention earlier was found to have urinary retention and Banegas catheter be placed. Patient also has some edema on presentation that has gone down. Admitted with bilateral pneumonia started on IV Zosyn. Acute COPD exacerbation put on nebulizers, steroids Today-later this afternoon patient went into atrial fibrillation with rapid ventricular rate. moved to the cardiology floor. Otherwise short of breath. Slight cough. Not able to expectorate. Cardiology consulted. Hemoglobin did drop to 6.3. Unit of blood ordered Review of systems: Was done for constitutional, cardiovascular, GI, pulmonary. relevant finding as above Active Medications Albuterol Sulfate (Albuterol Hfa Inhaler) 2 puff INHALATION RT-Q6H PRN PRN Reason: Shortness Of Breath Albuterol/Ipratropium (Ipratropium-Albuterol 3 Ml Neb) 3 ml INHALATION RT-Q4H [facility] Last Admin: 05/23/20 20:17 Dose: 3 ml Documented by: Amiodarone HCl (Amiodarone 200 Mg Tab) 200 mg PO DAILY [facility] Last Admin: 05/23/20 08:17 Dose: 200 mg Documented by: Apixaban (Apixaban 5 Mg Tab) 5 mg PO BID@0900,2100 [facility] Last Admin: 05/23/20 21:29 Dose: 5 mg Documented by: Atorvastatin Calcium (Atorvastatin 20 Mg Tab) 20 mg PO HS@2100 [facility] Last Admin: 05/23/20 21:25 Dose: 20 mg Documented by: Azithromycin (Azithromycin 500 Mg Tab) 500 mg PO HS [facility] Last Admin: 05/23/20 21:25 Dose: 500 mg Documented by: Budesonide (Budesonide 1 Mg/2 Ml Nebu) 1 mg INHALATION RT-BID [facility] Last Admin: 05/23/20 20:17 Dose: 1 mg Documented by: Diltiazem HCl (Diltiazem Oral 30 Mg Tab) 30 mg PO TID@0900,1300,2100 [facility] Last Admin: 05/23/20 19:01 Dose: 30 mg Documented by: Ferrous Sulfate (Ferrous Sulfate 325 Mg Tab) 325 mg PO BID@0900,2099 [facility] Last Admin: 05/23/20 21:26 Dose: 325 mg Documented by: Formoterol Fumarate (Formoterol Fumarate 20 Mcg/2 Ml Nebu) 20 mcg INHALATION RT-BID [facility] Last Admin: 05/23/20 20:17 Dose: 20 mcg Documented by: Gabapentin (Gabapentin 300 Mg Cap) 300 mg PO HS@2099 [facility] Last Admin: 05/23/20 21:17 Dose: 300 mg Documented by: Guaifenesin (Guaifenesin 600 Mg Tablet.Er) 600 mg PO QID [facility] Last Admin: 05/23/20 21:25 Dose: 600 mg Documented by: Piperacillin Sod/Tazobactam (Sod 3.375 gm/ Sodium Chloride) 100 mls @ 25 mls/hr IVPB Q8H [facility] Last Admin: 05/23/20 18:38 Dose: 25 mls/hr Documented by: Metformin HCl (Metformin 500 Mg Tab) 250 mg PO BID [facility] Last Admin: 05/23/20 21:17 Dose: 250 mg Documented by: Methylprednisolone Sodium Succinate (Methylprednisolone Sod Succi 40 Mg/Ml 1 Ml Vial) 40 mg IV Q12HR [facility] Last Admin: 05/23/20 21:16 Dose: 40 mg Documented by: Miscellaneous Information (Pneumonia Protocol Utilized 1 Each [facility]) 1 each PO ONCE PRN PRN Reason: Per Protocol Sildenafil Citrate (Sildenafil 20 Mg Tab) 20 mg PO TID@0900,1300,2100 [facility] Last Admin: 05/23/20 14:00 Dose: 20 mg Documented by: Past medical history to include: COPD, diabetes, hypertension, hyperlipidemia, atrial flutter, paroxysmal Social history: Lives alone. Does use a cane. Smokes about 2 packs a day for 40 years stopped about 20 years ago. No alcohol Physical examination: VITAL SIGNS: 97.5, 89, 18, 108/68, 95% on 7 L GENERAL reclining, tired, short of breath. Loss of subcu distention muscle mass EYES: Pupils equal. Conjunctiva normal. HEENT: External appearance of nose and ears normal, oral cavity grossly normal. NECK: JVD not raised; masses not palpable. HEART: First and second heart sounds are normal; minimal edema. LUNGS: Respiratory rate increased, diminished breath sounds prolonged expiration some wheezing, . ABDOMEN: Soft, nontender, liver spleen not palpable, no masses palpable. PSYCH: Alert and oriented x3; mood and affect anxiousl. MUSCULAR skeletal: Evidence of OA INVESTIGATIONS, reviewed in the clinical context: April 24: Pro-calcitonin 0.22 WBC 27.7 hemoglobin 8.7 platelets 141 d-dimer 1.35 potassium 3.7 bun 36 creatinine 0.49 troponin I 0.025 albumin 2.7 Coronavirus [PCR]-not detected EKG tracing personally reviewed by me-normal sinus rhythm P pulmonale some nonspecific T-wave changes Chest x-ray film personally reviewed by me-hyperinflated, bilateral infiltrates, pleural effusion Assessment and plan: -Bilateral pneumonia, suspect gram-negative organism, patient is on IV Zosyn.Mucinex-slow to respond -Acute COPD exacerbation in an previous smoker. DuoNeb, IV Solu-Medrol, long- acting beta agonist and inhaled steroids. Pulmonary consulted. Slow to respond -Severe protein calorie malnutrition with a BMI of 16.1 from decreased oral intake and nutritional supplement. Dietitian consulted -Diabetes mellitus type 2 on oral hypoglycemic. Follow Accu-Cheks. -Hyperlipidemia continue with Lipitor -Paroxysmal atrial flutter fibrillation currently in sinus rhythm , on eliquis and amiodarone. Rapid ventricular rate this afternoon. Cardiology consulted -Primary osteoarthritis continue with Celebrex -Normocytic anemia symptomatic with hemoglobin of 6.3. Transfuse unit of blood. Consult GI Continue current medication and she'll plan. Prognosis guarded.
[2020-05-24] MEDS: IPRATROPIUM-ALBUTEROL 3 ML NEB INHALATION SCH ×6 (00:21→19:52)
[2020-05-24] MEDS: SILDENAFIL 20 MG TAB PO SCH ×4 (00:48→22:25)
[2020-05-24] MEDS: PIPERACILLIN-TAZOBACTAM 3.375 GM in SODIUM CHLORIDE 0.9% 100 ML IVPB SCH ×3 (04:38→22:21)
[2020-05-24 06:01] LABS: Glucose,Whole Blood 135 mg/dL (75-99)
[2020-05-24 06:44] LABS: Anisocytosis Slight; Basophils % (A) 0 %; Eosinophils % (A) 0 %; HCT 26.4 % (34.0-46.0); Hypochromasia Marked; Lymphocytes # (A) 0.1 k/uL (1.0-4.8); Lymphocytes % (A) 1 %; MCH 27.8 pg (25.0-35.0); MCHC 31.7 g/dL (31.0-37.0); MCV 87.5 fL (80.0-100.0); Mean Platelet Volume 9.4; Monocytes # (A) 0.2 k/uL (0-1.0); Monocytes % (A) 2 %; Neutrophils # (A) 15.5 k/uL (1.3-7.7); Neutrophils % (A) 97 %; Platelet Count 122 k/uL (150-450); Poikilocytosis Marked; RBC 3.02 m/uL (3.80-5.40); RDW 18.3 % (11.5-15.5); WBC 15.9 k/uL (3.8-10.6)
[2020-05-24 06:51] LABS: HGB 8.4 gm/dL (11.4-16.0)
[2020-05-24 07:05] LABS: African American GFR (CKD) >90 (>60 ml/min/1.73 sqM); Anion Gap 2 mmol/L; Blood Urea Nitrogen 39 mg/dL (7-17); Calcium 8.3 mg/dL (8.4-10.2); Carbon Dioxide 37 mmol/L (22-30); Chloride 103 mmol/L (98-107); Glucose 123 mg/dL (74-99); Non-African American GFR(CKD) >90 (>60 ml/min/1.73 sqM); Potassium 3.8 mmol/L (3.5-5.1); Sodium 142 mmol/L (137-145)
[2020-05-24] MEDS: BUDESONIDE 1 MG/2 ML NEBU INHALATION SCH ×2 (07:30→19:53)
[2020-05-24] MEDS: FORMOTEROL FUMARATE 20 MCG/2 ML NEBU INHALATION SCH ×2 (07:31→20:04)
[2020-05-24] MEDS: FERROUS SULFATE 325 MG TAB PO SCH ×2 (09:23→22:24)
[2020-05-24] MEDS: APIXABAN 5 MG TAB PO SCH ×2 (09:23→22:23)
[2020-05-24] MEDS: metFORMIN 500 MG TAB PO SCH ×2 (09:23→22:23)
[2020-05-24] MEDS: AMIODARONE 200 MG TAB PO SCH (09:23)
[2020-05-24] MEDS: DILTIAZEM ORAL 30 MG TAB PO SCH (09:23)
[2020-05-24] MEDS: guaiFENesin 600 MG TABLET.ER PO SCH ×4 (09:23→22:28)
[2020-05-24] MEDS: methylPREDNISolone SOD SUCCI 40 MG/ML 1 ML VIAL IV SCH ×2 (09:24→22:24)
[2020-05-24 09:49] LABS: % Iron Saturation 6.61 (12.00-45.00); Ferritin 121.2 ng/mL (10.0-291.0)
--- NOTE | 2020-05-24 10:53 | P.PN ---
Subjective Progress Note Date: 05/24/20 Principal diagnosis: bilateral pneumonia Acute hypoxic respiratory failure Sepsis due to pneumonia Hypertension and hypertensive cardiovascular disease COPD 05/24/2020, patient seen eval examined during the rounds labs reviewed medications reviewed care plan discussed, patient is now down to 8 L oxygen, get short of breath on activity and exertion does have cough congestion, patient remains on IV steroids along with breathing treatments and broad-spectrum antibiotics including Zosyn and Zithromax, and cell count is up to 15,900, BUN/creatinine 39 and 0.46, patient is a 80 year-old extended care facility patient, patient came to the hospital with increasing shortness of breath, oxygen saturation was in 80%, prior medical history significant for heart failure and COPD he quit smoking more than 20 years ago, her cord testing in [facility] has been negative, , computed tomography scan positive for developing pneumonia, patient has WBC count of 27,000 has been started on broad-spectrum antibiotics,labs from today is pending patient remains on 5 L oxygen, her temperature is 97, saturation is 93%, more dynamically stable, FiO2 down to 5 L from 15 L high flow oxygen x-ray performed todayshowing patchy infiltrate left greater than the right, her covid test came back negative, Objective - Vital Signs Vital signs: Vital Signs Temp 97.3 F L 05/24/20 08:00 Pulse 70 05/24/20 10:44 Resp 18 05/24/20 08:00 BP 95/57 05/24/20 08:00 Pulse Ox 96 05/24/20 08:00 Intake & Output 05/23/20 05/24/20 05/24/20 18:59 06:59 18:59 Intake Total 310 Output Total 300 600 400 Balance 10 -600 -400 Intake: Blood Product 310 Rc As-1 Unit 310 [id number] Output: Urine 300 600 400 Uretheral (Banegas) 400 Other: Voiding Method Diaper Diaper Indwelling Catheter Indwelling Catheter - Exam - Constitutional General appearance: average body habitus, cooperative, disheveled - EENT Eyes: PERRLA Ears: bilateral: normal - Neck Neck: normal ROM Carotids: bilateral: upstroke normal - Respiratory Respiratory: bilateral: CTA - Cardiovascular Rhythm: regular Heart sounds: normal: S1, S2 - Neurologic Neurologic: CNII-XII intact - Musculoskeletal Musculoskeletal: gait normal, generalized weakness, strength equal bilaterally - Psychiatric Psychiatric: A&O x's 3, appropriate affect, intact judgment & insight - Labs CBC & Chem 7: 05/24/20 05:58 05/24/20 05:58 Labs: Abnormal Lab Results - Last 24 Hours (Table) 05/23/20 05/23/20 05/23/20 Range/Units 07:59 11:25 16:24 WBC (3.8-10.6) k/uL RBC (3.80-5.40) m/uL Hgb (11.4-16.0) gm/dL Hct (34.0-46.0) % RDW (11.5-15.5) % Plt Count (150-450) k/uL Neutrophils # (1.3-7.7) k/uL Lymphocytes # (1.0-4.8) k/uL Carbon Dioxide (22-30) mmol/L BUN (7-17) mg/dL Creatinine (0.52-1.04) mg/dL Glucose (74-99) mg/dL POC Glucose (mg/dL) 191 H 157 H (75-99) mg/dL Calcium (8.4-10.2) mg/dL Iron (50-170) ug/dL % Saturation (12.00-45.00) Crossmatch See Detail 05/23/20 05/24/20 05/24/20 Range/Units 20:02 05:58 05:58 WBC 15.9 H (3.8-10.6) k/uL RBC 3.02 L (3.80-5.40) m/uL Hgb 8.4 L D (11.4-16.0) gm/dL Hct 26.4 L (34.0-46.0) % RDW 18.3 H (11.5-15.5) % Plt Count 122 L (150-450) k/uL Neutrophils # 15.5 H (1.3-7.7) k/uL Lymphocytes # 0.1 L (1.0-4.8) k/uL Carbon Dioxide 37 H (22-30) mmol/L BUN 39 H (7-17) mg/dL Creatinine 0.46 L (0.52-1.04) mg/dL Glucose 123 H (74-99) mg/dL POC Glucose (mg/dL) 148 H (75-99) mg/dL Calcium 8.3 L (8.4-10.2) mg/dL Iron (50-170) ug/dL % Saturation (12.00-45.00) Crossmatch 05/24/20 05/24/20 Range/Units 05:58 06:00 WBC (3.8-10.6) k/uL RBC (3.80-5.40) m/uL Hgb (11.4-16.0) gm/dL Hct (34.0-46.0) % RDW (11.5-15.5) % Plt Count (150-450) k/uL Neutrophils # (1.3-7.7) k/uL Lymphocytes # (1.0-4.8) k/uL Carbon Dioxide (22-30) mmol/L BUN (7-17) mg/dL Creatinine (0.52-1.04) mg/dL Glucose (74-99) mg/dL POC Glucose (mg/dL) 135 H (75-99) mg/dL Calcium (8.4-10.2) mg/dL Iron 16 L (50-170) ug/dL % Saturation 6.61 L (12.00-45.00) Crossmatch Microbiology - Last 24 Hours (Table) 05/20/20 18:46 Blood Culture - Preliminary Blood No Growth after 72 hours 05/20/20 18:44 Blood Culture - Preliminary Blood No Growth after 72 hours Assessment and Plan Assessment: bilateral pneumonia Acute hypoxic respiratory failure Sepsis due to pneumonia Hypertension and hypertensive cardiovascular disease COPD Plan: Continue broad-spectrum antibiotics Breathing treatments Supplemental oxygen Deep breathing exercise Further recommendations pending plan of care as per clinical response of the patient IV steroids We will check a follow-up chest x-ray Time with Patient: Greater than 30
[2020-05-24] MEDS: PANTOPRAZOLE 40 MG/10 ML VIAL IVP SCH ×2 (11:51→22:24)
[2020-05-24] MEDS: DILTIAZEM ORAL 60 MG TAB PO SCH ×2 (11:52→22:28)
[2020-05-24 12:00] LABS: Glucose,Whole Blood 163 mg/dL (75-99)
--- NOTE | 2020-05-24 12:27 | P.CRDCN ---
History of Present Illness Consult date: 05/24/20 History of present illness: HISTORY OF PRESENT ILLNESS: This is a 80-year-old female with a past medical history significant for COPD, atrial fibrillation/flutter, diabetes mellitus, hypertension, and hyperlipidemia. Patient follows in the office with Dr. López. We have been asked to see the patient in consultation for atrial fibrillation. Patient examined at the bedside. Patient is currently admitted to the hospital secondary to bilateral pneumonia. She is receiving IV Zosyn. Patient went into atrial fibrillation yesterday with mildly uncontrolled ventricular rate in the 110s. Patient has a history of atrial fibrillation and is currently anticoagulated with Eliquis. Patient's hemoglobin 8.7 on admission. Her hemoglobin yesterday was 6.3. She received RBC transfusion. Repeat hemoglobin today is 8.4. At the time of examination, she is maintaining sinus mechanism on telemetry. Heart rate is in the 80s. She denies chest pain or pressure. She denies feeling palpitations. She reports mild shortness of breath at the time o f examination. EKG sinus mechanism on admission, repeat EKG reveals atrial fibrillation with mildly uncontrolled ventricular rate Chest xray COPD and continued small effusions with adjacent patchy infiltrates, left greater than right Laboratory data: WBC 15.9. Hemoglobin 8.4. Platelet count 122. Sodium 142. Potassium 3.8. BUN 39. Creatinine 0.46. Current home cardiac medications include Silenafil 20 mg 3 times a day, Cardizem 30 mg 3 times a day, Eliquis 5 mg twice a day, amiodarone 200 mg twice a day, Lipitor 20 mg daily and Lasix 20 mg daily Most recent echocardiogram obtained in April 2020 reveals ejection fraction of 55-60%, mild mitral regurgitation, moderate to severe tricuspid regurgitation, and severe pulmonary hypertension Cardiac catheterization history: 05/13/[address] López. Patient underwent right heart cath revealing moderate pulmonary hypertension, no evidence of left- sided failure, and normal cardiac output. REVIEW OF SYSTEMS: At the time of my exam: CONSTITUTIONAL: Denies fever or chills. HEENT: Denies blurred vision, vision changes, or eye pain. Denies hemoptysis CARDIOVASCULAR: Denies chest pain. Denies orthopnea. Denies PND. Denies palpitations RESPIRATORY: Reports mild shortness of breath. GASTROINTESTINAL: Denies abdominal pain. Denies nausea or vomiting. HEMATOLOGIC: Denies bleeding disorders. GENITOURINARY: Denies any blood in urine. SKIN: Denies pruitis. Denies rash. PHYSICAL EXAM: VITAL SIGNS: Reviewed. GENERAL: Well-developed in no acute distress. HEENT: Head is normocephalic. Pupils are equal, round. Sclerae anicteric. Mucous membranes of the mouth are moist. Neck supple. No JVD or thyromegaly LUNGS: Respirations even and unlabored. Lungs with decreased air exchange and scattered rhonchi noted. HEART: Regular rate and rhythm. S1 and S2 heard. Systolic murmur noted. ABDOMEN: Soft. Nondistended. Nontender. EXTREMITIES: Normal range of motion. No clubbing or cyanosis. Peripheral pulses intact. No lower extremity edema NEUROLOGIC: Awake and alert. Oriented x 3. ASSESSMENT: Bilateral pneumonia Acute hypoxic respiratory failure requiring supplemental oxygen Acute exacerbation of COPD Paroxysmal atrial fibrillation, on anticoagulation with Eliquis, currently maintaining sinus mechanism Acute on chronic anemia Pulmonary hypertension Valvular heart disease: Mild mitral regurgitation and moderate to severe tricuspid regurgitation Hyperlipidemia Hypertension Diabetes mellitus Former nicotine dependence, patient quit smoking 20 years ago, was 2 PPD smoker PLAN: No need to repeat echocardiogram as this was performed in April 2020 Pulmonary following for pneumonia and COPD GI following. May hold Eliquis for anemia workup Increase Cardizem to 60 mg 3 times a day Continue additional home cardiac medications Further recommendations pending patient's course Nurse practitioner note has been reviewed by physician. Signing provider agrees with the documented findings, assessment, and plan of care. Past Medical History Past Medical History: COPD, Diabetes Mellitus, Hyperlipidemia, Hypertension History of Any Multi-Drug Resistant Organisms: None Reported Past Surgical History: Hysterectomy, Orthopedic Surgery Past Anesthesia/Blood Transfusion Reactions: No Reported Reaction Past Psychological History: No Psychological Hx Reported Smoking Status: Former smoker Past Alcohol Use History: None Reported Past Drug Use History: None Reported Medications and Allergies Home Medications Medication Instructions Recorded Confirmed Type Albuterol Inhaler [Ventolin Hfa 2 puff INHALATION RT-Q6H PRN 05/07/20 05/20/20 History Inhaler] Atorvastatin [Lipitor] 20 mg PO HS@2100 05/07/20 05/20/20 History Celecoxib [CeleBREX] 200 mg PO DAILY@0900 05/07/20 05/20/20 History Fluticasone/Umeclidin/Vilanter 1 puff INHALATION RT-DAILY@0905/07/20 05/20/20 History [Trelegy Ellipta 100-62.5-25] metFORMIN HCL [Glucophage Xr] 500 mg PO DAILY@0900 05/07/20 05/20/20 History guaiFENesin-DM 100-10MG/5ML 10 ml PO Q6H PRN ml 05/19/20 05/20/20 Rx [Robitussin DM] Amiodarone [Cordarone] 200 mg PO BID@0900,209905/20/20 05/20/20 History Apixaban [Eliquis] 5 mg PO BID@0900,209905/20/20 05/20/20 History Diltiazem Oral [Cardizem*] 30 mg PO TID@0900,1300,209905/20/20 05/20/20 History Ferrous Sulfate [Iron (65 MG 325 mg PO BID@0900,209905/20/20 05/20/20 History Elemental)] Furosemide [Lasix] 20 mg PO DAILY@0900 05/20/20 05/20/20 History Gabapentin [Neurontin] 300 mg PO HS@209905/20/20 05/20/20 History Sildenafil [Revatio] 20 mg PO TID@0900,1300,209905/20/20 05/20/20 History predniSONE See Taper PO DIRECTED 05/20/20 05/20/20 History Allergies Allergy/AdvReac Type Severity Reaction Status Date / Time No Known Allergies Allergy Verified 05/20/20 14:38 Physical Exam Vitals: Vital Signs Temp Pulse Pulse Resp BP BP Pulse Ox 05/24/20 10:54 70 05/24/20 10:44 70 05/24/20 08:00 97.3 F L 96 18 95/57 96 05/24/20 07:51 72 05/24/20 07:41 72 05/24/20 07:31 72 05/24/20 04:45 68 05/24/20 04:28 97 05/24/20 04:23 68 05/24/20 04:00 82 18 102/57 96 05/24/20 00:53 86 05/24/20 00:22 86 05/24/20 00:00 82 18 101/62 98 05/23/20 20:41 91 05/23/20 20:28 88 05/23/20 20:27 88 05/23/20 20:18 88 97 05/23/20 20:00 89 18 05/23/20 19:59 96.9 F L 89 18 103/57 95 05/23/20 19:00 144 H 18 99/66 92 L 05/23/20 17:30 97.5 F L 140 H 20 95/63 95 05/23/20 16:33 92 05/23/20 16:18 90 05/23/20 14:00 97.5 F L 89 18 108/68 95 05/23/20 13:26 97.6 F 91 22 108/68 93 L Intake and Output 05/23/20 05/24/20 05/24/20 22:59 06:59 14:59 Intake Total 290 Output Total 600 400 Balance -600 -110 Intake: Oral 290 Output: Urine 600 400 Uretheral (Banegas) 400 Other: Voiding Method Diaper Indwelling Catheter Results 05/24/20 05:58 05/24/20 05:58 CBC 05/24/20 Range/Units 05:58 WBC 15.9 H (3.8-10.6) k/uL RBC 3.02 L (3.80-5.40) m/uL Hgb 8.4 L D (11.4-16.0) gm/dL Hct 26.4 L (34.0-46.0) % Plt Count 122 L (150-450) k/uL Comprehensive Metabolic Panel 05/24/20 Range/Units 05:58 Sodium 142 (137-145) mmol/L Potassium 3.8 (3.5-5.1) mmol/L Chloride 103 (98-107) mmol/L Carbon Dioxide 37 H (22-30) mmol/L BUN 39 H (7-17) mg/dL Creatinine 0.46 L (0.52-1.04) mg/dL Glucose 123 H (74-99) mg/dL Calcium 8.3 L (8.4-10.2) mg/dL Current Medications Generic Name Dose Route Start Last Admin Trade Name Freq PRN Reason Stop Dose Admin Albuterol Sulfate 2 puff 05/20/20 21:02 Albuterol Hfa Inhaler INHALATION RT-Q6H PRN Shortness Of Breath Albuterol/Ipratropium 3 ml 05/21/20 12:50 05/24/20 10:44 Ipratropium-Albuterol 3 Ml Neb INHALATION 3 ml RT-Q4H TONG Administration Amiodarone HCl 200 mg 05/22/20 09:00 05/24/20 09:23 Amiodarone 200 Mg Tab PO 200 mg DAILY TONG Administration Apixaban 5 mg 05/21/20 09:00 05/24/20 09:23 Apixaban 5 Mg Tab PO 5 mg BID@0900,2100 TONG Administration Atorvastatin Calcium 20 mg 05/21/20 21:00 05/23/20 21:25 Atorvastatin 20 Mg Tab PO 20 mg HS@2100 TONG Administration Azithromycin 500 mg 05/22/20 21:00 05/23/20 21:25 Azithromycin 500 Mg Tab PO 500 mg HS TONG Administration Budesonide 1 mg 05/21/20 20:00 05/24/20 07:30 Budesonide 1 Mg/2 Ml Nebu INHALATION 1 mg RT-BID TONG Administration Diltiazem HCl 60 mg 05/24/20 13:00 05/24/20 11:52 Diltiazem Oral 60 Mg Tab PO 60 mg TID@0900,1300,2100 TONG Administration Ferrous Sulfate 325 mg 05/21/20 09:00 05/24/20 09:23 Ferrous Sulfate 325 Mg Tab PO 325 mg BID@0900,2100 TONG Administration Formoterol Fumarate 20 mcg 05/21/20 20:00 05/24/20 07:31 Formoterol Fumarate 20 Mcg/2 Ml Nebu INHALATION 20 mcg RT-BID TONG Administration Gabapentin 300 mg 05/21/20 21:00 05/23/20 21:17 Gabapentin 300 Mg Cap PO 300 mg HS@2100 TONG Administration Guaifenesin 600 mg 05/21/20 13:00 05/24/20 11:52 Guaifenesin 600 Mg Tablet.Er PO 600 mg QID TONG Administration Piperacillin Sod/Tazobactam 100 mls @ 25 mls/hr 05/21/20 03:00 05/24/20 09:25 Sod 3.375 gm/ Sodium Chloride IVPB 25 mls/hr Q8H TONG Administration Metformin HCl 250 mg 05/21/20 09:00 05/24/20 09:23 Metformin 500 Mg Tab PO 250 mg BID TONG Administration Methylprednisolone Sodium Succinate 40 mg 05/21/20 21:00 05/24/20 09:24 Methylprednisolone Sod Succi 40 Mg/Ml 1 Ml Vial IV 40 mg Q12HR TONG Administration Miscellaneous Information 1 each 05/20/20 18:38 Pneumonia Protocol Utilized 1 Each Misc PO ONCE PRN Per Protocol Pantoprazole Sodium 40 mg 05/24/20 10:30 05/24/20 11:51 Pantoprazole 40 Mg/10 Ml Vial IVP 40 mg BID TONG Administration Sildenafil Citrate 20 mg 05/21/20 09:00 05/24/20 11:52 Sildenafil 20 Mg Tab PO 20 mg TID@0900,1300,2100 TONG Administration Intake and Output 05/23/20 05/24/20 05/24/20 22:59 06:59 14:59 Intake Total 290 Output Total 600 400 Balance -600 -110 Intake: Oral 290 Output: Urine 600 400 Uretheral (Banegas) 400 Other: Voiding Method Diaper Indwelling Catheter 05/24/20 05:58 05/24/20 05:58
--- NOTE | 2020-05-24 16:13 | CONS ---
CONSULTATION DATE OF DICTATION: May 24, 2020. REASON FOR CONSULTATION: Anemia. HISTORY OF PRESENT ILLNESS: The patient is a 80-year-old pleasant white female with history of COPD, diabetes mellitus, hypertension, hyperlipidemia, and atrial fibrillation who was admitted to the hospital with bilateral pneumonia and presently on broad-spectrum antibiotics. At the time of admission to the hospital, her hemoglobin was 6.3 g/dL and received 2 units of PRBC transfusion and today hemoglobin is 8.4 g/dL. The patient denies any abdominal pain. She does complain of some abdominal fullness, but she denies any nausea, vomiting. No rectal bleeding or melena. She never had anemia in the past. No prior history of peptic ulcer disease or recent NSAID use. No prior history of EGD or colonoscopy in the past. PAST MEDICAL HISTORY: Her past medical history is significant for diabetes mellitus, hypertension, hyperlipidemia, COPD. PAST SURGICAL HISTORY: Hysterectomy. MEDICATIONS: Medications at home include albuterol, Lipitor, Celebrex, metformin, , Eliquis, Cordarone, Cardizem, iron sulfate, Lasix, Neurontin, Xarelto and prednisone. ALLERGIES: None. SOCIAL HISTORY: Former smoker. No alcohol use. FAMILY HISTORY: Unremarkable. REVIEW OF SYSTEMS: CARDIOPULMONARY: No chest pain or shortness of breath. She does complain of some shortness of breath, but no fever or chills. NEUROLOGY: Unremarkable. PSYCHIATRIC: Unremarkable. ENT/VISION: Unremarkable. CONSTITUTIONAL: Weight loss of 20 pounds. No fever, chills, night sweats. HEMATOLOGY: Severe anemia. ENT/VISION: Unremarkable. ENDOCRINE: Unremarkable. PHYSICAL EXAMINATION: She appears comfortable, in mild respiratory distress. Vital signs are stable. Blood pressure is 95/86, pulse rate 96, temperature 97.3. HEENT EXAMINATION: Unremarkable. Conjunctivae pink. Sclerae anicteric. Oral cavity no lesions. NECK: No JVD or lymph node enlargement. CHEST: Decreased breath sounds bilaterally. HEART: Regular rate and rhythm. ABDOMEN: Soft. Bowel sounds are positive. There was mild fullness in the epigastric area but no masses noted. EXTREMITIES: No pedal edema. NEUROLOGIC: She is alert and oriented x3. No focal deficits. LABS: WBC 13.9, hemoglobin 6.3, MCV 87, platelets are 133. BUN is 37, creatinine 0.51. AST, ALT 41 and 31 respectively. T bilirubin and alkaline phosphatase are within normal limits. IMPRESSION: 1. Bilateral pneumonia on broad-spectrum antibiotics. 2. Severe symptomatic anemia with clinically no evidence of active bleeding. Rule out occult GI blood loss. 3. History of hypertension and hyperlipidemia. 4. History of chronic obstructive pulmonary disease. RECOMMENDATION: 1. Continue with broad-spectrum antibiotics. 2. Agree with PRBC transfusion. 3. Obtain iron studies. 4. We will consider EGD, colonoscopy during this hospitalization or on outpatient basis to investigate the anemia once her cardiorespiratory status stabilizes. 5. Continue to hold Eliquis. 6. We will follow with you closely. Thank you for this consultation. MMLYRICL / IJN: [id number] /
[2020-05-24 17:01] LABS: Glucose,Whole Blood 156 mg/dL (75-99)
[2020-05-24 20:30] LABS: Glucose,Whole Blood 147 mg/dL (75-99)
[2020-05-24] MEDS: AZITHROMYCIN 500 MG TAB PO SCH (22:23)
[2020-05-24] MEDS: ATORVASTATIN 20 MG TAB PO SCH (22:23)
[2020-05-24] MEDS: GABAPENTIN 300 MG CAP PO SCH (22:24)
--- NOTE | 2020-05-24 23:02 | P.PN ---
Progress Note - Text Progress Note Date: 05/24/20 Chief Complaint: Short of breath History of presenting complaint: This is a pleasant 80-year-old patient of Dr. Carrillo. Chronic stable medical conditions include diabetes, hypertension, hyperlipidemia, peripheral neuropathy, osteoarthritis, paroxysmal atrial flutter for which patient anticoagulation currently in sinus rhythm. Patient now presents with progressive weakness. Significant cough congested not able to expectorate. Some wheezing. No fever no chills. Decreased appetite. Patient had abdominal distention earlier was found to have urinary retention and Banegas catheter be placed. Patient also has some edema on presentation that has gone down. Admitted with bilateral pneumonia started on IV Zosyn. Acute COPD exacerbation put on nebulizers, steroids. went into atrial fibrillation with rapid ventricular rate. Reverted back to normal. Cardiology was consulted. Hemoglobin did drop to 6.3. Recently unit of blood. Today-laying in bed. Tired. Short of breath. Has some breakfast. Review of systems: Was done for constitutional, cardiovascular, GI, pulmonary. relevant finding as above Active Medications Albuterol Sulfate (Albuterol Hfa Inhaler) 2 puff INHALATION RT-Q6H PRN PRN Reason: Shortness Of Breath Albuterol/Ipratropium (Ipratropium-Albuterol 3 Ml Neb) 3 ml INHALATION RT-Q4H [facility] Last Admin: 05/24/20 19:52 Dose: 3 ml Documented by: Amiodarone HCl (Amiodarone 200 Mg Tab) 200 mg PO DAILY [facility] Last Admin: 05/24/20 09:23 Dose: 200 mg Documented by: Apixaban (Apixaban 5 Mg Tab) 5 mg PO BID@0900,2100 [facility] Last Admin: 05/24/20 22:23 Dose: 5 mg Documented by: Atorvastatin Calcium (Atorvastatin 20 Mg Tab) 20 mg PO HS@2100 [facility] Last Admin: 05/24/20 22:23 Dose: 20 mg Documented by: Azithromycin (Azithromycin 500 Mg Tab) 500 mg PO HS [facility] Last Admin: 05/24/20 22:23 Dose: 500 mg Documented by: Budesonide (Budesonide 1 Mg/2 Ml Nebu) 1 mg INHALATION RT-BID [facility] Last Admin: 05/24/20 19:53 Dose: 1 mg Documented by: Diltiazem HCl (Diltiazem Oral 60 Mg Tab) 60 mg PO TID@0900,1300,2100 [facility] Last Admin: 05/24/20 22:28 Dose: 60 mg Documented by: Ferrous Sulfate (Ferrous Sulfate 325 Mg Tab) 325 mg PO BID@0900,2100 [facility] Last Admin: 05/24/20 22:24 Dose: 325 mg Documented by: Formoterol Fumarate (Formoterol Fumarate 20 Mcg/2 Ml Nebu) 20 mcg INHALATION RT-BID [facility] Last Admin: 05/24/20 20:04 Dose: 20 mcg Documented by: Gabapentin (Gabapentin 300 Mg Cap) 300 mg PO HS@2099 [facility] Last Admin: 05/24/20 22:24 Dose: 300 mg Documented by: Guaifenesin (Guaifenesin 600 Mg Tablet.Er) 600 mg PO QID [facility] Last Admin: 05/24/20 22:28 Dose: 600 mg Documented by: Piperacillin Sod/Tazobactam (Sod 3.375 gm/ Sodium Chloride) 100 mls @ 25 mls/hr IVPB Q8H [facility] Last Admin: 05/24/20 22:21 Dose: 25 mls/hr Documented by: Metformin HCl (Metformin 500 Mg Tab) 250 mg PO BID [facility] Last Admin: 05/24/20 22:23 Dose: 250 mg Documented by: Methylprednisolone Sodium Succinate (Methylprednisolone Sod Succi 40 Mg/Ml 1 Ml Vial) 40 mg IV Q12HR [facility] Last Admin: 05/24/20 22:24 Dose: 40 mg Documented by: Miscellaneous Information (Pneumonia Protocol Utilized 1 Each [facility]) 1 each PO ONCE PRN PRN Reason: Per Protocol Pantoprazole Sodium (Pantoprazole 40 Mg/10 Ml Vial) 40 mg IVP BID [facility] Last Admin: 05/24/20 22:24 Dose: 40 mg Documented by: Sildenafil Citrate (Sildenafil 20 Mg Tab) 20 mg PO TID@0900,1300,2100 [facility] Last Admin: 05/24/20 22:25 Dose: Not Given Documented by: Past medical history to include: COPD, diabetes, hypertension, hyperlipidemia, atrial flutter, paroxysmal Social history: Lives alone. Does use a cane. Smokes about 2 packs a day for 40 years stopped about 20 years ago. No alcohol Physical examination: VITAL SIGNS: 97.3, 96, 18, 95 x 57, 96% on 8 L GENERAL reclining, tired, short of breath. Loss of subcu fat and muscle mass EYES: Pupils equal. Conjunctiva normal. HEENT: External appearance of nose and ears normal, oral cavity grossly normal. NECK: JVD not raised; masses not palpable. HEART: First and second heart sounds are normal; minimal edema. LUNGS: Respiratory rate increased, diminished breath sounds prolonged expiration some wheezing, . ABDOMEN: Soft, nontender, liver spleen not palpable, no masses palpable. PSYCH: Alert and oriented x3; mood and affect anxiousl. MUSCULAR skeletal: Evidence of OA INVESTIGATIONS, reviewed in the clinical context: Victor Manuel. 15: WBC 15.9 hemoglobin 8.4 platelets 122 potassium 3.8 creatinine 0.46 I and 16 TIBC 242% saturation 6.6 April 24: Pro-calcitonin 0.22 WBC 27.7 hemoglobin 8.7 platelets 141 d-dimer 1.35 potassium 3.7 bun 36 creatinine 0.49 troponin I 0.025 albumin 2.7 Coronavirus [PCR]-not detected EKG tracing personally reviewed by me-normal sinus rhythm P pulmonale some nonspecific T-wave changes Chest x-ray film personally reviewed by me-hyperinflated, bilateral infiltrates, pleural effusion Assessment and plan: -Bilateral pneumonia, suspect gram-negative organism, patient is on IV Zosyn.Mucinex-slow to respond -Acute COPD exacerbation in an previous smoker. DuoNeb, IV Solu-Medrol, long- acting beta agonist and inhaled steroids. Pulmonary consulted. Slow to respond -Severe protein calorie malnutrition with a BMI of 16.1 from decreased oral intake and nutritional supplement. Dietitian consulted -Diabetes mellitus type 2 on oral hypoglycemic. Follow Accu-Cheks. -Hyperlipidemia continue with Lipitor -Paroxysmal atrial flutter fibrillation currently in sinus rhythm , on eliquis and amiodarone. Rapid ventricular rate , went back into sinus rhythm. Cardiology consulted -Primary osteoarthritis continue with Celebrex -Normocytic anemia symptomatic with hemoglobin of 6.3. Transfuse unit of blood. Follow with GI Discussed with patient. Prognosis guarded. Repeat CBC
[2020-05-25] MEDS: IPRATROPIUM-ALBUTEROL 3 ML NEB INHALATION SCH ×7 (02:42→23:44)
[2020-05-25] MEDS: PIPERACILLIN-TAZOBACTAM 3.375 GM in SODIUM CHLORIDE 0.9% 100 ML IVPB SCH ×3 (04:36→22:00)
[2020-05-25 06:16] LABS: Anisocytosis Slight; HCT 28.5 % (34.0-46.0); Hypochromasia Marked; MCH 27.4 pg (25.0-35.0); MCHC 31.4 g/dL (31.0-37.0); MCV 87.2 fL (80.0-100.0); Mean Platelet Volume 9.7; Platelet Count 143 k/uL (150-450); Poikilocytosis Marked; RBC 3.27 m/uL (3.80-5.40); RDW 18.2 % (11.5-15.5); WBC 28.4 k/uL (3.8-10.6)
[2020-05-25 06:51] LABS: Glucose,Whole Blood 127 mg/dL (75-99)
[2020-05-25] MEDS: BUDESONIDE 1 MG/2 ML NEBU INHALATION SCH ×2 (07:15→20:34)
[2020-05-25] MEDS: FORMOTEROL FUMARATE 20 MCG/2 ML NEBU INHALATION SCH ×2 (07:15→20:34)
[2020-05-25 08:33] LABS: Band Neutrophils % 1 %; Monocytes # (M) 0.28 k/uL (0-1.0); Neutrophils % (M) 99 %; Nucleated Red Blood Cells 0 /100 WBC (0-0); Total Cells Counted 200
[2020-05-25] MEDS: PANTOPRAZOLE 40 MG/10 ML VIAL IVP SCH ×2 (11:17→21:57)
[2020-05-25] MEDS: guaiFENesin 600 MG TABLET.ER PO SCH ×4 (11:18→21:58)
[2020-05-25] MEDS: DILTIAZEM ORAL 60 MG TAB PO SCH ×3 (11:18→21:58)
[2020-05-25] MEDS: AMIODARONE 200 MG TAB PO SCH (11:18)
[2020-05-25] MEDS: FERROUS SULFATE 325 MG TAB PO SCH ×2 (11:18→21:58)
[2020-05-25] MEDS: metFORMIN 500 MG TAB PO SCH ×2 (11:18→21:57)
[2020-05-25] MEDS: methylPREDNISolone SOD SUCCI 40 MG/ML 1 ML VIAL IV SCH ×2 (11:19→21:57)
[2020-05-25] MEDS: SILDENAFIL 20 MG TAB PO SCH ×3 (11:19→21:57)
[2020-05-25 11:31] VITALS: BMI 15.6
--- NOTE | 2020-05-25 11:39 | P.PN ---
Subjective Progress Note Date: 05/25/20 Principal diagnosis: bilateral pneumonia Acute hypoxic respiratory failure Sepsis due to pneumonia Hypertension and hypertensive cardiovascular disease COPD 05/25/2020, patient seen eval examined during the rounds labs reviewed medications reviewed care plan discussed, respiratory status slightly better today but however unclear reason patient is on 10 L oxygen off from 8 L, care plan discussed with the respiratory therapist and nurses as well, plan to titrate oxygen down, patient has microcytic anemia with heme positive stool status post transfusion with packed RBC,patient is being considered for EGD and colonoscopy once medically stable, chest x-ray performed today showing slight worsening of bilateral pneumonia versus effusion will check ultrasound of the chest 05/24/2020, patient seen eval examined during the rounds labs reviewed medications reviewed care plan discussed, patient is now down to 8 L oxygen, get short of breath on activity and exertion does have cough congestion, patient remains on IV steroids along with breathing treatments and broad-spectrum antibiotics including Zosyn and Zithromax, and cell count is up to 15,900, BUN/creatinine 39 and 0.46, patient is a 80 year-old extended care facility patient, patient came to the hospital with increasing shortness of breath, oxygen saturation was in 80%, prior medical history significant for heart failure and COPD he quit smoking more than 20 years ago, her cord testing in ECF has been negative, , computed tomography scan positive for developing pneumonia, patient has WBC count of 27,000 has been started on broad-spectrum antibiotics,labs from today is pending patient remains on 5 L oxygen, her temperature is 97, saturation is 93%, more dynamically stable, FiO2 down to 5 L from 15 L high flow oxygen x-ray performed todayshowing patchy infiltrate left greater than the right, her covid test came back negative, Objective - Vital Signs Vital signs: Vital Signs Temp 97.8 F 05/25/20 00:00 Pulse 87 05/25/20 00:00 Resp 18 05/25/20 00:00 BP 96/57 05/25/20 00:00 Pulse Ox 92 L 05/25/20 00:00 Intake & Output 05/24/20 05/25/20 05/25/20 18:59 06:59 18:59 Intake Total 390 1250 Output Total 1100 350 Balance -710 900 Weight 44 kg Intake: Intake, IV Titration 100 200 Amount Piperacillin-Tazobactam 3 100 200 .375 gm In Sodium Chloride 0.9% 100 ml @ 25 mls/hr IVPB Q[facility]H [facility] Rx#: [id number] Oral 290 1050 Output: Urine 1100 350 Uretheral (Banegas) 800 Other: Voiding Method Diaper Indwelling Catheter # Bowel Movements 2 1 - Exam - Constitutional General appearance: average body habitus, cooperative, disheveled - EENT Eyes: PERRLA Ears: bilateral: normal - Neck Neck: normal ROM Carotids: bilateral: upstroke normal - Respiratory Respiratory: bilateral: CTA - Cardiovascular Rhythm: regular Heart sounds: normal: S1, S2 - Neurologic Neurologic: CNII-XII intact - Musculoskeletal Musculoskeletal: gait normal, generalized weakness, strength equal bilaterally - Psychiatric Psychiatric: A&O x's 3, appropriate affect, intact judgment & insight - Labs CBC & Chem 7: 05/25/20 05:43 05/24/20 05:58 Labs: Abnormal Lab Results - Last 24 Hours (Table) 05/24/20 05/24/20 05/24/20 Range/Units 11:54 16:57 20:28 WBC (3.8-10.6) k/uL RBC (3.80-5.40) m/uL Hgb (11.4-16.0) gm/dL Hct (34.0-46.0) % RDW (11.5-15.5) % Plt Count (150-450) k/uL Neutrophils # (Manual) (1.3-7.7) k/uL POC Glucose (mg/dL) 163 H 156 H 147 H (75-99) mg/dL Stool Occult Blood (Negative) 05/25/20 05/25/20 05/25/20 Range/Units 00:01 05:43 06:49 WBC 28.4 H (3.8-10.6) k/uL RBC 3.27 L (3.80-5.40) m/uL Hgb 9.0 L (11.4-16.0) gm/dL Hct 28.5 L (34.0-46.0) % RDW 18.2 H (11.5-15.5) % Plt Count 143 L (150-450) k/uL Neutrophils # (Manual) 28.40 H (1.3-7.7) k/uL POC Glucose (mg/dL) 127 H (75-99) mg/dL Stool Occult Blood Positive H (Negative) Microbiology - Last 24 Hours (Table) 05/20/20 18:46 Blood Culture - Preliminary Blood No Growth after 96 hours 05/20/20 18:44 Blood Culture - Preliminary Blood No Growth after 96 hours Assessment and Plan Assessment: bilateral effusion bilateral pneumonia acute blood loss anemia with heme positive stool Acute hypoxic respiratory failure Sepsis due to pneumonia Hypertension and hypertensive cardiovascular disease COPD Plan: ultrasound of the chest bilateral Continue broad-spectrum antibiotics Breathing treatments Supplemental oxygen Deep breathing exercise Further recommendations pending plan of care as per clinical response of the patient IV steroids Reviewed follow-up chest x-ray
[2020-05-25 12:05] LABS: Glucose,Whole Blood 114 mg/dL (75-99)
--- NOTE | 2020-05-25 13:03 | XR ---
EXAMINATION TYPE: XR chest 1V portable DATE OF EXAM: 05/25/2020 COMPARISON: 05/21/2020 INDICATION: Pneumonia TECHNIQUE: Single frontal view of the chest is obtained. FINDINGS: The heart size is normal. The pulmonary vasculature is normal. Bibasilar infiltrates are present, worsening from comparison. Small effusions may be present IMPRESSION: 1. Worsening bibasilar infiltrates and small pleural effusions
--- NOTE | 2020-05-25 13:36 | P.PN ---
Subjective Progress Note Date: 05/25/20 HISTORY OF PRESENT ILLNESS: 05/24/2020 This is a 80-year-old female with a past medical history significant for COPD, atrial fibrillation/flutter, diabetes mellitus, hypertension, and hyperlipidemia. Patient follows in the office with Dr. López. We have been asked to see the patient in consultation for atrial fibrillation. Patient examined at the bedside. Patient is currently admitted to the hospital secondary to bilateral pneumonia. She is receiving IV Zosyn. Patient went into atrial fibrillation yesterday with mildly uncontrolled ventricular rate in the 110s. Patient has a history of atrial fibrillation and is currently anticoagulated with Eliquis. Patient's hemoglobin 8.7 on admission. Her hemoglobin yesterday was 6.3. She received RBC transfusion. Repeat hemoglobin today is 8.4. At the time of examination, she is maintaining sinus mechanism on telemetry. Heart rate is in the 80s. She denies chest pain or pressure. She denies feeling palpitations. She reports mild shortness of breath at the time of examination. EKG sinus mechanism on admission, repeat EKG reveals atrial fibrillation with mildly uncontrolled ventricular rate Chest xray COPD and continued small effusions with adjacent patchy infiltrates, left greater than right Laboratory data: WBC 15.9. Hemoglobin 8.4. Platelet count 122. Sodium 142. Potassium 3.8. BUN 39. Creatinine 0.46. Current home cardiac medications include Silenafil 20 mg 3 times a day, Cardizem 30 mg 3 times a day, Eliquis 5 mg twice a day, amiodarone 200 mg twice a day, Lipitor 20 mg daily and Lasix 20 mg daily Most recent echocardiogram obtained in April 2020 reveals ejection fraction of 55-60%, mild mitral regurgitation, moderate to severe tricuspid regurgitation, and severe pulmonary hypertension Cardiac catheterization history: 05/13/[address] López. Patient underwent right heart cath revealing moderate pulmonary hypertension, no evidence of left- sided failure, and normal cardiac output. 05/25/2020 Patient examined at the bedside. She denies chest pain or pressure. She continues to report shortness of breath. She is currently on 10 L nasal cannula with oxygen saturations greater than 92%. Telemetry reveals sinus mechanism. Patient Eliquis remains on hold. Hemoglobin 9.0. PHYSICAL EXAM: VITAL SIGNS: Reviewed. GENERAL: Well-developed in no acute distress. HEENT: Head is normocephalic. Pupils are equal, round. Sclerae anicteric. Mucous membranes of the mouth are moist. Neck supple. No JVD or thyromegaly LUNGS: Respirations even and unlabored. Lungs with decreased air exchange and scattered rhonchi noted. HEART: Regular rate and rhythm. S1 and S2 heard. Systolic murmur noted. ABDOMEN: Soft. Nondistended. Nontender. EXTREMITIES: Normal range of motion. No clubbing or cyanosis. Peripheral pulses intact. No lower extremity edema NEUROLOGIC: Awake and alert. Oriented x 3. ASSESSMENT: Bilateral pneumonia Acute hypoxic respiratory failure requiring supplemental oxygen Acute exacerbation of COPD Paroxysmal atrial fibrillation, on anticoagulation with Eliquis, currently maintaining sinus mechanism Acute on chronic anemia Pulmonary hypertension Valvular heart disease: Mild mitral regurgitation and moderate to severe tr icuspid regurgitation Hyperlipidemia Hypertension Diabetes mellitus Former nicotine dependence, patient quit smoking 20 years ago, was 2 PPD smoker PLAN: Pulmonary following for pneumonia and COPD GI following. Await further input regarding possible endoscopy Continue to hold Eliquis Continue additional current cardiac medications Further recommendations pending patient's course Nurse practitioner note has been reviewed by physician. Signing provider agrees with the documented findings, assessment, and plan of care. Objective - Vital Signs Vital signs: Vital Signs Temp 97.8 F 05/25/20 00:00 Pulse 87 05/25/20 00:00 Resp 18 05/25/20 00:00 BP 96/57 05/25/20 00:00 Pulse Ox 92 L 05/25/20 00:00 Intake & Output 05/24/20 05/25/20 05/25/20 18:59 06:59 18:59 Intake Total 390 1250 Output Total 1100 350 Balance -710 900 Weight 44 kg Intake: Intake, IV Titration 100 200 Amount Piperacillin-Tazobactam 3 100 200 .375 gm In Sodium Chloride 0.9% 100 ml @ 25 mls/hr IVPB Q8H [facility] Rx#: [id number] Oral 290 1050 Output: Urine 1100 350 Uretheral (Banegas) 800 Other: Voiding Method Diaper Indwelling Catheter # Bowel Movements 2 1 - Labs CBC & Chem 7: 05/25/20 05:43 05/24/20 05:58 Labs: Abnormal Lab Results - Last 24 Hours (Table) 05/24/20 05/24/20 05/25/20 Range/Units 16:57 20:28 00:01 WBC (3.8-10.6) k/uL RBC (3.80-5.40) m/uL Hgb (11.4-16.0) gm/dL Hct (34.0-46.0) % RDW (11.5-15.5) % Plt Count (150-450) k/uL Neutrophils # (Manual) (1.3-7.7) k/uL POC Glucose (mg/dL) 156 H 147 H (75-99) mg/dL Stool Occult Blood Positive H (Negative) 05/25/20 05/25/20 05/25/20 Range/Units 05:43 06:49 11:50 WBC 28.4 H (3.8-10.6) k/uL RBC 3.27 L (3.80-5.40) m/uL Hgb 9.0 L (11.4-16.0) gm/dL Hct 28.5 L (34.0-46.0) % RDW 18.2 H (11.5-15.5) % Plt Count 143 L (150-450) k/uL Neutrophils # (Manual) 28.40 H (1.3-7.7) k/uL POC Glucose (mg/dL) 127 H 114 H (75-99) mg/dL Stool Occult Blood (Negative) Microbiology - Last 24 Hours (Table) 05/20/20 18:46 Blood Culture - Preliminary Blood No Growth after 96 hours 05/20/20 18:44 Blood Culture - Preliminary Blood No Growth after 96 hours
--- NOTE | 2020-05-25 14:24 | US ---
EXAMINATION TYPE: US chest DATE OF EXAM: 05/25/2020 COMPARISON: NONE CLINICAL HISTORY: pleural effusion. SOB, pneumonia, effusion TECHNIQUE: Targeted ultrasound of the posterior lower Bilateral EXAM MEASUREMENTS: Right Pleural Effusion pocket size: 12.0 cm Right skin surface to fluid distance: 2.6 cm Left Pleural Effusion pocket size: 11.1 cm Left skin surface to fluid distance: 2.6 cm Right side marked for possible thoracentesis outside the dept. Left side marked for possible thoracentesis outside the dept. Pulmonologists are able to review the images in the patient?s EMR. IMPRESSIONS: 1. Bilateral pleural effusions
--- NOTE | 2020-05-25 14:44 | P.PN ---
Subjective Progress Note Date: 05/25/20 Principal diagnosis: Microcytic anemia A shunt is seen and examined lying in bed. She had a large bowel movement yesterday evening which was noted to be black. She is denying any abdominal pain, states that it improved after her bowel movement. Denies any nausea or vomiting. She is currently on 10 L of oxygen per nasal cannula. Hemoglobin stable at 9.0. No other acute changes through the night. Patient was given her Eliquis yesterday evening. Objective - Vital Signs Vital signs: Vital Signs Temp 97.8 F 05/25/20 00:00 Pulse 87 05/25/20 00:00 Resp 18 05/25/20 00:00 BP 96/57 05/25/20 00:00 Pulse Ox 92 L 05/25/20 00:00 Intake & Output 05/24/20 05/25/20 05/25/20 18:59 06:59 18:59 Intake Total 390 1250 Output Total 1100 350 Balance -710 900 Weight 44 kg Intake: Intake, IV Titration 100 200 Amount Piperacillin-Tazobactam 3 100 200 .375 gm In Sodium Chloride 0.9% 100 ml @ 25 mls/hr IVPB Q8H [facility] Rx#: [id number] Oral 290 1050 Output: Urine 1100 350 Uretheral (Banegas) 800 Other: Voiding Method Diaper Indwelling Catheter # Bowel Movements 2 1 - Exam General appearance: The patient is alert, oriented, appears in no acute distress. HET: Head is normocephalic and atraumatic. Conjunctiva pink. Sclera anicteric. Neck: Supple without lymphadenopathy. Abdomen: Soft, nontender, nondistended with bowel sounds. No guarding or rigidity. Extremities: Normal skin color and turgor. No pedal edema Skin: No rashes, no jaundice Neurological: No focal deficits. Alert and oriented 3. - Labs CBC & Chem 7: 05/25/20 05:43 05/24/20 05:58 Labs: Abnormal Lab Results - Last 24 Hours (Table) 05/24/20 05/24/20 05/24/20 Range/Units 11:54 16:57 20:28 WBC (3.8-10.6) k/uL RBC (3.80-5.40) m/uL Hgb (11.4-16.0) gm/dL Hct (34.0-46.0) % RDW (11.5-15.5) % Plt Count (150-450) k/uL Neutrophils # (Manual) (1.3-7.7) k/uL POC Glucose (mg/dL) 163 H 156 H 147 H (75-99) mg/dL Stool Occult Blood (Negative) 05/25/20 05/25/20 05/25/20 Range/Units 00:01 05:43 06:49 WBC 28.4 H (3.8-10.6) k/uL RBC 3.27 L (3.80-5.40) m/uL Hgb 9.0 L (11.4-16.0) gm/dL Hct 28.5 L (34.0-46.0) % RDW 18.2 H (11.5-15.5) % Plt Count 143 L (150-450) k/uL Neutrophils # (Manual) 28.40 H (1.3-7.7) k/uL POC Glucose (mg/dL) 127 H (75-99) mg/dL Stool Occult Blood Positive H (Negative) Microbiology - Last 24 Hours (Table) 05/20/20 18:46 Blood Culture - Preliminary Blood No Growth after 96 hours 05/20/20 18:44 Blood Culture - Preliminary Blood No Growth after 96 hours Assessment and Plan (1) Symptomatic anemia Narrative/Plan: This is a 80-year-old female who presented to the hospital with shortness of breath. She was diagnosed with bilateral pneumonia and is currently on broad-spectrum antibiotics. She was noted to have severe anemia with clinically no evidence of active bleeding on admission. Was reported she had a dark bowel movement yesterday evening. She also had a positive occult stool. Plan is for upper and lower endoscopy and cleared by pulmonary and is medically stable. Current Visit: Yes Status: Acute Code(s): D64.9 - ANEMIA, UNSPECIFIED SNOMED Code(s): 126496218 (2) Pneumonia Narrative/Plan: She is on broad-spectrum antibiotics and being followed closely by pulmonology Current Visit: Yes Status: Acute Code(s): J18.9 - PNEUMONIA, UNSPECIFIED ORGANISM SNOMED Code(s): 192049103 (3) History of COPD Current Visit: Yes Status: Acute Code(s): Z87.09 - PERSONAL HISTORY OF OTHER DISEASES OF THE RESPIRATORY SYSTEM SNOMED Code(s): 425487766 Plan: 1. Supportive care 2. Continue with broad-spectrum antibiotics 3. Repeat daily CBC, transfuse for hemoglobin less than 7 4. Iron studies obtained and reviewed 5. Tentatively plan on upper and lower endoscopy this if cleared by pulmonology and medically stable 6. Continue to hold Eliquis 7. We will continue to follow with you closely Thank you for this consultation Dr. Suzie Villegas I agree with the dictator's note, documented as a scribe by Michelle Boggs.
[2020-05-25 16:57] LABS: Glucose,Whole Blood 164 mg/dL (75-99)
[2020-05-25 20:28] LABS: Glucose,Whole Blood 203 mg/dL (75-99)
[2020-05-25] MEDS: AZITHROMYCIN 500 MG TAB PO SCH (21:58)
[2020-05-25] MEDS: ATORVASTATIN 20 MG TAB PO SCH (21:58)
[2020-05-25] MEDS: GABAPENTIN 300 MG CAP PO SCH (22:00)
--- NOTE | 2020-05-25 22:59 | P.PN ---
Progress Note - Text Progress Note Date: 05/25/20 Chief Complaint: Short of breath History of presenting complaint: This is a pleasant 80-year-old patient of Dr. Carrillo. Chronic stable medical conditions include diabetes, hypertension, hyperlipidemia, peripheral neuropathy, osteoarthritis, paroxysmal atrial flutter for which patient anticoagulation currently in sinus rhythm. Patient now presents with progressive weakness. Significant cough congested not able to expectorate. Some wheezing. No fever no chills. Decreased appetite. Patient had abdominal distention earlier was found to have urinary retention and Banegas catheter be placed. Patient also has some edema on presentation that has gone down. Admitted with bilateral pneumonia started on IV Zosyn. Acute COPD exacerbation put on nebulizers, steroids. went into atrial fibrillation with rapid ventricular rate. Reverted back to normal. Cardiology was consulted. Hemoglobin did drop to 6.3. Given unit of blood. Today-sitting up in the bed. He may short of breath at rest. Decreased oral intake. Remains on bronchodilators, Solu-Medrol, IV Zosyn. Review of systems: Was done for constitutional, cardiovascular, GI, pulmonary. relevant finding as above Active Medications Albuterol Sulfate (Albuterol Hfa Inhaler) 2 puff INHALATION RT-Q6H PRN PRN Reason: Shortness Of Breath Albuterol/Ipratropium (Ipratropium-Albuterol 3 Ml Neb) 3 ml INHALATION RT-Q4H [facility] Last Admin: 05/25/20 20:34 Dose: 3 ml Documented by: Amiodarone HCl (Amiodarone 200 Mg Tab) 200 mg PO DAILY [facility] Last Admin: 05/25/20 11:18 Dose: 200 mg Documented by: Atorvastatin Calcium (Atorvastatin 20 Mg Tab) 20 mg PO HS@2100 [facility] Last Admin: 05/25/20 21:58 Dose: 20 mg Documented by: Azithromycin (Azithromycin 500 Mg Tab) 500 mg PO HS [facility] Last Admin: 05/25/20 21:58 Dose: 500 mg Documented by: Budesonide (Budesonide 1 Mg/2 Ml Nebu) 1 mg INHALATION RT-BID [facility] Last Admin: 05/25/20 20:34 Dose: 1 mg Documented by: Diltiazem HCl (Diltiazem Oral 60 Mg Tab) 60 mg PO TID@0900,1300,2100 [facility] Last Admin: 05/25/20 21:58 Dose: 60 mg Documented by: Ferrous Sulfate (Ferrous Sulfate 325 Mg Tab) 325 mg PO BID@0900,2100 [facility] Last Admin: 05/25/20 21:58 Dose: 325 mg Documented by: Formoterol Fumarate (Formoterol Fumarate 20 Mcg/2 Ml Nebu) 20 mcg INHALATION RT-BID [facility] Last Admin: 05/25/20 20:34 Dose: 20 mcg Documented by: Gabapentin (Gabapentin 300 Mg Cap) 300 mg PO HS@2100 [facility] Last Admin: 05/25/20 22:00 Dose: 300 mg Documented by: Guaifenesin (Guaifenesin 600 Mg Tablet.Er) 600 mg PO QID [facility] Last Admin: 05/25/20 21:58 Dose: 600 mg Documented by: Piperacillin Sod/Tazobactam (Sod 3.375 gm/ Sodium Chloride) 100 mls @ 25 mls/hr IVPB Q8H [facility] Last Admin: 05/25/20 22:00 Dose: 25 mls/hr Documented by: Metformin HCl (Metformin 500 Mg Tab) 250 mg PO BID [facility] Last Admin: 05/25/20 21:57 Dose: 250 mg Documented by: Methylprednisolone Sodium Succinate (Methylprednisolone Sod Succi 40 Mg/Ml 1 Ml Vial) 40 mg IV Q12HR [facility] Last Admin: 05/25/20 21:57 Dose: 40 mg Documented by: Miscellaneous Information (Pneumonia Protocol Utilized 1 Each [facility]) 1 each PO ONCE PRN PRN Reason: Per Protocol Pantoprazole Sodium (Pantoprazole 40 Mg/10 Ml Vial) 40 mg IVP BID [facility] Last Admin: 05/25/20 21:57 Dose: 40 mg Documented by: Sildenafil Citrate (Sildenafil 20 Mg Tab) 20 mg PO TID@0900,1300,2100 [facility] Last Admin: 05/25/20 21:57 Dose: 20 mg Documented by: Past medical history to include: COPD, diabetes, hypertension, hyperlipidemia, atrial flutter, paroxysmal Social history: Lives alone. Does use a cane. Smokes about 2 packs a day for 40 years stopped about 20 years ago. No alcohol Physical examination: VITAL SIGNS: Afebrile, 87, 18, 90/62, 82% on 10 L high flow GENERAL reclining, tired, short of breath. Loss of subcu fat and muscle mass EYES: Pupils equal. Conjunctiva normal. HEENT: External appearance of nose and ears normal, oral cavity grossly normal. NECK: JVD not raised; masses not palpable. HEART: First and second heart sounds are normal; minimal edema. LUNGS: Respiratory rate increased, diminished breath sounds prolonged expiration some wheezing, not able to speak in full sentences. ABDOMEN: Soft, nontender, liver spleen not palpable, no masses palpable. PSYCH: Alert and oriented x3; mood and affect anxious MUSCULAR skeletal: Evidence of OA INVESTIGATIONS, reviewed in the clinical context: May 25: WBC 28.4 hemoglobin 9 platelets 143 Check stat x-ray worsening infiltrates May 24: WBC 15.9 hemoglobin 8.4 platelets 122 potassium 3.8 creatinine 0.46 I and 16 TIBC 242% saturation 6.6 April 24: Pro-calcitonin 0.22 WBC 27.7 hemoglobin 8.7 platelets 141 d-dimer 1.35 potassium 3.7 bun 36 creatinine 0.49 troponin I 0.025 albumin 2.7 Coronavirus [PCR]-not detected EKG tracing personally reviewed by me-normal sinus rhythm P pulmonale some nonspecific T-wave changes Chest x-ray film personally reviewed by me-hyperinflated, bilateral infiltrates, pleural effusion Assessment and plan: -Bilateral pneumonia, suspect gram-negative organism, patient is on IV Zosyn.- not improving. We'll switch the patient over to cefepime. -Acute COPD exacerbation in an previous smoker. DuoNeb, IV Solu-Medrol, long- acting beta agonist and inhaled steroids. Pulmonary consulted. Not improving -Severe protein calorie malnutrition with a BMI of 16.1 from decreased oral intake and nutritional supplement. Dietitian consulted -Diabetes mellitus type 2 on oral hypoglycemic. Follow Accu-Cheks. -Hyperlipidemia continue with Lipitor -Paroxysmal atrial flutter fibrillation currently in sinus rhythm , on eliquis and amiodarone. Rapid ventricular rate , went back into sinus rhythm. Cardiology consulted -Primary osteoarthritis continue with Celebrex -Normocytic anemia symptomatic with hemoglobin of 6.3. Transfuse unit of blood. Repeat hemoglobin 9 Discussed with patient. Prognosis guarded. Change antibiotic to cefepime.
[2020-05-26] MEDS: IPRATROPIUM-ALBUTEROL 3 ML NEB INHALATION SCH ×5 (04:10→20:41)
[2020-05-26] MEDS: PIPERACILLIN-TAZOBACTAM 3.375 GM in SODIUM CHLORIDE 0.9% 100 ML IVPB SCH ×3 (04:51→18:15)
[2020-05-26 06:09] LABS: Glucose,Whole Blood 151 mg/dL (75-99)
[2020-05-26 08:11] LABS: Anisocytosis Slight; HCT 26.9 % (34.0-46.0); HGB 8.3 gm/dL (11.4-16.0); Hypochromasia Marked; MCH 27.7 pg (25.0-35.0); MCV 89.5 fL (80.0-100.0); Mean Platelet Volume 9.3; Platelet Count 173 k/uL (150-450); Poikilocytosis Marked; WBC 25.8 k/uL (3.8-10.6)
[2020-05-26] MEDS: FORMOTEROL FUMARATE 20 MCG/2 ML NEBU INHALATION SCH ×2 (08:15→20:41)
[2020-05-26] MEDS: BUDESONIDE 1 MG/2 ML NEBU INHALATION SCH ×2 (08:15→20:41)
[2020-05-26] MEDS: methylPREDNISolone SOD SUCCI 40 MG/ML 1 ML VIAL IV SCH ×2 (09:12→20:08)
[2020-05-26] MEDS: DILTIAZEM ORAL 60 MG TAB PO SCH ×3 (09:12→21:51)
[2020-05-26] MEDS: AMIODARONE 200 MG TAB PO SCH (09:12)
[2020-05-26] MEDS: PANTOPRAZOLE 40 MG/10 ML VIAL IVP SCH (09:12)
[2020-05-26] MEDS: FERROUS SULFATE 325 MG TAB PO SCH ×2 (09:12→20:07)
[2020-05-26] MEDS: metFORMIN 500 MG TAB PO SCH ×2 (09:12→20:08)
[2020-05-26] MEDS: guaiFENesin 600 MG TABLET.ER PO SCH ×4 (09:12→21:51)
[2020-05-26] MEDS: SILDENAFIL 20 MG TAB PO SCH ×3 (09:13→20:07)
[2020-05-26 11:50] LABS: Glucose,Whole Blood 232 mg/dL (75-99)
[2020-05-26] MEDS: APIXABAN 5 MG TAB PO SCH (12:12)
--- NOTE | 2020-05-26 13:07 | P.PN ---
Subjective Progress Note Date: 05/26/20 Principal diagnosis: Microcytic anemia A shunt is seen and examined lying in bed. She reportedly had another bowel movement yesterday evening which was reported as dark. She is denying any abdominal pain, denies any nausea or vomiting. Denies any nausea or vomiting. She is currently on 10 L of oxygen per nasal cannula. Hemoglobin slight drop from 9.02 8.3. No other acute changes through the night. Eliquis on hold. Objective - Vital Signs Vital signs: Vital Signs Temp 97.9 F 05/26/20 09:04 Pulse 83 05/26/20 09:04 Resp 18 05/26/20 09:04 BP 95/53 05/26/20 09:04 Pulse Ox 95 05/26/20 09:04 Intake & Output 05/25/20 05/26/20 05/26/20 18:59 06:59 18:59 Intake Total 870 222 Output Total 400 301 Balance 470 -79 Weight 44 kg 45 kg Intake: Intake, IV Titration 100 Amount Piperacillin-Tazobactam 3 100 .375 gm In Sodium Chloride 0.9% 100 ml @ 25 mls/hr IVPB Q8H [facility] Rx#: [id number] Oral 770 222 Output: Urine 400 300 Stool 1 Other: Voiding Method Diaper Diaper Indwelling Catheter Indwelling Catheter # Bowel Movements 1 2 - Exam General appearance: The patient is alert, oriented, appears in no acute distress. HET: Head is normocephalic and atraumatic. Conjunctiva pink. Sclera anicteric. Neck: Supple without lymphadenopathy. Abdomen: Soft, nontender, nondistended with bowel sounds. No guarding or rigidity. Extremities: Normal skin color and turgor. No pedal edema Skin: No rashes, no jaundice Neurological: No focal deficits. Alert and oriented 3. - Labs CBC & Chem 7: 05/26/20 06:49 05/24/20 05:58 Labs: Abnormal Lab Results - Last 24 Hours (Table) 05/25/20 05/25/20 05/25/20 Range/Units 11:50 16:40 20:26 WBC (3.8-10.6) k/uL RBC (3.80-5.40) m/uL Hgb (11.4-16.0) gm/dL Hct (34.0-46.0) % RDW (11.5-15.5) % POC Glucose (mg/dL) 114 H 164 H 203 H (75-99) mg/dL 05/26/20 05/26/20 Range/Units 06:08 06:49 WBC 25.8 H (3.8-10.6) k/uL RBC 3.00 L (3.80-5.40) m/uL Hgb 8.3 L (11.4-16.0) gm/dL Hct 26.9 L (34.0-46.0) % RDW 18.0 H (11.5-15.5) % POC Glucose (mg/dL) 151 H (75-99) mg/dL Microbiology - Last 24 Hours (Table) 05/20/20 18:46 Blood Culture - Preliminary Blood No Growth after 120 hours 05/20/20 18:44 Blood Culture - Preliminary Blood No Growth after 120 hours Assessment and Plan (1) Symptomatic anemia Narrative/Plan: This is a 80-year-old female who presented to the hospital with shortness of breath. She was diagnosed with bilateral pneumonia and is currently on broad-spectrum antibiotics. She was noted to have severe anemia with clinically no evidence of active bleeding on admission. Was reported she had a dark bowel movement yesterday evening. She also had a positive occult stool. Will hold off at this time on endoscopic evaluation due to patient's pulmonary status. Consider upper endoscopy if medically cleared by pulmonology. Current Visit: Yes Status: Acute Code(s): D64.9 - ANEMIA, UNSPECIFIED SNOMED Code(s): 069758903 (2) Pneumonia Narrative/Plan: She is on broad-spectrum antibiotics and being followed closely by pulmonology Current Visit: Yes Status: Acute Code(s): J18.9 - PNEUMONIA, UNSPECIFIED ORGANISM SNOMED Code(s): 766674901 (3) History of COPD Current Visit: Yes Status: Acute Code(s): Z87.09 - PERSONAL HISTORY OF OTHER DISEASES OF THE RESPIRATORY SYSTEM SNOMED Code(s): 839946955 Plan: 1. Supportive care 2. Continue with broad-spectrum antibiotics 3. Repeat daily CBC, transfuse for hemoglobin less than 7 4. Iron studies obtained and reviewed 5. Will hold off on endoscopic evaluation at this time due to her poor pulmonary status 6. Continue to hold Eliquis 7. We will continue to follow with you closely Thank you for this consultation Dr. Suzie Villegas I agree with the dictator's note, documented as a scribe by Michelle FRANCO .
--- NOTE | 2020-05-26 14:19 | P.PN ---
Subjective Progress Note Date: 05/26/20 HISTORY OF PRESENT ILLNESS: 05/24/2020 This is a 80-year-old female with a past medical history significant for COPD, atrial fibrillation/flutter, diabetes mellitus, hypertension, and hyperlipidemia. Patient follows in the office with Dr. López. We have been asked to see the patient in consultation for atrial fibrillation. Patient examined at the bedside. Patient is currently admitted to the hospital secondary to bilateral pneumonia. She is receiving IV Zosyn. Patient went into atrial fibrillation yesterday with mildly uncontrolled ventricular rate in the 110s. Patient has a history of atrial fibrillation and is currently anticoagulated with Eliquis. Patient's hemoglobin 8.7 on admission. Her hemoglobin yesterday was 6.3. She received RBC transfusion. Repeat hemoglobin today is 8.4. At the time of examination, she is maintaining sinus mechanism on telemetry. Heart rate is in the 80s. She denies chest pain or pressure. She denies feeling palpitations. She reports mild shortness of breath at the time of examination. EKG sinus mechanism on admission, repeat EKG reveals atrial fibrillation with mildly uncontrolled ventricular rate Chest xray COPD and continued small effusions with adjacent patchy infiltrates, left greater than right Laboratory data: WBC 15.9. Hemoglobin 8.4. Platelet count 122. Sodium 142. Potassium 3.8. BUN 39. Creatinine 0.46. Current home cardiac medications include Silenafil 20 mg 3 times a day, Cardizem 30 mg 3 times a day, Eliquis 5 mg twice a day, amiodarone 200 mg twice a day, Lipitor 20 mg daily and Lasix 20 mg daily Most recent echocardiogram obtained in April 2020 reveals ejection fraction of 55-60%, mild mitral regurgitation, moderate to severe tricuspid regurgitation, and severe pulmonary hypertension Cardiac catheterization history: 05/13/[address] López. Patient underwent right heart cath revealing moderate pulmonary hypertension, no evidence of left- sided failure, and normal cardiac output. 05/25/2020 Patient examined at the bedside. She denies chest pain or pressure. She continues to report shortness of breath. She is currently on 10 L nasal cannula with oxygen saturations greater than 92%. Telemetry reveals sinus mechanism. Patient Eliquis remains on hold. Hemoglobin 9.0. 05/26/2020 Patient examined this morning at the bedside. She reports intermittent shortness of breath. She is on 8 L nasal cannula with oxygen saturations greater than 92%. She currently denies chest pain or pressure. Hemoglobin 8.3. Eliquis remains on hold. PHYSICAL EXAM: VITAL SIGNS: Reviewed. GENERAL: Well-developed in no acute distress. HEENT: Head is normocephalic. Pupils are equal, round. Sclerae anicteric. Mucous membranes of the mouth are moist. Neck supple. No JVD or thyromegaly LUNGS: Respirations even and unlabored. Lungs with decreased air exchange and scattered rhonchi noted. HEART: Regular rate and rhythm. S1 and S2 heard. Systolic murmur noted. ABDOMEN: Soft. Nondistended. Nontender. EXTREMITIES: Normal range of motion. No clubbing or cyanosis. Peripheral pulses intact. No lower extremity edema NEUROLOGIC: Awake and alert. Oriented x 3. ASSESSMENT: Bilateral pneumonia Acute hypoxic respiratory failure requiring supplemental oxygen Acute exacerbation of COPD Paroxysmal atrial fibrillation, on anticoagulation with Eliquis, currently maintaining sinus mechanism Acute on chronic anemia Pulmonary hypertension Valvular heart disease: Mild mitral regurgitation and moderate to severe tricuspid regurgitation Hyperlipidemia Hypertension Diabetes mellitus Former nicotine dependence, patient quit smoking 20 years ago, was 2 PPD smoker PLAN: Pulmonary following Patient tentatively scheduled for EGD and colonoscopy tomorrow with GI service Continue to hold Eliquis Continue additional current cardiac medications Further recommendations pending patient's course Nurse practitioner note has been reviewed by physician. Signing provider agrees with the documented findings, assessment, and plan of care. Objective - Vital Signs Vital signs: Vital Signs Temp 97.5 F L 05/26/20 11:38 Pulse 74 05/26/20 11:58 Resp 20 05/26/20 11:38 BP 112/59 05/26/20 11:38 Pulse Ox 94 L 05/26/20 11:38 Intake & Output 05/25/20 05/26/20 05/26/20 18:59 06:59 18:59 Intake Total 870 222 720 Output Total 400 301 1 Balance 470 -79 719 Weight 44 kg 45 kg Intake: Intake, IV Titration 100 Amount Piperacillin-Tazobactam 3 100 .375 gm In Sodium Chloride 0.9% 100 ml @ 25 mls/hr IVPB Q8H [facility] Rx#: [id number] Oral 770 222 720 Output: Urine 400 300 Stool 1 1 Other: Voiding Method Diaper Diaper Diaper Indwelling Catheter Indwelling Catheter Indwelling Catheter # Bowel Movements 1 2 2 - Labs CBC & Chem 7: 05/26/20 06:49 05/24/20 05:58 Labs: Abnormal Lab Results - Last 24 Hours (Table) 05/25/20 05/25/20 05/26/20 Range/Units 16:40 20:26 06:08 WBC (3.8-10.6) k/uL RBC (3.80-5.40) m/uL Hgb (11.4-16.0) gm/dL Hct (34.0-46.0) % RDW (11.5-15.5) % POC Glucose (mg/dL) 164 H 203 H 151 H (75-99) mg/dL 05/26/20 05/26/20 Range/Units 06:49 11:48 WBC 25.8 H (3.8-10.6) k/uL RBC 3.00 L (3.80-5.40) m/uL Hgb 8.3 L (11.4-16.0) gm/dL Hct 26.9 L (34.0-46.0) % RDW 18.0 H (11.5-15.5) % POC Glucose (mg/dL) 232 H (75-99) mg/dL Microbiology - Last 24 Hours (Table) 05/20/20 18:46 Blood Culture - Preliminary Blood No Growth after 120 hours 05/20/20 18:44 Blood Culture - Preliminary Blood No Growth after 120 hours
--- NOTE | 2020-05-26 15:38 | P.PN ---
Subjective Progress Note Date: 05/26/20 Principal diagnosis: bilateral pneumonia Acute hypoxic respiratory failure Sepsis due to pneumonia Hypertension and hypertensive cardiovascular disease COPD 05/26/2020, patient seen eval reexamined during the rounds labs reviewed medications reviewed remains very short of breath, remains on 9 L oxygen unable to taper down, hemoglobin marginal but stable, patient is being considered for EGD endoscopy and colonoscopy however given marginal respiratory status would recommend to hold it, ultrasound of the chest reviewed bilateral pleural effusion is present which is a significant amount given that patient has been receiving her liquids until day before yesterday was hold on doing the thoracentesis however we'll perform right-sided tomorrow in the left-sided day after tomorrow in the meantime continue supportive care continue PPI along with broad-spectrum antibiotics, 05/25/2020, patient seen eval examined during the rounds labs reviewed medications reviewed care plan discussed, respiratory status slightly better today but however unclear reason patient is on 10 L oxygen off from 8 L, care plan discussed with the respiratory therapist and nurses as well, plan to titrate oxygen down, patient has microcytic anemia with heme positive stool status post transfusion with packed RBC,patient is being considered for EGD and colonoscopy once medically stable, chest x-ray performed today showing slight worsening of bilateral pneumonia versus effusion will check ultrasound of the chest 05/24/2020, patient seen eval examined during the rounds labs reviewed medicatio ns reviewed care plan discussed, patient is now down to 8 L oxygen, get short of breath on activity and exertion does have cough congestion, patient remains on IV steroids along with breathing treatments and broad-spectrum antibiotics including Zosyn and Zithromax, and cell count is up to 15,900, BUN/creatinine 39 and 0.46, patient is a 80 year-old extended care facility patient, patient came to the hospital with increasing shortness of breath, oxygen saturation was in 80%, prior medical history significant for heart failure and COPD he quit smoking more than 20 years ago, her cord testing in [facility] has been negative, , computed tomography scan positive for developing pneumonia, patient has WBC count of 27,000 has been started on broad-spectrum antibiotics,labs from today is pending patient remains on 5 L oxygen, her temperature is 97, saturation is 93%, more dynamically stable, FiO2 down to 5 L from 15 L high flow oxygen x-ray performed todayshowing patchy infiltrate left greater than the right, her covid test came back negative, Objective - Vital Signs Vital signs: Vital Signs Temp 97.9 F 05/26/20 15:10 Pulse 76 05/26/20 15:10 Resp 18 05/26/20 15:10 BP 106/54 05/26/20 15:10 Pulse Ox 95 05/26/20 15:10 Intake & Output 05/25/20 05/26/20 05/26/20 18:59 06:59 18:59 Intake Total 442 272 2675 Output Total 400 301 1 Balance 470 -79 1439 Weight 44 kg 45 kg Intake: Intake, IV Titration 100 Amount Piperacillin-Tazobactam 3 100 .375 gm In Sodium Chloride 0.9% 100 ml @ 25 mls/hr IVPB Q8H [facility] Rx#: [id number] Oral 750 [id number] [id number] Output: Urine 400 300 Stool 1 1 Other: Voiding Method Diaper Diaper Diaper Indwelling Catheter Indwelling Catheter Indwelling Catheter # Bowel Movements 1 2 2 - Exam - Constitutional General appearance: average body habitus, cooperative, disheveled - EENT Eyes: PERRLA Ears: bilateral: normal - Neck Neck: normal ROM Carotids: bilateral: upstroke normal - Respiratory Respiratory: bilateral: Bilateral wheezing with dullness to percussion reduced air entry at the bases - Cardiovascular Rhythm: regular Heart sounds: normal: S1, S2 - Neurologic Neurologic: CNII-XII intact - Musculoskeletal Musculoskeletal: gait normal, generalized weakness, strength equal bilaterally - Psychiatric Psychiatric: A&O x's 3, appropriate affect, intact judgment & insight - Labs CBC & Chem 7: 05/26/20 06:49 05/24/20 05:58 Labs: Abnormal Lab Results - Last 24 Hours (Table) 05/25/20 05/25/20 05/26/20 Range/Units 16:40 20:26 06:08 WBC (3.8-10.6) k/uL RBC (3.80-5.40) m/uL Hgb (11.4-16.0) gm/dL Hct (34.0-46.0) % RDW (11.5-15.5) % POC Glucose (mg/dL) 164 H 203 H 151 H (75-99) mg/dL 05/26/20 05/26/20 Range/Units 06:49 11:48 WBC 25.8 H (3.8-10.6) k/uL RBC 3.00 L (3.80-5.40) m/uL Hgb 8.3 L (11.4-16.0) gm/dL Hct 26.9 L (34.0-46.0) % RDW 18.0 H (11.5-15.5) % POC Glucose (mg/dL) 232 H (75-99) mg/dL Microbiology - Last 24 Hours (Table) 05/20/20 18:46 Blood Culture - Preliminary Blood No Growth after 120 hours 05/20/20 18:44 Blood Culture - Preliminary Blood No Growth after 120 hours Assessment and Plan Assessment: bilateral effusion bilateral pneumonia acute blood loss anemia with heme positive stool Acute hypoxic respiratory failure Sepsis due to pneumonia Hypertension and hypertensive cardiovascular disease COPD Plan: ultrasound of the chest bilateral reviewed need thoracentesis given patient has direct oral anticoagulant 36 hours ago last dose will attempted tomorrow with a right-sided first and then left-sided on Sunday Patient is at high risk of anesthesia associated with endoscopy Continue broad-spectrum antibiotics Breathing treatments Supplemental oxygen Deep breathing exercise Further recommendations pending plan of care as per clinical response of the patient IV steroids Reviewed follow-up chest x-ray along with ultrasound Time with Patient: Greater than 30
[2020-05-26 16:59] LABS: Glucose,Whole Blood 194 mg/dL (75-99)
[2020-05-26] MEDS: GABAPENTIN 300 MG CAP PO SCH (20:07)
[2020-05-26] MEDS: ATORVASTATIN 20 MG TAB PO SCH (20:08)
[2020-05-26] MEDS: AZITHROMYCIN 500 MG TAB PO SCH (20:08)
[2020-05-26 20:27] LABS: Glucose,Whole Blood 197 mg/dL (75-99)
--- NOTE | 2020-05-26 21:00 | P.PN ---
Progress Note - Text Progress Note Date: 05/26/20 Chief Complaint: Short of breath History of presenting complaint: This is a pleasant 80-year-old patient of Dr. Carrillo. Chronic stable medical conditions include diabetes, hypertension, hyperlipidemia, peripheral neuropathy, osteoarthritis, paroxysmal atrial flutter for which patient anticoagulation currently in sinus rhythm. Patient now presents with progressive weakness. Significant cough congested not able to expectorate. Some wheezing. No fever no chills. Decreased appetite. Patient had abdominal distention earlier was found to have urinary retention and Banegas catheter be placed. Patient also has some edema on presentation that has gone down. Admitted with bilateral pneumonia started on IV Zosyn. Acute COPD exacerbation put on nebulizers, steroids. went into atrial fibrillation with rapid ventricular rate. Reverted back to normal. Cardiology was consulted. Hemoglobin did drop to 6.3. Given unit of blood. Today-remains short of breath. Sitting up in bed. Had 2 dark stools On high flow oxygen-8 L. Oral intake decreased. Review of systems: Was done for constitutional, cardiovascular, GI, pulmonary. relevant finding as above Active Medications Albuterol Sulfate (Albuterol Hfa Inhaler) 2 puff INHALATION RT-Q6H PRN PRN Reason: Shortness Of Breath Albuterol/Ipratropium (Ipratropium-Albuterol 3 Ml Neb) 3 ml INHALATION RT-Q4H [facility] Last Admin: 05/26/20 20:41 Dose: 3 ml Documented by: Amiodarone HCl (Amiodarone 200 Mg Tab) 200 mg PO DAILY [facility] Last Admin: 05/26/20 09:12 Dose: 200 mg Documented by: Atorvastatin Calcium (Atorvastatin 20 Mg Tab) 20 mg PO HS@2100 [facility] Last Admin: 05/26/20 20:08 Dose: 20 mg Documented by: Azithromycin (Azithromycin 500 Mg Tab) 500 mg PO HS [facility] Last Admin: 05/26/20 20:08 Dose: 500 mg Documented by: Budesonide (Budesonide 1 Mg/2 Ml Nebu) 1 mg INHALATION RT-BID [facility] Last Admin: 05/26/20 20:41 Dose: Not Given Documented by: Diltiazem HCl (Diltiazem Oral 60 Mg Tab) 60 mg PO TID@0900,1300,2100 [facility] Last Admin: 05/26/20 13:50 Dose: 60 mg Documented by: Ferrous Sulfate (Ferrous Sulfate 325 Mg Tab) 325 mg PO BID@0900,2100 [facility] Last Admin: 05/26/20 20:07 Dose: 325 mg Documented by: Formoterol Fumarate (Formoterol Fumarate 20 Mcg/2 Ml Nebu) 20 mcg INHALATION RT-BID [facility] Last Admin: 05/26/20 20:41 Dose: Not Given Documented by: Gabapentin (Gabapentin 300 Mg Cap) 300 mg PO HS@2100 [facility] Last Admin: 05/26/20 20:07 Dose: 300 mg Documented by: Guaifenesin (Guaifenesin 600 Mg Tablet.Er) 600 mg PO QID [facility] Last Admin: 05/26/20 18:15 Dose: 600 mg Documented by: Piperacillin Sod/Tazobactam (Sod 3.375 gm/ Sodium Chloride) 100 mls @ 25 mls/hr IVPB Q8H [facility] Last Admin: 05/26/20 18:15 Dose: 25 mls/hr Documented by: Metformin HCl (Metformin 500 Mg Tab) 250 mg PO BID [facility] Last Admin: 05/26/20 20:08 Dose: 250 mg Documented by: Methylprednisolone Sodium Succinate (Methylprednisolone Sod Succi 40 Mg/Ml 1 Ml Vial) 40 mg IV Q12HR [facility] Last Admin: 05/26/20 20:08 Dose: 40 mg Documented by: Miscellaneous Information (Pneumonia Protocol Utilized [facility] 1 each PO ONCE PRN PRN Reason: Per Protocol Pantoprazole Sodium (Pantoprazole 40 Mg Tablet) 40 mg PO BID [facility] Sildenafil Citrate (Sildenafil 20 Mg Tab) 20 mg PO TID@0900,1300,2100 [facility] Last Admin: 05/26/20 20:07 Dose: 20 mg Documented by: Past medical history to include: COPD, diabetes, hypertension, hyperlipidemia, atrial flutter, paroxysmal Social history: Lives alone. Does use a cane. Smokes about 2 packs a day for 40 years stopped about 20 years ago. No alcohol Physical examination: VITAL SIGNS: 97.9, 76, 18, 106/54, 95% on 8 L GENERAL reclining, tired, short of breath. [ Loss of subcu fat and muscle mass] EYES: Pupils equal. Conjunctiva normal. HEENT: External appearance of nose and ears normal, oral cavity grossly normal. NECK: JVD not raised; masses not palpable. HEART: First and second heart sounds are normal; minimal edema. LUNGS: Respiratory rate increased, diminished breath sounds prolonged expiration some wheezing, not able to speak in full sentences. ABDOMEN: Soft, nontender, liver spleen not palpable, no masses palpable. PSYCH: Alert and oriented x3; mood and affect anxious MUSCULAR skeletal: Evidence of OA INVESTIGATIONS, reviewed in the clinical context: May 26: WBC 25.8 hemoglobin 8.3 platelets 173 May 25: WBC 28.4 hemoglobin 9 platelets 143 Chest x-ray worsening infiltrates May 24: WBC 15.9 hemoglobin 8.4 platelets 122 potassium 3.8 creatinine 0.46 I and 16 TIBC 242% saturation 6.6 April 24: Pro-calcitonin 0.22 WBC 27.7 hemoglobin 8.7 platelets 141 d-dimer 1.35 potassium 3.7 bun 36 creat inine 0.49 troponin I 0.025 albumin 2.7 Coronavirus [PCR]-not detected EKG tracing personally reviewed by me-normal sinus rhythm P pulmonale some nonspecific T-wave changes Chest x-ray film personally reviewed by me-hyperinflated, bilateral infiltrates, pleural effusion Blood cultures-negative Assessment and plan: -Bilateral pneumonia, suspect gram-negative organism, patient is on IV Zosyn.- not improving. -Acute COPD exacerbation in an previous smoker. DuoNeb, IV Solu-Medrol, long- acting beta agonist and inhaled steroids. Not improving -Severe protein calorie malnutrition with a BMI of 16.1 from decreased oral intake and nutritional supplement. Dietitian consulted -Diabetes mellitus type 2 on oral hypoglycemic. Follow Accu-Cheks. Uncontrolled with hyperglycemia secondary to steroids -Hyperlipidemia continue with Lipitor -Paroxysmal atrial flutter fibrillation currently in sinus rhythm , on eliquis and amiodarone. Rapid ventricular rate , went back into sinus rhythm. Cardiology consulted -Primary osteoarthritis continue with Celebrex [currently held] -Normocytic anemia symptomatic with hemoglobin of 6.3. Transfuse unit of blood. Repeat hemoglobin 9 -Acute GI bleed with dark stools.. Patient had been on eliquis, Celebrex, steroids. Patient is a high risk from a respiratory standpoint to undergo endoscopy at present time. Discussed with Michelle DIA from GI. Patient is a high risk from a pulmonary standpoint underwent endoscopy at this point. Did discuss with her to discuss with pulmonary for the same. Total time spent about 40 minutes with over 25 minutes of discussion. Discussed with patient.
[2020-05-26] MEDS: PANTOPRAZOLE 40 MG TABLET PO SCH (21:51)
[2020-05-26] MEDS ORDERED: LACTATED RINGERS 1,000 ML IV SCH (22:25)
[2020-05-27] MEDS: IPRATROPIUM-ALBUTEROL 3 ML NEB INHALATION SCH ×4 (01:03→12:05)
[2020-05-27] MEDS: PIPERACILLIN-TAZOBACTAM 3.375 GM in SODIUM CHLORIDE 0.9% 100 ML IVPB SCH ×2 (03:29→12:56)
[2020-05-27 05:28] LABS: Anisocytosis Slight; Basophils % (A) 0 %; Eosinophils % (A) 0 %; HCT 24.7 % (34.0-46.0); HGB 7.6 gm/dL (11.4-16.0); Hypochromasia Marked; Lymphocytes # (A) 0.2 k/uL (1.0-4.8); Lymphocytes % (A) 1 %; MCH 27.6 pg (25.0-35.0); MCHC 30.8 g/dL (31.0-37.0); MCV 89.5 fL (80.0-100.0); Mean Platelet Volume 9.6; Monocytes # (A) 0.4 k/uL (0-1.0); Monocytes % (A) 2 %; Neutrophils # (A) 22.8 k/uL (1.3-7.7); Neutrophils % (A) 97 %; Platelet Count 160 k/uL (150-450); Poikilocytosis Marked; RBC 2.76 m/uL (3.80-5.40); RDW 17.8 % (11.5-15.5); WBC 23.4 k/uL (3.8-10.6)
[2020-05-27 06:09] LABS: Glucose,Whole Blood 157 mg/dL (75-99)
[2020-05-27] MEDS ORDERED: SODIUM CHLORIDE 0.9% 500 ML 250 ML IV ONE (08:23)
[2020-05-27] MEDS: methylPREDNISolone SOD SUCCI 40 MG/ML 1 ML VIAL IV SCH (08:24)
[2020-05-27] MEDS: guaiFENesin 600 MG TABLET.ER PO SCH (08:24)
[2020-05-27] MEDS: metFORMIN 500 MG TAB PO SCH (08:24)
[2020-05-27] MEDS: FERROUS SULFATE 325 MG TAB PO SCH (08:25)
[2020-05-27] MEDS: PANTOPRAZOLE 40 MG TABLET PO SCH (08:25)
[2020-05-27] MEDS: DILTIAZEM ORAL 60 MG TAB PO SCH (08:25)
[2020-05-27] MEDS: SILDENAFIL 20 MG TAB PO SCH (08:25)
[2020-05-27] MEDS: AMIODARONE 200 MG TAB PO SCH (08:25)
[2020-05-27] MEDS: FORMOTEROL FUMARATE 20 MCG/2 ML NEBU INHALATION SCH (08:55)
[2020-05-27] MEDS: BUDESONIDE 1 MG/2 ML NEBU INHALATION SCH (08:55)
--- NOTE | 2020-05-27 09:53 | P.PN ---
Subjective Progress Note Date: 05/27/20 Principal diagnosis: Microcytic anemia A shunt is seen and examined lying in bed. She reportedly had 2 recent dark tarry bowel movements. She has been hypotensive this morning and lethargic. She is denying any abdominal pain, denies any nausea or vomiting. She remains on 8 L of high flow nasal cannula, Dr. Martinez is going to do bedside paracentesis. Medicine ordered one unit PRBC transfusion. Hemoglobin 7.6. Nursing stated that patient has been made a DO NOT RESUSCITATE. Objective - Vital Signs Vital signs: Vital Signs Temp 98.1 F 05/27/20 07:58 Pulse 76 05/27/20 07:58 Resp 16 05/27/20 07:58 BP 77/41 05/27/20 07:58 Pulse Ox 97 05/27/20 07:58 Intake & Output 05/26/20 05/27/20 05/27/20 18:59 06:59 18:59 Intake Total 1920 Output Total 1 301 Balance 1919 -301 Weight 47.5 kg Intake: Oral 1920 Output: Urine 300 Stool 1 1 Other: Voiding Method Diaper Diaper Indwelling Catheter Indwelling Catheter # Bowel Movements 1 1 - Exam General appearance: The patient is alert, oriented, appears in no acute distress. HET: Head is normocephalic and atraumatic. Conjunctiva pink. Sclera anicteric. Neck: Supple without lymphadenopathy. Abdomen: Soft, nontender, nondistended with bowel sounds. No guarding or rigidity. Extremities: Normal skin color and turgor. No pedal edema Skin: No rashes, no jaundice Neurological: No focal deficits. Alert and oriented 3. - Labs CBC & Chem 7: 05/27/20 04:53 05/24/20 05:58 Labs: Abnormal Lab Results - Last 24 Hours (Table) 05/26/20 05/26/20 05/26/20 Range/Units 11:48 16:58 20:25 WBC (3.8-10.6) k/uL RBC (3.80-5.40) m/uL Hgb (11.4-16.0) gm/dL Hct (34.0-46.0) % MCHC (31.0-37.0) g/dL RDW (11.5-15.5) % Neutrophils # (1.3-7.7) k/uL Lymphocytes # (1.0-4.8) k/uL POC Glucose (mg/dL) 232 H 194 H 197 H (75-99) mg/dL 05/27/20 05/27/20 Range/Units 04:53 06:08 WBC 23.4 H (3.8-10.6) k/uL RBC 2.76 L (3.80-5.40) m/uL Hgb 7.6 L (11.4-16.0) gm/dL Hct 24.7 L (34.0-46.0) % MCHC 30.8 L (31.0-37.0) g/dL RDW 17.8 H (11.5-15.5) % Neutrophils # 22.8 H (1.3-7.7) k/uL Lymphocytes # 0.2 L (1.0-4.8) k/uL POC Glucose (mg/dL) 157 H (75-99) mg/dL Microbiology - Last 24 Hours (Table) 05/20/20 18:46 Blood Culture - Final Blood No Growth after 144 hours 05/20/20 18:44 Blood Culture - Final Blood No Growth after 144 hours Assessment and Plan (1) Symptomatic anemia Narrative/Plan: This is a 80-year-old female who presented to the hospital with shortness of breath. She was diagnosed with bilateral pneumonia and is currently on broad-spectrum antibiotics. She was noted to have severe anemia with clinically no evidence of active bleeding on admission. Was reported she had a dark bowel movement yesterday evening. She also had a positive occult stool. Will hold off at this time on endoscopic evaluation due to patient's pulmonary status. Consider upper endoscopy if medically cleared by pulmonology. Status: Acute Code(s): D64.9 - ANEMIA, UNSPECIFIED SNOMED Code(s): 059518581 (2) Pneumonia Narrative/Plan: She is on broad-spectrum antibiotics and being followed closely by pulmonology. Plan as for thoracentesis today. Status: Acute Code(s): J18.9 - PNEUMONIA, UNSPECIFIED ORGANISM SNOMED Code(s): 992148765 (3) History of COPD Status: Acute Code(s): Z87.09 - PERSONAL HISTORY OF OTHER DISEASES OF THE RESPIRATORY SYSTEM SNOMED Code(s): 416857780 Plan: 1. Supportive care 2. Patient has been made a DO NOT RESUSCITATE and hospice care has been initiated Thank you for this consultation, we will sign off at this time. Dr. Suzie Villegas I agree with the dictator's note, documented as a scribe by Michelle Boggs.
--- NOTE | 2020-05-27 10:31 | P.PN ---
Subjective Progress Note Date: 05/27/20 Principal diagnosis: bilateral pneumonia Acute hypoxic respiratory failure Sepsis due to pneumonia Hypertension and hypertensive cardiovascular disease COPD 05/27/2020, patient seen and evaluated examined during the rounds off of direct or uncontrolled anticoagulants for wart 48 hours, patient is still have intermittent loose stool mixed with blood, heme positive, patient is running a low blood pressure she is arousable she has received a fluid bolus she consented for the right thoracentesis to be done today remains on 8 L oxygen saturation is mid 90s, last set of blood pressure was 90/50, last hemoglobin was 7.6 white cell count is 23,000 patient is to get 1 unit of packed RBC, patient is no code overall plan is to do the right side thoracentesis and titrate oxygen down further stabilize her to undergo endoscopy 05/26/2020, patient seen eval reexamined during the rounds labs reviewed medications reviewed remains very short of breath, remains on 9 L oxygen unable to taper down, hemoglobin marginal but stable, patient is being considered for EGD endoscopy and colonoscopy however given marginal respiratory status would recommend to hold it, ultrasound of the chest reviewed bilateral pleural effusion is present which is a significant amount given that patient has been receiving her liquids until day before yesterday was hold on doing the thoracentesis however we'll perform right-sided tomorrow in the left-sided day after tomorrow in the meantime continue supportive care continue PPI along with broad-spectrum antibiotics, 05/25/2020, patient seen eval examined during the rounds labs reviewed medications reviewed care plan discussed, respiratory status slightly better today but however unclear reason patient is on 10 L oxygen off from 8 L, care plan discussed with the respiratory therapist and nurses as well, plan to titrate oxygen down, patient has microcytic anemia with heme positive stool status post transfusion with packed RBC,patient is being considered for EGD and colonoscopy once medically stable, chest x-ray performed today showing slight worsening of bilateral pneumonia versus effusion will check ultrasound of the chest 05/24/2020, patient seen eval examined during the rounds labs reviewed medications reviewed care plan discussed, patient is now down to 8 L oxygen, get short of breath on activity and exertion does have cough congestion, patient remains on IV steroids along with breathing treatments and broad-spectrum antibiotics including Zosyn and Zithromax, and cell count is up to 15,900, BUN/creatinine 39 and 0.46, patient is a 80 year-old extended care facility patient, patient came to the hospital with increasing shortness of breath, oxygen saturation was in 80%, prior medical history significant for heart failure and COPD he quit smoking more than 20 years ago, her cord testing in [facility] has been negative, , computed tomography scan positive for developing pneumonia, patient has WBC count of 27,000 has been started on broad-spectrum antibiotics,labs from today is pending patient remains on 5 L oxygen, her temperature is 97, saturation is 93%, more dynamically stable, FiO2 down to 5 L from 15 L high flow oxygen x-ray performed todayshowing patchy infiltrate left greater than the right, her covid test came back negative, Objective - Vital Signs Vital signs: Vital Signs Temp 98.1 F 05/27/20 07:58 Pulse 76 05/27/20 07:58 Resp 16 05/27/20 07:58 BP 77/41 05/27/20 07:58 Pulse Ox 97 05/27/20 07:58 Intake & Output 05/26/20 05/27/20 05/27/20 18:59 06:59 18:59 Intake Total 1920 Output Total 1 301 Balance 1919 -301 Weight 47.5 kg Intake: Oral 1919 Output: Urine 300 Stool 1 1 Other: Voiding Method Diaper Diaper Indwelling Catheter Indwelling Catheter # Bowel Movements 1 1 - Exam - Constitutional General appearance: average body habitus, cooperative, disheveled - EENT Eyes: PERRLA Ears: bilateral: normal - Neck Neck: normal ROM Carotids: bilateral: upstroke normal - Respiratory Respiratory: bilateral: Bilateral wheezing with dullness to percussion reduced air entry at the bases - Cardiovascular Rhythm: regular Heart sounds: normal: S1, S2 - Neurologic Neurologic: CNII-XII intact - Musculoskeletal Musculoskeletal: gait normal, generalized weakness, strength equal bilaterally - Psychiatric Psychiatric: A&O x's 3, appropriate affect, intact judgment & insight - Labs CBC & Chem 7: 05/27/20 04:53 05/24/20 05:58 Labs: Abnormal Lab Results - Last 24 Hours (Table) 05/26/20 05/26/20 05/26/20 Range/Units 11:48 16:58 20:25 WBC (3.8-10.6) k/uL RBC (3.80-5.40) m/uL Hgb (11.4-16.0) gm/dL Hct (34.0-46.0) % MCHC (31.0-37.0) g/dL RDW (11.5-15.5) % Neutrophils # (1.3-7.7) k/uL Lymphocytes # (1.0-4.8) k/uL POC Glucose (mg/dL) 232 H 194 H 197 H (75-99) mg/dL Crossmatch 05/27/20 05/27/20 05/27/20 Range/Units 04:53 06:08 08:49 WBC 23.4 H (3.8-10.6) k/uL RBC 2.76 L (3.80-5.40) m/uL Hgb 7.6 L (11.4-16.0) gm/dL Hct 24.7 L (34.0-46.0) % MCHC 30.8 L (31.0-37.0) g/dL RDW 17.8 H (11.5-15.5) % Neutrophils # 22.8 H (1.3-7.7) k/uL Lymphocytes # 0.2 L (1.0-4.8) k/uL POC Glucose (mg/dL) 157 H (75-99) mg/dL Crossmatch See Detail Microbiology - Last 24 Hours (Table) 05/20/20 18:46 Blood Culture - Final Blood No Growth after 144 hours 05/20/20 18:44 Blood Culture - Final Blood No Growth after 144 hours Assessment and Plan Assessment: GI bleed upper versus lower Leukocytosis bilateral effusion bilateral pneumonia acute blood loss anemia with heme positive stool Acute hypoxic respiratory failure Sepsis due to pneumonia Hypertension and hypertensive cardiovascular disease COPD Plan: Proceed with a right thoracentesis Oxygen to be titrated down as tolerated Endoscopy later on today/tomorrow Continue broad-spectrum antibiotics Breathing treatments Supplemental oxygen Deep breathing exercise Further recommendations pending plan of care as per clinical response of the patient IV steroids Reviewed follow-up chest x-ray along with ultrasound Time with Patient: Greater than 30
--- NOTE | 2020-05-27 11:12 | P.PCN ---
Date of Procedure: 05/27/20 Preoperative Diagnosis: Bilateral pleural effusion Postoperative Diagnosis: As above Procedure(s) Performed: Right thoracentesis Anesthesia: local Surgeon: Josesito Barbour Estimated Blood Loss (ml): 0 Condition: stable Disposition: floor Indications for Procedure: Shortness of breath and acute on chronic hypoxic respiratory failure bilateral pleural effusion GI bleed Operative Findings: As below Description of Procedure: Patient prepared and draped in the usual fashion, ultrasound used to confirm the location of fluid, patient explained about the procedure including risk alternative and complication, noted at the beginning of procedure saturation were just 85% oxygen increased to 10 L again, at eighth intercostal space one percent lidocaine was given after obtaining adequate local anesthesia gauge 24 needle was introduced into the skin above margin of the rib, noted aspiration of air instead of fluid, went one rib is to use above same aspiration of air noted procedure canceled a stat portable chest x-ray ordered
--- NOTE | 2020-05-27 11:36 | XR ---
EXAMINATION TYPE: XR chest 1V portable DATE OF EXAM: 05/27/2020 COMPARISON: 05/25/2020 INDICATION: Thoracentesis right lung TECHNIQUE: Frontal and lateral views of the chest are obtained. FINDINGS: The heart size is normal. The pulmonary vasculature is normal. Small bilateral pleural effusions are present.. There is a small to moderate size new pneumothorax estimated at 25% at the right apex. IMPRESSION: 1. Small to moderate right apical pneumothorax. 2. Small bilateral pleural effusions. A Red level critical message alert has been initiated for Josesito Angle via the [employer] Critical Results System on 05/27/2020 11:33 AM. This message alert has been sent to Josesito Ali via the [employer] talat provided by the clinician for the receipt of Radiology Critical Findings. Message ID [id number].
[2020-05-27] MEDS ORDERED: FUROSEMIDE 10 MG/ML 2 ML VIAL IV ONE (11:46)
[2020-05-27 12:12] LABS: Glucose,Whole Blood 135 mg/dL (75-99)
[2020-05-27 14:08] VITALS: BP 120/59; PULSE 77; RESP 22; TEMP 97.5
--- NOTE | 2020-05-27 14:10 | P.PN ---
Subjective Progress Note Date: 05/27/20 HISTORY OF PRESENT ILLNESS: 05/24/2020 This is a 80-year-old female with a past medical history significant for COPD, atrial fibrillation/flutter, diabetes mellitus, hypertension, and hyperlipidemia. Patient follows in the office with Dr. López. We have been asked to see the patient in consultation for atrial fibrillation. Patient examined at the bedside. Patient is currently admitted to the hospital secondary to bilateral pneumonia. She is receiving IV Zosyn. Patient went into atrial fibrillation yesterday with mildly uncontrolled ventricular rate in the 110s. Patient has a history of atrial fibrillation and is currently anticoagulated with Eliquis. Patient's hemoglobin 8.7 on admission. Her hemoglobin yesterday was 6.3. She received RBC transfusion. Repeat hemoglobin today is 8.4. At the time of examination, she is maintaining sinus mechanism on telemetry. Heart rate is in the 80s. She denies chest pain or pressure. She denies feeling palpitations. She reports mild shortness of breath at the time of examination. EKG sinus mechanism on admission, repeat EKG reveals atrial fibrillation with mildly uncontrolled ventricular rate Chest xray COPD and continued small effusions with adjacent patchy infiltrates, left greater than right Laboratory data: WBC 15.9. Hemoglobin 8.4. Platelet count 122. Sodium 142. Potassium 3.8. BUN 39. Creatinine 0.46. Current home cardiac medications include Silenafil 20 mg 3 times a day, Cardizem 30 mg 3 times a day, Eliquis 5 mg twice a day, amiodarone 200 mg twice a day, Lipitor 20 mg daily and Lasix 20 mg daily Most recent echocardiogram obtained in April 2020 reveals ejection fraction of 55-60%, mild mitral regurgitation, moderate to severe tricuspid regurgitation, and severe pulmonary hypertension Cardiac catheterization history: 05/13/[address] López. Patient underwent right heart cath revealing moderate pulmonary hypertension, no evidence of left- sided failure, and normal cardiac output. 05/25/2020 Patient examined at the bedside. She denies chest pain or pressure. She continues to report shortness of breath. She is currently on 10 L nasal cannula with oxygen saturations greater than 92%. Telemetry reveals sinus mechanism. Patient Eliquis remains on hold. Hemoglobin 9.0. 05/26/2020 Patient examined this morning at the bedside. She reports intermittent shortness of breath. She is on 8 L nasal cannula with oxygen saturations greater than 92%. She currently denies chest pain or pressure. Hemoglobin 8.3. Eliquis remains on hold. 05/27/2020 Patient examined this morning at the bedside. She denies chest pain or pressure. She reports shortness of breath. Per nursing, patient had multiple episodes of dark stools throughout the night. Patient's blood pressure this mor fermin is 77/40. Hemoglobin is 7.6. She is due to receive RBC transfusion today. PHYSICAL EXAM: VITAL SIGNS: Reviewed. GENERAL: Well-developed in no acute distress. HEENT: Head is normocephalic. Pupils are equal, round. Sclerae anicteric. Mucous membranes of the mouth are moist. Neck supple. No JVD or thyromegaly LUNGS: Respirations even and unlabored. Lungs with decreased air exchange and scattered rhonchi noted. HEART: Regular rate and rhythm. S1 and S2 heard. Systolic murmur noted. ABDOMEN: Soft. Nondistended. Nontender. EXTREMITIES: Normal range of motion. No clubbing or cyanosis. Peripheral pulses intact. No lower extremity edema NEUROLOGIC: Awake and alert. Oriented x 3. ASSESSMENT: Bilateral pneumonia Acute hypoxic respiratory failure requiring supplemental oxygen Acute exacerbation of COPD Paroxysmal atrial fibrillation, on anticoagulation with Eliquis, currently maintaining sinus mechanism Acute on chronic anemia GI bleed Pulmonary hypertension Valvular heart disease: Mild mitral regurgitation and moderate to severe tricus pid regurgitation Hyperlipidemia Hypertension Diabetes mellitus Former nicotine dependence, patient quit smoking 20 years ago, was 2 PPD smoker PLAN: Continue to hold Eliquis Hold morning cardiac medications secondary to hypotension 250 mL normal saline bolus Patient to receive RBC transfusion today Monitor hemoglobin Spoke with patient at length this morning regarding CODE STATUS. Patient wishes to be a DO NOT RESUSCITATE. This was discussed with Dr. Garcia who is annia nassar. DO NOT RESUSCITATE order entered. We will sign off. Please reconsult if needed. Nurse practitioner note has been reviewed by physician. Signing provider agrees with the documented findings, assessment, and plan of care. Objective - Vital Signs Vital signs: Vital Signs Temp 97.4 F L 05/27/20 12:26 Pulse 80 05/27/20 12:22 Resp 16 05/27/20 12:22 BP 111/63 05/27/20 12:22 Pulse Ox 96 05/27/20 12:22 Intake & Output 05/26/20 05/27/20 05/27/20 18:59 06:59 18:59 Intake Total 1920 310 Output Total 1 301 1 Balance 1919 -301 309 Weight 47.5 kg Intake: Oral 1920 Blood Product 310 Rc As-1 Unit 310 [id number] Output: Urine 300 Stool 1 1 1 Other: Voiding Method Diaper Diaper Diaper Indwelling Catheter Indwelling Catheter Indwelling Catheter # Bowel Movements 1 1 - Labs CBC & Chem 7: 05/27/20 04:53 05/24/20 05:58 Labs: Abnormal Lab Results - Last 24 Hours (Table) 05/26/20 05/26/20 05/27/20 Range/Units 16:58 20:25 04:53 WBC 23.4 H (3.8-10.6) k/uL RBC 2.76 L (3.80-5.40) m/uL Hgb 7.6 L (11.4-16.0) gm/dL Hct 24.7 L (34.0-46.0) % MCHC 30.8 L (31.0-37.0) g/dL RDW 17.8 H (11.5-15.5) % Neutrophils # 22.8 H (1.3-7.7) k/uL Lymphocytes # 0.2 L (1.0-4.8) k/uL POC Glucose (mg/dL) 194 H 197 H (75-99) mg/dL Crossmatch 05/27/20 05/27/20 05/27/20 Range/Units 06:08 08:49 12:06 WBC (3.8-10.6) k/uL RBC (3.80-5.40) m/uL Hgb (11.4-16.0) gm/dL Hct (34.0-46.0) % MCHC (31.0-37.0) g/dL RDW (11.5-15.5) % Neutrophils # (1.3-7.7) k/uL Lymphocytes # (1.0-4.8) k/uL POC Glucose (mg/dL) 157 H 135 H (75-99) mg/dL Crossmatch See Detail Microbiology - Last 24 Hours (Table) 05/20/20 18:46 Blood Culture - Final Blood No Growth after 144 hours 05/20/20 18:44 Blood Culture - Final Blood No Growth after 144 hours
--- NOTE | 2020-05-27 14:43 | XR ---
EXAMINATION TYPE: XR chest 1V DATE OF EXAM: 05/27/2020 COMPARISON: 05/27/2020 INDICATION: Pneumothorax TECHNIQUE: Single frontal view of the chest is obtained. FINDINGS: The heart size is normal. The pulmonary vasculature is normal. Bibasilar infiltrates are present. Minimal pleural effusions are present. There is a right apical pneumothorax which has diminished over the interval is estimated at 20%. IMPRESSION: 1. Diminished 20% pneumothorax right apex
--- NOTE | 2020-05-27 15:13 | P.PN ---
Subjective Progress Note Date: 05/27/20 (Critical care note 35 minutes) Principal diagnosis: Persistent GI bleed Hypovolemic shock bilateral pneumonia Acute hypoxic respiratory failure Right-sided pneumothorax Sepsis due to pneumonia Hypertension and hypertensive cardiovascular disease COPD 05/27/2020, critical care time 35 minutes, patient seen and evaluated examined multiple times today, before procedure oxygen saturation dropped down to 84%, FiO2 increased to 12 L, patient continued to have GI bleed with maroon stools now, blood pressure marginal but patient is awake and alert she wants to proceeds with a right thoracentesis, so her oxygen can improve, as during right- sided thoracentesis of the ear was aspirated procedure stopped, I stat portable chest x-ray obtained which show small right-sided pneumothorax patient denies any chest pain continued to be hypoxic with sats of 80-84%, on 12 L, hemody namics are marginal, patient had another GI bleed, I unit of packed RBC is being given with 20 of Lasix afterwards, care plan discussed with primary service daughter as well as Dr. Garcia from interventional radiology patient plan for small pigtail catheter, advanced per second discussion with Dr. Garcia from INR patient cannot lay supine on CT scanner and has been on highly amount of oxygen a chest tube/pigtail catheter cannot be performed, these issues were discussed with primary service, patient was assessed again remains pain-free, saturation in mid 80s, a bedside for Thoravent or small chest tube was considered but given patient and daughter requested no further intervention they want hospice, discussed by primary service with the family so chest tube or 4 Thoravent has been canceled agree with comfort care supportive measures with hospice overall prognosis very poor even with all those interventions that were considered previously, will cancel the chest tube agree with supportive and comfort care follow clinical course closely, critical care time 35 minutes 05/27/2020, patient seen and evaluated examined during the rounds off of direct or uncontrolled anticoagulants for wart 48 hours, patient is still have intermittent loose stool mixed with blood, heme positive, patient is running a low blood pressure she is arousable she has received a fluid bolus she consented for the right thoracentesis to be done today remains on 8 L oxygen saturation is mid 90s, last set of blood pressure was 90/50, last hemoglobin was 7.6 white cell count is 23,000 patient is to get 1 unit of packed RBC, patient is no code overall plan is to do the right side thoracentesis and titrate oxygen down further stabilize her to undergo endoscopy 05/26/2020, patient seen eval reexamined during the rounds labs reviewed medications reviewed remains very short of breath, remains on 9 L oxygen unable to taper down, hemoglobin marginal but stable, patient is being considered for EGD endoscopy and colonoscopy however given marginal respiratory status would recommend to hold it, ultrasound of the chest reviewed bilateral pleural effusion is present which is a significant amount given that patient has been receiving her liquids until day before yesterday was hold on doing the thoracentesis however we'll perform right-sided tomorrow in the left-sided day after tomorrow in the meantime continue supportive care continue PPI along with broad-spectrum antibiotics, 05/25/2020, patient seen eval examined during the rounds labs reviewed medications reviewed care plan discussed, respiratory status slightly better today but however unclear reason patient is on 10 L oxygen off from 8 L, care p verena discussed with the respiratory therapist and nurses as well, plan to titrate oxygen down, patient has microcytic anemia with heme positive stool status post transfusion with packed RBC,patient is being considered for EGD and colonoscopy once medically stable, chest x-ray performed today showing slight worsening of bilateral pneumonia versus effusion will check ultrasound of the chest 05/24/2020, patient seen eval examined during the rounds labs reviewed medications reviewed care plan discussed, patient is now down to 8 L oxygen, get short of breath on activity and exertion does have cough congestion, patient remains on IV steroids along with breathing treatments and broad-spectrum antib iotics including Zosyn and Zithromax, and cell count is up to 15,900, BUN/creatinine 39 and 0.46, patient is a 80 year-old extended care facility patient, patient came to the hospital with increasing shortness of breath, oxygen saturation was in 80%, prior medical history significant for heart failure and COPD he quit smoking more than 20 years ago, her cord testing in [place] has been negative, , computed tomography scan positive for developing pneumonia, patient has WBC count of 27,000 has been started on broad-spectrum antibiotics,labs from today is pending patient remains on 5 L oxygen, her temperature is 97, saturation is 93%, more dynamically stable, FiO2 down to 5 L from 15 L high flow oxygen x-ray performed todayshowing patchy infiltrate left greater than the right, her covid test came back negative, Objective - Vital Signs Vital signs: Vital Signs Temp 97.5 F L 05/27/20 14:06 Pulse 77 05/27/20 14:06 Resp 22 05/27/20 14:06 BP 120/59 05/27/20 14:06 Pulse Ox 91 L 05/27/20 14:06 Intake & Output 05/26/20 05/27/20 05/27/20 18:59 06:59 18:59 Intake Total 1920 310 Output Total 1 301 1 Balance 1919 -301 309 Weight 47.5 kg Intake: Oral 0 Blood Product 310 Rc As-1 Unit 310 [id number] Output: Urine 300 Stool 1 1 1 Other: Voiding Method Diaper Diaper Diaper Indwelling Catheter Indwelling Catheter Indwelling Catheter # Bowel Movements 1 1 - Labs CBC & Chem 7: 05/27/20 04:53 05/24/20 05:58 Labs: Abnormal Lab Results - Last 24 Hours (Table) 05/26/20 05/26/20 05/27/20 Range/Units 16:58 20:25 04:53 WBC 23.4 H (3.8-10.6) k/uL RBC 2.76 L (3.80-5.40) m/uL Hgb 7.6 L (11.4-16.0) gm/dL Hct 24.7 L (34.0-46.0) % MCHC 30.8 L (31.0-37.0) g/dL RDW 17.8 H (11.5-15.5) % Neutrophils # 22.8 H (1.3-7.7) k/uL Lymphocytes # 0.2 L (1.0-4.8) k/uL POC Glucose (mg/dL) 194 H 197 H (75-99) mg/dL Crossmatch 05/27/20 05/27/20 05/27/20 Range/Units 06:08 08:49 12:06 WBC (3.8-10.6) k/uL RBC (3.80-5.40) m/uL Hgb (11.4-16.0) gm/dL Hct (34.0-46.0) % MCHC (31.0-37.0) g/dL RDW (11.5-15.5) % Neutrophils # (1.3-7.7) k/uL Lymphocytes # (1.0-4.8) k/uL POC Glucose (mg/dL) 157 H 135 H (75-99) mg/dL Crossmatch See Detail Microbiology - Last 24 Hours (Table) 05/20/20 18:46 Blood Culture - Final Blood No Growth after 144 hours 05/20/20 18:44 Blood Culture - Final Blood No Growth after 144 hours Assessment and Plan Assessment: Hypovolemic shock GI bleed upper versus lower Leukocytosis bilateral effusion bilateral pneumonia Right-sided pneumothorax acute blood loss anemia with heme positive stool Acute hypoxic respiratory failure Sepsis due to pneumonia Hypertension and hypertensive cardiovascular disease COPD Plan: Agree with comfort care measures will follow as needed Time with Patient: Greater than 30
--- NOTE | 2020-05-27 22:55 | P.DS ---
Providers Date of admission: 05/20/20 18:39 Expected date of discharge: 05/27/20 Attending physician: Ishmael Garcia Consults: 05/21/20 12:52 Consult Physician Routine Consulting Provider: Josesito Barbour Consult Reason/Comments: copd Do you want consulting provider notified?: Yes 05/23/20 17:35 Consult Physician Stat Consulting Provider: [facility] Consult Reason/Comments: new onset afib Do you want consulting provider notified?: Yes 05/23/20 22:17 Consult Physician Routine Consulting Provider: Mikala Villegas Consult Reason/Comments: Anemia Do you want consulting provider notified?: Yes 05/27/20 11:36 Consult Physician Stat Consulting Provider: Devyn Garcia Consult Reason/Comments: pneumothorax Do you want consulting provider notified?: Yes Primary care physician: [facility] Course: Chief Complaint: Short of breath History of presenting complaint: This is a pleasant 80-year-old patient of Dr. Carrillo. Chronic stable medical conditions include diabetes, hypertension, hyperlipidemia, peripheral neuropathy, osteoarthritis, paroxysmal atrial flutter for which patient anticoagulation currently in sinus rhythm. Patient now presents with progressive weakness. Significant cough congested not able to expectorate. Some wheezing. No fever no chills. Decreased appetite. Patient had abdominal distention earlier was found to have urinary retention and Banegas catheter be placed. Patient also has some edema on presentation that has gone down. Admitted with bilateral pneumonia started on IV Zosyn. Acute COPD exacerbation put on nebulizers, steroids. went into atrial fibrillation with rapid ventricular rate. Reverted back to normal. Cardiology was consulted. Hemoglobin did drop to 6.3. Given unit of blood. Today-Dr. Barbour did attempt thoracentesis. Developed a pneumothorax. Procedure abandoned Patient remains short of breath. Barely eating. Tired. Spoke to the daughter and the patient. Agreeable to proceed with being hospice. Spoke to the nurse and hospice nurse. Discussion and discharge planning more than 35 minutes Past medical history to include: COPD, diabetes, hypertension, hyperlipidemia, atrial flutter, paroxysmal Social history: Lives alone. Does use a cane. Smokes about 2 packs a day for 40 years stopped about 20 years ago. No alcohol Physical examination: VITAL SIGNS: 97.5, 85, 32, 106/48, 89% on 10 L high flow GENERAL reclining, tired, short of breath. [ Loss of subcu fat and muscle mass] EYES: Pupils equal. Conjunctiva normal. HEENT: External appearance of nose and ears normal, oral cavity grossly normal. NECK: JVD not raised; masses not palpable. HEART: First and second heart sounds are normal; minimal edema. LUNGS: Respiratory rate increased, diminished breath sounds prolonged expiration ABDOMEN: Soft, nontender, liver spleen not palpable, no masses palpable. PSYCH: Alert and oriented x3; mood and affect anxious MUSCULAR skeletal: Evidence of OA INVESTIGATIONS, reviewed in the clinical context: May 27: WBC 23.4 hemoglobin 7.6 May 26: WBC 25.8 hemoglobin 8.3 platelets 173 May 25: WBC 28.4 hemoglobin 9 platelets 143 Chest x-ray worsening infiltrates May 24: WBC 15.9 hemoglobin 8.4 platelets 122 potassium 3.8 creatinine 0.46 I and 16 TIBC 242% saturation 6.6 April 24: Pro-calcitonin 0.22 WBC 27.7 hemoglobin 8.7 platelets 141 d-dimer 1.35 potassium 3.7 bun 36 creatinine 0.49 troponin I 0.025 albumin 2.7 Coronavirus [PCR]-not detected EKG tracing personally reviewed by me-normal sinus rhythm P pulmonale some nonspecific T-wave changes Chest x-ray film personally reviewed by me-hyperinflated, bilateral infiltrates, pleural effusion Blood cultures-negative Assessment and plan: -Bilateral pneumonia, suspect gram-negative organism, patient is on IV Zosyn.- not improving. -Acute COPD exacerbation in an previous smoker. DuoNeb, IV Solu-Medrol, long- acting beta agonist and inhaled steroids. Not improving -Acute hypoxic respiratory failure from pneumonia COPD, worsening remains on 10 L of oxygen -Severe protein calorie malnutrition with a BMI of 16.1 from decreased oral intake and nutritional supplement. Dietitian consulted -Diabetes mellitus type 2 on oral hypoglycemic. Follow Accu-Cheks. Uncontrolled with hyperglycemia secondary to steroids -Hyperlipidemia continue with Lipitor -Paroxysmal atrial flutter fibrillation currently in sinus rhythm , on eliquis and amiodarone. Rapid ventricular rate , went back into sinus rhythm. Cardiology consulted -Primary osteoarthritis continue with Celebrex [currently held] -Normocytic anemia symptomatic with hemoglobin of 6.3. Transfuse unit of blood. Repeat hemoglobin 9 -Acute GI bleed with dark stools.. Patient had been on eliquis, Celebrex, steroids. Patient is a high risk from a respiratory standpoint to undergo endoscopy at present time. Disposition: Inpatient hospice/GIP Advanced care planning: Had a lengthy talk with the patient. She is agreeable to proceed with hospice. She understands her condition is poor prognosis is poor. Not improving. She is agreeable to hospice coming in and starting care. Also spoke to patient's daughter the queen over the phone. She is agreeable to the same. Directions were given to the nurse and spoke to the hospice nurse. Advanced care planning spent about 20 minutes Patient Condition at Discharge: Poor Plan - Discharge Summary Discharge Rx Participant: No New Discharge Prescriptions: No Action Fluticasone/Umeclidin/Vilanter [Trelegy Ellipta 100-62.5-25] 1 puff INHALATION RT-DAILY@0900 Albuterol Inhaler [Ventolin Hfa Inhaler] 2 puff INHALATION RT-Q6H PRN PRN Reason: Shortness Of Breath metFORMIN HCL [Glucophage Xr] 500 mg PO DAILY@0900 Celecoxib [CeleBREX] 200 mg PO DAILY@0900 Atorvastatin [Lipitor] 20 mg PO HS@2100 guaiFENesin-DM 100-10MG/5ML [Robitussin DM] 10 ml PO Q6H PRN ml PRN Reason: Cough Furosemide [Lasix] 20 mg PO DAILY@0900 Gabapentin [Neurontin] 300 mg PO HS@2100 predniSONE See Taper PO DIRECTED Amiodarone [Cordarone] 200 mg PO BID@0900,2100 Apixaban [Eliquis] 5 mg PO BID@0900,2100 Ferrous Sulfate [Iron (65 MG Elemental)] 325 mg PO BID@0900,2100 Diltiazem Oral [Cardizem*] 30 mg PO TID@0900,1300,2100 Sildenafil [Revatio] 20 mg PO TID@0900,1300,2100 Discharge Medication List Albuterol Inhaler [Ventolin Hfa Inhaler] 2 puff INHALATION RT-Q6H PRN 05/07/20 [History] Atorvastatin [Lipitor] 20 mg PO HS@2100 05/07/20 [History] Celecoxib [CeleBREX] 200 mg PO DAILY@0900 05/07/20 [History] Fluticasone/Umeclidin/Vilanter [Trelegy Ellipta 100-62.5-25] 1 puff INHALATION RT-DAILY@89905/07/20 [History] metFORMIN HCL [Glucophage Xr] 500 mg PO DAILY@89905/07/20 [History] guaiFENesin-DM 100-10MG/5ML [Robitussin DM] 10 ml PO Q6H PRN ml 05/19/20 [Rx] Amiodarone [Cordarone] 200 mg PO BID@899,209905/20/20 [History] Apixaban [Eliquis] 5 mg PO BID@0900,209905/20/20 [History] Diltiazem Oral [Cardizem*] 30 mg PO TID@0900,1300,209905/20/20 [History] Ferrous Sulfate [Iron (65 MG Elemental)] 325 mg PO BID@0900,209905/20/20 [History] Furosemide [Lasix] 20 mg PO DAILY@89905/20/20 [History] Gabapentin [Neurontin] 300 mg PO HS@209905/20/20 [History] Sildenafil [Revatio] 20 mg PO TID@0900,1300,209905/20/20 [History] predniSONE See Taper PO DIRECTED 05/20/20 [History] Follow up Appointment(s)/Referral(s): Lenny Zamarripa MD [Primary Care Provider] - 1-2 days Josesito Barbour MD [STAFF PHYSICIAN] - 1 Week Discharge Disposition: DISCH TO [facility]
--- NOTE | 2020-05-28 06:51 | CDI ---
Documentation Clarification Form Date: 05/28/2020 06:36:00 AM From: Laura Ching Phone: If you have a question about this query, please contact Denise Garcia, Sunglass Clip Attacher at [phone] between 8am and 5pm. Admit Date: 05/20/2020 06:39:00 PM Patient Name: Amanda Rivera Visit Number: [id number] Discharge Date: 05/27/2020 02:31:00 PM ATTENTION: The Clinical Documentation Specialists (CDI) and [facility] Coding Staff appreciate your assistance in clarifying documentation. Please respond to the clarification below the line at the bottom and electronically sign. The CDI & [facility] Coding staff will review the response and follow-up if needed. Please note: Queries are made part of the Legal Health Record. If you have any questions, please contact the author of this message via ITS. Dr. Ishmael Garcia ED notes document patient diagnosed with sepsis. Pulmonary consult and all PN's through chart document patient with sepsis. Your notes do not include the documentation of sepsis with possibly gram negative pneumonia. Please clarify if patient had sepsis or was it ruled out. History/Risk Factors: gram negative pneumonia, hypoxic respiratory failure WBC: 27.7 Lactic acid: 1.7 Vitals signs: 98.0 F, 92 bpm, 24, 141/69, 82% RA Treatment: IV Zosyn In your professional opinion, please clarify if these findings signify one of the following conditions: [ ] Sepsis POA [ ] Sepsis, Not POA [ ] Sepsis ruled out [ ] Severe Sepsis with organ failure [ ] Septic Shock [ ] SIRS, without underlying infectious process [ ] Other, please specify [ ] Unable to determine SIRS Criteria: 2 or more of the following may indicate SIRS Temperature < 96.8F (36C) or > 101.0F (38.3C) Heart Rate > 90 bpm Respiratory Rate > 20 breaths/min or PaCO2 < 32 mmHg White Blood Cell Count > 12,000 or < 4,000 cells/mm3 or > 10% Sepsis, POA MTDD
== END 2020-05-27 14:31 | disposition hospice, inpatient (51) | DRG 871 ==
LOC: EC 13:33 → 4SSUR 18:39 → 3SCARD 05-23 18:55
PROVIDERS: ADMIT Hospitalist; ATTEND Hospitalist
PROC: 30233N0 Transfusion of Autologous Red Blood Cells into Peripheral Vein, Percutaneous Approach (ICD-10-PCS; principal; 2020-05-23)
PROC: 0W993ZZ Drainage of Right Pleural Cavity, Percutaneous Approach (ICD-10-PCS; 2020-05-27)
DX: A41.50 Gram-negative sepsis, unspecified (principal); J15.6 Pneumonia due to other Gram-negative bacteria; E43 Unspecified severe protein-calorie malnutrition; J96.21 Acute and chronic respiratory failure with hypoxia; R57.1 Hypovolemic shock; D62 Acute posthemorrhagic anemia; K92.1 Melena; Z68.1 Body mass index [BMI] 19.9 or less, adult; I48.92 Unspecified atrial flutter; J44.0 Chronic obstructive pulmonary disease with (acute) lower respiratory infection; J44.1 Chronic obstructive pulmonary disease with (acute) exacerbation; J90 Pleural effusion, not elsewhere classified; J93.9 Pneumothorax, unspecified; D50.9 Iron deficiency anemia, unspecified; I50.9 Heart failure, unspecified; I27.20 Pulmonary hypertension, unspecified; I11.0 Hypertensive heart disease with heart failure; E11.42 Type 2 diabetes mellitus with diabetic polyneuropathy; E11.65 Type 2 diabetes mellitus with hyperglycemia; Z20.822 Contact with and (suspected) exposure to COVID-19; Z66 Do not resuscitate; Z51.5 Encounter for palliative care; T38.0X5A Adverse effect of glucocorticoids and synthetic analogues, initial encounter; E78.5 Hyperlipidemia, unspecified; I48.0 Paroxysmal atrial fibrillation; M19.91 Primary osteoarthritis, unspecified site; I08.1 Rheumatic disorders of both mitral and tricuspid valves; Z79.01 Long term (current) use of anticoagulants; Z79.1 Long term (current) use of non-steroidal anti-inflammatories (NSAID); Z79.84 Long term (current) use of oral hypoglycemic drugs; Z79.899 Other long term (current) drug therapy; Z87.891 Personal history of nicotine dependence; Z90.710 Acquired absence of both cervix and uterus; Z60.2 Problems related to living alone; M19.90 Unspecified osteoarthritis, unspecified site
CPT/HCPCS: 36415; 71045; 71046; 71275; 76604; 80048; 80053; 82272; 82607; 82728; 83540; 83550; 83605; 83880; 84145; 84484; 85025; 85027; 85379; 85610; 85730; 86850; 86900; 86901; 86920; 87040; 87635; 93005; 94640; 94667; 94668; 94760; 96365; 96367; 96375; 99291

== ENCOUNTER 2020-05-27 14:03 | Inpatient (IN) | payer MEDICAID ==
[2020-05-27] MEDS ORDERED: LORazepam 2 MG/ML INJ IV PRN (14:23)
[2020-05-27] MEDS ORDERED: ACETAMINOPHEN SUPPOSITORY 650 MG SUPP RECTAL PRN (14:23)
[2020-05-27] MEDS ORDERED: ATROPINE OPHTH SOLN 1% 5ML BTL SUBLINGUAL PRN (14:23)
[2020-05-27] MEDS ORDERED: GLYCOPYRROLATE 0.2 MG/ML 2 ML VIAL IVP PRN (14:23)
[2020-05-27 14:47] VITALS: BMI 16.9
[2020-05-27] MEDS: MORPHINE SULFATE 2 MG/ML SYRINGE IV PRN ×2 (15:39→18:30)
[2020-05-27] MEDS: SODIUM CHLORIDE 0.9% 1,000 ML IV SCH (15:43)
[2020-05-27] MEDS: SCOPOLAMINE 1.5MG/72HR PATCH TRANSDERM SCH (17:40)
[2020-05-28] MEDS: MORPHINE SULFATE 2 MG/ML SYRINGE IV PRN ×2 (03:34→14:26)
[2020-05-28] MEDS: SODIUM CHLORIDE 0.9% 1,000 ML IV SCH (16:24)
[2020-05-29] MEDS: MORPHINE SULFATE 2 MG/ML SYRINGE IV PRN ×2 (00:35→10:00)
[2020-05-29] MEDS: MORPHINE SULFATE (100 MG/2 ML) 100 MG in SODIUM CHLORIDE 0.9% 100 ML IV SCH (11:02)
[2020-05-30] MEDS: SODIUM CHLORIDE 0.9% 1,000 ML IV SCH (00:05)
[2020-05-30] MEDS: SCOPOLAMINE 1.5MG/72HR PATCH TRANSDERM SCH (18:23)
[2020-05-31] MEDS: SODIUM CHLORIDE 0.9% 1,000 ML IV SCH (04:12)
[2020-05-31 11:31] VITALS: TEMP 98.3
[2020-06-01] MEDS: SODIUM CHLORIDE 0.9% 1,000 ML IV SCH (01:48)
[2020-06-01 04:01] VITALS: RESP 10
[2020-06-01] MEDS: MORPHINE SULFATE (100 MG/2 ML) 100 MG in SODIUM CHLORIDE 0.9% 100 ML IV SCH (04:59)
[2020-06-01 11:46] VITALS: BP 42/23
[2020-06-01 12:40] VITALS: PULSE 0
--- NOTE | 2020-06-03 14:49 | P.DS ---
Providers Date of admission: 05/27/20 14:34 Expected date of discharge: 06/01/20 (Patient ) Attending physician: Ishmael Garcia Primary care physician: Stated None Hospital Course: Patient admitted to GI P/hospice inpatient service for symptom control. Comfort Care packet was used. Family was present. Patient succumbed underlying condition. Cause of : Pneumonia Plan - Discharge Summary New Discharge Prescriptions: No Action Fluticasone/Umeclidin/Vilanter [Trelegy Ellipta 100-62.5-25] 1 puff INHALATION RT-DAILY@0900 Albuterol Inhaler [Ventolin Hfa Inhaler] 2 puff INHALATION RT-Q6H PRN PRN Reason: Shortness Of Breath metFORMIN HCL [Glucophage Xr] 500 mg PO DAILY@0900 Celecoxib [CeleBREX] 200 mg PO DAILY@0900 Atorvastatin [Lipitor] 20 mg PO HS@2100 guaiFENesin-DM 100-10MG/5ML [Robitussin DM] 10 ml PO Q6H PRN ml PRN Reason: Cough Furosemide [Lasix] 20 mg PO DAILY@0900 Gabapentin [Neurontin] 300 mg PO HS@2100 predniSONE See Taper PO DIRECTED Amiodarone [Cordarone] 200 mg PO BID@0900,2100 Apixaban [Eliquis] 5 mg PO BID@0900,2100 Ferrous Sulfate [Iron (65 MG Elemental)] 325 mg PO BID@0900,2100 Diltiazem Oral [Cardizem*] 30 mg PO TID@0900,1300,2100 Sildenafil [Revatio] 20 mg PO TID@0900,1300,2100 Discharge Medication List Albuterol Inhaler [Ventolin Hfa Inhaler] 2 puff INHALATION RT-Q6H PRN 05/07/20 [History] Atorvastatin [Lipitor] 20 mg PO HS@2100 05/07/20 [History] Celecoxib [CeleBREX] 200 mg PO DAILY@0905/07/20 [History] Fluticasone/Umeclidin/Vilanter [Trelegy Ellipta 100-62.5-25] 1 puff INHALATION RT-DAILY@0900 05/07/20 [History] metFORMIN HCL [Glucophage Xr] 500 mg PO DAILY@0905/07/20 [History] guaiFENesin-DM 100-10MG/5ML [Robitussin DM] 10 ml PO Q6H PRN ml 05/19/20 [Rx] Amiodarone [Cordarone] 200 mg PO BID@0900,209905/20/20 [History] Apixaban [Eliquis] 5 mg PO BID@0900,209905/20/20 [History] Diltiazem Oral [Cardizem*] 30 mg PO TID@0900,1300,209905/20/20 [History] Ferrous Sulfate [Iron (65 MG Elemental)] 325 mg PO BID@09,209905/20/20 [History] Furosemide [Lasix] 20 mg PO DAILY@89905/20/20 [History] Gabapentin [Neurontin] 300 mg PO HS@209905/20/20 [History] Sildenafil [Revatio] 20 mg PO TID@0900,1300,209905/20/20 [History] predniSONE See Taper PO DIRECTED 05/20/20 [History] Discharge Disposition: - Preliminary Cause of Preliminary Cause of : Pneumonia
== END 2020-06-01 14:03 | disposition expired | DRG 951 ==
LOC: 3SCARD 14:34
PROVIDERS: ADMIT Hospitalist; ATTEND Hospitalist
DX: Z51.5 Encounter for palliative care (principal); J15.6 Pneumonia due to other Gram-negative bacteria; J44.1 Chronic obstructive pulmonary disease with (acute) exacerbation; J44.0 Chronic obstructive pulmonary disease with (acute) lower respiratory infection; I48.92 Unspecified atrial flutter; Z87.891 Personal history of nicotine dependence; Z66 Do not resuscitate; E11.42 Type 2 diabetes mellitus with diabetic polyneuropathy; M19.91 Primary osteoarthritis, unspecified site; I48.0 Paroxysmal atrial fibrillation; Z60.2 Problems related to living alone; Z79.899 Other long term (current) drug therapy